=== PATIENT | male | born 1970 | race Caucasian/White ===

== ENCOUNTER 2016-03-15 16:45 | Inpatient (IN) | payer OTHER, MEDICARE ==
[~2016-03-15] VITALS: Ht 152.4 cm; Wt 103.4 kg
[~2016-03-15 16:45] MED LIST: ACEPHEN650 M1 PR; ACETAMINOPHEN325 M2 PO; BENADRYL25 MG PO; BISACODYL10 M1 RC; CALAN80 MG PO; CRANBERRY450 M1 PO; DEPAKOTE250 M1 PO; DEPAKOTE500 M1 PO; FLEET ENEMA133 ML RC; FUROSEMIDE20 M1 PO; MILK OF MA400 MG/52 PO; MULTI-DAY VITA1 EACH PO; XARELTO20 M2 PO
--- NOTE | 2016-03-15 16:57 | ED GENERAL ADULT ---
History of Present Illness General Chief Complaint: Chest Pain Stated Complaint: BIBA FOR CP, VOMITING Source: patient Exam Limitations: poor historian Vital Signs & Intake/Output Vital Signs & Intake/Output Vital Signs Date Time Temp Pulse Resp B/P Pulse O2 O2 Flow FiO2 Ox Delivery Rate 03/15 2302 100.3 137 21 146/88 94 Nasal 2.0L Cannula 03/15 2024 99.8 140 28 158/84 98 Nasal 2.0L Cannula 03/15 1702 98 Room Air 03/15 1700 97.6 148 20 148/92 98 Room Air Allergies Coded Allergies: No Known Allergies (01/31/16) Triage Nurses Notes Reviewed? yes Onset: Abrupt Duration: hour(s): Timing: recent history HPI: 03/15/16 5:20 PM SOB pmhx: SPINA BIFIDA This is a 45-year-old man who presents to the emergency department complaining of chest pain and difficulty breathing. The patient states he was in his usual state of health until earlier today when he developed difficulty breathing and chest pressure. The onset of the symptoms were abrupt, the duration was just today, the severity is significant as his symptoms required her to come to the emergency department for care. He has a past medical history is spina bifida. He is a poor historian. (SHAGUFTA SANDOVAL DO) Reconcile Medications Acetaminophen 325 MG TABLET 2 TAB PO Q4H PRN PAIN/TEMP>/100 (Reported) Cranberry Fruit Concentrate (Cranberry) 450 MG TABLET 1 TAB PO DAILY SUPPLEMENT (Reported) Diphenhydramine HCl (Benadryl) (Unknown Strength) CAPSULE (Unknown Dose) PO BID PRN ITCHING (Reported) Divalproex Sodium (Depakote) 250 MG TABLET.DR 250 MG PO DAILY UNKNOWN ( Reported) Furosemide 20 MG TABLET 1 TAB PO DAILY DIURETIC (Reported) Magnesium Hydroxide (Milk Of Magnesia) 400 MG/5 ML ORAL.SUSP 30 ML PO DAILY PRN CONSTIPATION (Reported) Multivitamin (Multi-Day Vitamins) 1 EACH TABLET 1 TAB PO DAILY SUPPLEMENT ( Reported) Verapamil (Calan) 80 MG TABLET 1 TAB PO DAILY UNKNOWN (Reported) (AARON CACERES,MOO) Past History Travel History Traveled to [place] past 21 day No Medical History Any Pertinent Medical History? see below for history Neurological: vertigo, weakness spina bifida ydrocephalus neuro genic bladder intellectual disability Cardiovascular: hypertension, DVT Gastrointestinal: ileus rectal bleeding Renal: UTI Endocrine: diabetes History of CDIFF: Yes Surgical History Surgical History: non-contributory Psychosocial History What is your primary language Pashto Family History Hx Contributory? No (SHAGUFTA SANDOVAL DO) Review of Systems Review of Systems Constitutional: Denies: fever. EENTM: Denies: visual changes. Respiratory: Reports: short of breath. Cardiovascular: Reports: chest pain. GI: Denies: abdominal pain. Genitourinary: Reports: no symptoms. Musculoskeletal: Reports: back pain. Skin: Denies: rash. Neurological/Psychological: Reports: weakness. Hematologic/Endocrine: Reports: no symptoms. (SHAGUFTA SANDOVAL DO) Physical Exam Physical Exam General Appearance: alert, awake, anxious, mild distress Head: normal appearance Eyes: Bilateral: normal appearance, PERRL, EOMI. Ears, Nose, Throat: normal pharynx Neck: normal inspection, supple, limited range of motion Respiratory: chest non-tender, no respiratory distress, decreased breath sounds Cardiovascular: regular rate/rhythm Peripheral Pulses: 4+ radial (R), 4+ radial (L) Gastrointestinal: soft, non-tender Back: decreased range of motion Extremities: pedal edema Neurologic/Psych: awake, alert, oriented x 3 Skin: intact, normal color, warm/dry Comments: He has a chronic indwelling Foster. Core Measures ACS in differential dx? Yes CVA/TIA Diagnosis: No Severe Sepsis Present: No Septic Shock Present: No (SHAGUFTA SANDOVAL DO) Progress Differential Diagnoses I considered the following diagnoses in my evaluation of the patient: [Acute coronary syndrome, pneumonia, pulmonary embolism, urosepsis] Plan of Care: Orders Procedure Date/time Status Heart Healthy Diet 03/16 B Active Patient Data 03/15 2253 Active Admit to inpatient 03/15 2206 Active Vital Signs 03/15 2206 Active Code Status 03/15 2206 Active Add-on Test (ER Only) 03/15 1948 Active CULTURE,URINE 03/15 1948 Active BLOOD CULTURE 03/15 194 Active Intake & Output 03/15 1909 Active URINALYSIS 03/15 1836 Complete TROPONIN LEVEL 03/15 171 Complete D-DIMER 03/15 171 Complete COMPREHENSIVE METABOLIC PANEL 03/15 171 Complete CBC WITHOUT DIFFERENTIAL 03/15 1718 Complete B-TYPE NATRIURETIC PEP (BNP) 03/15 171 Complete LACTIC ACID 03/15 1714 Complete EKG 03/15 1646 Active Laboratory Tests 03/15/16 1905: Urinalysis PACKD H, Urine Color PINK H, Urine Clarity TURBD H, Urine pH 8.0, Ur Specific [place] 1.020, Urine Protein 100 H, Urine Ketones NEG, Urine Nitrite POS H, Urine Bilirubin NEG, Urine Urobilinogen 0.2, Ur Leukocyte Esterase LARGE H, Ur Microscopic SEDIMENT EXAMINED, Urine Crystals 4+ TRIP PHOS H, Urine Hemoglobin LARGE H, Urine Glucose NEG 03/15/16 171: Anion Gap 16, Estimated GFR > 60, BUN/Creatinine Ratio 27.5 H, Glucose 127 H, Lactic Acid 2.9 H, Calcium 10.3 H, Total Bilirubin 0.8, AST 23, ALT 26, Alkaline Phosphatase 66, Troponin I < 0.01, Nsm-F-Bwvplsizjdl Pept 82.5, Total Protein 7.9, Albumin 4.2, Globulin 3.7, Albumin/Globulin Ratio 1.1, D-Dimer 262 H, CBC w Diff MAN DIFF ORDERED, RBC 6.42 H, MCV 82.6, MCH 27.3, RDW 15.5 H, MPV 8.9, Gran % 93.0 H, Lymphocytes % 2.5 L, Monocytes % 4.5, Eosinophils % 0, Basophils % 0 L, Absolute Granulocytes 20.1 H, Segmented Neutrophils 77 H, Band Neutrophils 18 H, Absolute Lymphocytes 0.5 L, Lymphocytes 2 L, Monocytes 3, Absolute Monocytes 1.0 H, Absolute Eosinophils 0, Absolute Basophils 0, Platelet Estimate ADEQUATE, Normochromic RBCs VERIFIED, Poikilocytosis 1+, Stomatocytes 1+, PUBS MCHC 33.0 Microbiology 03/15 2104 BLOOD: Blood Culture - RECD 03/15 2049 BLOOD: Blood Culture - RECD 03/15 1948 URINE ROUT: Urine Culture - ORD 10:[address] angiogram negative for PE. Patient admitted for sepsis likely urologic in origin. Heart rate improved after 2 L of normal saline. Discussed with Dr. Kelley. Patient admitted to Dr. Cesar rg. (AARON CACERES,MOO) Initial ED EKG: nonspecific ST T wave chg, sinus tachycardia Prior EKG: unchanged (JAIME DO,SHAGUFTA L.) Diagnostic Imaging: Viewed by Me: CT Scan. Discussed w/RAD: CT Scan. Radiology Impression: PATIENT: DAVE PRO PRESENT AGE: 45 PATIENT ACCOUNT NO: [id number] : 68 LOCATION: [facility] ORDERING PHYSICIAN: MOO HOPE MD SERVICE DATE: 03/15/16 EXAM TYPE: CAT - CTA CHEST-PULMONARY EMBOLISM EXAMINATION: CT ANGIOGRAM OF THE CHEST WITH AND WITHOUT CONTRAST (CT PULMONARY ANGIOGRAM FOR PE) CLINICAL INFORMATION: Dyspnea and tachycardia in a 45-year-old male. COMPARISON: Chest x-ray done earlier this evening. TECHNIQUE: Prior to contrast administration, noncontrast localization images were obtained. Subsequently, multidetector volumetric imaging was performed from the thoracic inlet to below the diaphragms following the administration of 95 mL Optiray 350 intravenous contrast. No contrast reaction reported Sagittal, coronal, and MIP oblique sagittal reformatted images were obtained on the CT workstation, uploaded to PACS, and reviewed. Total exam dose- length product 526 mGy-cm FINDINGS: QUALITY OF STUDY/CONTRAST BOLUS: Satisfactory. Beam hardening artifacts caused by the fact the patient could not elevate his arms for the study. PULMONARY ARTERIES: No central or segmental pulmonary emboli. THORACIC AORTA: No aneurysm or dissection. LUNG: Subsegmental compression atelectasis is seen in the right lung due to the relatively higher position of the right hemidiaphragm. PLEURA: No pleural effusion or pneumothorax. The right hemidiaphragm is elevated. MEDIASTINUM: Normal heart size. No pericardial effusion. No hilar or mediastinal lymphadenopathy. No evidence of septal bowing or right heart strain. CHEST WALL/AXILLA: No axillary or internal mammary lymphadenopathy. OSSEOUS STRUCTURES: No acute or suspicious osseous abnormality. UPPER ABDOMEN: A small amount of ascites is seen beneath the right hemidiaphragm and perihepatic space. No reflux of contrast into the hepatic veins to suggest elevated right heart pressures. IMPRESSION: 1. No evidence of pulmonary embolism. 2. Compression subsegmental atelectasis of the right lower lobe. 3. Small volume ascites in the right upper quadrant. VTE: negative DICTATED BY: MARIA ELENA VELASQUEZ MD DATE/TIME DICTATED:03/15/162124 CHIEF COOK:DIONICIO DATE/TIME TRANSCRIBED:03/15/162124 CONFIDENTIAL, DO NOT COPY WITHOUT APPROPRIATE AUTHORIZATION. <Electronically signed in Other Vendor System> SIGNED BY: MARIA ELENA VELASQUEZ MD 03/15/162140 CXR Impression: PATIENT: DAVE PRO PRESENT AGE: 45 PATIENT ACCOUNT NO: [id number] : 68 LOCATION: [facility] ORDERING PHYSICIAN: SHAGUFTA SANDOVAL DO SERVICE DATE: 03/15/16 EXAM TYPE: RAD - XRY- PORTABLE CHEST XRAY EXAMINATION: XR PORTABLE CHEST CLINICAL INFORMATION: 45-year -old male with shortness of breath. COMPARISON: None TECHNIQUE: Portable AP semierect view of the chest was obtained. FINDINGS: This is an expiratory film. In fact, the level of the right hemidiaphragm nearly approaches the level of the josep. The visualized lungs are clear showing no sign of edema or consolidation. There is no definite pleural effusion. IMPRESSION: Significantly low lung volumes. DICTATED BY: MARIA ELENA VELASQUEZ MD DATE/TIME DICTATED:03/15/161751 CHIEF COOK:DIONICIO DATE/TIME TRANSCRIBED:03/15/161751 CONFIDENTIAL, DO NOT COPY WITHOUT APPROPRIATE AUTHORIZATION. <Electronically signed in Other Vendor System> SIGNED BY: MARIA ELENA VELASQUEZ MD 03/15/161756 (MOO HOPE MD) Departure Departure Disposition: STILL A PATIENT Condition: Stable Clinical Impression Primary Impression: UTI (urinary tract infection) Secondary Impressions: Chest pain, Leukocytosis, Sinus tachycardia Referrals: DAVE SAUNDERS MD (PCP/Family) Departure Forms: Customer Survey General Discharge Information Comments 03/15/16 7 PM- the patient was signed out to Dr. Hope. Admission Note Documentation of Exam: Documentation of any treatments & extenuating circumstances including Concerns Regarding Discharge (functional status, medication knowledge or non-compliance, living conditions, etc.) that warrant an admission rather than observation: (SHAGUFTA SANDOVAL DO) Departure Time of Disposition: 2206 Admission Note Spoke With: DAVE SAUNDERS MD Documentation of Exam: Documentation of any treatments & extenuating circumstances including Concerns Regarding Discharge (functional status, medication knowledge or non-compliance, living conditions, etc.) that warrant an admission rather than observation: [ Patient to be admitted on the general medical floor under Dr. Guerrero service. He will require IV hydration, monitor intake and output, IV antibiotics, follow- up blood and urine cultures] (AARON CACERES,MOO) Critical Care Note Critical Care Note Critical Care Time: 30-74 min (SHAGUFTA SANDOVAL DO)
--- NOTE | 2016-03-15 16:58 | NUR ---
PT BIBA FROM [facility] FOR EVAL OF DECREASED URINARY OUTPUT TODAY. PT HAS A APODACA IN PLACE UPON ARRIVAL AND NOTED TO HAVE 200CC OF DARK YELLOW URINE. PT ALSO C/O 9/10 SUBSTERNAL C/P, SOB, AMAYA, AND VOMITING. STATES SYPMTOMS BEGAN APPROX. 2 HOURS AGO. VSS. NO ACUTE DISTRESS NOTED. EKG PERFORMED AND SHOWN TO DR. SANDOVAL.
--- NOTE | 2016-03-15 17:21 | NUR ---
DR. SANDOVAL AT BEDSIDE TO EXAMINE. EJ PLACED IN RIGHT JUGULAR BY DR. SANDOVAL DUE TO POOR VENOUS ACCESS.
--- NOTE | 2016-03-15 17:42 | NUR ---
PT O2 DROPPED TO 90% WITH A GOOD WAVEFORM. PLACED BACK ON 2L OF O2. O2 SAT AT 98%. NS BOLUS INFUSING AT THIS TIME PER EMAR. PT REPORTS SYMPTOMS ARE SUBSIDING. WILL CONTINUE TO MONITOR.
[2016-03-15 17:50] LABS: ABSOLUTE BASOPHIL COUNT 0 /CUMM (0.0-0.2); ABSOLUTE EOSINOPHIL COUNT 0 /CUMM (0.0-0.7); ABSOLUTE GRANULOCYTE CT 20.1 /CUMM (1.4-6.5); ABSOLUTE LYMPH COUNT 0.5 /CUMM (1.2-3.4); BASOPHIL % 0 % (0.0-2.0); EOSINOPHIL % 0 % (0-5); HEMATOCRIT 53.1 % (42-52); MEAN CORPUSCULAR HGB 27.3 PG (27.0-31.0); MEAN CORPUSCULAR VOLUME 82.6 FL (80.0-94.0); MEAN PLATELET VOLUME 8.9 FL (7.4-10.4); PLATELET COUNT 316 /CUMM (130-400); RBC DISTRIBUTION WIDTH 15.5 % (11.5-14.5); RED BLOOD CELL CT 6.42 /CUMM (4.70-6.10); WHITE BLOOD CELL COUNT 21.6 /CUMM (4.8-10.8)
--- NOTE | 2016-03-15 17:57 | RADIOLOGY REPORT ---
EXAMINATION: XR PORTABLE CHEST CLINICAL INFORMATION: 45-year-old male with shortness of breath. COMPARISON: None TECHNIQUE: Portable AP semierect view of the chest was obtained. FINDINGS: This is an expiratory film. In fact, the level of the right hemidiaphragm nearly approaches the level of the josep. The visualized lungs are clear showing no sign of edema or consolidation. There is no definite pleural effusion. IMPRESSION: Significantly low lung volumes.
--- NOTE | 2016-03-15 19:09 | NUR ---
URINE COLLECTED OFF OF APODACA. TRIO SENT TO LAB.
--- NOTE | 2016-03-15 20:48 | NUR ---
CRITICAL TEST RESULTS [id number] DAVE PRO 45 [place] TESTS AND RESULTS: LACTIC 2.9 Results received and read back by: ZULEIKA WILHELM Results received date and time: 03/15/162047 The following provider was notified of the results, and read the results back: Notified date and time: 03/15/16 at 2056
--- NOTE | 2016-03-15 21:13 | NUR ---
PTS SISTER CALLED AND UPDATED AT REQUEST OF PT (GIVEN APPROVAL TO DISCUSS MEDICAL INFORMATION). SISTER (ASHLEE) ASKED TO BE CALLED WITH ANY UPDATES, SHE IS AWARE THAT PT WILL BE ADMITTED. C: [phone] W:[phone]
--- NOTE | 2016-03-15 21:41 | CT SCAN REPORT ---
EXAMINATION: CT ANGIOGRAM OF THE CHEST WITH AND WITHOUT CONTRAST (CT PULMONARY ANGIOGRAM FOR PE) CLINICAL INFORMATION: Dyspnea and tachycardia in a 45-year-old male. COMPARISON: Chest x-ray done earlier this evening. TECHNIQUE: Prior to contrast administration, noncontrast localization images were obtained. Subsequently, multidetector volumetric imaging was performed from the thoracic inlet to below the diaphragms following the administration of 95 mL Optiray 350 intravenous contrast. No contrast reaction reported Sagittal, coronal, and MIP oblique sagittal reformatted images were obtained on the CT workstation, uploaded to PACS, and reviewed. Total exam dose-length product 526 mGy-cm FINDINGS: QUALITY OF STUDY/CONTRAST BOLUS: Satisfactory. Beam hardening artifacts caused by the fact the patient could not elevate his arms for the study. PULMONARY ARTERIES: No central or segmental pulmonary emboli. THORACIC AORTA: No aneurysm or dissection. LUNG: Subsegmental compression atelectasis is seen in the right lung due to the relatively higher position of the right hemidiaphragm. PLEURA: No pleural effusion or pneumothorax. The right hemidiaphragm is elevated. MEDIASTINUM: Normal heart size. No pericardial effusion. No hilar or mediastinal lymphadenopathy. No evidence of septal bowing or right heart strain. CHEST WALL/AXILLA: No axillary or internal mammary lymphadenopathy. OSSEOUS STRUCTURES: No acute or suspicious osseous abnormality. UPPER ABDOMEN: A small amount of ascites is seen beneath the right hemidiaphragm and perihepatic space. No reflux of contrast into the hepatic veins to suggest elevated right heart pressures. IMPRESSION: 1. No evidence of pulmonary embolism. 2. Compression subsegmental atelectasis of the right lower lobe. 3. Small volume ascites in the right upper quadrant. VTE: negative
--- NOTE | 2016-03-15 21:42 | NUR ---
PT TRANSPORTED TO AND FROM CT-SCAN. ROCEPHIN ADMINISTERED AND NS BOLUS INFUSING AT THIS TIME PER EMAR. PT TOLERATED PROCEDURES WELL.
--- NOTE | 2016-03-15 22:51 | NUR ---
[facility] CALLED ON BEHALF OF PT REQUEST, SPOKE WITH RN, MADE AWARE THAT PT WILL BE ADMITTED.
--- NOTE | 2016-03-16 00:06 | NUR ---
Emergency Dept [facility] Admit Note: To be admitted to [facility] by DR. FRANK with UROSEPSIS as the diagnosis, to 2NB #[id number] location. Nursing Die Turner and admitting notified 03/16/16 at 0856
--- NOTE | 2016-03-16 00:23 | NUR ---
REPORT GIVEN TO TATUM REESE
--- NOTE | 2016-03-16 01:07 | History & Physical ---
VEENA CACERES,[facility] [place] 03/16/16 0106: General Information and HPI MD Statement: I have seen and personally examined DAVE PRO and documented this H&P. The patient is a 45 year old M who presented with a patient stated chief complaint of chest and abdominal pain and shortness of breath. Source of Information: patient, W10 Exam Limitations: poor historian History of Present Illness: Patient is a 45 y/o M with PMHx of spina bifida, urinary incontinence with chronic indwelling Torrez, HTN, DVT, prediabetes and intellectual disability who is BIBA from rehab facility for chest and abdominal pain and shortness of breath. Patient reports that the night prior to current presentation he was nauseous and had an episode of nonbloody nonbilious emesis. The next day he had sudden onset of chest pain, starting from his left chest and radiating to the right. Pain is 9 out of 10 in intensity, sharp and exacerbated by deep breathing and associated with shortness of breath. He also endorses diffuse abdominal pain most pronounced in the epigastric region as well as dysuria. He reports history of recurrent UTIs. Patient is non-ambulatory at baseline, uses a wheelchair and spends most of his time in bed. His Torrez was last changed two days prior to current presentation. Allergies/Medications Allergies: Coded Allergies: No Known Allergies (01/31/16) Home Med list Acetaminophen 325 MG TABLET 2 TAB PO Q4H PRN PAIN/TEMP>/100 (Reported) Cranberry Fruit Concentrate (Cranberry) 450 MG TABLET 1 TAB PO DAILY SUPPLEMENT (Reported) Diphenhydramine HCl (Benadryl) (Unknown Strength) CAPSULE (Unknown Dose) PO BID PRN ITCHING (Reported) Divalproex Sodium (Depakote) 250 MG TABLET.DR 250 MG PO AT BEDTIME DISRUPTIVE BEHAVIORS (Reported) Furosemide 20 MG TABLET 1 TAB PO DAILY DIURETIC (Reported) Magnesium Hydroxide (Milk Of Magnesia) 400 MG/5 ML ORAL.SUSP 30 ML PO DAILY PRN CONSTIPATION (Reported) Multivitamin (Multi-Day Vitamins) 1 EACH TABLET 1 TAB PO DAILY SUPPLEMENT ( Reported) Rivaroxaban (Xarelto) 20 MG TABLET 1 TAB PO QPM DVT (Reported) with food Verapamil (Calan) 80 MG TABLET 1 TAB PO DAILY UNKNOWN (Reported) Past History Travel History Traveled to [place] past 21 day No Medical History Neurological: vertigo, weakness spina bifida ydrocephalus neuro genic bladder intellectual disability, intellectual disability Cardiovascular: hypertension, DVT Gastrointestinal: ileus rectal bleeding Renal: urinary incontinence, recurrent UTI, chronic indwelling Torrez Endocrine: diabetes History of CDIFF: Yes Surgical History Surgical History: non-contributory Past Family/Social History Psychosocial History Where do you [facility]? [facility] ETOH Use: denies use Illicit Drug Use: denies illicit drug use Functional Ability ADLs Needs Assist: dressing, eating, toileting, bathing. Ambulation: non-ambulatory IADLs Needs Assist: shopping, housework, finances, food prep, telephone, transportation, medication admin. Review of Systems Review of Systems Constitutional: Denies: chills, fever. EENTM: Reports: no symptoms. Cardiovascular: Reports: chest pain, peripheral edema (chronic). Respiratory: Reports: short of breath. GI: Reports: abdominal pain, nausea, vomiting. Denies: constipation, diarrhea. Genitourinary: Reports: dysuria. Musculoskeletal: Reports: no symptoms. Skin: Reports: no symptoms. Neurological/Psychological: Reports: no symptoms. Hematologic/Endocrine: Reports: no symptoms. Immunologic/Allergic: Reports: no symptoms. Exam & Diagnostic Data Last 24 Hrs of Vital Signs/I&O Vital Signs Date Time Temp Pulse Resp B/P Pulse O2 O2 Flow FiO2 Ox Delivery Rate 03/16 033 95 Nasal 2.0L Cannula 03/16 033 98.7 123 20 112/82 95 Nasal 2.0L Cannula 03/16 0156 100.3 03/15 2302 100.3 137 21 146/88 94 Nasal 2.0L Cannula 03/15 2024 99.8 140 28 158/84 98 Nasal 2.0L Cannula 03/15 1702 98 Room Air 03/15 1701 97.6 148 20 148/92 98 Room Air Intake & Output 03/16 0800 03/16 0000 03/15 1600 Intake Total 270 2100 Output Total 300 400 - 1700 Intake, IV 150 2100 Intake, Oral 120 Output, Urine 300 400 Patient 103.419 kg Weight Physical Exam General Appearance Alert, Oriented X3, No Acute Distress Skin No Rashes HEENT PERRLA, Dry Mucous Membranes Cardiovascular Regular Rate, Normal S1, Normal S2, No Murmurs, Gallops, Rubs, No Anterior Chest Wall Tenderness Lungs Clear to Auscultation Abdomen Firm and Distended, Diffuse Abdominal Tenderness and Suprapubic Tenderness to Palpation, No Costovertebral Angle Tenderness Noted Extremities No Clubbing, No Cyanosis, No Edema Last 24 Hrs of Labs/Rex: Laboratory Tests 03/15/16 1905: Urinalysis PACKD H, Urine Color PINK H, Urine Clarity TURBD H, Urine pH 8.0, Ur Specific [place] 1.020, Urine Protein 100 H, Urine Ketones NEG, Urine Nitrite POS H, Urine Bilirubin NEG, Urine Urobilinogen 0.2, Ur Leukocyte Esterase LARGE H, Ur Microscopic SEDIMENT EXAMINED, Urine Crystals 4+ TRIP PHOS H, Urine Hemoglobin LARGE H, Urine Glucose NEG 03/15/16 1715: Anion Gap 16, Estimated GFR > 60, BUN/Creatinine Ratio 27.5 H, Glucose 127 H, Lactic Acid 2.9 H, Calcium 10.3 H, Total Bilirubin 0.8, AST 23, ALT 26, Alkaline Phosphatase 66, Troponin I < 0.01, Gct-O-Ivcwsxggddh Pept 82.5, Total Protein 7.9, Albumin 4.2, Globulin 3.7, Albumin/Globulin Ratio 1.1, D-Dimer 262 H, CBC w Diff MAN DIFF ORDERED, RBC 6.42 H, MCV 82.6, MCH 27.3, RDW 15.5 H, MPV 8.9, Gran % 93.0 H, Lymphocytes % 2.5 L, Monocytes % 4.5, Eosinophils % 0, Basophils % 0 L, Absolute Granulocytes 20.1 H, Segmented Neutrophils 77 H, Band Neutrophils 18 H, Absolute Lymphocytes 0.5 L, Lymphocytes 2 L, Monocytes 3, Absolute Monocytes 1.0 H, Absolute Eosinophils 0, Absolute Basophils 0, Platelet Estimate ADEQUATE, Normochromic RBCs VERIFIED, Poikilocytosis 1+, Stomatocytes 1+, PUBS MCHC 33.0 Microbiology 03/16 211 STOOL: Clostridium difficile Toxin A & B - COLB 03/15 2104 BLOOD: Blood Culture - RECD 03/15 2049 BLOOD: Blood Culture - RECD 03/15 1948 URINE ROUT: Urine Culture - COLB Diagnostic Data EKG Results Sinus tachycardia HR 147 Multiple atrial premature complexes QTc 420 CXR Results Significantly low lung volumes. Other Results CTA CHEST PE: 1. No evidence of pulmonary embolism. 2. Compression subsegmental atelectasis of the right lower lobe. 3. Small volume ascites in the right upper quadrant. VTE: negative Assessment/Plan Assessment: 45 y/o M with PMHx of spina bifida, urinary incontinence with chronic indwelling Torrez and HTN who presents with chest and abdominal pain and shortness of breath. #Urosepsis: Met SIRS criteria for sepsis on admission with WBC count of 21.6 and heart rate of 148. Source is urinary tract given UA with packed WBCs and positive leukocyte esterase. Patient has a chronic indwelling Torrez which is a nidus for infection. Lactate 2.9 on admission. * UCx ordered. * Ceftriaxone 1 g IV QD started. * Trend lactate. * Consider replacing Torrez catheter. #Tachycardia: Sinus tachycardia on initial presentation with HR up to 140s. Most likely multifactorial, secondary to dehydration and sepsis. Slight improvement after IVF boluses. * Admit to telemetry for continuous cardiac monitoring. * Aggressive IVF hydration with NS @ 100 cc/hr. #Chest pain: Sharp pain in left chest with radiation to the right associated with shortness of breath. Potential etiologies include ACS, musculoskeletal and GI. CTA Chest PE negative for PE. First set of troponins negative. EKG with no changes. * Serial EKGs and troponin to rule out ACS. #Abdominal pain: Diffuse abdominal pain most pronounced around suprapubic region. * Check CT Abdomen/Pelvis W/O IV Contrast to rule out acute process. #DVT: Questionable prior history of DVT. Patient is on Xarelto. Details unclear. * Contact penitentiary to get more information on prior history of DVT and why patient has been started on Xarelto. #Diet: Heart Healthy #DVT PPx: ALPs #CODE: FULL As Ranked By This Provider Problem List: 1. Chest pain 2. Sinus tachycardia 3. UTI (urinary tract infection) 4. Abdominal pain 5. Sepsis 6. Chronic indwelling Torrez catheter Core Measures/Miscellaneous Acute Coronary Syndrome ACS Diagnosis: No Cerebrovascular Accident CVA/TIA Diagnosis: No Congestive Heart Failure CHF Diagnosis: No Venous Thromboembolism VTE Risk Factors: Acute medical illness, Age > 40, Immobility, paresis, Obesity, Previous VTE VTE Prophylaxis Ordered Inpt: Mechanical (ALPS/TEDS) No Mech VTE prophylaxis d/t: No contraindications No VTE Pharm Prophylaxis d/t: Refused treatment VTE Diagnosis: No VTE Type: NONE VTE Confirmed by (Test): NONE Severe Sepsis Severe Sepsis Present: No Septic Shock Septic Shock Present: No Miscellaneous Documentation Attending Case Discussed With: DALILA FRANK MD Primary Care Physician: DAVE SAUNDERS MD Patient sees these Specialists N/A Level of Patient Care: Telemetry STEVE DE JESUS MD 03/16/16 0727: Resident Review Statement Resident Statement: examined this patient, discussed with mechanical engineering intern, agreed with mechanical engineering intern Other Findings: 45 YO M with pmh spina bifida, htn, dvt, dm presents from [facility] c/o chest discomfort, difficulty breathing and abdominal pain that started earlier today. He reports that his onset of symptoms were abrupt which prompted his transfer to the ER. He denies palpitations, lightheadness, change in appetite or stools. Denies fevers, chills, urinary symptoms. Reports that he has a chronic indwelling torrez, that was changed 2 days ago. His problems include chest pain, we need to rule him out for acs with serial troponins and ekgs. His wbc is elevated with left shift and he is febrile with an inital elevated lactate. we will treat him for urosepsis with ceftriaxone that has been started in the er. We need to confirm his home medications, he recieved a dose of xarelto at the facility. this will need to be confirmed and restarted along with his depakote. He was intially a general medicine admission however when he remained tachycardic he was placed on telemetry. The cause of his tachycardia is likely multifocal with fevers, infection, dehydration as the cause. we will hydrate, place him on antibiotics and provide antipyretics and watch him. DALILA FRANK MD 03/16/16 0924: Attending MD Review Statement Attending Statement Attending MD Statement: examined this patient, discuss w/resident/PA/[employer] GROUNDSKEEPER, agreed w/resident/PA/[employer]USTRIAL COMMERCIAL GROUNDSKEEPER, reviewed EMR data (avail)
--- NOTE | 2016-03-16 01:29 | NUR ---
REPORT GIVEN TO TATUM ORLANDO
--- NOTE | 2016-03-16 01:39 | NUR ---
REPEAT LACTIC DRAWN AND SENT TO LAB BY THIS RN
--- NOTE | 2016-03-16 01:56 | NUR ---
PT MEDICATED WITH NS INFUSING @500MLS/HR AND OFFIRMEV PER EMAR
--- NOTE | 2016-03-16 02:08 | NUR ---
HOUSE STAFF AT BEDSIDE FOR PT EVAL.
--- NOTE | 2016-03-16 02:32 | NUR ---
PT ATTEMPTED TO BE DRAWN FOR REPEAT LACTIC AND TROPONIN. PT WAS STUCK MULTIPLE TIMES WITHOUT SUCCESS, HOUSE STAFF MADE AWARE. PT TO CAT SCAN VIA STRETCHER
--- NOTE | 2016-03-16 03:07 | CT SCAN REPORT ---
EXAMINATION: CT ABDOMEN AND PELVIS WITHOUT CONTRAST CLINICAL INFORMATION: Urinary tract infection. Abdominal pain. COMPARISON: 03/15/2016. TECHNIQUE: Contiguous axial thin section helical images of the abdomen and pelvis were performed without oral or IV contrast. The data set was reformatted in the coronal and sagittal planes and reviewed on an independent workstation. DLP: 1184 mGy-cm. FINDINGS: In the setting of low lung volumes, there is streaky bibasilar atelectasis. The visualized portions of the heart are unremarkable. The liver is of normal size and attenuation without focal lesions nor intrahepatic biliary ductal dilation. A normal gallbladder is identified. There is no wall thickening or discernible pericholecystic fluid. There is a small amount of free fluid overlying the right lobe of the liver. The spleen, pancreas, adrenal glands are unremarkable. Both kidneys are of normal size and attenuation without hydronephrosis or nephrolithiasis. Contrast material is present within the collecting system of each kidney and proximal ureters. 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 There is an extrarenal pelvis present on the left. There is mild ureteral wall thickening within the proximal right ureter. Within the distal left ureter on image 594/824, there is a 2 mm punctate density within the distal left ureter. There is neither mesenteric nor retroperitoneal lymphadenopathy. Normal unopacified loops of small and large bowel are identified. There is fat stranding present within the pelvis with a moderate amount of free fluid within the right lower quadrant and right hemipelvis. There is a small amount of free fluid within the left lower quadrant. A Foster catheter is in place within the urinary bladder which is decompressed. There is neither pelvic nor inguinal lymphadenopathy. Bone windows: The patient is status post L4-S1 laminectomy. IMPRESSION: Right greater than left lower quadrant free fluid. There is also a small amount of free fluid overlying the right lobe of the liver. Contrast material is identified within the collecting system of each kidney and the proximal ureters. Correlate with patient history. This could be residual from the prior CT. Right typically collecting system. Left extra renal pelvis. Mild nonspecific proximal right ureteral wall thickening. Either 2 mm nonobstructive distal left ureteral calculus or small focus of residual contrast.
[2016-03-16 03:36] VITALS: BP 112/82
--- NOTE | 2016-03-16 05:20 | NUR ---
PT ADMITTED FROM ER VIA STETCHER. OREINTED TO ROOM, CALL ALBERTO, STAFF ETC. A/O X3. 2 L O2. SKIN CDI, RASH TO GROIN AREA. C/O CHEST PAIN. EKG AND TROPONIN ORDERED. HR-123. PRE-HOSP [place] IN PLACED. FLUIDS RUNNING AT 100 ML/H. WILL CONTINUED TO MONITOR.
[2016-03-16] MEDS ORDERED: XARELTO20 M2 PO (07:59)
[2016-03-16 08:28] VITALS: BP 118/78
--- NOTE | 2016-03-16 09:20 | Admission Certification ---
Admission Certification Certification Statement - As attending physician, I certify that at the time of - admission, based on clinical presentation, severity of - symptoms, need for further diagnostic testing and - therapeutic interventions, and risk of adverse outcomes - without in-hospital treatment, in my clinical assessment, - this patient requires an acute hospital stay for a minimum - of two nights or longer. I have also considered psychsocial - factors such as support system, advanced age, financial - issues, cognitive issues, and failed out-patient treatments, - past re-admission history, safety of patient, and lack of - compliance as applicable. Specific rationale supporting this admission is: UTITI
--- NOTE | 2016-03-16 09:24 | PN- Att Addend ---
Attending Addendum Attending Brief Note Patient complains of generalized weakness General Appearance: Alert, No Acute Distress Skin: Grossly normal HEENT: PEERLA Neck: Supple, No JVD Cardiovascular: Regular Rate, Normal S1, Normal S2, No Murmurs Lungs: Clear to Auscultation, Normal Air Movement Abdomen: Normal Bowel Sounds, Soft, No Tenderness Neurological: Normal Speech, Strength at 5/5 X4 Ext, Cranial Nerves 3-12 NL, Reflexes 2+ Extremities: No Clubbing, No Cyanosis, No Edema Vascular: Normal Pulses Assessment 45-year-old history of spina bifida with urinary incontinence and chronic indwelling Foster, BPH, history of DVT who is currently a long term resident presenting with complains of fever and lethargy. He has a dirty urine with fever spikes suggesting UTI likely secondary to chronic indwelling Foster that was apparently changed 2 days back. Patient has never seen a urology and I offered him a suprapubic catheter however he refused to have an placed. Patient however is still willing to discuss this with the urologist. Plan Continue current IV antibiotics Follow all cultures Urology evaluation Continue other home meds DVT prophylaxis Current Medications Sig/Елена Start time Last Medication Dose Route Stop Time Status Admin Acetaminophen 1,000 MG ONCE ONE 03/16 0045 DC 03/16 N/A 1 UNIT IV 03/16 0059 0156 Ceftriaxone Sodium 1,000 MG Q24H 03/16 2129 AC IV Ceftriaxone Sodium 0 .STK-MED ONE 03/15 2133 DC .ROUTE Ceftriaxone Sodium 1,000 MG ONCE ONE 03/15 2030 DC 03/15 IV 03/15 203 2141 Divalproex Sodium 250 MG AT BEDTIME 03/16 2200 AC PO Heparin Sodium 5,000 UNIT Q8 03/16 0600 DC 03/16 (Porcine) [place] 0623 Influenza Virus 0.5 ML 1000 03/16 1000 AC Vaccine IM 03/16 1001 Rivaroxaban 20 MG 1700 03/16 1700 AC PO Sodium Chloride 1,000 ML Q10H 03/16 0530 AC 03/16 IV 0532 Sodium Chloride 1,000 ML BOLUS ONE 03/16 0245 DC IV 03/16 0344 Sodium Chloride 1,000 ML BOLUS ONE 03/16 0130 DC 03/16 IV 03/16 0329 0153 Sodium Chloride 1,000 ML BOLUS ONE 03/15 2100 DC 03/15 IV 01/30 2159 2141 Sodium Chloride 1,000 ML BOLUS ONE 03/15 1730 DC 03/15 IV 03/15 1929 1742 Laboratory Tests 03/16 03/16 03/15 0400 0150 1905 Chemistry Lactic Acid (0.7 - 2.1 mmol/L) 1.2 Troponin I (<0.11 ng/ml) < 0.01 Urines Urinalysis PACKD H Urine Color (YEL,AMB,STR) PINK H Urine Clarity (CLEAR) TURBD H Urine pH (5.0 - 8.0) 8.0 Ur Specific [place] (1.001 - 1.035) 1.020 Urine Protein (NEG,<30 MG/DL) 100 H Urine Ketones (NEG) NEG Urine Nitrite (NEG) POS H Urine Bilirubin (NEG) NEG Urine Urobilinogen (0.1 - 1.0 EU/dl) 0.2 Ur Leukocyte Esterase (NEG) LARGE H Ur Microscopic SEDIMENT EXAMINED Urine Crystals 4+ TRIP PHOS H Urine Hemoglobin (NEG) LARGE H Urine Glucose (N MG/DL) NEG 03/15 1715 Chemistry Sodium (137 - 145 mmol/L) 143 Potassium (3.5 - 5.1 mmol/L) 4.6 Chloride (98 - 107 mmol/L) 101 Carbon Dioxide (22 - 30 mmol/L) 26 Anion Gap (5 - 16) 16 BUN (9 - 20 mg/dL) 33 H Creatinine (0.7 - 1.2 mg/dL) 1.2 Estimated GFR (>60 ml/min) > 60 BUN/Creatinine Ratio (7 - 25 %) 27.5 H Glucose (65 - 99 mg/dL) 127 H Lactic Acid (0.7 - 2.1 mmol/L) 2.9 H Calcium (8.4 - 10.2 mg/dL) 10.3 H Total Bilirubin (0.2 - 1.3 mg/dL) 0.8 AST (17 - 59 U/L) 23 ALT (21 - 72 U/L) 26 Alkaline Phosphatase (< 127 U/L) 66 Troponin I (<0.11 ng/ml) < 0.01 Ywm-A-Riukcrwvsmm Pept (<125 pg/mL) 82.5 Total Protein (6.3 - 8.2 g/dL) 7.9 Albumin (3.5 - 5.0 g/dL) 4.2 Globulin (1.9 - 4.2 gm/dL) 3.7 Albumin/Globulin Ratio (1.1 - 2.2 %) 1.1 Coagulation D-Dimer (70 - 232 ng/ml) 262 H Hematology CBC w Diff MAN DIFF ORDERED WBC (4.8 - 10.8 /CUMM) 21.6 H RBC (4.70 - 6.10 /CUMM) 6.42 H Hgb (14.0 - 18.0 G/DL) 17.5 Hct (42 - 52 %) 53.1 H MCV (80.0 - 94.0 FL) 82.6 MCH (27.0 - 31.0 PG) 27.3 RDW (11.5 - 14.5 %) 15.5 H Plt Count (130 - 400 /CUMM) 316 MPV (7.4 - 10.4 FL) 8.9 Gran % (42.2 - 75.2 %) 93.0 H Lymphocytes % (20.5 - 51.1 %) 2.5 L Monocytes % (1.7 - 9.3 %) 4.5 Eosinophils % (0 - 5 %) 0 Basophils % (0.0 - 2.0 %) 0 L Absolute Granulocytes (1.4 - 6.5 /CUMM) 20.1 H Segmented Neutrophils (42.2 - 75.2 %) 77 H Band Neutrophils (0.0 - 5.0 %) 18 H Absolute Lymphocytes (1.2 - 3.4 /CUMM) 0.5 L Lymphocytes (20.5 - 51.1 %) 2 L Monocytes (1.7 - 9.3 %) 3 Absolute Monocytes (0.10 - 0.60 /CUMM) 1.0 H Absolute Eosinophils (0.0 - 0.7 /CUMM) 0 Absolute Basophils (0.0 - 0.2 /CUMM) 0 Platelet Estimate (ADEQUATE) ADEQUATE Normochromic RBCs VERIFIED Poikilocytosis 1+ Stomatocytes 1+ PUBS MCHC (33.0 - 37.0 G/DL) 33.0 Vital Signs Date Time Temp Pulse Resp B/P Pulse O2 O2 Flow FiO2 Ox Delivery Rate 03/16 827 98.9 120 20 118/78 95 Nasal 2.0L Cannula 03/16 08 Nasal 2.0L Cannula 03/16 335 95 Nasal 2.0L Cannula 03/16 335 98.7 123 20 112/82 95 Nasal 2.0L Cannula 03/16 0156 100.3 03/15 2302 100.3 137 21 146/88 94 Nasal 2.0L Cannula 03/15 2024 99.8 140 28 158/84 98 Nasal 2.0L Cannula 03/15 1702 98 Room Air 03/15 170 97.6 148 20 148/92 98 Room Air
[2016-03-16 11:56] VITALS: BP 132/82
[2016-03-16 11:59] LABS: ABSOLUTE BASOPHIL COUNT 0 /CUMM (0.0-0.2); ABSOLUTE EOSINOPHIL COUNT 0 /CUMM (0.0-0.7); ABSOLUTE GRANULOCYTE CT 16.4 /CUMM (1.4-6.5); ABSOLUTE LYMPH COUNT 0.8 /CUMM (1.2-3.4); ABSOLUTE MONOCYTE COUNT 1.1 /CUMM (0.10-0.60); BASOPHIL % 0.2 % (0.0-2.0); EOSINOPHIL % 0.1 % (0-5); GRANULOCYTE % 89.2 % (42.2-75.2); MEAN CORPUSCULAR HGB 27.6 PG (27.0-31.0); MEAN CORPUSCULAR HGB CONC 33.4 G/DL (33.0-37.0); MEAN CORPUSCULAR VOLUME 82.7 FL (80.0-94.0); MEAN PLATELET VOLUME 9.3 FL (7.4-10.4); PLATELET COUNT 246 /CUMM (130-400); RBC DISTRIBUTION WIDTH 16.4 % (11.5-14.5); RED BLOOD CELL CT 5.39 /CUMM (4.70-6.10); WHITE BLOOD CELL COUNT 18.4 /CUMM (4.8-10.8)
[2016-03-16 12:07] LABS: HEMATOCRIT 44.6 % (42-52)
--- NOTE | 2016-03-16 12:34 | NUR ---
11:55 PT REPORTING 8/10 CP/ABD PAIN AND STATES HE'S HAVING TROUBLE BREATHING DESPITE 2L NC. VSS. BP 132/82, HR 125, T 98.8 (ORAL), RR 22, O2 94% 2L NC. PT STATES HE IS COLD AND CAN'T GET WARM. 1156 BE CHANDLER PAGED. 1200 DR BAH AWARE AND EKG ORDERED AND DONE BY THIS RN. 1205 BE AT BEDSIDE. 1215 1 PERCOCET PO ORDERED AND GIVEN. 1230 RECTAL TEMP 100.4 1233 MALINI PAGED AND AWARE OF RECTAL TEMP. WILL CONTINUE TO MONITOR PT.
[2016-03-16 16:03] VITALS: BP 140/92
[2016-03-16 17:50] VITALS: BP 138/92
--- NOTE | 2016-03-16 18:10 | NUR ---
1750 CALLED INTO PT ROOM STAT. FOUND PT TACHYPNIC STATING HE IS HAVING REALLY BAD CP AND CAN'T CATCH A BREATH. VITALS- BP 138/92, HR 156, T 98.4 (ORAL), RR 24, O2 94% 2L WHEEZING. 175 RESPIRATORY CALLED 1757 SHAWN JAMES AWARE AND AT BEDSIDE TO ASSESS PT. 1800 STAT EKG/TROPONIN ORDERED AND DONE AND IMMEDIATELY BROUGHT TO LAB. 1805 STAT SUBLINGUAL NITRO ADMINISTERED. 1807 WOODY FROM RESPIRATORY IN TO ASSESS PT AND BUMPED HIS O2 UP TO 3L NC. 1815 DR ROSALES IN TO ASSESS PT AND 0.5MG LORAZAPAM PO ORDERED. WILL CONTINUE TO MONITOR PT.
--- NOTE | 2016-03-16 18:18 | Event Note ---
Event Note Event Note: At 6 PM, the nurse called me because the patient had intractable central chest pain that doesn't radiate to anywhere, shortness of breath, diaphoresis, patient denied nausea, lightheadedness. Physical examination Patient in moderate distress, anxious, 2 L nasal cannula Vital signs temperature 98.4, pulse rate 156, respiratory rate 24 on 2 L nasal cannula saturation 94%, blood pressure 158/94 Cardiovascular examination, no tenderness on palpation, S1-S2 no added sounds Lung equal air entry, some transmitted upper airway sounds Abdominal examination soft abdomen, nontender, positive bowel sounds Neurological examination patient alert responded appropriately to commands, motor 5/5, PERRLA Plan -EKG and troponin was ordered negative -Chest x-ray didn't show any acute changes -Patient was given sublingual nitroglycerin Once -Pantoprazole IV of 40 mg once -Lorazepam tab 0.5 mg once -Patient continue to have tachycardia for more than one hour, metoprolol titrate 12.5 mg by mouth once -I paged Dr. Pelaez to place consultation -We'll continue to follow
--- NOTE | 2016-03-16 19:15 | RADIOLOGY REPORT ---
EXAMINATION: XR PORTABLE CHEST CLINICAL INFORMATION: Chest pain. Shortness of breath. COMPARISON: Chest x-ray 03/15/2016 TECHNIQUE: Portable AP view of the chest was obtained. 6:49 PM FINDINGS: Lung volume is low with elevated diaphragms right greater than left. No acute infiltrate. No pulmonary vascular congestion. No pleural effusion. Compared to prior exam no change. IMPRESSION: No acute abnormality of the chest.
[2016-03-16 22:00] VITALS: BP 128/90
--- NOTE | 2016-03-17 01:45 | NUR ---
PT REFUSED 0000 BW, IMGE HULUR AWARE.
--- NOTE | 2016-03-17 07:08 | Cons- Urology ---
General Information and HPI Consulting Request Date of Consult: 03/17/16 [facility]ed By: [facility] Reason for Consult: neurogenic bladder and recurrent UTI Source of Information: patient, old records History of Present Illness: This patient has a neurogenic bladder due to spina bifida. Urologically he is followed by Dr Diaz of [facility]. He had been on self intermittent cath for years. However more recently he has been managed with an indwelling torrez. He states that his hand function has deteriorated and he is no longer able to perform self catheterization. [facility] and he states that there is no one there who is able to catheterize him. He was admitted with chest and abdominal pain and SOB. Blood cultures are positive for gram pos cocci. Urine culture is pending. He states that the torrez was changed 4 days ago. Allergies/Medications Allergies: Coded Allergies: No Known Allergies (01/31/16) Home Med List: Acetaminophen 325 MG TABLET 2 TAB PO Q4H PRN PAIN/TEMP>/100 (Reported) Cranberry Fruit Concentrate (Cranberry) 450 MG TABLET 1 TAB PO DAILY SUPPLEMENT (Reported) Diphenhydramine HCl (Benadryl) (Unknown Strength) CAPSULE (Unknown Dose) PO BID PRN ITCHING (Reported) Divalproex Sodium (Depakote) 250 MG TABLET.DR 250 MG PO AT BEDTIME DISRUPTIVE BEHAVIORS (Reported) Furosemide 20 MG TABLET 1 TAB PO DAILY DIURETIC (Reported) Magnesium Hydroxide (Milk Of Magnesia) 400 MG/5 ML ORAL.SUSP 30 ML PO DAILY PRN CONSTIPATION (Reported) Multivitamin (Multi-Day Vitamins) 1 EACH TABLET 1 TAB PO DAILY SUPPLEMENT ( Reported) Rivaroxaban (Xarelto) 20 MG TABLET 1 TAB PO QPM DVT (Reported) with food Verapamil (Calan) 80 MG TABLET 1 TAB PO DAILY UNKNOWN (Reported) Current Medications: Current Medications Sig/Елена Start time Last Medication Dose Route Stop Time Status Admin Acetaminophen 650 MG Q6P PRN 03/16 2215 AC 03/17 PO 0510 Bisacodyl 10 MG DAILY NEEDED PRN 03/16 223 AC FL Ceftriaxone Sodium 1,000 MG Q24H 03/16 2130 AC 03/16 IV 2115 Divalproex Sodium 250 MG AT BEDTIME 03/16 2199 AC 03/16 PO 211 Docusate Sodium 100 MG BID 03/16 2200 AC 03/16 PO 2224 Influenza Virus 0.5 ML 1000 03/16 1000 DC Vaccine IM 03/16 1001 Lorazepam 0.5 MG ONE ONE 03/16 1830 DC 03/16 PO 03/16 1831 1825 Metoprolol Tartrate 12.5 MG ONCE ONE 03/16 1900 DC 03/16 PO 03/16 1901 1856 Metoprolol Tartrate 25 MG .STK-MED ONE 03/16 1853 DC PO 03/16 1854 Nitroglycerin 0.4 MG ONCE ONE 03/16 1815 DC 03/16 SL 03/16 1816 1805 Oxycodone/ 1 TAB ONCE ONE 03/16 1230 DC 03/16 Acetaminophen PO 03/16 1231 1227 Pantoprazole Sodium 40 MG ONCE ONE 03/16 1815 DC 03/16 IV 03/16 181 1824 Patient Medication 1 ED .STK-MED ONE 03/16 1358 DC Teaching ED 03/16 1359 Polyethylene Glycol 17 GM DAILY 03/16 2129 AC 03/16 PO 2224 Rivaroxaban 20 MG 1700 03/16 1700 AC 03/16 PO 1808 Senna/Docusate Sodium 1 TAB BID 03/16 2200 AC 03/16 PO 2224 Simethicone 80 MG Q6P PRN 03/16 2115 AC 03/16 PO 2225 Sodium Chloride 1,000 ML Q10H 03/16 0530 DC 03/16 IV 1504 Past History Medical History Neurological: TIA, vertigo, weakness spina bifida ydrocephalus neuro genic bladder intellectual disability intellectual disability Cardiovascular: hypertension, DVT Respiratory: NONE Gastrointestinal: ileus rectal bleeding Hepatic: NONE Renal: urinary incontinence, recurrent UTI chronic indwelling Torrez Musculoskeletal: NONE Psychiatric: NONE Endocrine: diabetes Blood Disorders: NONE Surgical History Pertinent Surgical History: non-contributory Psychosocial History Where Do You Live? Extended Care Facility Smoking Status: Never Smoked ETOH Use: denies use Illicit Drug Use: denies illicit drug use Functional Ability ADLs Needs Assist: dressing, eating, toileting, bathing. Ambulation: non-ambulatory IADLs Needs Assist: shopping, housework, finances, food prep, telephone, transportation, medication admin. Exam & Diagnostic Data Vital Signs and I&O Vital Signs Date Time Temp Pulse Resp B/P Pulse O2 O2 Flow FiO2 Ox Delivery Rate 03/17 0000 Nasal 3.0L Cannula 03/16 2200 100.6 127 24 128/90 95 Nasal 3.0L Cannula 03/16 1856 156 138/92 03/16 1750 98.4 156 24 138/92 94 Nasal 2.0L Cannula 03/16 1603 97.6 135 26 140/92 90 Room Air 03/16 1234 100.4 03/16 1156 98.8 125 22 132/82 94 Nasal 2.0L Cannula 03/16 0828 98.9 120 20 118/78 95 Nasal 2.0L Cannula 03/16 0800 Nasal 2.0L Cannula Intake & Output 03/17 0800 03/17 0000 03/16 1600 03/16 0800 03/16 0000 03/15 1600 Intake Total 333 324 8917 270 2100 Output Total 300 500 500 300 400 Balance -60 -200 660 -30 1700 Intake, IV 307 911 7264 Intake, Oral 240 300 360 120 Output, Urine 300 500 500 300 400 Patient 228 lb Weight Pt sleeping comfortably. Easily awakened Back: No CVA tenderness Abd: ? Mild distention. Firm. Some tenderness, mostly upper abdominal Genitalia: Torrez in place draining clear urine Laboratory Tests 03/16 03/16 1804 1055 Chemistry Troponin I (<0.11 ng/ml) < 0.01 < 0.01 Hematology CBC w Diff MAN DIFF ORDERED WBC (4.8 - 10.8 /CUMM) 18.4 H RBC (4.70 - 6.10 /CUMM) 5.39 Hgb (14.0 - 18.0 G/DL) 14.9 Hct (42 - 52 %) 44.6 MCV (80.0 - 94.0 FL) 82.7 MCH (27.0 - 31.0 PG) 27.6 RDW (11.5 - 14.5 %) 16.4 H Plt Count (130 - 400 /CUMM) 246 MPV (7.4 - 10.4 FL) 9.3 Gran % (42.2 - 75.2 %) 89.2 H Lymphocytes % (20.5 - 51.1 %) 4.3 L Monocytes % (1.7 - 9.3 %) 6.2 Eosinophils % (0 - 5 %) 0.1 Basophils % (0.0 - 2.0 %) 0.2 Absolute Granulocytes (1.4 - 6.5 /CUMM) 16.4 H Segmented Neutrophils (42.2 - 75.2 %) 77 H Band Neutrophils (0.0 - 5.0 %) 10 H Absolute Lymphocytes (1.2 - 3.4 /CUMM) 0.8 L Lymphocytes (20.5 - 51.1 %) 6 L Monocytes (1.7 - 9.3 %) 7 Absolute Monocytes (0.10 - 0.60 /CUMM) 1.1 H Absolute Eosinophils (0.0 - 0.7 /CUMM) 0 Absolute Basophils (0.0 - 0.2 /CUMM) 0 Platelet Estimate (ADEQUATE) VERIFIED BY SMEAR Anisocytosis 1+ PUBS MCHC (33.0 - 37.0 G/DL) 33.4 CT scan reviewed: Bifid R collecting system. Extra renal pelvis on L. ? mild thickening of R proximal ureteral wall Assessment/Plan Assessment/Plan Imp: UTI Neurogenic bladder due to spina bifida. (Upper urinary tract essentially normal on CT scan) Plan: 1. Agree with ceftriaxone for now 2, Unclear if all sx's could be explained by UTI 3. f/u urine culture 4. Intermittent cath would clearly be best way to manage his neurogenic bladder but it does not appear the he is able to do it himself any more and his living situation does not appear to have staff that can do it 5. Would continue torrez for now 6. Patient should f/u with Dr Sherwin Diaz of [facility] after discharge Consult Acknowledgment - Thank you for your consult request.
[2016-03-17 08:16] VITALS: BP 126/80
--- NOTE | 2016-03-17 09:15 | PN- Att Addend ---
Attending Addendum Attending Brief Note Patient complains of pain in the epigastrium General Appearance: Alert, No Acute Distress Skin: Grossly normal HEENT: PEERLA Neck: Supple, No JVD Cardiovascular: Regular Rate, Normal S1, Normal S2, No Murmurs Lungs: Clear to Auscultation, Normal Air Movement Abdomen: Epigastric/left upper quadrant tenderness Neurological: Normal Speech, Strength at 5/5 X4 Ext, Cranial Nerves 3-12 NL, Reflexes 2+ Extremities: No Clubbing, No Cyanosis, No Edema Vascular: Normal Pulses Assessment Patient is currently growing gram-positive cocci in both bottles and gram positive óscar in one bottle. He does have significant epigastric/left upper quadrant tenderness of unclear significance given negative CAT scan. He also continues to see spike fever likely secondary to an appropriate coverage for sepsis. We will start patient on vancomycin and also get ID involved. Patient was evaluated by urology who prefers no intervention and would like to keep the patient on the indwelling Foster. Plan Start vancomycin Discontinue ceftriaxone ID consult Follow all cultures Continue other home meds DVT prophylaxis Current Medications Sig/Елена Start time Last Medication Dose Route Stop Time Status Admin Acetaminophen 650 MG Q6P PRN 03/16 2215 AC 03/17 PO 0510 Bisacodyl 10 MG DAILY NEEDED PRN 03/16 2230 AC MS Ceftriaxone Sodium 1,000 MG Q24H 03/16 2130 AC 03/16 IV 2115 Divalproex Sodium 250 MG AT BEDTIME 03/16 2200 AC 03/16 PO 2111 Docusate Sodium 100 MG BID 03/16 2200 AC 03/16 PO 2224 Influenza Virus 0.5 ML 1000 03/16 1000 DC Vaccine IM 03/16 1001 Lorazepam 0.5 MG ONE ONE 03/16 1830 DC 03/16 PO 03/16 1831 1825 Metoprolol Tartrate 12.5 MG ONCE ONE 03/16 1900 DC 03/16 PO 03/16 1901 1856 Metoprolol Tartrate 25 MG .STK-MED ONE 03/16 1853 DC PO 03/16 1854 Nitroglycerin 0.4 MG ONCE ONE 03/16 1815 DC 03/16 SL 03/16 1816 1805 Omeprazole 20 MG DAILY AC 03/17 0751 AC PO Oxycodone/ 1 TAB ONCE ONE 03/16 1230 DC 03/16 Acetaminophen PO 03/16 1231 1227 Pantoprazole Sodium 40 MG ONCE ONE 03/16 1814 DC 03/16 IV 03/16 181 1824 Patient Medication 1 ED .STK-MED ONE 03/16 1358 NC Teaching ED 03/16 1359 Polyethylene Glycol 17 GM DAILY 03/16 2128 AC 03/16 PO 2224 Rivaroxaban 20 MG 1700 03/16 1700 AC 03/16 PO 1808 Senna/Docusate Sodium 1 TAB BID 03/16 2199 AC 03/16 PO 2224 Simethicone 80 MG Q6P PRN 03/16 2114 AC 03/16 PO 2225 Sodium Chloride 1,000 ML Q10H 03/16 0530 DC 03/16 IV 1504 Laboratory Tests 03/16 03/16 180 1055 Chemistry Troponin I (<0.11 ng/ml) < 0.01 < 0.01 Hematology CBC w Diff MAN DIFF ORDERED WBC (4.8 - 10.8 /CUMM) 18.4 H RBC (4.70 - 6.10 /CUMM) 5.39 Hgb (14.0 - 18.0 G/DL) 14.9 Hct (42 - 52 %) 44.6 MCV (80.0 - 94.0 FL) 82.7 MCH (27.0 - 31.0 PG) 27.6 RDW (11.5 - 14.5 %) 16.4 H Plt Count (130 - 400 /CUMM) 246 MPV (7.4 - 10.4 FL) 9.3 Gran % (42.2 - 75.2 %) 89.2 H Lymphocytes % (20.5 - 51.1 %) 4.3 L Monocytes % (1.7 - 9.3 %) 6.2 Eosinophils % (0 - 5 %) 0.1 Basophils % (0.0 - 2.0 %) 0.2 Absolute Granulocytes (1.4 - 6.5 /CUMM) 16.4 H Segmented Neutrophils (42.2 - 75.2 %) 77 H Band Neutrophils (0.0 - 5.0 %) 10 H Absolute Lymphocytes (1.2 - 3.4 /CUMM) 0.8 L Lymphocytes (20.5 - 51.1 %) 6 L Monocytes (1.7 - 9.3 %) 7 Absolute Monocytes (0.10 - 0.60 /CUMM) 1.1 H Absolute Eosinophils (0.0 - 0.7 /CUMM) 0 Absolute Basophils (0.0 - 0.2 /CUMM) 0 Platelet Estimate (ADEQUATE) VERIFIED BY SMEAR Anisocytosis 1+ PUBS MCHC (33.0 - 37.0 G/DL) 33.4 Vital Signs Date Time Temp Pulse Resp B/P Pulse O2 O2 Flow FiO2 Ox Delivery Rate 03/17 0816 101.6 134 20 126/80 89 Room Air 03/17 0000 Nasal 3.0L Cannula 03/16 2200 100.6 127 24 128/90 95 Nasal 3.0L Cannula 03/16 1856 156 138/92 03/16 1750 98.4 156 24 138/92 94 Nasal 2.0L Cannula 03/16 1603 97.6 135 26 140/92 90 Room Air 03/16 1234 100.4 03/16 1156 98.8 125 22 132/82 94 Nasal 2.0L Cannula
--- NOTE | 2016-03-17 12:51 | Cons- Infect Disease ---
General Information and HPI Consulting Request Date of Consult: 03/17/16 Requested By: DALILA FRANK MD Reason for Consult: Positive blood cultures for gram-positive cocci and gram-positive rods Source of Information: patient Exam Limitations: physical impairment History of Present Illness: This is a 45-year-old man with an intellectual disability, spina bifida, neurogenic bladder, with self-catheterization until 2 months prior to admission, at which point he was [facility] in a prison and an indwelling Foster catheter was inserted, treated one month prior to admission for a Proteus UTI, with details of his treatment not available, admitted on March 15 after he was sent to the emergency room with the acute onset of epigastric pain, vomiting, shortness of breath and decreased urine output. On admission he was febrile to 100.3. Laboratory data revealed a white blood cell count of 22,000, with 77 segs and 18 bands, H&H 17 and 53, BUN/creatinine 33 and 1.2, lactic acid 2.9, with normal liver enzymes. Urinalysis revealed packed amorphous material, 4+ triple phosphate crystals, with a pH of 8.0, large esterase and positive nitrites. Chest x-ray was negative. CTA of the chest was negative for pulmonary emboli but revealed compression subsegmental atelectasis at the right lower lobe. CT of the abdomen and pelvis without contrast revealed free fluid within the right lower quadrant and left lower quadrant and a small amount of free fluid overlying the right lobe of the liver. He was begun on Ceftriaxone. On March 16 blood cultures 2 were reported positive for gram-positive cocci in one bottle and gram-positive rods in another. This morning a second bottle was reported positive for gram-positive cocci. He was febrile this morning to 101.6. Presently he continues to complain of epigastric pain and shortness of breath. He has had no further vomiting. Allergies/Medications Allergies: Coded Allergies: No Known Allergies (01/31/16) Home Med List: Acetaminophen 325 MG TABLET 2 TAB PO Q4H PRN PAIN/TEMP>/100 (Reported) Cranberry Fruit Concentrate (Cranberry) 450 MG TABLET 1 TAB PO DAILY SUPPLEMENT (Reported) Diphenhydramine HCl (Benadryl) (Unknown Strength) CAPSULE (Unknown Dose) PO BID PRN ITCHING (Reported) Divalproex Sodium (Depakote) 250 MG TABLET.DR 250 MG PO AT BEDTIME DISRUPTIVE BEHAVIORS (Reported) Furosemide 20 MG TABLET 1 TAB PO DAILY DIURETIC (Reported) Magnesium Hydroxide (Milk Of Magnesia) 400 MG/5 ML ORAL.SUSP 30 ML PO DAILY PRN CONSTIPATION (Reported) Multivitamin (Multi-Day Vitamins) 1 EACH TABLET 1 TAB PO DAILY SUPPLEMENT ( Reported) Rivaroxaban (Xarelto) 20 MG TABLET 1 TAB PO QPM DVT (Reported) with food Verapamil (Calan) 80 MG TABLET 1 TAB PO DAILY UNKNOWN (Reported) Past History Travel History Traveled to [place] past 21 day No Medical History Neurological: TIA, vertigo, spina bifida, intellectual disability Cardiovascular: hypertension, DVT Respiratory: NONE Gastrointestinal: ileus, rectal bleeding Hepatic: NONE Renal: neurogenic bladder, urinary incontinence, recurrent UTI chronic indwelling Foster Musculoskeletal: NONE Psychiatric: NONE Endocrine: diabetes Blood Disorders: NONE History of MRSA: No History of VRE: No History of CDIFF: No Isolation History: Standard Influenza Vaccine: 11/05/15 Surgical History Surgical History: non-contributory Psychosocial History Where Do You Live? Extended Care Facility Smoking Status: Never Smoked ETOH Use: denies use Illicit Drug Use: denies illicit drug use Functional Ability ADLs Needs Assist: dressing, eating, toileting, bathing. Ambulation: non-ambulatory IADLs Needs Assist: shopping, housework, finances, food prep, telephone, transportation, medication admin. Review of Systems Review of Systems Constitutional: Reports: fever, weakness. Musculoskeletal: Denies: back pain. All Other Systems: Reviewed and Negative Exam & Diagnostic Data Last 24 Hrs of Vital Signs/I&O Vital Signs Date Time Temp Pulse Resp B/P Pulse O2 O2 Flow FiO2 Ox Delivery Rate 03/17 0816 101.6 134 20 126/80 89 Room Air 03/17 08 92 Nasal 3.0L Cannula 03/17 0000 Nasal 3.0L Cannula 03/16 2200 100.6 127 24 128/90 95 Nasal 3.0L Cannula 03/16 1856 156 138/92 03/16 1750 98.4 156 24 138/92 94 Nasal 2.0L Cannula 03/16 1603 97.6 135 26 140/92 90 Room Air 03/16 1234 100.4 Intake & Output 03/17 1600 03/17 0800 03/17 0000 Intake Total 240 300 Output Total 300 500 Balance -60 -200 Intake, Oral 240 300 Output, Urine 300 500 Physical Exam Other Physical Findings: He is awake and alert in no acute distress. MAXIMUM TEMPERATURE 101.6. Skin reveals no rash. HEENT exam poor dentition. Neck is supple with no adenopathy. Lungs are clear anteriorly with audible wheezing. Heart regular rhythm with no murmur. Abdomen is obese, distended, tender over the epigastrium and more diffusely, with no guarding or rebound, positive bowel sounds. Back no CVA tenderness. Extremities trace edema both lower extremities. Neuro paraplegia of both lower extremities. Foster catheter is in place. Last 24 Hours of Lab Results: Laboratory Tests 03/16 03/16 03/16 1804 1055 0400 Chemistry Troponin I (<0.11 ng/ml) < 0.01 < 0.01 < 0.01 Hematology CBC w Diff MAN DIFF ORDERED WBC (4.8 - 10.8 /CUMM) 18.4 H RBC (4.70 - 6.10 /CUMM) 5.39 Hgb (14.0 - 18.0 G/DL) 14.9 Hct (42 - 52 %) 44.6 MCV (80.0 - 94.0 FL) 82.7 MCH (27.0 - 31.0 PG) 27.6 RDW (11.5 - 14.5 %) 16.4 H Plt Count (130 - 400 /CUMM) 246 MPV (7.4 - 10.4 FL) 9.3 Gran % (42.2 - 75.2 %) 89.2 H Lymphocytes % (20.5 - 51.1 %) 4.3 L Monocytes % (1.7 - 9.3 %) 6.2 Eosinophils % (0 - 5 %) 0.1 Basophils % (0.0 - 2.0 %) 0.2 Absolute Granulocytes (1.4 - 6.5 /CUMM) 16.4 H Segmented Neutrophils (42.2 - 75.2 %) 77 H Band Neutrophils (0.0 - 5.0 %) 10 H Absolute Lymphocytes (1.2 - 3.4 /CUMM) 0.8 L Lymphocytes (20.5 - 51.1 %) 6 L Monocytes (1.7 - 9.3 %) 7 Absolute Monocytes (0.10 - 0.60 /CUMM) 1.1 H Absolute Eosinophils (0.0 - 0.7 /CUMM) 0 Absolute Basophils (0.0 - 0.2 /CUMM) 0 Platelet Estimate (ADEQUATE) VERIFIED BY SMEAR Anisocytosis 1+ PUBS MCHC (33.0 - 37.0 G/DL) 33.4 03/16 03/15 0150 1905 Chemistry Lactic Acid (0.7 - 2.1 mmol/L) 1.2 Urines Urinalysis PACKD H Urine Color (YEL,AMB,STR) PINK H Urine Clarity (CLEAR) TURBD H Urine pH (5.0 - 8.0) 8.0 Ur Specific Reyno (1.001 - 1.035) 1.020 Urine Protein (NEG,<30 MG/DL) 100 H Urine Ketones (NEG) NEG Urine Nitrite (NEG) POS H Urine Bilirubin (NEG) NEG Urine Urobilinogen (0.1 - 1.0 EU/dl) 0.2 Ur Leukocyte Esterase (NEG) LARGE H Ur Microscopic SEDIMENT EXAMINED Urine Crystals 4+ TRIP PHOS H Urine Hemoglobin (NEG) LARGE H Urine Glucose (N MG/DL) NEG 03/15 1715 Chemistry Sodium (137 - 145 mmol/L) 143 Potassium (3.5 - 5.1 mmol/L) 4.6 Chloride (98 - 107 mmol/L) 101 Carbon Dioxide (22 - 30 mmol/L) 26 Anion Gap (5 - 16) 16 BUN (9 - 20 mg/dL) 33 H Creatinine (0.7 - 1.2 mg/dL) 1.2 Estimated GFR (>60 ml/min) > 60 BUN/Creatinine Ratio (7 - 25 %) 27.5 H Glucose (65 - 99 mg/dL) 127 H Lactic Acid (0.7 - 2.1 mmol/L) 2.9 H Calcium (8.4 - 10.2 mg/dL) 10.3 H Total Bilirubin (0.2 - 1.3 mg/dL) 0.8 AST (17 - 59 U/L) 23 ALT (21 - 72 U/L) 26 Alkaline Phosphatase (< 127 U/L) 66 Troponin I (<0.11 ng/ml) < 0.01 Vib-T-Qojuylglutl Pept (<125 pg/mL) 82.5 Total Protein (6.3 - 8.2 g/dL) 7.9 Albumin (3.5 - 5.0 g/dL) 4.2 Globulin (1.9 - 4.2 gm/dL) 3.7 Albumin/Globulin Ratio (1.1 - 2.2 %) 1.1 Coagulation D-Dimer (70 - 232 ng/ml) 262 H Hematology CBC w Diff MAN DIFF ORDERED WBC (4.8 - 10.8 /CUMM) 21.6 H RBC (4.70 - 6.10 /CUMM) 6.42 H Hgb (14.0 - 18.0 G/DL) 17.5 Hct (42 - 52 %) 53.1 H MCV (80.0 - 94.0 FL) 82.6 MCH (27.0 - 31.0 PG) 27.3 RDW (11.5 - 14.5 %) 15.5 H Plt Count (130 - 400 /CUMM) 316 MPV (7.4 - 10.4 FL) 8.9 Gran % (42.2 - 75.2 %) 93.0 H Lymphocytes % (20.5 - 51.1 %) 2.5 L Monocytes % (1.7 - 9.3 %) 4.5 Eosinophils % (0 - 5 %) 0 Basophils % (0.0 - 2.0 %) 0 L Absolute Granulocytes (1.4 - 6.5 /CUMM) 20.1 H Segmented Neutrophils (42.2 - 75.2 %) 77 H Band Neutrophils (0.0 - 5.0 %) 18 H Absolute Lymphocytes (1.2 - 3.4 /CUMM) 0.5 L Lymphocytes (20.5 - 51.1 %) 2 L Monocytes (1.7 - 9.3 %) 3 Absolute Monocytes (0.10 - 0.60 /CUMM) 1.0 H Absolute Eosinophils (0.0 - 0.7 /CUMM) 0 Absolute Basophils (0.0 - 0.2 /CUMM) 0 Platelet Estimate (ADEQUATE) ADEQUATE Normochromic RBCs VERIFIED Poikilocytosis 1+ Stomatocytes 1+ PUBS MCHC (33.0 - 37.0 G/DL) 33.0 Last 24 Hours of Rex Results: Blood cultures March 15 positive for several types of coag-negative Staph and an anaerobic gram-positive óscar Blood cultures March 16 negative so far Urine culture March 15 greater than 100,000 colonies of Proteus Diagnostic Data Recent Imaging Findings: Chest x-ray Sveta 31, personally reviewed, negative. CTA of the chest negative for pulmonary emboli, with compression subsegmental atelectasis at the right lower lobe. CT of the abdomen and pelvis without contrast revealed free fluid within the right lower quadrant and left lower quadrant and a small amount of free fluid overlying the right lobe of the liver. Assessment/Plan Assessment/Plan Impression: This is a 45-year-old man with a history of intellectual disability, spina bifida, urinary retention, with an indwelling Foster catheter for the past 2 months, apparently treated for a Proteus UTI 1 month prior to admission, admitted on March 15 with the acute onset of epigastric pain and vomiting, found to have a low-grade fever with a leukocytosis, which may in part be secondary to hemoconcentration, and found to have positive blood and urine cultures. The positive blood cultures likely represent contamination, with several different organisms isolated in this patient who is known to have poor venous access. The positive urine culture may represent colonization but, in the presence of a fever and leukocytosis without any other obvious source, it may be necessary to treat. The Proteus may be resistant to Ceftriaxone, given his fever this morning, and will await the final culture. An intra-abdominal process is possible, with his abdominal tenderness, though the CT of the abdomen and pelvis is essentially negative. The biliary tree is better visualized on ultrasound, and this may be reasonable to pursue to rule out a biliary process. He has no evidence for pneumonia on chest x-ray or CT, though he does report shortness of breath and has audible wheezing, possibly related to fluid overload. With a Foster catheter he will be prone to recurrent urinary tract infections; therefore alternatives should be considered, including resuming his self-catheterization or, if this is not feasible, a suprapubic cystostomy. Suggestion: 1. Obtain history from the prison regarding antibiotic treatment for his recent urinary tract infection 2. Repeat CBC and CMP today 3. Consider right upper quadrant ultrasound 4. Consider echocardiogram and reevaluate fluid status 5. Follow-up final urine culture 6. Would advocate for resuming self catheterization or, if not feasible, suprapubic cystostomy 7. Continue Ceftriaxone pending above Consult Acknowledgment - Thank you for your consult request.
[2016-03-17 15:00] LABS: ABSOLUTE BASOPHIL COUNT 0 /CUMM (0.0-0.2); ABSOLUTE EOSINOPHIL COUNT 0 /CUMM (0.0-0.7); ABSOLUTE GRANULOCYTE CT 20.2 /CUMM (1.4-6.5); ABSOLUTE LYMPH COUNT 0.7 /CUMM (1.2-3.4); EOSINOPHIL % 0 % (0-5)
[2016-03-17 15:04] LABS: ABSOLUTE MONOCYTE COUNT 1.3 /CUMM (0.10-0.60); BASOPHIL % 0 % (0.0-2.0); HEMATOCRIT 41.5 % (42-52); MEAN CORPUSCULAR HGB 27.6 PG (27.0-31.0); MEAN CORPUSCULAR VOLUME 83.7 FL (80.0-94.0); MEAN PLATELET VOLUME 8.6 FL (7.4-10.4); PLATELET COUNT 267 /CUMM (130-400); RBC DISTRIBUTION WIDTH 16.3 % (11.5-14.5); RED BLOOD CELL CT 4.96 /CUMM (4.70-6.10); WHITE BLOOD CELL COUNT 22.3 /CUMM (4.8-10.8)
[2016-03-17 15:33] LABS: GRANULOCYTE % 90.7 % (42.2-75.2)
--- NOTE | 2016-03-17 15:52 | PN- Housestaff ---
Subjective Follow-up For: UTI septesemia ABD pain under evaluation Complaints: pain abd, fever Tele-Events Since Last Visit: Sinus tachycardia, heart rate - 159. Subjective: Patient is seen and examined at the bedside. He was complaining of pain in the chest and upper abdomen. According to him, it is 10 out of 10. According to the night team, patient has 2 or 3 episodes Of similar chest pain. Serial troponins are negative. EKG shows no any new changes other than tachycardia. Patient started having fever. Denies nausea, vomiting, diarrhea, constipation, back pain. Review of Systems Constitutional: Reports: fever, malaise, weakness. EENTM: Denies: no symptoms. Cardiovascular: Reports: chest pain, palpitations. Respiratory: Denies: no symptoms. Gastrointestinal: Reports: abdominal pain. Denies: bloating, constipation, diarrhea, distention, bowel incontinence, melena. Genitourinary: Denies: no symptoms. Musculoskeletal: Denies: no symptoms. Skin: Denies: no symptoms. Neurological/Psychological: Denies: no symptoms. Objective Last 24 Hrs of Vital Signs/I&O Vital Signs Date Time Temp Pulse Resp B/P Pulse O2 O2 Flow FiO2 Ox Delivery Rate 03/17 0816 101.6 134 20 126/80 89 Room Air 03/17 08 92 Nasal 3.0L Cannula 03/17 0000 Nasal 3.0L Cannula 03/16 2200 100.6 127 24 128/90 95 Nasal 3.0L Cannula 03/16 1856 156 138/92 03/16 1750 98.4 156 24 138/92 94 Nasal 2.0L Cannula 03/16 1603 97.6 135 26 140/92 90 Room Air Intake & Output 03/17 1600 03/17 0800 03/17 0000 Intake Total 600 240 300 Output Total 250 300 500 Balance 350 -60 -200 Intake, Oral 600 240 300 Number 0 Bowel Movements Output, Urine 250 300 500 Patient 103.419 kg Weight Physical Exam General Appearance: Alert, Oriented X3, Cooperative, No Acute Distress Skin: No Rashes, No Breakdown Neck: Supple, No JVD Cardiovascular: Normal S1, Normal S2, tachycardia Lungs: Clear to Auscultation, Normal Air Movement Abdomen: Soft, tenderness on palpation Neurological: Normal Speech Extremities: No Clubbing, No Cyanosis, No Edema, Normal Pulses Vascular: Normal Pulses, Pulses Symmetrical Assessment/Plan Assessment: Patient is a 45 y/o M with PMHx of spina bifida, urinary incontinence with chronic indwelling Foster, HTN, DVT, prediabetes and intellectual disability who is BIBA from rehab facility for chest and abdominal pain and shortness of breath. Vital signs-temperature 101.6, pulse 134, respiration 20, blood pressure 126/80, SPO2 89% Problem list Septicemia secondary to UTI/indwelling catheter Neurogenic bladder Spina bifida DVT/PE on Xarelto Prediabetes Intellectual disability Plan- We will place a cardiology consultation and follow their recommendation We'll place infectious disease consultation and follow the recommendation According to , as the patient is having abdominal tenderness along with mild ascites and right lower lower lobe atelectasis, we should rule out biliary infection, by doing right upper quadrant ultrasound abdomen. We will also do echocardiogram to rule out wall motion abnormality and valvular heart disease We will follow blood cultures and sensitivity and change the antibiotic accordingly Today WBC count -22.3 Diet-regular diet DVT prophylaxis-ALP S/Xarelto CODE STATUS-full code Problem List: 1. Chronic indwelling Foster catheter 2. Sepsis 3. Abdominal pain 4. UTI (urinary tract infection) 5. Sinus tachycardia Pain Ratin Pain Location: Upper abdomen Pain Goal: Remain pain free Pain Plan: Mild to moderate Tomorrow's Labs & Rationales: cbc,bep DVT/Prophylaxis: mechanical, pharmacological
[2016-03-17 16:00] VITALS: BP 132/78
--- NOTE | 2016-03-17 18:29 | RADIOLOGY REPORT ---
EXAMINATION: XR PORTABLE ABDOMEN CLINICAL INFORMATION: Abdominal pain. Vomiting. Abdominal distention. COMPARISON: CT scan abdomen pelvis 03/16/2016 TECHNIQUE: Supine abdomen. FINDINGS: There is significant gaseous dilatation of small bowel loops in the upper abdomen with less distended small bowel loops in the right lower quadrant. There is gas throughout colon which is prominent but not abnormally dilated. The stomach is distended with gas. Bowel pattern suggests a partial or early small bowel obstruction. Moderate amount of stool in the colon. No free air evident. IMPRESSION: Abnormal bowel pattern consistent with small bowel obstruction.
--- NOTE | 2016-03-17 19:14 | Event Note ---
Event Note Event Note: I was told by the patient is having an episode of nausea followed by vomiting which was coffee-ground in color and his abdomen is seems to be distended. According to the nurse she did guaiac test for vomitus which come back strongly positive. I saw the patient on the bedside, he was comfortable, anxious because of vomitus, complaining of severe abdominal pain as before in the morning. On further asking, he was saying that it is 8/10, and his abdomen feels distended. Vitals were stable, bowel sounds were positive, although abdomen is distended and tender. As patient is having pain, vomiting, distention, and he has not had bowel movements since 03/14/2016. So we ordered abdominal x-ray to rule out intestinal obstruction or perforation. As the patient was having guaiac positive vomitus/coffee-colored we discussed with Dr. Guerrero, and he advised to talk to on-call GI specialist. We also ordered injection. Protonix 40 milligrams IV twice a day , stopped Xarelto , kept the patient nothing by mouth and started him on normal saline 50 cc per hour. Discussed about the patient with Dr. Dowd, according to him, as the patient's vitals are stable and he is not actively bleeding, no active interventions required. And we cannot do upper GI endoscopy for next 48 hours as the patient was on Xarelto. If the patient become unstable or started actively bleeding, please call GI immediately. Abdominal x-ray come back and showed partial or early small bowel obstruction with moderate amount of stool in the colon. We called on-call surgeon and he told us to call surgical PA. We call Dominik, and discussed about the patient in detail. We will follow his recommendation.
--- NOTE | 2016-03-17 20:52 | Event Note ---
Event Note Event Note: Notified by the nurse that the patient was resistant to having the NG tube placed due to severe discomfort. Came to the patient's bedside and attempted to convince and plead with the patient to have the tube inserted. Patient was non agreeeable. Subsequently called the patient's sister Kate who agreed to speak to the patient on the phone. It was further decided that if the patient was to be administered a local anesthetic he would be agreeable to trying to get the NG tube placed. Local anesthetic was ordered after speaking with pharmacy. Patient tolerated procedure well and NG tube was currently draining. 9.40 pm, Called sister Kate back to confirm that NG tube was in place and patient was now comfortable. Resident made aware. We will continue to monitor.
--- NOTE | 2016-03-17 20:55 | Cons- General Surgery ---
COLLIN PEÑA 03/17/162037: General Information and HPI Consulting Request Date of Consult: 03/17/16 Requested By: DALILA FRANK MD Reason for Consult: Abdominal pain, abdominal x-rays consistent with bowel obstruction Source of Information: patient, old records Exam Limitations: clinical condition History of Present Illness: Mr. Lopez is a 45-year-old male who is wheelchair bound and [facility] with a past medical history of spina bifida hypertension chronic indwelling Foster catheter with history of recurrent UTIs presents with chest pain shortness of breath and abdominal pain 2 days ago. He states that prior to admission he was experiencing abdominal pain for about 2 days with black vomiting. He states that he has had a history of small bowel obstruction but has never had surgery for this. X-rays taken now are consistent with small bowel obstruction. There is also an element of urosepsis with his current admission with a leukocytosis of 22,000. Allergies/Medications Allergies: Coded Allergies: No Known Allergies (01/31/16) Home Med List: Acetaminophen 325 MG TABLET 2 TAB PO Q4H PRN PAIN/TEMP>/100 (Reported) Cranberry Fruit Concentrate (Cranberry) 450 MG TABLET 1 TAB PO DAILY SUPPLEMENT (Reported) Diphenhydramine HCl (Benadryl) (Unknown Strength) CAPSULE (Unknown Dose) PO BID PRN ITCHING (Reported) Divalproex Sodium (Depakote) 250 MG TABLET.DR 250 MG PO AT BEDTIME DISRUPTIVE BEHAVIORS (Reported) Furosemide 20 MG TABLET 1 TAB PO DAILY DIURETIC (Reported) Magnesium Hydroxide (Milk Of Magnesia) 400 MG/5 ML ORAL.SUSP 30 ML PO DAILY PRN CONSTIPATION (Reported) Multivitamin (Multi-Day Vitamins) 1 EACH TABLET 1 TAB PO DAILY SUPPLEMENT ( Reported) Rivaroxaban (Xarelto) 20 MG TABLET 1 TAB PO QPM DVT (Reported) with food Verapamil (Calan) 80 MG TABLET 1 TAB PO DAILY UNKNOWN (Reported) Current Medications: Current Medications Sig/Елена Start time Last Medication Dose Route Stop Time Status Admin Acetaminophen 650 MG Q6P PRN 03/16 2215 AC 03/17 PO 0510 Bisacodyl 10 MG DAILY NEEDED PRN 03/16 2230 AC CA Ceftriaxone Sodium 1,000 MG Q24H 03/16 2130 AC 03/16 IV 2115 Divalproex Sodium 250 MG AT BEDTIME 03/16 2199 AC 03/16 PO 2111 Docusate Sodium 100 MG BID 03/16 220 AC 03/17 PO 1040 Omeprazole 20 MG DAILY AC 03/17 0751 DC 03/17 PO 1040 Ondansetron HCl 4 MG ONCE ONE 03/17 170 DC 03/17 IV 03/17 1701 1716 Pantoprazole Sodium 40 MG BID 03/17 2199 AC IV Polyethylene Glycol 17 GM DAILY 03/16 2128 AC 03/17 PO 1040 Rivaroxaban 20 MG 1700 03/16 1700 DC 03/16 PO 1808 Senna/Docusate Sodium 1 TAB BID 03/16 2199 AC 03/17 PO 1040 Simethicone 80 MG Q6P PRN 03/16 2114 AC 03/16 PO 2225 Sodium Chloride 1,000 ML Q20H 03/17 174 AC IV Sodium Chloride 1,000 ML Q10H 03/16 0530 DC 03/16 IV 1504 Past History Medical History Neurological: TIA, vertigo, spina bifida intellectual disability Cardiovascular: hypertension, DVT Respiratory: NONE Gastrointestinal: ileus rectal bleeding Hepatic: NONE Renal: neurogenic bladder, urinary incontinence, recurrent UTI chronic indwelling Foster Musculoskeletal: NONE Psychiatric: NONE Endocrine: diabetes Blood Disorders: NONE Surgical History Pertinent Surgical History: non-contributory Psychosocial History Where Do You Live? [facility] Smoking Status: Never Smoked ETOH Use: denies use Illicit Drug Use: denies illicit drug use Functional Ability ADLs Needs Assist: dressing, eating, toileting, bathing. Ambulation: non-ambulatory IADLs Needs Assist: shopping, housework, finances, food prep, telephone, transportation, medication admin. Exam & Diagnostic Data Vital Signs and I&O Vital Signs Date Time Temp Pulse Resp B/P Pulse O2 O2 Flow FiO2 Ox Delivery Rate 03/17 1600 98.6 127 20 132/78 94 Nasal Cannula 03/17 08 101.6 134 20 126/80 89 Room Air 03/17 08 92 Nasal 3.0L Cannula 03/17 0000 Nasal 3.0L Cannula 03/16 2199 100.6 127 24 128/90 95 Nasal 3.0L Cannula Intake & Output 03/17 1600 03/17 0800 03/17 0000 03/16 1600 03/16 0800 03/16 0000 Intake Total 600 328 821 1065 270 2100 Output Total 250 300 500 500 300 400 Balance 350 -60 -200 660 -30 1700 Intake, IV 025 975 8891 Intake, Oral 600 240 300 360 120 Number 0 Bowel Movements Output, Urine 250 300 500 500 300 400 Patient 228 lb 228 lb Weight Physical Exam Gastrointestinal: markedly distended abdomen that is diffusely tender to palpation with hypoactive bowel sounds no evidence of peritonitis. Last 24 Hours of Labs: Laboratory Tests 03/17 03/17 1439 1439 Chemistry Sodium (137 - 145 mmol/L) 141 Cancelled Potassium (3.5 - 5.1 mmol/L) 4.0 Cancelled Chloride (98 - 107 mmol/L) 106 Cancelled Carbon Dioxide (22 - 30 mmol/L) 25 Cancelled Anion Gap (5 - 16) 11 Cancelled BUN (9 - 20 mg/dL) 20 Cancelled Creatinine (0.7 - 1.2 mg/dL) 0.9 Cancelled Estimated GFR (>60 ml/min) > 60 BUN/Creatinine Ratio (7 - 25 %) 22.2 Cancelled Troponin I (<0.11 ng/ml) < 0.01 Hematology CBC w Diff NO MAN DIFF REQ WBC (4.8 - 10.8 /CUMM) 22.3 H RBC (4.70 - 6.10 /CUMM) 4.96 Hgb (14.0 - 18.0 G/DL) 13.7 L Hct (42 - 52 %) 41.5 L MCV (80.0 - 94.0 FL) 83.7 MCH (27.0 - 31.0 PG) 27.6 RDW (11.5 - 14.5 %) 16.3 H Plt Count (130 - 400 /CUMM) 267 MPV (7.4 - 10.4 FL) 8.6 Gran % (42.2 - 75.2 %) 90.7 H Lymphocytes % (20.5 - 51.1 %) 3.3 L Monocytes % (1.7 - 9.3 %) 6.0 Eosinophils % (0 - 5 %) 0 Basophils % (0.0 - 2.0 %) 0 L Absolute Granulocytes (1.4 - 6.5 /CUMM) 20.2 H Absolute Lymphocytes (1.2 - 3.4 /CUMM) 0.7 L Absolute Monocytes (0.10 - 0.60 /CUMM) 1.3 H Absolute Eosinophils (0.0 - 0.7 /CUMM) 0 Absolute Basophils (0.0 - 0.2 /CUMM) 0 PUBS MCHC (33.0 - 37.0 G/DL) 33.0 Imaging Results: SERVICE DATE: 03/17/16-1727 EXAM TYPE: RAD - XRY-PORTABLE ABDOMEN EXAMINATION: XR PORTABLE ABDOMEN CLINICAL INFORMATION: Abdominal pain. Vomiting. Abdominal distention. COMPARISON: CT scan abdomen pelvis 03/16/2016 TECHNIQUE: Supine abdomen. FINDINGS: There is significant gaseous dilatation of small bowel loops in the upper abdomen with less distended small bowel loops in the right lower quadrant. There is gas throughout colon which is prominent but not abnormally dilated. The stomach is distended with gas. Bowel pattern suggests a partial or early small bowel obstruction. Moderate amount of stool in the colon. No free air evident. IMPRESSION: Abnormal bowel pattern consistent with small bowel obstruction. DICTATED BY: YUDELKA DIALLO MD DATE/TIME DICTATED:03/17/161820 [employer]PERIMENT[employer] MECHANIC:DIONICIO DATE/TIME TRANSCRIBED:03/17/161820 Assessment/Plan Assessment/Plan Mr. Lopez is a 45-year-old male with a past medical history of hypertension, DVT, chronic indwelling Foster catheter with recurrent urinary tract infection, and current diagnosis of urosepsis, presents with increased abdominal pain vomiting and x-rays consistent with small bowel obstruction. After discussing this case with Dr. Teixeira he recommends placing an NG tube since the patient is vomiting with nothing by mouth at this time. He also feels that this could possibly be more likely be an ileus secondary to urosepsis. Plan Place NG tube now Nothing by mouth Serial abdominal exams Radiopaque by mouth dye study in a.m. to assess bowel function Consult Acknowledgment - Thank you for your consult request. CRISELDA DOBEV 03/18/16 1651: Assessment/Plan Consult Acknowledgment - Thank you for your consult request. Attending MD Review Statement Attending Statement Attending MD Statement: examined this patient, discuss w/resident/PA/CARGO SERVICES COORDINATOR, agreed w/resident/PA/CARGO SERVICES COORDINATOR, reviewed EMR data (avail), reviewed images Attending Assessment/Plan: Patient seen and examined, agree with above. N/V last night, abdomen distended. AXR possible partial/early SBO, dilated stomach. NGT ~[address] scan prior to that no obstruction. Overnight minimal NGT output and no further N/V. ROS is all negative aside for the above mentioned peritnent positives in HPI. PE-Gen NAD, HEENT-supple, MMM, Lung clear, Cardiac-S1S2, Extremity-+edema, Neuro unchanged from baseline. Gastrograffin via NGT and F/U AXR for contrast transit to r/o SBO.
--- NOTE | 2016-03-17 23:23 | ULTRASOUND REPORT ---
EXAMINATION: ABDOMINAL ULTRASOUND LIMITED CLINICAL INFORMATION: Acute onset epigastric pain. Fever. COMPARISON: Abdominal and pelvic CT from 03/16/2016. TECHNIQUE: Real-time imaging of the right upper quadrant abdominal viscera. FINDINGS: PANCREAS: The visualized pancreatic head and body are normal in appearance. The remainder of the pancreas is obscured from visualization by the overlying bowel gas. LIVER: The liver is of normal size and echogenicity without focal lesions nor intrahepatic biliary ductal dilation. GALLBLADDER: Normal. The gallbladder is physiologically distended without evidence of stones, sludge, polyps, wall thickening or pericholecystic fluid. COMMON BILE DUCT: Normal in caliber measuring 0.5 cm in diameter. RIGHT KIDNEY: Normal. No hydronephrosis. No renal calculi or focal parenchymal lesions. The kidney measures 8.4 cm in maximum dimension. FREE FLUID: There is a small amount of free fluid inferior to the right lobe of the liver. IMPRESSION: Small amount free fluid within the right hemiabdomen.
[2016-03-17 23:37] LABS: ABSOLUTE BASOPHIL COUNT 0 /CUMM (0.0-0.2); ABSOLUTE EOSINOPHIL COUNT 0 /CUMM (0.0-0.7); ABSOLUTE GRANULOCYTE CT 18.6 /CUMM (1.4-6.5); ABSOLUTE LYMPH COUNT 0.7 /CUMM (1.2-3.4); ABSOLUTE MONOCYTE COUNT 1.1 /CUMM (0.10-0.60); BASOPHIL % 0.2 % (0.0-2.0); EOSINOPHIL % 0 % (0-5); GRANULOCYTE % 90.7 % (42.2-75.2); HEMATOCRIT 39.8 % (42-52); MEAN CORPUSCULAR HGB 27.9 PG (27.0-31.0); MEAN CORPUSCULAR HGB CONC 33.6 G/DL (33.0-37.0); MEAN PLATELET VOLUME 8.7 FL (7.4-10.4); PLATELET COUNT 279 /CUMM (130-400); RBC DISTRIBUTION WIDTH 15.9 % (11.5-14.5); WHITE BLOOD CELL COUNT 20.5 /CUMM (4.8-10.8)
--- NOTE | 2016-03-18 00:02 | RADIOLOGY REPORT ---
EXAMINATION: CHEST 1 VIEW CLINICAL INFORMATION: Enteric tube placement. COMPARISON: 03/16/2016. TECHNIQUE: An AP view of the chest is provided. FINDINGS: The cardiac silhouette is not enlarged. An enteric tube is in place. The tip overlies left upper quadrant, likely within the stomach. The mediastinal and hilar contours are unremarkable. There are neither pleural effusions nor pneumothoraces. Lung volumes are decreased. There is streaky opacification at the right lung base. The osseous structures are unremarkable. IMPRESSION: Enteric tube in place. In the setting of low lung volumes, there is streaky opacification at the right lung base which likely corresponds to atelectasis. Recommendation is for a followup chest series to be obtained following treatment and/or resolution of symptoms to assure resolution of this appearance.
--- NOTE | 2016-03-18 07:17 | NUR ---
late entry note 03/17/16 3-7p Pt noted to be vomited brown liquid with strong fecal odor. Pt abdomen very distended and hard. Tender to palpate. Bowel sounds very hypoactive. No BM since 03/14. Mannequin Wig Maker Flaca notified and in to see pt. This RN suggested abdominal xray for ? SBO. Pt NPO at this time awaiting Abd US. US/Xray coordinated and pt downstairs for both. Pt returned from xray. No more vomiting noted. Xray results show SBO. Reported to oncoming RN.
[2016-03-18 08:09] LABS: ABSOLUTE BASOPHIL COUNT 0 /CUMM (0.0-0.2); ABSOLUTE EOSINOPHIL COUNT 0.1 /CUMM (0.0-0.7); ABSOLUTE GRANULOCYTE CT 12.5 /CUMM (1.4-6.5); ABSOLUTE LYMPH COUNT 1.1 /CUMM (1.2-3.4); BASOPHIL % 0.2 % (0.0-2.0); EOSINOPHIL % 0.6 % (0-5); MEAN CORPUSCULAR HGB 27.8 PG (27.0-31.0); MEAN CORPUSCULAR HGB CONC 33.4 G/DL (33.0-37.0); MEAN CORPUSCULAR VOLUME 83.2 FL (80.0-94.0); MEAN PLATELET VOLUME 8.9 FL (7.4-10.4); PLATELET COUNT 218 /CUMM (130-400); RBC DISTRIBUTION WIDTH 16.1 % (11.5-14.5); RED BLOOD CELL CT 4.19 /CUMM (4.70-6.10)
[2016-03-18 08:22] VITALS: BP 102/68
[2016-03-18 08:54] LABS: HEMATOCRIT 34.8 % (42-52)
--- NOTE | 2016-03-18 09:20 | PN- Att Addend ---
Attending Addendum Attending Brief Note Patient had black color vomitus overnight, currently has an NG tube draining guaiac positive gastric contents General Appearance: Alert, No Acute Distress Skin: Grossly normal HEENT: PEERLA Neck: Supple, No JVD Cardiovascular: Regular Rate, Normal S1, Normal S2, No Murmurs Lungs: Clear to Auscultation, Normal Air Movement Abdomen: Epigastric/left upper quadrant tenderness Neurological: Normal Speech, Strength at 5/5 X4 Ext, Cranial Nerves 3-12 NL, Reflexes 2+ Extremities: No Clubbing, No Cyanosis, No Edema Vascular: Normal Pulses Assessment Coagulase-negative staph both bottles likely contamination. Repeat blood cultures negative so far. And he has remained afebrile for 24 hours. Now he has gram-negative rods in the urine and sensitivity is pending. He now has coffee-ground emesis with possible upper GI bleed. X-ray abdomen also suggested intestinal obstruction for which NG tube was placed overnight as per surgical recommendation. Patient was evaluated by GI who does not want to scope the patient given he was on xarelto. We will get repeat abdominal x-ray to evaluate small bowel obstruction. Plan Repeat abdominal x-ray Monitor CBC every 12 hours Inform GI of any active bleeding Continue ceftriaxone Follow all cultures Continue other home meds DVT prophylaxis Current Medications Sig/Елена Start time Last Medication Dose Route Stop Time Status Admin Acetaminophen 1,000 MG ONCE ONE 03/18 0545 DC 03/18 N/A 1 UNIT IV 03/18 0559 0600 Acetaminophen 1,000 MG ONCE ONE 03/17 2230 PR 03/17 N/A 1 UNIT IV 03/17 2244 2229 Acetaminophen 650 MG Q6P PRN 03/16 2215 AC 03/17 PO 0510 Benzocaine 1 LANEY ONCE ONE 03/17 2100 DC 03/17 TOP 03/17 2101 2234 Bisacodyl 10 MG DAILY NEEDED PRN 03/16 223 AC MN Ceftriaxone Sodium 1,000 MG Q24H 03/16 2129 AC 03/17 IV 2051 Dextrose/Sodium 1,000 ML Q20H 03/17 2214 03/17 Chloride IV 2228 Divalproex Sodium 250 MG AT BEDTIME 03/160 DC 03/16 PO 2111 Docusate Sodium 100 MG BID 03/16 2199 AC 03/17 PO 1040 Lidocaine 1 LANEY ONCE ONE 03/17 2214 PR 03/17 TOP 03/17 221 222 Lidocaine 0 .STK-MED ONE 03/17 2057 DC TOP Omeprazole 20 MG DAILY AC 03/17 0751 DC 03/17 PO 1040 Ondansetron HCl 4 MG ONCE ONE 03/17 170 DC 03/17 IV 03/17 1701 1716 Pantoprazole Sodium 40 MG BID 03/17 2199 AC 03/18 IV 0749 Phenol 2 SPRAY Q2P PRN 03/17 2330 AC EXT Polyethylene Glycol 17 GM DAILY 03/16 2128 AC 03/17 PO 1040 Rivaroxaban 20 MG 1700 03/16 170 DC 03/16 PO 1808 Senna/Docusate Sodium 1 TAB BID 03/16 2199 AC 03/17 PO 1040 Simethicone 80 MG Q6P PRN 03/16 2114 AC 03/16 PO 2225 Sodium Chloride 1,000 ML Q20H 03/17 1745 DC 03/17 IV 2044 Laboratory Tests 03/18 03/17 03/17 0735 2315 1439 Chemistry Sodium (137 - 145 mmol/L) 141 141 Potassium (3.5 - 5.1 mmol/L) 3.8 4.0 Chloride (98 - 107 mmol/L) 106 106 Carbon Dioxide (22 - 30 mmol/L) 30 25 Anion Gap (5 - 16) 6 11 BUN (9 - 20 mg/dL) 21 H 20 Creatinine (0.7 - 1.2 mg/dL) 0.9 0.9 Estimated GFR (>60 ml/min) > 60 > 60 BUN/Creatinine Ratio (7 - 25 %) 23.3 22.2 Troponin I (<0.11 ng/ml) < 0.01 Hematology CBC w Diff Pending MAN DIFF ORDERED WBC (4.8 - 10.8 /CUMM) Pending 20.5 H RBC (4.70 - 6.10 /CUMM) Pending 4.80 Hgb (14.0 - 18.0 G/DL) Pending 13.4 L Hct (42 - 52 %) Pending 39.8 L MCV (80.0 - 94.0 FL) Pending 83.0 MCH (27.0 - 31.0 PG) Pending 27.9 RDW (11.5 - 14.5 %) Pending 15.9 H Plt Count (130 - 400 /CUMM) Pending 279 MPV (7.4 - 10.4 FL) Pending 8.7 Gran % (42.2 - 75.2 %) Pending 90.7 H Lymphocytes % (20.5 - 51.1 %) Pending 3.5 L Monocytes % (1.7 - 9.3 %) Pending 5.6 Eosinophils % (0 - 5 %) Pending 0 Basophils % (0.0 - 2.0 %) Pending 0.2 Absolute Granulocytes (1.4 - 6.5 /CUMM) Pending 18.6 H Segmented Neutrophils (42.2 - 75.2 %) 91 H Band Neutrophils (0.0 - 5.0 %) 1 Absolute Lymphocytes (1.2 - 3.4 /CUMM) Pending 0.7 L Lymphocytes (20.5 - 51.1 %) 3 L Monocytes (1.7 - 9.3 %) 5 Absolute Monocytes (0.10 - 0.60 /CUMM) Pending 1.1 H Absolute Eosinophils (0.0 - 0.7 /CUMM) Pending 0 Absolute Basophils (0.0 - 0.2 /CUMM) Pending 0 Platelet Estimate (ADEQUATE) ADEQUATE Normocytic RBCs VERIFIED Normochromic RBCs VERIFIED PUBS MCHC (33.0 - 37.0 G/DL) Pending 33.6 Other Body Source Fld Total RBCs Counted (%) 100 02/ 1439 Chemistry Sodium Cancelled Potassium Cancelled Chloride Cancelled Carbon Dioxide Cancelled Anion Gap Cancelled BUN Cancelled Creatinine Cancelled BUN/Creatinine Ratio Cancelled Hematology CBC w Diff NO MAN DIFF REQ WBC (4.8 - 10.8 /CUMM) 22.3 H RBC (4.70 - 6.10 /CUMM) 4.96 Hgb (14.0 - 18.0 G/DL) 13.7 L Hct (42 - 52 %) 41.5 L MCV (80.0 - 94.0 FL) 83.7 MCH (27.0 - 31.0 PG) 27.6 RDW (11.5 - 14.5 %) 16.3 H Plt Count (130 - 400 /CUMM) 267 MPV (7.4 - 10.4 FL) 8.6 Gran % (42.2 - 75.2 %) 90.7 H Lymphocytes % (20.5 - 51.1 %) 3.3 L Monocytes % (1.7 - 9.3 %) 6.0 Eosinophils % (0 - 5 %) 0 Basophils % (0.0 - 2.0 %) 0 L Absolute Granulocytes (1.4 - 6.5 /CUMM) 20.2 H Absolute Lymphocytes (1.2 - 3.4 /CUMM) 0.7 L Absolute Monocytes (0.10 - 0.60 /CUMM) 1.3 H Absolute Eosinophils (0.0 - 0.7 /CUMM) 0 Absolute Basophils (0.0 - 0.2 /CUMM) 0 PUBS MCHC (33.0 - 37.0 G/DL) 33.0 Vital Signs Date Time Temp Pulse Resp B/P Pulse O2 O2 Flow FiO2 Ox Delivery Rate 03/18 0822 98.4 96 20 102/68 95 Nasal 2.0L Cannula 03/18 0800 94 Nasal 2.0L Cannula 03/18 0000 94 Nasal 2.0L Cannula 03/17 1600 98.6 127 20 132/78 94 Nasal Cannula
[2016-03-18 09:45] LABS: WHITE BLOOD CELL COUNT 14.7 /CUMM (4.8-10.8)
--- NOTE | 2016-03-18 11:06 | Cons- Gastroenterology ---
General Information and HPI Consulting Request Date of Consult: 03/18/16 Requested By: DALILA FRANK MD Reason for Consult: Hematemesis, nasuea and vomiting, abdominal pain. Source of Information: patient Exam Limitations: no limitations History of Present Illness: Mr. Lopez is a 45-year-old male with a history of spina bifida who was admitted to [facility] several days ago with urosepsis who developed some coffee-ground emesis yesterday. He was started on antibiotics for his urinary tract infection and has been afebrile hemodynamic the stable since admission. Yesterday he developed some epigastric discomfort followed by some coffee-ground emesis, but he did not vomit up any gross blood. He was noted to have a fall from his admission hgb level on his first hospital day, but his hemoglobin has remained stable since the vomiting. He has been without any melena or bright blood per rectum. After the vomiting started he had an NGT placed which he notes was helpful in alleviating his nausea. His xarelto was also held and he was changed from po omeprazole to IV protonix. He is currently hungry and is requesting to eat and is also aksing if the NGT can be removed. Allergies/Medications Allergies: Coded Allergies: No Known Allergies (01/31/16) Home Med List: Acetaminophen 325 MG TABLET 2 TAB PO Q4H PRN PAIN/TEMP>/100 (Reported) Cranberry Fruit Concentrate (Cranberry) 450 MG TABLET 1 TAB PO DAILY SUPPLEMENT (Reported) Diphenhydramine HCl (Benadryl) (Unknown Strength) CAPSULE (Unknown Dose) PO BID PRN ITCHING (Reported) Divalproex Sodium (Depakote) 250 MG TABLET.DR 250 MG PO AT BEDTIME DISRUPTIVE BEHAVIORS (Reported) Furosemide 20 MG TABLET 1 TAB PO DAILY DIURETIC (Reported) Magnesium Hydroxide (Milk Of Magnesia) 400 MG/5 ML ORAL.SUSP 30 ML PO DAILY PRN CONSTIPATION (Reported) Multivitamin (Multi-Day Vitamins) 1 EACH TABLET 1 TAB PO DAILY SUPPLEMENT ( Reported) Rivaroxaban (Xarelto) 20 MG TABLET 1 TAB PO QPM DVT (Reported) with food Verapamil (Calan) 80 MG TABLET 1 TAB PO DAILY UNKNOWN (Reported) Current Medications: Current Medications Sig/Елена Start time Last Medication Dose Route Stop Time Status Admin Acetaminophen 1,000 MG ONCE ONE 03/18 0545 DC 03/18 N/A 1 UNIT IV 03/18 0559 0600 Acetaminophen 1,000 MG ONCE ONE 03/17 2230 DC 03/17 N/A 1 UNIT IV 03/17 2244 2229 Acetaminophen 650 MG Q6P PRN 03/16 2215 AC 03/17 PO 0510 Benzocaine 1 LANEY ONCE ONE 03/17 2100 DC 03/17 TOP 03/17 210 223 Bisacodyl 10 MG DAILY NEEDED PRN 03/16 223 AC NV Ceftriaxone Sodium 1,000 MG Q24H 03/16 213 AC 03/17 IV 2051 Dextrose/Sodium 1,000 ML Q20H 03/17 2214 AC 03/17 Chloride IV 2228 Divalproex Sodium 250 MG AT BEDTIME 03/16 2199 LA 03/16 PO 211 Docusate Sodium 100 MG BID 03/16 220 AC 03/17 PO 1040 Lidocaine 1 LANEY ONCE ONE 03/17 221 DC 03/17 TOP 03/17 221 222 Lidocaine 0 .STK-MED ONE 03/17 2057 LA TOP Omeprazole 20 MG DAILY AC 03/17 0751 DC 03/17 PO 1040 Ondansetron HCl 4 MG ONCE ONE 03/17 1700 DC 03/17 IV 03/17 1701 1716 Pantoprazole Sodium 40 MG BID 03/17 2199 03/18 IV 0749 Phenol 2 SPRAY Q2P PRN 03/17 2330 AC EXT Polyethylene Glycol 17 GM DAILY 03/16 2128 AC 03/17 PO 1040 Rivaroxaban 20 MG 1700 03/16 1700 LA 03/16 PO 1808 Senna/Docusate Sodium 1 TAB BID 03/16 2199 03/17 PO 1040 Simethicone 80 MG Q6P PRN 03/16 211 AC 03/16 PO 2225 Sodium Chloride 1,000 ML Q20H 03/17 1745 DC 03/17 IV 2044 Past History Travel History Traveled to [place] past 21 day No Medical History Neurological: TIA, vertigo, spina bifida intellectual disability Cardiovascular: hypertension, DVT Respiratory: NONE Gastrointestinal: ileus rectal bleeding Hepatic: NONE Renal: neurogenic bladder, urinary incontinence, recurrent UTI chronic indwelling Foster Musculoskeletal: NONE Psychiatric: NONE Endocrine: diabetes Blood Disorders: NONE Surgical History Surgical History: non-contributory Psychosocial History Where Do You Live? Extended [facility] Smoking Status: Never Smoked ETOH Use: denies use Illicit Drug Use: denies illicit drug use Functional Ability ADLs Needs Assist: dressing, eating, toileting, bathing. Ambulation: non-ambulatory IADLs Needs Assist: shopping, housework, finances, food prep, telephone, transportation, medication admin. Review of Systems Review of Systems Constitutional: Reports: fever, malaise, weakness. EENTM: Denies: no symptoms. Cardiovascular: Reports: chest pain. Respiratory: Reports: short of breath. Denies: cough, hemoptysis. GI: Reports: see HPI. Genitourinary: Reports: see HPI. Musculoskeletal: Denies: no symptoms. Skin: Denies: no symptoms. Neurological/Psychological: Denies: no symptoms. Hematologic/Endocrine: Denies: no symptoms. Immunologic/Allergic: Denies: no symptoms. All Other Systems: Reviewed and Negative Exam & Diagnostic Data Vital Signs and I&O Vital Signs Date Time Temp Pulse Resp B/P Pulse O2 O2 Flow FiO2 Ox Delivery Rate 03/18 0822 98.4 96 20 102/68 95 Nasal 2.0L Cannula 03/18 0800 94 Nasal 2.0L Cannula 03/18 0000 94 Nasal 2.0L Cannula 03/17 1600 98.6 127 20 132/78 94 Nasal Cannula Intake & Output 03/18 1600 03/18 0400 03/17 1600 03/17 0400 03/16 1600 03/16 0400 Intake Total 0 400 238 664 6913 2100 Output Total 450 900 550 500 800 400 Balance -450 -500 290 -602 697 1265 Intake, IV 887 816 1940 Intake, Oral 0 300 840 300 480 Number 0 Bowel Movements Output, 600 Gastric Drainage Output, Urine 450 300 550 500 800 400 Patient 228 lb 228 lb Weight Physical Exam General Appearance: well developed/nourished, no apparent distress, alert, awake Head: atraumatic, normal appearance, NGT with clear fluid Eyes: Bilateral: normal appearance. Ears, Nose, Throat: normal pharynx, normal ENT inspection Neck: normal inspection, supple, full range of motion Respiratory: normal breath sounds, chest non-tender, no respiratory distress Cardiovascular: regular rate/rhythm Gastrointestinal: normal bowel sounds, soft, non-tender, distention Rectal: deferred Back: normal inspection Extremities: no edema Skin: intact, normal color Results Pertinent Lab Results: Laboratory Tests 03/18 03/17 0735 2315 Chemistry Sodium (137 - 145 mmol/L) 141 Potassium (3.5 - 5.1 mmol/L) 3.8 Chloride (98 - 107 mmol/L) 106 Carbon Dioxide (22 - 30 mmol/L) 30 Anion Gap (5 - 16) 6 BUN (9 - 20 mg/dL) 21 H Creatinine (0.7 - 1.2 mg/dL) 0.9 Estimated GFR (>60 ml/min) > 60 BUN/Creatinine Ratio (7 - 25 %) 23.3 Hematology CBC w Diff NO MAN DIFF REQ MAN DIFF ORDERED WBC (4.8 - 10.8 /CUMM) 14.7 H 20.5 H RBC (4.70 - 6.10 /CUMM) 4.19 L 4.80 Hgb (14.0 - 18.0 G/DL) 11.6 L 13.4 L Hct (42 - 52 %) 34.8 L 39.8 L MCV (80.0 - 94.0 FL) 83.2 83.0 MCH (27.0 - 31.0 PG) 27.8 27.9 RDW (11.5 - 14.5 %) 16.1 H 15.9 H Plt Count (130 - 400 /CUMM) 218 279 MPV (7.4 - 10.4 FL) 8.9 8.7 Gran % (42.2 - 75.2 %) 85.0 H 90.7 H Lymphocytes % (20.5 - 51.1 %) 7.6 L 3.5 L Monocytes % (1.7 - 9.3 %) 6.6 5.6 Eosinophils % (0 - 5 %) 0.6 0 Basophils % (0.0 - 2.0 %) 0.2 0.2 Absolute Granulocytes (1.4 - 6.5 /CUMM) 12.5 H 18.6 H Segmented Neutrophils (42.2 - 75.2 %) 91 H Band Neutrophils (0.0 - 5.0 %) 1 Absolute Lymphocytes (1.2 - 3.4 /CUMM) 1.1 L 0.7 L Lymphocytes (20.5 - 51.1 %) 3 L Monocytes (1.7 - 9.3 %) 5 Absolute Monocytes (0.10 - 0.60 /CUMM) 1.0 H 1.1 H Absolute Eosinophils (0.0 - 0.7 /CUMM) 0.1 0 Absolute Basophils (0.0 - 0.2 /CUMM) 0 0 Platelet Estimate (ADEQUATE) ADEQUATE Normocytic RBCs VERIFIED Normochromic RBCs VERIFIED PUBS MCHC (33.0 - 37.0 G/DL) 33.4 33.6 Other Body Source Fld Total RBCs Counted (%) 100 03/17 03/17 03/16 1439 1439 1804 Chemistry Sodium (137 - 145 mmol/L) 141 Cancelled Potassium (3.5 - 5.1 mmol/L) 4.0 Cancelled Chloride (98 - 107 mmol/L) 106 Cancelled Carbon Dioxide (22 - 30 mmol/L) 25 Cancelled Anion Gap (5 - 16) 11 Cancelled BUN (9 - 20 mg/dL) 20 Cancelled Creatinine (0.7 - 1.2 mg/dL) 0.9 Cancelled Estimated GFR (>60 ml/min) > 60 BUN/Creatinine Ratio (7 - 25 %) 22.2 Cancelled Troponin I (<0.11 ng/ml) < 0.01 < 0.01 Hematology CBC w Diff NO MAN DIFF REQ WBC (4.8 - 10.8 /CUMM) 22.3 H RBC (4.70 - 6.10 /CUMM) 4.96 Hgb (14.0 - 18.0 G/DL) 13.7 L Hct (42 - 52 %) 41.5 L MCV (80.0 - 94.0 FL) 83.7 MCH (27.0 - 31.0 PG) 27.6 RDW (11.5 - 14.5 %) 16.3 H Plt Count (130 - 400 /CUMM) 267 MPV (7.4 - 10.4 FL) 8.6 Gran % (42.2 - 75.2 %) 90.7 H Lymphocytes % (20.5 - 51.1 %) 3.3 L Monocytes % (1.7 - 9.3 %) 6.0 Eosinophils % (0 - 5 %) 0 Basophils % (0.0 - 2.0 %) 0 L Absolute Granulocytes (1.4 - 6.5 /CUMM) 20.2 H Absolute Lymphocytes (1.2 - 3.4 /CUMM) 0.7 L Absolute Monocytes (0.10 - 0.60 /CUMM) 1.3 H Absolute Eosinophils (0.0 - 0.7 /CUMM) 0 Absolute Basophils (0.0 - 0.2 /CUMM) 0 PUBS MCHC (33.0 - 37.0 G/DL) 33.0 03/16 03/16 03/16 1055 0400 0150 Chemistry Lactic Acid (0.7 - 2.1 mmol/L) 1.2 Troponin I (<0.11 ng/ml) < 0.01 < 0.01 Hematology CBC w Diff MAN DIFF ORDERED WBC (4.8 - 10.8 /CUMM) 18.4 H RBC (4.70 - 6.10 /CUMM) 5.39 Hgb (14.0 - 18.0 G/DL) 14.9 Hct (42 - 52 %) 44.6 MCV (80.0 - 94.0 FL) 82.7 MCH (27.0 - 31.0 PG) 27.6 RDW (11.5 - 14.5 %) 16.4 H Plt Count (130 - 400 /CUMM) 246 MPV (7.4 - 10.4 FL) 9.3 Gran % (42.2 - 75.2 %) 89.2 H Lymphocytes % (20.5 - 51.1 %) 4.3 L Monocytes % (1.7 - 9.3 %) 6.2 Eosinophils % (0 - 5 %) 0.1 Basophils % (0.0 - 2.0 %) 0.2 Absolute Granulocytes (1.4 - 6.5 /CUMM) 16.4 H Segmented Neutrophils (42.2 - 75.2 %) 77 H Band Neutrophils (0.0 - 5.0 %) 10 H Absolute Lymphocytes (1.2 - 3.4 /CUMM) 0.8 L Lymphocytes (20.5 - 51.1 %) 6 L Monocytes (1.7 - 9.3 %) 7 Absolute Monocytes (0.10 - 0.60 /CUMM) 1.1 H Absolute Eosinophils (0.0 - 0.7 /CUMM) 0 Absolute Basophils (0.0 - 0.2 /CUMM) 0 Platelet Estimate (ADEQUATE) VERIFIED BY SMEAR Anisocytosis 1+ PUBS MCHC (33.0 - 37.0 G/DL) 33.4 03/15 03/15 1905 1715 Chemistry Sodium (137 - 145 mmol/L) 143 Potassium (3.5 - 5.1 mmol/L) 4.6 Chloride (98 - 107 mmol/L) 101 Carbon Dioxide (22 - 30 mmol/L) 26 Anion Gap (5 - 16) 16 BUN (9 - 20 mg/dL) 33 H Creatinine (0.7 - 1.2 mg/dL) 1.2 Estimated GFR (>60 ml/min) > 60 BUN/Creatinine Ratio (7 - 25 %) 27.5 H Glucose (65 - 99 mg/dL) 127 H Lactic Acid (0.7 - 2.1 mmol/L) 2.9 H Calcium (8.4 - 10.2 mg/dL) 10.3 H Total Bilirubin (0.2 - 1.3 mg/dL) 0.8 AST (17 - 59 U/L) 23 ALT (21 - 72 U/L) 26 Alkaline Phosphatase (< 127 U/L) 66 Troponin I (<0.11 ng/ml) < 0.01 [id number] Pept (<125 pg/mL) 82.5 Total Protein (6.3 - 8.2 g/dL) 7.9 Albumin (3.5 - 5.0 g/dL) 4.2 Globulin (1.9 - 4.2 gm/dL) 3.7 Albumin/Globulin Ratio (1.1 - 2.2 %) 1.1 Coagulation D-Dimer (70 - 232 ng/ml) 262 H Hematology CBC w Diff MAN DIFF ORDERED WBC (4.8 - 10.8 /CUMM) 21.6 H RBC (4.70 - 6.10 /CUMM) 6.42 H Hgb (14.0 - 18.0 G/DL) 17.5 Hct (42 - 52 %) 53.1 H MCV (80.0 - 94.0 FL) 82.6 MCH (27.0 - 31.0 PG) 27.3 RDW (11.5 - 14.5 %) 15.5 H Plt Count (130 - 400 /CUMM) 316 MPV (7.4 - 10.4 FL) 8.9 Gran % (42.2 - 75.2 %) 93.0 H Lymphocytes % (20.5 - 51.1 %) 2.5 L Monocytes % (1.7 - 9.3 %) 4.5 Eosinophils % (0 - 5 %) 0 Basophils % (0.0 - 2.0 %) 0 L Absolute Granulocytes (1.4 - 6.5 /CUMM) 20.1 H Segmented Neutrophils (42.2 - 75.2 %) 77 H Band Neutrophils (0.0 - 5.0 %) 18 H Absolute Lymphocytes (1.2 - 3.4 /CUMM) 0.5 L Lymphocytes (20.5 - 51.1 %) 2 L Monocytes (1.7 - 9.3 %) 3 Absolute Monocytes (0.10 - 0.60 /CUMM) 1.0 H Absolute Eosinophils (0.0 - 0.7 /CUMM) 0 Absolute Basophils (0.0 - 0.2 /CUMM) 0 Platelet Estimate (ADEQUATE) ADEQUATE Normochromic RBCs VERIFIED Poikilocytosis 1+ Stomatocytes 1+ PUBS MCHC (33.0 - 37.0 G/DL) 33.0 Urines Urinalysis PACKD H Urine Color (YEL,AMB,STR) PINK H Urine Clarity (CLEAR) TURBD H Urine pH (5.0 - 8.0) 8.0 Ur Specific [place] (1.001 - 1.035) 1.020 Urine Protein (NEG,<30 MG/DL) 100 H Urine Ketones (NEG) NEG Urine Nitrite (NEG) POS H Urine Bilirubin (NEG) NEG Urine Urobilinogen (0.1 - 1.0 EU/dl) 0.2 Ur Leukocyte Esterase (NEG) LARGE H Ur Microscopic SEDIMENT EXAMINED Urine Crystals 4+ TRIP PHOS H Urine Hemoglobin (NEG) LARGE H Urine Glucose (N MG/DL) NEG Assessment/Plan Assessment/Recommendations: Assessment: Mr. Lopez is a 45-year-old male with spina bifida admitted for urosepsis with positive blood and urine cultures with gram-negative rods who developed hematemesis yesterday that has since resolved. While he did have a fall in his hemoglobin from admission lab values this clearly seems to be from him being hemoconcentrated on admission as his current hgb is closer to his baseline lab values. Furthermore, he has not had any significant fall in his hemoglobin since the vomiting started and he has remained hemodynamically stable so as he is without any melena or any gross blood in his vomitus it is highly unlikely that he is having a hemodynamically significant GI bleed and urgent endoscopic intervention is not necessary. His normal BUN/Cr ratio also argues against a significant GI bleed. It would be helpful to pursue an elective EGD to assess for the etiology of the hematemesis especially as he is maintained on anticoagulation, but as he is without evidence of ongoing GI blood loss this can safely be pursued as an outpatient. Recommendations: 1. D/c NGT and advance diet as tolerated 2. IV protoinx 40mg daily for now 3. Avoid nsaids 4. Treatment of UTI as per primary care team 5. Anti-emetics as needed 6. Follow CBC q12 hours and if it stays stable would then go back to checking daily 7. Notify GI for signs of overt GI bleeding such as gross hematemesis or melena 8. If medically indicated there are no absolute GI contraindications to continuing the xarelto 8. Will tentatively plan to pursue an outpatient EGD, but will do as an inpatient if hemodynamcially significant GI bleeding occurs or if his spina bifida makes travel difficult for him and therefore difficult to pursue outpatient testing I will continue to follow this patient and make further recommendations based on his clinical course and results of repeat blood work. Problem List: 1. Upper GI bleed 2. Abdominal pain Copies To: DALILA FRANK MD Consult Acknowledgment - Thank you for your consult request.
--- NOTE | 2016-03-18 11:06 | PN- General Surgery ---
Subjective Subjective: Pt feels much better since ngt placed last night Immediate return of 600cc coffee ground emesis, since then only about 20cc No abdominal pain currently Pt has paraplegia and cannot tell if/when he passes gas/has a bm - no stool noted since admission. He also claims to require enemas routinely for bm Objective Vital Signs and I&Os Vital Signs Date Time Temp Pulse Resp B/P Pulse O2 O2 Flow FiO2 Ox Delivery Rate 03/18 821 98.4 96 20 102/68 95 Nasal 2.0L Cannula 03/18 799 94 Nasal 2.0L Cannula 03/18 94 Nasal 2.0L Cannula 03/17 1599 98.6 127 20 132/78 94 Nasal Cannula Intake & Output 03/18 1600 03/18 0000 03/17 1600 03/17 0000 Intake Total 0 400 600 240 300 Output Total 450 900 250 300 500 Balance -450 -500 350 -60 -200 Intake, IV 100 Intake, Oral 0 300 600 240 300 Number 0 Bowel Movements Output, 600 Gastric Drainage Output, Urine 450 300 250 300 500 Patient 228 lb Weight Physical Exam: afebrile, vss Abdomen: soft, nontender even to deep palpation throughout, good bs, nondistended Assessment/Plan Assessment/Plan 45 yo with multiple medical issues including spina bifida, paraplegia, admitted with high wbc, UTI, abdominal pain, coffee ground emesis - on xarelto Discussed with Dr Bocanegra SBO seems to be resoling based on symptoms plan is to have gastrograffin placed via ngt, then clamp ngt for 5 hours, then get a multiview of the abdomen to more fully evaluate sbo Discussed with Radiology - ordered
--- NOTE | 2016-03-18 11:29 | PN- Housestaff ---
Subjective Follow-up For: Upper Abdominal Pain Subacute small intestinal obstruction Upper GI bleed UTI with septicemia Complaints: upper abd pain Tele-Events Since Last Visit: no any overnight events Subjective: patient is seen and examined at the bed side. He was c/o pain in upper abdoman, along with nausea and vomiting. Denies fever, chills, dysuria. He is able to pass flatus, but have not had bowel movements. Review of Systems Constitutional: Reports: malaise, weakness. Denies: chills, diaphoresis, fever. EENTM: Denies: no symptoms. Cardiovascular: Reports: chest pain. Denies: edema, orthopena, palpitations. Respiratory: Denies: cough, hemoptysis, orthopnea. Gastrointestinal: Reports: abdominal pain, bloating, constipation, distention, nausea. Denies: bowel incontinence, melena. Genitourinary: Denies: no symptoms. Objective Last 24 Hrs of Vital Signs/I&O Vital Signs Date Time Temp Pulse Resp B/P Pulse O2 O2 Flow FiO2 Ox Delivery Rate 03/18 1600 Nasal 2.0L Cannula 03/18 1530 97.7 93 20 114/72 95 Nasal 2.0L Cannula 03/18 0822 98.4 96 20 102/68 95 Nasal 2.0L Cannula 03/18 0800 94 Nasal 2.0L Cannula 03/18 0000 94 Nasal 2.0L Cannula Intake & Output 03/18 1600 03/18 0800 03/18 0000 Intake Total 0 400 Output Total 450 900 Balance -450 -500 Intake, IV 100 Intake, Oral 0 300 Output, 600 Gastric Drainage Output, Urine 450 300 Physical Exam General Appearance: Alert, Oriented X3, Cooperative, No Acute Distress Skin: No Rashes, No Breakdown HEENT: Atraumatic, PERRLA, EOMI Neck: Supple, No JVD Cardiovascular: Regular Rate, Normal S1, Normal S2 Lungs: Clear to Auscultation, Normal Air Movement Abdomen: Soft, No Tenderness Neurological: Normal Speech Extremities: No Clubbing, No Cyanosis, No Edema Vascular: Normal Pulses Assessment/Plan Assessment: Patient is a 45 y/o M with PMHx of spina bifida, urinary incontinence with chronic indwelling Foster, HTN, DVT, prediabetes and intellectual disability who is BIBA from rehab facility for chest and abdominal pain and shortness of breath. Vital signs-temperature 98.6, pulse 94, respiration 20, blood pressure 114/72, SPO2 93% Problem list - Upper Gi bleed Subacute intestinal obstruction under evaluation Septicemia secondary to UTI/indwelling catheter Neurogenic bladder Spina bifida DVT/PE on Xarelto Prediabetes Intellectual disability Plan- There was 600cc out put from NG tube, coffy ground in color. Urine c/s showed proteus and sensitive to ampicillin, blood c/s showed Cog Neg Staph- possible contamination. According to Dr Jacobs,we will change the antibiotics from ceftriaxone to Ampicillin 2gm IV 8Hrly RUQ USG - NL We will follow Echo result We will continue to hold Xeralto, watch for bleeding He cannt have Upper GI endoscopy as he was on xeralto, we will wait for next 24 hrs to get it, to know exact cause of bleeding. We will follow H/H, twice daily Diet-NPO DVT prophylaxis-ALPS CODE STATUS-full code Problem List: 1. Intestinal obstruction 2. Upper GI bleed 3. Sepsis 4. UTI (urinary tract infection) 5. Chronic indwelling Foster catheter Pain Ratin Pain Location: upper abd and chest Pain Goal: Remain pain free Pain Plan: mild with tylenol Tomorrow's Labs & Rationales: cbc, bep DVT/Prophylaxis: mechanical, pharmacological
--- NOTE | 2016-03-18 11:40 | PN- Infect Dx ---
Subjective Subjective: Afebrile for the past 24 hours. He apparently developed vomiting with coffee ground emesis last evening, for which an NG tube was placed with resolution of his abdominal pain. Presently he feels well with no complaints. Objective Last 24 Hrs of Vital Signs/I&O Vital Signs Date Time Temp Pulse Resp B/P Pulse O2 O2 Flow FiO2 Ox Delivery Rate 03/18 821 98.4 96 20 102/68 95 Nasal 2.0L Cannula 03/18 08 94 Nasal 2.0L Cannula 03/18 0000 94 Nasal 2.0L Cannula 03/17 1600 98.6 127 20 132/78 94 Nasal Cannula Intake & Output 03/18 1600 03/18 0800 03/18 0000 Intake Total 0 400 Output Total 450 900 Balance -450 -500 Intake, IV 100 Intake, Oral 0 300 Output, 600 Gastric Drainage Output, Urine 450 300 Physical Exam Other Physical Findings: He appears comfortable in no acute distress HEENT NG tube in place Lungs are clear Abdomen is distended, nontender, with positive bowel sounds Extremities trace edema both lower extremities Foster catheter remains in place Results Last 24 Hours of Lab Results: Laboratory Tests 03/18 03/17 0735 2315 Chemistry Sodium (137 - 145 mmol/L) 141 Potassium (3.5 - 5.1 mmol/L) 3.8 Chloride (98 - 107 mmol/L) 106 Carbon Dioxide (22 - 30 mmol/L) 30 Anion Gap (5 - 16) 6 BUN (9 - 20 mg/dL) 21 H Creatinine (0.7 - 1.2 mg/dL) 0.9 Estimated GFR (>60 ml/min) > 60 BUN/Creatinine Ratio (7 - 25 %) 23.3 Hematology CBC w Diff NO MAN DIFF REQ MAN DIFF ORDERED WBC (4.8 - 10.8 /CUMM) 14.7 H 20.5 H RBC (4.70 - 6.10 /CUMM) 4.19 L 4.80 Hgb (14.0 - 18.0 G/DL) 11.6 L 13.4 L Hct (42 - 52 %) 34.8 L 39.8 L MCV (80.0 - 94.0 FL) 83.2 83.0 MCH (27.0 - 31.0 PG) 27.8 27.9 RDW (11.5 - 14.5 %) 16.1 H 15.9 H Plt Count (130 - 400 /CUMM) 218 279 MPV (7.4 - 10.4 FL) 8.9 8.7 Gran % (42.2 - 75.2 %) 85.0 H 90.7 H Lymphocytes % (20.5 - 51.1 %) 7.6 L 3.5 L Monocytes % (1.7 - 9.3 %) 6.6 5.6 Eosinophils % (0 - 5 %) 0.6 0 Basophils % (0.0 - 2.0 %) 0.2 0.2 Absolute Granulocytes (1.4 - 6.5 /CUMM) 12.5 H 18.6 H Segmented Neutrophils (42.2 - 75.2 %) 91 H Band Neutrophils (0.0 - 5.0 %) 1 Absolute Lymphocytes (1.2 - 3.4 /CUMM) 1.1 L 0.7 L Lymphocytes (20.5 - 51.1 %) 3 L Monocytes (1.7 - 9.3 %) 5 Absolute Monocytes (0.10 - 0.60 /CUMM) 1.0 H 1.1 H Absolute Eosinophils (0.0 - 0.7 /CUMM) 0.1 0 Absolute Basophils (0.0 - 0.2 /CUMM) 0 0 Platelet Estimate (ADEQUATE) ADEQUATE Normocytic RBCs VERIFIED Normochromic RBCs VERIFIED PUBS MCHC (33.0 - 37.0 G/DL) 33.4 33.6 Other Body Source Fld Total RBCs Counted (%) 100 02/ 02/ 1439 1439 Chemistry Sodium (137 - 145 mmol/L) 141 Cancelled Potassium (3.5 - 5.1 mmol/L) 4.0 Cancelled Chloride (98 - 107 mmol/L) 106 Cancelled Carbon Dioxide (22 - 30 mmol/L) 25 Cancelled Anion Gap (5 - 16) 11 Cancelled BUN (9 - 20 mg/dL) 20 Cancelled Creatinine (0.7 - 1.2 mg/dL) 0.9 Cancelled Estimated GFR (>60 ml/min) > 60 BUN/Creatinine Ratio (7 - 25 %) 22.2 Cancelled Troponin I (<0.11 ng/ml) < 0.01 Hematology CBC w Diff NO MAN DIFF REQ WBC (4.8 - 10.8 /CUMM) 22.3 H RBC (4.70 - 6.10 /CUMM) 4.96 Hgb (14.0 - 18.0 G/DL) 13.7 L Hct (42 - 52 %) 41.5 L MCV (80.0 - 94.0 FL) 83.7 MCH (27.0 - 31.0 PG) 27.6 RDW (11.5 - 14.5 %) 16.3 H Plt Count (130 - 400 /CUMM) 267 MPV (7.4 - 10.4 FL) 8.6 Gran % (42.2 - 75.2 %) 90.7 H Lymphocytes % (20.5 - 51.1 %) 3.3 L Monocytes % (1.7 - 9.3 %) 6.0 Eosinophils % (0 - 5 %) 0 Basophils % (0.0 - 2.0 %) 0 L Absolute Granulocytes (1.4 - 6.5 /CUMM) 20.2 H Absolute Lymphocytes (1.2 - 3.4 /CUMM) 0.7 L Absolute Monocytes (0.10 - 0.60 /CUMM) 1.3 H Absolute Eosinophils (0.0 - 0.7 /CUMM) 0 Absolute Basophils (0.0 - 0.2 /CUMM) 0 PUBS MCHC (33.0 - 37.0 G/DL) 33.0 Last 24 Hours of Rex Results: Urine culture March 15 greater than 100,000 colonies of Proteus resistant to Ciprofloxacin, Bactrim and Nitrofurantoin Blood cultures 2 March 16 negative Recent Imaging Studies: Right upper quadrant ultrasound March 17 no biliary abnormalities Abdominal x-ray March 17 reveals an abnormal bowel pattern consistent with small bowel obstruction Assessment/Plan Impression: Improved status post placement of an NG tube for what appears to be a small bowel obstruction, with abdominal pain relieved with placement of the tube. He remains afebrile with white blood cell count decreasing on Ceftriaxone now Day 3 of treatment for presumed sepsis of urologic origin. Of note he was catheterizing himself until 2 months prior to admission, when he was placed in a senior living, at which time a Foster catheter was inserted, and alternatives to the Foster catheter should be considered. He has been evaluated by Urology who has discussed these options. Suggestion: 1. Would advocate for resuming self catheterization or, if not feasible, suprapubic cystostomy in place of the indwelling Foster catheter 2. Discontinue Ceftriaxone 3. Begin Ampicillin 2 g IV every 8 hours
[2016-03-18 15:30] VITALS: BP 114/72
[2016-03-18 19:42] LABS: ABSOLUTE BASOPHIL COUNT 0.1 /CUMM (0.0-0.2); ABSOLUTE EOSINOPHIL COUNT 0.1 /CUMM (0.0-0.7); ABSOLUTE GRANULOCYTE CT 9.6 /CUMM (1.4-6.5); ABSOLUTE LYMPH COUNT 0.9 /CUMM (1.2-3.4); ABSOLUTE MONOCYTE COUNT 0.8 /CUMM (0.10-0.60); BASOPHIL % 0.8 % (0.0-2.0); EOSINOPHIL % 1.2 % (0-5); GRANULOCYTE % 83.4 % (42.2-75.2); HEMATOCRIT 37.3 % (42-52); MEAN CORPUSCULAR HGB 27.8 PG (27.0-31.0); MEAN CORPUSCULAR HGB CONC 33.2 G/DL (33.0-37.0); MEAN CORPUSCULAR VOLUME 83.5 FL (80.0-94.0); MEAN PLATELET VOLUME 8.9 FL (7.4-10.4); PLATELET COUNT 216 /CUMM (130-400); RBC DISTRIBUTION WIDTH 16.3 % (11.5-14.5); RED BLOOD CELL CT 4.46 /CUMM (4.70-6.10); WHITE BLOOD CELL COUNT 11.6 /CUMM (4.8-10.8)
--- NOTE | 2016-03-18 23:04 | RADIOLOGY REPORT ---
EXAMINATION: ABDOMEN 2 VIEWS CLINICAL INFORMATION: Small bowel obstruction. Abdominal pain. Follow-up. COMPARISON: 03/17/2016. TECHNIQUE: Supine and upright views of the abdomen are provided following contrast infusion through the NG tube. FINDINGS: And enteric tube is in place. The tip terminates within the stomach. Contrast material is present within the stomach. Dilute contrast material is identified within loops of dilated small bowel. Contrast material is also identified within the colon. There is persistent airspace disease identified at the right lung base. IMPRESSION: Multiple dilated loops of small bowel with dilute contrast suggestive of a partial small bowel obstruction.
[2016-03-18 23:36] VITALS: BP 112/70
--- NOTE | 2016-03-19 02:36 | NUR ---
LATE ENTRY NOTE IV IN LW INFILTRATED AROUND 1899. 4 RN'S ATTEMPTED TO ESTABLISH IV ACCESS WITH NO SUCCESS. AND DR. TILLMAN NOTIFIED. PT REFUSING ANY MORE ATTEMPTS AT THIS TIME.
--- NOTE | 2016-03-19 07:11 | PN- Housestaff ---
Subjective Follow-up For: Upper Abdominal Pain Subacute small intestinal obstruction Upper GI bleed UTI with septicemia Complaints: pain in upper abd Tele-Events Since Last Visit: No any overnight event, NSR. Subjective: Patient is seen examined at the bed side. He was complaining of pain in the upper abdomen. But it is much better than before. Discussed about the abdominal problem in detail and told that we will told him after talking to surgeons. He denies nausea, distention in abdomen, chest pain. Review of Systems Constitutional: Reports: fever, weakness. EENTM: Denies: no symptoms. Cardiovascular: Denies: chest pain, edema, orthopena, palpitations. Respiratory: Denies: cough, hemoptysis, orthopnea, short of breath. Gastrointestinal: Reports: abdominal pain. Denies: bloating, constipation, diarrhea, distention, bowel incontinence, melena, nausea, bloody stool. Genitourinary: Denies: no symptoms. Musculoskeletal: Denies: no symptoms. Skin: Denies: no symptoms. Neurological/Psychological: Denies: unable to move lower ext. Objective Last 24 Hrs of Vital Signs/I&O Vital Signs Date Time Temp Pulse Resp B/P Pulse O2 O2 Flow FiO2 Ox Delivery Rate 03/19 0813 98.6 111 20 120/82 95 Nasal 3.0L Cannula 03/19 0000 Nasal 2.0L Cannula 03/18 2336 100.7 108 18 112/70 96 Nasal Cannula 03/18 1600 Nasal 2.0L Cannula 03/18 1530 97.7 93 20 114/72 95 Nasal 2.0L Cannula Intake & Output 03/19 1600 03/19 0800 03/19 0000 Intake Total 0 150 Output Total 325 400 Balance -325 -250 Intake, IV 150 Intake, Oral 0 0 Number 1 1 Bowel Movements Output, 25 50 Gastric Drainage Output, Urine 300 350 Physical Exam General Appearance: Alert, Oriented X3, Cooperative, No Acute Distress Skin: No Rashes, No Breakdown HEENT: Atraumatic, PERRLA, EOMI Neck: Supple, No JVD Cardiovascular: Normal S1, Normal S2 Lungs: Clear to Auscultation, Normal Air Movement Abdomen: Soft, No Tenderness, bowel sounds positive Neurological: Normal Speech Extremities: No Clubbing, No Cyanosis, No Edema Vascular: Normal Pulses Assessment/Plan Assessment: Patient is a 45 y/o M with PMHx of spina bifida, urinary incontinence with chronic indwelling Foster, HTN, DVT, prediabetes and intellectual disability who is BIBA from rehab facility for chest and abdominal pain and shortness of breath. Vital signs-temperature 98.6, pulse 111, respiration 20, blood pressure 120/82, SPO2 95% Problem list - Upper Gi bleed -no evidence on upper GI endoscopy Subacute intestinal obstruction -resolving Septicemia secondary to UTI/indwelling catheter -improving Neurogenic bladder Spina bifida DVT/PE on Xarelto Prediabetes Intellectual disability Plan- * Urine c/s showed proteus and sensitive to ampicillin, blood c/s showed Cog Neg Staph- possible contamination. * We will continue injection Ampicillin 2gm IV 8Hrly * Discussed with . We'll continue IV antibiotics for next 2 or 3 days , then we will plan for by mouth antibiotic. * We will continue to hold Xeralto, watch for bleeding * Eco-showed LVEF more than 65%, thickening of mitral and aortic bowel * Upper GI endoscopy showed no evidence of bleeding, GI advised to advance her diet and according to them, no any contraindication to anticoagulation * We will follow H/H, twice daily * According to surgeons. Patient is improving as he had bowel movement and abdomen is soft. According to the nurse, patient had multiple watery bowel movement. I'm still concerned that this is a opening of obstruction in the small intestine or the effect of the ampicillin. We will watch for it and if needed, then we will send a sample for C. difficile. * Diet-clear liquid diet and we will advance it to normal tomorrow * DVT prophylaxis-ALPS * CODE STATUS-full code Problem List: 1. Upper GI bleed 2. Intestinal obstruction 3. Chronic indwelling Foster catheter 4. Sepsis 5. Abdominal pain 6. UTI (urinary tract infection) Pain Ratin Pain Location: Upper abdomen Pain Goal: Remain pain free Pain Plan: mild Tomorrow's Labs & Rationales: cbc DVT/Prophylaxis: mechanical
[2016-03-19 08:13] VITALS: BP 120/82
--- NOTE | 2016-03-19 09:14 | PN- Att Addend ---
Attending Addendum Attending Brief Note Patient reports improved pain and no drainage via NG tube. Last antibiotics yesterday afternoon and patient currently has no access. General Appearance: Alert, No Acute Distress Skin: Grossly normal HEENT: PEERLA Neck: Supple, No JVD Cardiovascular: Regular Rate, Normal S1, Normal S2, No Murmurs Lungs: Clear to Auscultation, Normal Air Movement Abdomen: Epigastric/left upper quadrant tenderness Neurological: Normal Speech, Strength at 5/5 X4 Ext, Cranial Nerves 3-12 NL, Reflexes 2+ Extremities: No Clubbing, No Cyanosis, No Edema Vascular: Normal Pulses Assessment Coagulase-negative staph both bottles likely contamination. Repeat blood cultures negative so far. Currently on ampicillin growing Proteus in urine. coffee-ground emesis with possible upper GI bleed, that seemed to have now resolved. Patient will likely need upper endoscopy at some point. We'll discuss with GI and likely plan for inpatient endoscopic on Tuesday. Partial small bowel obstruction. Patient had a bowel movement yesterday. We will repeat abdominal x-ray today. Plan Place PICC line Repeat abdominal x-ray today Monitor CBC every 12 hours Inform GI of any active bleeding, discuss with GI regarding in patient endoscopy Continue ampicillin Continue other home meds DVT prophylaxis Current Medications Sig/Елена Start time Last Medication Dose Route Stop Time Status Admin Acetaminophen 650 MG Q6P PRN 03/16 2215 AC 03/17 PO 0510 Ampicillin 2,000 MG Q8 03/18 1400 AC 03/18 Sodium Chloride 100 ML IV 1539 Bisacodyl 10 MG DAILY NEEDED PRN 03/16 2230 AC NV Ceftriaxone Sodium 1,000 MG Q24H 03/16 2130 DC 03/17 IV 2051 Dextrose/Sodium 1,000 ML Q20H 03/17 2215 AC 03/18 Chloride IV 1541 Docusate Sodium 100 MG BID 03/16 2200 AC 03/17 PO 1040 Pantoprazole Sodium 40 MG BID 03/17 2200 AC 03/18 IV 0749 Patient Medication 1 ED ONE ONE 03/18 1330 DC Teaching ED 03/18 1331 Phenol 2 SPRAY Q2P PRN 03/17 2330 AC EXT Polyethylene Glycol 17 GM DAILY 03/16 2129 AC 03/17 PO 1040 Senna/Docusate Sodium 1 TAB BID 03/16 2200 AC 03/17 PO 1040 Simethicone 80 MG Q6P PRN 03/16 2114 AC 03/16 PO 2225 Laboratory Tests 03/18 1900 Chemistry Troponin I (<0.11 ng/ml) < 0.01 Hematology CBC w Diff NO MAN DIFF REQ WBC (4.8 - 10.8 /CUMM) 11.6 H RBC (4.70 - 6.10 /CUMM) 4.46 L Hgb (14.0 - 18.0 G/DL) 12.4 L Hct (42 - 52 %) 37.3 L MCV (80.0 - 94.0 FL) 83.5 MCH (27.0 - 31.0 PG) 27.8 RDW (11.5 - 14.5 %) 16.3 H Plt Count (130 - 400 /CUMM) 216 MPV (7.4 - 10.4 FL) 8.9 Gran % (42.2 - 75.2 %) 83.4 H Lymphocytes % (20.5 - 51.1 %) 7.8 L Monocytes % (1.7 - 9.3 %) 6.8 Eosinophils % (0 - 5 %) 1.2 Basophils % (0.0 - 2.0 %) 0.8 Absolute Granulocytes (1.4 - 6.5 /CUMM) 9.6 H Absolute Lymphocytes (1.2 - 3.4 /CUMM) 0.9 L Absolute Monocytes (0.10 - 0.60 /CUMM) 0.8 H Absolute Eosinophils (0.0 - 0.7 /CUMM) 0.1 Absolute Basophils (0.0 - 0.2 /CUMM) 0.1 PUBS MCHC (33.0 - 37.0 G/DL) 33.2 Vital Signs Date Time Temp Pulse Resp B/P Pulse O2 O2 Flow FiO2 Ox Delivery Rate 03/19 0813 98.6 111 20 120/82 95 Nasal 3.0L Cannula 03/19 0000 Nasal 2.0L Cannula 03/18 2336 100.7 108 18 112/70 96 Nasal Cannula 03/18 1600 Nasal 2.0L Cannula 03/18 1530 97.7 93 20 114/72 95 Nasal 2.0L Cannula
--- NOTE | 2016-03-19 10:42 | ECHOCARDIOGRAM REPORT ---
DAVE PRO Age: 45 : 1970 Gender: M Exam Date: 03/18/2016 17:51 Exam Location: 1 [address] Ht (in): 60 Wt (lb): 228 BSA: 2.16 BP: 132 / 78 Ordering Physician: BE CHANDLER M Referring Physician: Mariano Pelaez MD Chief, SoC Technologist: Rosa Soto [facility] Room Number: 180-02 Indications: CHEST PAIN Rhythm: Sinus Technical Quality: Fair FINDINGS Left Ventricle Normal size left ventricle. Left ventricular wall thickness at upper limits of normal. Normal left ventricular ejection fraction visually estimated at >65 %. No obvious regional wall motion abnormalities. Normal left ventricular diastolic filling pattern for age. Right Ventricle The right ventricle is normal in size and function. Right Atrium The right atrium is normal in size. Left Atrium The left atrium is normal in size. The interatrial septum is intact. Mitral Valve Mild thickening/calcification of the mitral valve leaflets. No mitral regurgitation. Aortic Valve Focal thickening of the aortic valve cusps. No aortic stenosis. No aortic regurgitation. Tricuspid Valve The tricuspid valve is normal in structure and function. There is trace to mild tricuspid regurgitation. Right ventricular systolic pressure estimated to be mildly elevated at 35-40 mmHg. Pulmonic Valve Structurally normal pulmonic valve. There is pulmonic regurgitation. Pericardium Normal pericardium without effusion. No pleural effusion. Great Vessels Normal aortic root dimension. The aortic arch and great vessels are well seen and are normal. CONCLUSIONS Left ventricular wall thickness at upper limits of normal. Normal left ventricular ejection fraction visually estimated at >65 Mild thickening/calcification of the mitral valve leaflets. No mitral regurgitation. Focal thickening of the aortic valve cusps. No aortic stenosis. Right ventricular systolic pressure estimated to be mildly elevated at 35-40 mmHg. Mariano Pelaez M.D. (Electronically Signed) Final Date: 19 March 2016 10:41 MEASUREMENTS (Male / Female) Normal Values 2D ECHO LV Diastolic Diameter PLAX 4.4 cm 4.2 - 5.9 / 3.9 - 5.3 cm LV Systolic Diameter PLAX 2.6 cm 2.1 - 4.0 cm LV Fractional Shortening PLAX 40.9 % 25 - 46 % LV Ejection Fraction 2D Teich 71.9 % IVS Diastolic Thickness 1.1 cm LVPW Diastolic Thickness 1.1 cm LV Relative Wall Thickness 0.5 RV Internal Dim ED PLAX 3.4 cm 1.9 - 3.8 cm LVOT Diameter 2.1 cm Aortic Root Diameter 3.1 cm LA Systolic Diameter LX 3.2 cm 3.0 - 4.0 / 2.7 - 3.8 cm LA Volume 21.0 cm 18 - 58 / 22 - 52 cm Ascending Aorta Diameter 2.8 cm DOPPLER AV Peak Velocity 126.0 cm/s AV Peak Gradient 6.4 mmHg AV Mean Velocity 90.2 cm/s AV Mean Gradient 4.0 mmHg AV Velocity Time Integral 21.6 cm LVOT Peak Velocity 108.0 cm/s LVOT Peak Gradient 4.7 mmHg LVOT Mean Velocity 66.8 cm/s LVOT Mean Gradient 2.0 mmHg LVOT Velocity Time Integral 17.9 cm LVOT Stroke Volume 62.0 cm AV Area Cont Eq vti 2.9 cm AV Area Cont Eq pk 3.0 cm MV Peak Velocity 112.0 cm/s MV Peak Gradient 5.0 mmHg MV Mean Velocity 62.4 cm/s MV Mean Gradient 2.0 mmHg Mitral E Point Velocity 78.5 cm/s Mitral A Point Velocity 69.1 cm/s Mitral E to A Ratio 1.1 MV PHT Velocity 116.0 cm/s MV Deceleration Lamar 864.0 cm/s MV Pressure Half Time 40.3 ms MV Area PHT 5.5 cm MV Deceleration Time 158.0 ms TR Peak Velocity 294.0 cm/s TR Peak Gradient 34.6 mmHg Right Atrial Pressure 5.0 mmHg Pulmonary Artery Systolic Pressu 39.6 mmHg Right Ventricular Systolic Press 39.6 mmHg PV Peak Velocity 102.0 cm/s PV Peak Gradient 4.2 mmHg PV Mean Velocity 73.8 cm/s PV Mean Gradient 3.0 mmHg PV Velocity Time Integral 16.6 cm LV E' Lateral Velocity 8.8 cm/s Mitral E to LV E' Lateral Ratio 8.9 LV E' Septal Velocity 7.2 cm/s Mitral E to LV E' Septal Ratio 10.9
--- NOTE | 2016-03-19 10:56 | PN- General Surgery ---
Subjective Subjective: examined patient today feeling much better less abd pain Objective Vital Signs and I&Os Vital Signs Date Time Temp Pulse Resp B/P Pulse O2 O2 Flow FiO2 Ox Delivery Rate 03/19 812 98.6 111 20 120/82 95 Nasal 3.0L Cannula 03/19 0000 Nasal 2.0L Cannula 03/18 2336 100.7 108 18 112/70 96 Nasal Cannula 03/18 1600 Nasal 2.0L Cannula 03/18 1530 97.7 93 20 114/72 95 Nasal 2.0L Cannula Intake & Output 03/19 0803/19 0000 03/18 1600 03/18 0000 Intake Total 0 150 400 0 400 Output Total 325 400 250 450 900 Balance -325 -250 150 -450 -500 Intake, IV 150 400 100 Intake, Oral 0 0 0 300 Number 1 1 Bowel Movements Output, 25 50 600 Gastric Drainage Output, Urine 300 350 250 450 300 Physical Exam: abd: soft less tender to palp ngt output 25(50,600) +bm x2 2/3 mv abd xray with gastrograffin in colon Assessment/Plan Assessment/Plan surgical improved plan per Dr Bocanegra: ok to start clears, advance diet as tolerated pull ngt stool softener will sign off but remain available for reconsult
--- NOTE | 2016-03-19 11:34 | PN- Infect Dx ---
Subjective Subjective: MAXIMUM TEMPERATURE 100.7. He reports increased abdominal pain this morning. Objective Last 24 Hrs of Vital Signs/I&O Vital Signs Date Time Temp Pulse Resp B/P Pulse O2 O2 Flow FiO2 Ox Delivery Rate 03/19 0813 98.6 111 20 120/82 95 Nasal 3.0L Cannula 03/19 0000 Nasal 2.0L Cannula 03/18 2336 100.7 108 18 112/70 96 Nasal Cannula 03/18 1600 Nasal 2.0L Cannula 03/18 1530 97.7 93 20 114/72 95 Nasal 2.0L Cannula Intake & Output 03/19 1600 03/19 0800 03/19 0000 Intake Total 0 150 Output Total 325 400 Balance -325 -250 Intake, IV 150 Intake, Oral 0 0 Number 1 1 Bowel Movements Output, 25 50 Gastric Drainage Output, Urine 300 350 Physical Exam Other Physical Findings: He is awake and alert in no acute distress HEENT NG tube remains in place Lungs decreased breath sounds at both bases Heart regular rhythm with no murmur Abdomen mildly distended, minimally tender to palpation, with positive bowel sounds Extremities trace edema both lower extremities Foster catheter remains in place Results Last 24 Hours of Lab Results: Laboratory Tests 03/18 1900 Chemistry Troponin I (<0.11 ng/ml) < 0.01 Hematology CBC w Diff NO MAN DIFF REQ WBC (4.8 - 10.8 /CUMM) 11.6 H RBC (4.70 - 6.10 /CUMM) 4.46 L Hgb (14.0 - 18.0 G/DL) 12.4 L Hct (42 - 52 %) 37.3 L MCV (80.0 - 94.0 FL) 83.5 MCH (27.0 - 31.0 PG) 27.8 RDW (11.5 - 14.5 %) 16.3 H Plt Count (130 - 400 /CUMM) 216 MPV (7.4 - 10.4 FL) 8.9 Gran % (42.2 - 75.2 %) 83.4 H Lymphocytes % (20.5 - 51.1 %) 7.8 L Monocytes % (1.7 - 9.3 %) 6.8 Eosinophils % (0 - 5 %) 1.2 Basophils % (0.0 - 2.0 %) 0.8 Absolute Granulocytes (1.4 - 6.5 /CUMM) 9.6 H Absolute Lymphocytes (1.2 - 3.4 /CUMM) 0.9 L Absolute Monocytes (0.10 - 0.60 /CUMM) 0.8 H Absolute Eosinophils (0.0 - 0.7 /CUMM) 0.1 Absolute Basophils (0.0 - 0.2 /CUMM) 0.1 PUBS MCHC (33.0 - 37.0 G/DL) 33.2 Last 24 Hours of Rex Results: Blood cultures March 15 positive for coag-negative Staph and Clostridium Blood cultures 2 March 16 negative Recent Imaging Studies: Abdominal x-ray March 18 reveals multiple dilated loops of small bowel with dilute contrast suggestive of a partial small bowel obstruction Assessment/Plan Impression: Overall improved status post placement of an NG tube for what appears to be a small bowel obstruction, with a recent abdominal film still suggesting a partial small bowel obstruction. He continues to have low-grade fevers though white blood cell count is decreasing now on Ampicillin Day 4 of treatment for presumed sepsis of urologic origin, with urine culture positive for Proteus. The positive blood cultures likely represent contaminants given the isolation of multiple organisms. Of note he was catheterizing himself until 2 months prior to admission, at which time he was placed in a prison and a Foster catheter was inserted. Alternatives to the Foster catheter, therefore, should be considered and he has been evaluated by Urology for this. Suggestion: 1. Would pursue suprapubic cystostomy in place of the indwelling Foster catheter 2. Further management of his partial small bowel obstruction per Surgery and GI 3. Continue Ampicillin
--- NOTE | 2016-03-19 13:14 | Proc Note Endoscopy ---
Endoscopy Procedure Medical History: unchanged (see [facility] consult) Mental Status: alert/oriented Heart/Lung Eval Prior to Sedation: within normal limits Candidate for Sedation? Yes Procedure Date: 03/19/16 Procedure Type: EGD w/biopsy Head Of Science: Lm Dozier MD ASA Classification: IV Indications: Hematemesis, abdominal pain. Instrument: diagnostic gastroscope Meds Received: MAC Patient's Tolerance: good Complications: none Extent Reached: second part of duodenum Procedure: After getting written informed consent the patient was placed in the left lateral decubitus position with pulse oximetry, cardiac monitoring, and supplemental oxygen given. A bite block was inserted and IV sedation was given until the desired effect was achieved. A high definition upper Olympus endoscope was then inserted into the mouth and advanced to the second portion of the duodenum with little difficulty. Retroflexed views and photodocumentation was obtained. Findings: Esophagus: The esophageal mucosa was grossly normal in appearance and there was a normal appearing Z line at 35 cm from the incisors. Stomach: The antral mucosa was mild to moderately erythematous, but there were no ulcers, erosions, or masses appreciated. Distention and peristalsis of the stomach appeared normal. Retroflexed views were normal and did not reveal a significant hiatal hernia. Random biopsies were obtained from the antrum with cold biopsy forceps and were sent to pathology for further evaluation. Duodenum: The duodenal bulb was minimally erythematous, but there were no ulcers or erosions appreciated. The duodenal sweep and folds were grossly normal in appearance. There was bile appreciated throughout to the second portion of the duodenum. Impression: 1. Nonerosive gastritis status post biopsies. 2. No active bleeding or stigmata of recent hemorrhage appreciated. Recommendations: 1. Advance diet as tolerated. 2. There are no GI contraindications to restarting his anticoagulation. 3. Change to an oral PPI. 4. Administer antiemetics as needed. 5. He should follow up the pathology results with me as an outpatient. 6. Follow daily CBC and transfuse as needed. 6. Please recontact GI for any signs of hemodynamically significant overt GI bleeding. CC: [facility] BETH [facility]
[2016-03-19 16:29] VITALS: BP 136/87
--- NOTE | 2016-03-19 21:06 | RADIOLOGY REPORT ---
EXAMINATION: XR ABDOMEN CLINICAL INDICATION: Intestinal obstruction. Abdominal distention. Watery diarrhea. COMPARISON: Abdomen 03/18/2016. TECHNIQUE: Supine upright abdomen FINDINGS: Persistent dilatation of proximal small bowel loops with decompressed distal small bowel loops and pattern of a small bowel obstruction. No change since prior exam 03/18/2016. No free air. IMPRESSION: Persistent dilatation of proximal small bowel loops, small bowel obstruction. No change since prior study.
[2016-03-19 23:00] VITALS: BP 100/62
--- NOTE | 2016-03-19 23:28 | Event Note ---
Event Note Event Note: 2320: Notified that the patient was expressing chest pain. Came to patient's bedside. Patient stated he was experiencing chest pain. Rated at an 8 out of 10 in severity. Located at the anterior chest. Described as a sharp pain. Pain was worse with pressure and on palpation. Patient states that chest pain also worsened with inspiration. EKG ordered. Troponins ordered. Lactic acid ordered. Abdominal exam showed hyperactive bowel sounds. Portable chest x-ray ordered. 12:40 AM. Patient is currently stable and is currently asleep. EKG shows no acute ST elevations or depressions. Resident made aware. Will continue to monitor.
[2016-03-20 00:34] LABS: ABSOLUTE BASOPHIL COUNT 0.1 /CUMM (0.0-0.2); ABSOLUTE EOSINOPHIL COUNT 0.2 /CUMM (0.0-0.7); ABSOLUTE GRANULOCYTE CT 11.2 /CUMM (1.4-6.5); ABSOLUTE LYMPH COUNT 1.5 /CUMM (1.2-3.4); ABSOLUTE MONOCYTE COUNT 1.1 /CUMM (0.10-0.60); BASOPHIL % 0.6 % (0.0-2.0); EOSINOPHIL % 1.6 % (0-5); GRANULOCYTE % 79.5 % (42.2-75.2); MEAN CORPUSCULAR HGB 27.9 PG (27.0-31.0); MEAN CORPUSCULAR HGB CONC 33.6 G/DL (33.0-37.0); MEAN PLATELET VOLUME 8.1 FL (7.4-10.4); PLATELET COUNT 293 /CUMM (130-400); RBC DISTRIBUTION WIDTH 15.7 % (11.5-14.5); RED BLOOD CELL CT 4.33 /CUMM (4.70-6.10)
--- NOTE | 2016-03-20 00:38 | RADIOLOGY REPORT ---
EXAMINATION: CHEST 1 VIEW CLINICAL INFORMATION: Chest pain. COMPARISON: 03/17/2016. TECHNIQUE: An AP view of the chest is provided. FINDINGS: The cardiac silhouette is not enlarged. The mediastinal and hilar contours are unremarkable. There are neither pleural effusions nor pneumothoraces. Lung volumes are decreased. There is hazy opacification at the lateral right lung base. The osseous structures are unremarkable. IMPRESSION: Limited evaluation of the lungs secondary to markedly low lung volumes. Likely atelectasis at the right lung base.
--- NOTE | 2016-03-20 07:18 | PN- Housestaff ---
GERALDINE CACERES,[facility] 03/20/16 0718: Subjective Follow-up For: Upper Gi bleed -no evidence on upper GI endoscopy Subacute intestinal obstruction -resolving Septicemia secondary to UTI/indwelling catheter -improving Complaints: complaining of pain in upper abdoman Tele-Events Since Last Visit: NSR, 88-99, no evets Subjective: Patient is seen and examined at the bedside. He was also complaining of pain in the upper abdominal. Denies of any nausea and vomiting. He had around 3-4 bowel movements overnight with a total of 6 bowel movements in 24 hours. Review of Systems Constitutional: Reports: weakness. Denies: chills, diaphoresis, fever. EENTM: Denies: no symptoms. Cardiovascular: Reports: chest pain. Denies: edema, orthopena, palpitations, peripheral edema. Respiratory: Denies: cough, hemoptysis, orthopnea, short of breath, sputum production. Gastrointestinal: Reports: abdominal pain, diarrhea, distention, changes in stool. Denies: bloating, constipation, bowel incontinence, melena, nausea, bloody stool, vomiting. Genitourinary: Denies: no symptoms. Musculoskeletal: Denies: no symptoms. Skin: Denies: no symptoms. Objective Last 24 Hrs of Vital Signs/I&O Vital Signs Date Time Temp Pulse Resp B/P Pulse O2 O2 Flow FiO2 Ox Delivery Rate 03/20 0751 98.6 90 20 110/64 97 Nasal 2.5L Cannula 03/20 0000 98 Nasal 2.0L Cannula 03/19 2300 98.4 102 22 100/62 98 Nasal 2.0L Cannula 03/19 1629 97.5 108 18 136/87 93 Room Air 03/19 1600 Nasal 2.0L Cannula 03/19 0813 98.6 111 20 120/82 95 Nasal 3.0L Cannula Intake & Output 03/20 1600 03/20 0800 03/20 0000 Intake Total 690 870 Output Total 200 300 Balance 490 570 Intake, IV 570 520 Intake, Oral 120 350 Number 2 Bowel Movements Output, Urine 200 300 Physical Exam General Appearance: Alert, Oriented X3, Cooperative, No Acute Distress Skin: No Rashes, No Breakdown HEENT: Atraumatic, PERRLA, EOMI Neck: Supple, No JVD, No thryomegaly Cardiovascular: Regular Rate, Normal S1, Normal S2 Lungs: Clear to Auscultation, Normal Air Movement Abdomen: Soft, No Tenderness Neurological: Normal Speech, according to him he cannot move all his lower limb because of the spina bifida. Extremities: No Clubbing, No Cyanosis, No Edema, Normal Pulses Vascular: Normal Pulses, Pulses Symmetrical Assessment/Plan Assessment: Patient is a 45 y/o M with PMHx of spina bifida, urinary incontinence with chronic indwelling Foster, HTN, DVT, prediabetes and intellectual disability who is BIBA from rehab facility for chest and abdominal pain and shortness of breath. Vital signs-temperature 98.0, pulse 92, respiration 20, blood pressure 112/66, SPO2 96% Problem list - Upper Gi bleed -no evidence on upper GI endoscopy Subacute intestinal obstruction -resolving Septicemia secondary to UTI/indwelling catheter -improving Neurogenic bladder Spina bifida DVT/PE on Xarelto Prediabetes Intellectual disability Plan- * Discussed with Dr Moody, as there is no evidence of bleeding in the upper GI endoscopy we will restart patient on Xarelto,20 mgs PO QPM. * the patient's C. difficile come back positive, then we started him on by mouth vancomycin 125 milligrams every 6 hourly. We will still continue injection ampicillin as discussed with Dr. Castaneda. * Urine c/s showed proteus and sensitive to ampicillin, blood c/s showed Cog Neg Staph- possible contamination. * We will continue injection Ampicillin 2gm IV 8Hrly * Discussed with . We'll continue IV antibiotics for next 2 or 3 days , then we will plan for by mouth antibiotic. * Eco-showed LVEF more than 65%, thickening of mitral and aortic valve * Upper GI endoscopy showed no evidence of bleeding, GI advised to advance her diet and according to them, no any contraindication to anticoagulation. * Diet-Full liquid diet and we will advance it to normal tomorrow * DVT prophylaxis-ALPS * CODE STATUS-full code Problem List: 1. Intestinal obstruction 2. Chronic indwelling Foster catheter 3. Sepsis 4. Abdominal pain Pain Ratin Pain Location: Upper abdomen Pain Goal: Remain pain free Pain Plan: mild Tomorrow's Labs & Rationales: cbc DVT/Prophylaxis: SAWYER Box MD 03/20/16 1110: Attending MD Review Statement Attending Statement Attending MD Statement: examined this patient, discuss w/resident/PA/STAGE SET DESIGNER, reviewed EMR data (avail), discussed with nursing, amended to note Attending Assessment/Plan: Mr. Lopez was interviewed and examined. His EMR was reviewed. He is complaining of upper abdominal/epigastric discomfort today. He denies fever, chills, nausea, and vomiting He is afebrile with stable vital signs. Cardiac and pulmonary exams are benign. His abdomen is softly distended. There are a few tinkling bowel sounds heard in all 4 quadrants. His abdomen is mildly to moderately tender with palpation. He has had a total of 6 watery bowel movements in the last 24 hours. His WBC is now 14,000 which has increased from the previous day. We should continue his intravenous ampicillin for his urosepsis. Of concern is his abdominal pain and distention with diffuse tenderness. I have asked surgery to revisit to determine a further course of therapy. Endoscopy report shows erosive gastritis and states there is no contraindication to restarting his anticoagulation. Echocardiogram revealed a normal LVEF and valves without vegetations. vegetations.
[2016-03-20 07:51] VITALS: BP 110/64
--- NOTE | 2016-03-20 10:30 | NUR ---
PATIENT REFUSED AM LABS; DR. BE CHANDLER AWARE
[2016-03-20 16:28] VITALS: BP 112/66
[2016-03-21 08:17] VITALS: BP 102/76
--- NOTE | 2016-03-21 11:55 | PN- Infect Dx ---
Subjective Subjective: Afebrile. He continues to complain of abdominal discomfort. He had 6 stools reported on the night before last but only one stool overnight. Objective Last 24 Hrs of Vital Signs/I&O Vital Signs Date Time Temp Pulse Resp B/P Pulse O2 O2 Flow FiO2 Ox Delivery Rate 03/21 816 98.1 86 18 102/76 95 Nasal 2.0L Cannula 03/21 0000 94 Nasal 2.0L Cannula 03/20 1628 98.0 92 20 112/66 96 03/20 1600 Nasal 2.0L Cannula Intake & Output 03/21 1600 03/21 0800 03/21 0000 Intake Total 450 800 Output Total 300 500 Balance 150 300 Intake, IV 400 400 Intake, Oral 50 400 Number 1 Bowel Movements Output, Urine 300 500 Physical Exam Other Physical Findings: He is awake and alert in no acute distress Lungs are clear Heart regular rhythm with no murmur Abdomen is mildly distended, tender on palpation of the epigastrium and right upper quadrant, with no guarding or rebound, positive bowel sounds Foster catheter remains in place Results Last 24 Hours of Lab Results: Laboratory Tests 03/20 03/20 03/20 0610 0600 0000 Chemistry Sodium Cancelled Potassium Cancelled Chloride Cancelled Carbon Dioxide Cancelled Anion Gap Cancelled BUN Cancelled Creatinine Cancelled BUN/Creatinine Ratio Cancelled Lactic Acid (0.7 - 2.1 mmol/L) 1.0 Hematology CBC w Diff Cancelled WBC Cancelled RBC Cancelled Hgb Cancelled Hct Cancelled MCV Cancelled MCH Cancelled RDW Cancelled Plt Count Cancelled MPV Cancelled PUBS MCHC Cancelled 03/20 0000 Chemistry Sodium (137 - 145 mmol/L) 141 Potassium (3.5 - 5.1 mmol/L) 3.0 L Chloride (98 - 107 mmol/L) 103 Carbon Dioxide (22 - 30 mmol/L) 28 Anion Gap (5 - 16) 9 BUN (9 - 20 mg/dL) 14 Creatinine (0.7 - 1.2 mg/dL) 0.8 Estimated GFR (>60 ml/min) > 60 BUN/Creatinine Ratio (7 - 25 %) 17.5 Magnesium (1.6 - 2.3 mg/dL) 1.8 Troponin I (<0.11 ng/ml) < 0.01 Hematology CBC w Diff NO MAN DIFF REQ WBC (4.8 - 10.8 /CUMM) 14.0 H RBC (4.70 - 6.10 /CUMM) 4.33 L Hgb (14.0 - 18.0 G/DL) 12.1 L Hct (42 - 52 %) 36.0 L MCV (80.0 - 94.0 FL) 83.0 MCH (27.0 - 31.0 PG) 27.9 RDW (11.5 - 14.5 %) 15.7 H Plt Count (130 - 400 /CUMM) 293 MPV (7.4 - 10.4 FL) 8.1 Gran % (42.2 - 75.2 %) 79.5 H Lymphocytes % (20.5 - 51.1 %) 10.6 L Monocytes % (1.7 - 9.3 %) 7.7 Eosinophils % (0 - 5 %) 1.6 Basophils % (0.0 - 2.0 %) 0.6 Absolute Granulocytes (1.4 - 6.5 /CUMM) 11.2 H Absolute Lymphocytes (1.2 - 3.4 /CUMM) 1.5 Absolute Monocytes (0.10 - 0.60 /CUMM) 1.1 H Absolute Eosinophils (0.0 - 0.7 /CUMM) 0.2 Absolute Basophils (0.0 - 0.2 /CUMM) 0.1 PUBS MCHC (33.0 - 37.0 G/DL) 33.6 Last 24 Hours of Rex Results: Stool C. difficile March 19 positive Recent Imaging Studies: Chest x-ray March 19 atelectasis at the right lung base Abdominal x-ray March 19 reveals persistent dilatation of proximal small bowel loops suggestive of a small bowel obstruction Assessment/Plan Impression: Recent diagnosis of C. difficile, which presumably explains his diarrhea and possibly his abdominal discomfort, though it is not clear if this is the cause of his small bowel obstruction or his fever and leukocytosis which he presented with on admission. He remains on Ampicillin now Day 6 of treatment for presumed sepsis of urologic origin, with urine culture positive for Proteus, but with the recently diagnosed C. difficile, for which he was placed on po Vancomycin yesterday, this should be discontinued. His positive blood cultures presumably represent contaminants given the isolation of multiple organisms and do not require treatment. As discussed previously alternatives to the Foster catheter should be considered and he has been evaluated by Urology for this. Suggestion: 1. Would pursue suprapubic cystostomy in place of the indwelling Foster catheter 2. Further management of his partial small bowel obstruction per Surgery and GI 3. Discontinue Ampicillin 4. Continue po Vancomycin
--- NOTE | 2016-03-21 12:11 | PN- Att Addend ---
Attending Addendum Attending Brief Note Mr. Lopez was interviewed and examined. His EMR was reviewed. He states he is feeling better today. He is afebrile. His physical exam now shows no significant abdominal tenderness and bowel sounds have normalized. C. difficile toxin was isolated on a stool specimen patient was started on oral vancomycin. Frequency of stooling has decreased to one episode overnight. Should continue the vancomycin and I agree to discontinuance of his ampicillin. Other maintenance medications should be continued. I agree with Seun Jacobs MD at the suprapubic cystostomy should be pursued.
[2016-03-21 15:59] VITALS: BP 130/70
[2016-03-21 17:29] LABS: ABSOLUTE BASOPHIL COUNT 0.1 /CUMM (0.0-0.2); ABSOLUTE EOSINOPHIL COUNT 0.3 /CUMM (0.0-0.7); ABSOLUTE GRANULOCYTE CT 6.8 /CUMM (1.4-6.5); ABSOLUTE LYMPH COUNT 1.4 /CUMM (1.2-3.4); ABSOLUTE MONOCYTE COUNT 0.9 /CUMM (0.10-0.60); BASOPHIL % 1.2 % (0.0-2.0); EOSINOPHIL % 3.3 % (0-5); GRANULOCYTE % 71.2 % (42.2-75.2); HEMATOCRIT 33.1 % (42-52); MEAN CORPUSCULAR HGB 27.8 PG (27.0-31.0); MEAN CORPUSCULAR HGB CONC 33.7 G/DL (33.0-37.0); MEAN CORPUSCULAR VOLUME 82.5 FL (80.0-94.0); MEAN PLATELET VOLUME 7.2 FL (7.4-10.4); PLATELET COUNT 332 /CUMM (130-400); RBC DISTRIBUTION WIDTH 15.4 % (11.5-14.5); RED BLOOD CELL CT 4.01 /CUMM (4.70-6.10); WHITE BLOOD CELL COUNT 9.5 /CUMM (4.8-10.8)
--- NOTE | 2016-03-21 18:19 | CT SCAN REPORT ---
EXAMINATION: CT HEAD WITHOUT CONTRAST CLINICAL INFORMATION: Loss of consciousness. Unarousable COMPARISON: 01/31/2016 TECHNIQUE: Contiguous axial imaging was performed from the skull base to vertex without intravenous administration of contrast. DLP: 672 mGy-cm FINDINGS: Patient is status post posterior craniotomy for Chiari II decompression. There is fullness at the foramen magnum similar in appearance to the prior study. 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 Posterior left ventriculostomy tube is seen terminating in the left parasagittal frontal lobe adjacent to the left frontal horn. The ventricles remain decompressed appearing grossly similar to the prior study. Calcifications bilaterally in the subdural spaces are again noted and not significantly changed the prior study. No acute superimposed hemorrhage, intracranial mass lesion, or shift of midline structures. I do not appreciate any acute bony abnormality. Incidental oval-shaped subcutaneous 2.0 x 1.1 cm soft tissue density along the posterior left occipital region could represent a sebaceous cyst or pilomatricoma. 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 Postoperative changes are seen. Left-sided ventriculostomy tube is noted. Overall I do not appreciate any significant interval change from the prior study.
--- NOTE | 2016-03-21 19:08 | Event Note ---
Event Note Event Note: Rapid response was called at 5 PM, when the patient was found to be unresponsive , not arousable. According to the nurse he was talking to the patient, and he was at his baseline when all of a sudden during conversation he became unarousable. Upon arrival the patient was not responsive to verbal command and neither was the responsive to sternal rub at that time. Vitals showed a temperature of 100.3, blood pressure of 112/80, oxygen saturation of 93% increase oxygen. Stat EKG showed normal sinus rhythm with no changes Random blood sugar was 128 No arrhythmias on traffic monitor specialist On physical exam: When I tried to move his arm above his head he was resisting as if to avoid falling it on his face. He was also resisting movement of his neck from left to right side. Cardiac, abdominal, pulmonary exams were within normal limits According to the nurse states he has had these episodes before where he all of a sudden versus consciousness while talking and then wakes up on pricking in a few minutes. This event was however longer but less than 5 minutes. Most likely malingering. However, inorder to rule out any organic cause, stat CT scan and labs were done. 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 Postoperative changes are seen. Left-sided ventriculostomy tube is noted. Overall I do not appreciate any significant interval change from the prior study. BEP and CBC are within normal limits except for potassium of 3 which has been repeated Dr. Je montague
--- NOTE | 2016-03-21 19:42 | NUR ---
AT APPROX 1700 PT FOUND BY MST UNRESPONSIVE. THIS RN ENTERED ROOM, ATTEMPTED STERNAL RUB WITH NO RESPONSE AND INITIATED RAPID RESPONSE. DR. JONATHAN GARNER ASSESSED PATIENT. EKG PERFORMED, VITALS AND ACCUCHECK COMPLETED, STAT LABS AND STAT CT SCAN ORDERED. APPROX 6-8 MINUTES LATER PT OPENED EYES AND REQUESTED CT SCAN. VITALS AT TIME OF RAPID RESPONSE WERE 112/60, HR= 103 IN SINUS RHYTHM, 92% ON 2L NC, TEMP 100.3 RESP RATE OF 20. BLOOD SUGAR [address] SCAN, PT HAS NO COMPLAINTS OR CONCERNS
[2016-03-21 22:00] VITALS: BP 120/80
--- NOTE | 2016-03-22 07:36 | PN- Housestaff ---
Subjective Follow-up For: Upper GI bleed - no evidence on upper GI endoscopy Subacute intestinal obstruction -resolved Small bowel paralytic ileus Septicemia secondary to UTI/indwelling catheter -improving Complaints: upper abdominal pain after eating Tele-Events Since Last Visit: Normal sinus rhythm, heart rate between 87-97, one episode of rapid response in the night , but no any cause was found. Subjective: Patient is seen and examined at the bedside. He was complaining of pain in upper abdomen 5/10, especially after eating. He is also complaining of small amount of nausea but denies of any episodes of vomiting. He had one episode of diarrhea. Review of Systems Constitutional: Reports: weakness. Denies: chills, diaphoresis, fever. EENTM: Denies: no symptoms, eye pain. Cardiovascular: Denies: chest pain, edema, orthopena, palpitations, peripheral edema. Respiratory: Denies: cough, hemoptysis, orthopnea, short of breath, sputum production. Gastrointestinal: Reports: abdominal pain, bloating, distention, nausea. Denies: constipation, diarrhea. Genitourinary: Denies: no symptoms. Musculoskeletal: Denies: no symptoms. Skin: Denies: no symptoms. Neurological/Psychological: Reports: anxiety, dementia. Objective Last 24 Hrs of Vital Signs/I&O Vital Signs Date Time Temp Pulse Resp B/P Pulse O2 O2 Flow FiO2 Ox Delivery Rate 03/22 1147 94 Nasal 2.0L Cannula 03/22 0834 98.0 88 20 116/78 96 Nasal Cannula 03/22 0000 Nasal 2.0L Cannula 03/21 2200 99.3 104 20 120/80 94 Nasal 2.0L Cannula 03/21 1559 99.1 103 16 130/70 93 Nasal 2.0L Cannula Intake & Output 03/22 1600 03/22 0800 03/22 0000 Intake Total 100 Output Total 250 600 Balance -150 -600 Intake, Oral 100 Output, Urine 250 600 Physical Exam General Appearance: Alert, Oriented X3, Cooperative, No Acute Distress Skin: No Rashes, No Breakdown Neck: Supple, No JVD Cardiovascular: Normal S1, Normal S2 Lungs: Clear to Auscultation, Normal Air Movement Abdomen: Soft, No Tenderness, distended Neurological: Normal Speech, bilateral lower leg weakness Extremities: No Clubbing, No Cyanosis, No Edema Vascular: Normal Pulses, Pulses Symmetrical Assessment/Plan Assessment: Patient is a 45 y/o M with PMHx of spina bifida, urinary incontinence with chronic indwelling Torrez, HTN, DVT, prediabetes and intellectual disability who is BIBA from rehab facility for chest and abdominal pain and shortness of breath. Vital signs-temperature 98.0, pulse 92, respiration 20, blood pressure 116/78, SPO2 96% Problem list - Small bowel ileus Upper Gi bleed -no evidence on upper GI endoscopy Subacute intestinal obstruction -resolved Septicemia secondary to UTI/indwelling catheter -improving, d/c torrez on 2016, on straight cath QID Neurogenic bladder Spina bifida DVT/PE on Xarelto Prediabetes Intellectual disability Plan- * Discussed with Dr. Guerrero and according to him, if there is no any signs of bowel obstruction on abdominal x-ray, then advance his diet. * We did the abdominal x-ray which showed no evidence of a small bowel obstruction, there are areas of small bowel ileus. * We discussed the surgical PA,they advised if patient is able to tolerate by mouth liquid diet without any signs of distention, nausea and vomiting than we can advance his diet * We advance his diet to full liquid diet and if tolerated, then please advance to full diet * We will continue patient on tablet Xarelto,20 mgs PO QPM. * We will continue patient on PO vancomycin 125 milligrams every 6 hourly x 14 days * We stopped injection ampicillin as advised by . * Discussed with Dr. Segura and Seun Jacobs MD, we will stop the Torrez's catheter and try straight cath 4 times a day * Diet-Full liquid diet and we will advance it to normal tomorrow * DVT prophylaxis-ALPS * CODE STATUS-full code Problem List: 1. Ileus 2. C. difficile colitis Pain Ratin Pain Location: Upper abdomen Pain Goal: Remain pain free Pain Plan: mild Tomorrow's Labs & Rationales: cbc,bep DVT/Prophylaxis: mechanical, pharmacological
[2016-03-22 08:34] VITALS: BP 116/78
--- NOTE | 2016-03-22 09:26 | PN- Att Addend ---
Attending Addendum Attending Brief Note Patient reports right lower quadrant abdominal pain. General Appearance: Alert, No Acute Distress Skin: Grossly normal HEENT: PEERLA Neck: Supple, No JVD Cardiovascular: Regular Rate, Normal S1, Normal S2, No Murmurs Lungs: Clear to Auscultation, Normal Air Movement Abdomen: Right lower quadrant tenderness Neurological: Normal Speech, Strength at 5/5 X4 Ext, Cranial Nerves 3-12 NL, Reflexes 2+ Extremities: No Clubbing, No Cyanosis, No Edema Vascular: Normal Pulses Assessment Right lower quadrant abdominal pain likely secondary to C. difficile colitis. Currently her antibiotic discontinued and on vancomycin. We'll repeat abdominal x-ray to demonstrate resolution of small bowel obstruction. If so we'll advance diet. Plan Repeat abdominal x-ray today May advance diet to regular if small bowel obstruction has resolved Continue vancomycin Monitor for fever Continue other home meds DVT prophylaxis Current Medications Sig/Елена Start time Last Medication Dose Route Stop Time Status Admin Acetaminophen 650 MG .STK-MED ONE 03/21 2303 DC PO 03/21 2304 Acetaminophen 650 MG Q6P PRN 03/16 2215 AC 03/21 PO 0109 Ampicillin 2,000 MG Q8H 03/20 0200 DC 03/21 Sodium Chloride 100 ML IV 1158 Bisacodyl 10 MG DAILY NEEDED PRN 03/16 2230 AC IA Dextrose/Sodium 1,000 ML Q20H 03/17 2215 DC 03/21 Chloride IV 1200 Docusate Sodium 100 MG BID 03/16 2200 AC 03/17 PO 1040 Glycerin 2 SPRAY Q2P PRN 03/19 1115 AC PO Pantoprazole Sodium 40 MG BID 03/17 220 AC 03/21 IV 2141 Phenol 2 SPRAY Q2P PRN 03/17 2330 AC EXT Polyethylene Glycol 17 GM DAILY 03/16 2129 AC 03/17 PO 1040 Potassium Chloride 40 MEQ ONCE ONE 03/21 1815 DC 03/21 PO 03/21 1816 2100 Rivaroxaban 20 MG 1700 03/20 1700 AC 03/20 PO 1723 Senna/Docusate Sodium 1 TAB BID 03/16 2200 AC 03/17 PO 1040 Simethicone 80 MG Q6P PRN 03/16 2115 AC 03/19 PO 2307 Vancomycin HCl 125 MG Q6 03/20 1357 AC 03/22 PO 0600 Laboratory Tests 03/21 1723 Chemistry Sodium (137 - 145 mmol/L) 145 Potassium (3.5 - 5.1 mmol/L) 3.3 L Chloride (98 - 107 mmol/L) 105 Carbon Dioxide (22 - 30 mmol/L) 31 H Anion Gap (5 - 16) 8 BUN (9 - 20 mg/dL) 7 L Creatinine (0.7 - 1.2 mg/dL) 0.7 Estimated GFR (>60 ml/min) > 60 BUN/Creatinine Ratio (7 - 25 %) 10.0 Hematology CBC w Diff NO MAN DIFF REQ WBC (4.8 - 10.8 /CUMM) 9.5 RBC (4.70 - 6.10 /CUMM) 4.01 L Hgb (14.0 - 18.0 G/DL) 11.2 L Hct (42 - 52 %) 33.1 L MCV (80.0 - 94.0 FL) 82.5 MCH (27.0 - 31.0 PG) 27.8 RDW (11.5 - 14.5 %) 15.4 H Plt Count (130 - 400 /CUMM) 332 MPV (7.4 - 10.4 FL) 7.2 L Gran % (42.2 - 75.2 %) 71.2 Lymphocytes % (20.5 - 51.1 %) 14.9 L Monocytes % (1.7 - 9.3 %) 9.4 H Eosinophils % (0 - 5 %) 3.3 Basophils % (0.0 - 2.0 %) 1.2 Absolute Granulocytes (1.4 - 6.5 /CUMM) 6.8 H Absolute Lymphocytes (1.2 - 3.4 /CUMM) 1.4 Absolute Monocytes (0.10 - 0.60 /CUMM) 0.9 H Absolute Eosinophils (0.0 - 0.7 /CUMM) 0.3 Absolute Basophils (0.0 - 0.2 /CUMM) 0.1 PUBS MCHC (33.0 - 37.0 G/DL) 33.7 Vital Signs Date Time Temp Pulse Resp B/P Pulse O2 O2 Flow FiO2 Ox Delivery Rate 03/22 0834 98.0 88 20 116/78 96 Nasal Cannula 03/22 0000 Nasal 2.0L Cannula 03/21 2200 99.3 104 20 120/80 94 Nasal 2.0L Cannula 03/21 1559 99.1 103 16 130/70 93 Nasal 2.0L Cannula
--- NOTE | 2016-03-22 13:06 | PN- Urology ---
Subjective Subjective: Above events noted. Patient feels better Objective Vital Signs and I&Os Vital Signs Date Time Temp Pulse Resp B/P Pulse O2 O2 Flow FiO2 Ox Delivery Rate 03/22 1147 94 Nasal 2.0L Cannula 03/22 0834 98.0 88 20 116/78 96 Nasal Cannula 03/22 0000 Nasal 2.0L Cannula 03/21 2200 99.3 104 20 120/80 94 Nasal 2.0L Cannula 03/21 1559 99.1 103 16 130/70 93 Nasal 2.0L Cannula Intake & Output 03/22 1600 03/22 0803/22 0000 03/21 1600 03/21 0803/21 0000 Intake Total 100 775 450 800 Output Total 250 600 450 300 500 Balance -150 -600 325 150 300 Intake, IV 600 400 400 Intake, Oral 100 175 50 400 Number 1 Bowel Movements Output, Urine 250 600 [address] Draining clear urine Laboratory Tests 03/21 1723 Chemistry Sodium (137 - 145 mmol/L) 145 Potassium (3.5 - 5.1 mmol/L) 3.3 L Chloride (98 - 107 mmol/L) 105 Carbon Dioxide (22 - 30 mmol/L) 31 H Anion Gap (5 - 16) 8 BUN (9 - 20 mg/dL) 7 L Creatinine (0.7 - 1.2 mg/dL) 0.7 Estimated GFR (>60 ml/min) > 60 BUN/Creatinine Ratio (7 - 25 %) 10.0 Hematology CBC w Diff NO MAN DIFF REQ WBC (4.8 - 10.8 /CUMM) 9.5 RBC (4.70 - 6.10 /CUMM) 4.01 L Hgb (14.0 - 18.0 G/DL) 11.2 L Hct (42 - 52 %) 33.1 L MCV (80.0 - 94.0 FL) 82.5 MCH (27.0 - 31.0 PG) 27.8 RDW (11.5 - 14.5 %) 15.4 H Plt Count (130 - 400 /CUMM) 332 MPV (7.4 - 10.4 FL) 7.2 L Gran % (42.2 - 75.2 %) 71.2 Lymphocytes % (20.5 - 51.1 %) 14.9 L Monocytes % (1.7 - 9.3 %) 9.4 H Eosinophils % (0 - 5 %) 3.3 Basophils % (0.0 - 2.0 %) 1.2 Absolute Granulocytes (1.4 - 6.5 /CUMM) 6.8 H Absolute Lymphocytes (1.2 - 3.4 /CUMM) 1.4 Absolute Monocytes (0.10 - 0.60 /CUMM) 0.9 H Absolute Eosinophils (0.0 - 0.7 /CUMM) 0.3 Absolute Basophils (0.0 - 0.2 /CUMM) 0.1 PUBS MCHC (33.0 - 37.0 G/DL) 33.7 Assessment/Plan Assessment/Plan Imp: Neurogenic bladder due to spina bifida Plan: Evidently patient is not going back to [facility] on discharge. If the facility he is going to can str cath patient qid, that would be preferred management of his neurogenic bladder. If they are unable to do that then may leave torrez for now and patient should f/u with his usual urologist, Dr Sherwin Diaz
--- NOTE | 2016-03-22 15:08 | RADIOLOGY REPORT ---
EXAMINATION: XR ABDOMEN CLINICAL INDICATION: Pain in abdomen. Presumptive diagnosis of subacute intestinal obstruction. COMPARISON: Abdomen films dated 03/19/2016 and 03/18/2016. TECHNIQUE: Frontal views of the abdomen performed in 2 parts. FINDINGS: There is persistent gaseous distention of the stomach and small and large bowel loops. Compared to the prior exam, however, the degree of distention of the small bowel loop in the mid abdomen has diminished and the bowel gas pattern is no longer suspicious for bowel obstruction. However, the talus is seen dilated small bowel loop in the mid abdomen still demonstrates abnormal appearance with persistent though decreased bowel distention and suspicion of bowel wall edema/thickening and thumbprinting appearance on radiograph. There is evidence of prior lower lumbar/upper sacral laminectomy with dharmesh seen in place. Osteopenia is suggested. Mild vertebral spondylosis is seen in the lower thoracic and upper lumbar spine. IMPRESSION: Resolution of previously seen small bowel obstruction. There remains a focal localized ileus in the mid abdomen/left upper quadrant with a persistent mildly dilated and edematous loop of small bowel seen.
--- NOTE | 2016-03-22 15:20 | PN- Infect Dx ---
Subjective Subjective: MAXIMUM TEMPERATURE 100.3. He feels well with minimal abdominal discomfort. He has had no further diarrhea. He apparently had an episode yesterday late afternoon of unresponsiveness lasting 6-8 minutes with vital signs stable during the episode. Objective Last 24 Hrs of Vital Signs/I&O Vital Signs Date Time Temp Pulse Resp B/P Pulse O2 O2 Flow FiO2 Ox Delivery Rate 03/22 1147 94 Nasal 2.0L Cannula 03/22 0834 98.0 88 20 116/78 96 Nasal Cannula 03/22 0000 Nasal 2.0L Cannula 03/21 2200 99.3 104 20 120/80 94 Nasal 2.0L Cannula 03/21 1559 99.1 103 16 130/70 93 Nasal 2.0L Cannula Intake & Output 03/22 1600 03/22 0800 03/22 0000 Intake Total 100 Output Total 250 600 Balance -150 -600 Intake, Oral 100 Output, Urine 250 600 Physical Exam Other Physical Findings: He is awake and alert in no acute distress Lungs are clear Heart regular rhythm with no murmur Abdomen is soft, minimally tender on palpation, with no guarding or rebound, positive bowel sounds Foster catheter remains in place Results Last 24 Hours of Lab Results: Laboratory Tests 03/21 1723 Chemistry Sodium (137 - 145 mmol/L) 145 Potassium (3.5 - 5.1 mmol/L) 3.3 L Chloride (98 - 107 mmol/L) 105 Carbon Dioxide (22 - 30 mmol/L) 31 H Anion Gap (5 - 16) 8 BUN (9 - 20 mg/dL) 7 L Creatinine (0.7 - 1.2 mg/dL) 0.7 Estimated GFR (>60 ml/min) > 60 BUN/Creatinine Ratio (7 - 25 %) 10.0 Hematology CBC w Diff NO MAN DIFF REQ WBC (4.8 - 10.8 /CUMM) 9.5 RBC (4.70 - 6.10 /CUMM) 4.01 L Hgb (14.0 - 18.0 G/DL) 11.2 L Hct (42 - 52 %) 33.1 L MCV (80.0 - 94.0 FL) 82.5 MCH (27.0 - 31.0 PG) 27.8 RDW (11.5 - 14.5 %) 15.4 H Plt Count (130 - 400 /CUMM) 332 MPV (7.4 - 10.4 FL) 7.2 L Gran % (42.2 - 75.2 %) 71.2 Lymphocytes % (20.5 - 51.1 %) 14.9 L Monocytes % (1.7 - 9.3 %) 9.4 H Eosinophils % (0 - 5 %) 3.3 Basophils % (0.0 - 2.0 %) 1.2 Absolute Granulocytes (1.4 - 6.5 /CUMM) 6.8 H Absolute Lymphocytes (1.2 - 3.4 /CUMM) 1.4 Absolute Monocytes (0.10 - 0.60 /CUMM) 0.9 H Absolute Eosinophils (0.0 - 0.7 /CUMM) 0.3 Absolute Basophils (0.0 - 0.2 /CUMM) 0.1 PUBS MCHC (33.0 - 37.0 G/DL) 33.7 Last 24 Hours of Rex Results: No recent cultures Recent Imaging Studies: CT of the head March 21 no acute process Assessment/Plan Impression: Overall improved now on po Vancomycin alone Day 2 of treatment for C. difficile, with diarrhea resolved and with temperatures remaining normal. He did have a low-grade fever yesterday during the episode of unresponsiveness, which has apparently occurred in the past but remains of unclear etiology, but he has been afebrile since. His small bowel obstruction also seems to be improved, with decreased abdominal discomfort and he is tolerating a full liquid diet. He is now willing to again try self-catheterization so that the Foster catheter can be removed. As noted by Urology, if he is unable to do it, it may be able to be done at the facility where he is going. Suggestion: 1. Remove Foster catheter and initiate self straight catheterization 2. Further management of his partial small bowel obstruction per Surgery 3. Continue po Vancomycin to plan on a 10-14 day course
[2016-03-22 16:13] VITALS: BP 112/68
--- NOTE | 2016-03-22 19:35 | Event Note ---
Event Note Event Note: Patient refused removing Foster catheter, he didn't allow the nurse to touch the Foster catheter. Resident made aware
[2016-03-23 00:34] VITALS: BP 110/70
[2016-03-23 07:45] VITALS: BP 114/80
--- NOTE | 2016-03-23 08:14 | PN- Housestaff ---
Subjective Follow-up For: UTI with septicemia C. difficile colitis Subacute intestinal obstruction Complaints: no complaints Tele-Events Since Last Visit: Any overnight events, normal sinus rhythm, heart rate between 75-87, Subjective: Patient is seen and examined at the bedside. He was not having any active complaints. He was feeling much comfortable and denies of any abdominal pain and nausea and vomiting. According to the nurse he had one bowel movements overnight.. Review of Systems Constitutional: Denies: no symptoms. Cardiovascular: Denies: chest pain, edema, orthopena, palpitations. Respiratory: Denies: cough, hemoptysis, orthopnea, short of breath, sputum production. Gastrointestinal: Reports: distention. Denies: abdominal pain, bloating, constipation, diarrhea, nausea, bloody stool. Genitourinary: Denies: discharge, dysuria, frequency, hematuria, hesitation. Musculoskeletal: Denies: back pain, gout, joint pain. Skin: Denies: no symptoms. Neurological/Psychological: Reports: anxiety. Objective Last 24 Hrs of Vital Signs/I&O Vital Signs Date Time Temp Pulse Resp B/P Pulse O2 O2 Flow FiO2 Ox Delivery Rate 03/23 0745 98.6 80 20 114/80 95 Nasal 2.0L Cannula 03/23 0034 98.7 90 20 110/70 95 Nasal 4.0L Cannula 03/22 1613 98.7 88 19 112/68 94 03/22 1147 94 Nasal 2.0L Cannula Intake & Output 03/23 1600 03/23 0800 03/23 0000 Intake Total 240 180 Output Total 1400 Balance -1160 180 Intake, Oral 240 180 Output, Urine 1400 Physical Exam General Appearance: Alert, Oriented X3, Cooperative, No Acute Distress Skin: No Rashes, No Breakdown, No Significant Lesion HEENT: Atraumatic, PERRLA, EOMI Neck: Supple, No JVD Cardiovascular: Normal S1, Normal S2, murmur present Lungs: Clear to Auscultation Abdomen: Soft, No Tenderness, distended, bowel sounds are positive Neurological: Normal Speech, bilateral lower limb weakness Extremities: mild edema with chronic changes of both lower extremity, disuse atrophy Vascular: Normal Pulses, Pulses Symmetrical Assessment/Plan Assessment: Patient is a 45 y/o M with PMHx of spina bifida, urinary incontinence with chronic indwelling Torrez, HTN, DVT, prediabetes and intellectual disability who is BIBA from rehab facility for chest and abdominal pain and shortness of breath. Vital - stable Pertinent labs -WBC 7.2, hemoglobin 10.8 Problem list - Small bowel ileus Upper Gi bleed -no evidence on upper GI endoscopy Subacute intestinal obstruction -resolved Septicemia secondary to UTI/indwelling catheter -improving, d/c torrez on 2016, on straight cath QID Neurogenic bladder Spina bifida DVT/PE on Xarelto Prediabetes Intellectual disability Plan- * I went to see the patient in the morning,As we decided before, I updated the patient that the Torrez catheter should have to be removed, as he have a lot of risk with torrez of having recurrent UTI, kidney infection, septicemia, and it is a possibility in future that he may end up in ICU. Despite of all risk. He was continuously crying and saying that he has weakness in both upper limbs and he cannot self catheterize and according to him, nobody is there in the rehabilitation center who can help him with his self-catheterization. Despite all risk, patient refused. * Then we discussed it with Dr. Guerrero, and he convinced the patient for removal of Torrez and self-catheterization. We discharge the patient on self- catheterization with straight catheter 4 times a day. * We did the abdominal x-ray which showed no evidence of a small bowel obstruction, there are areas of small bowel ileus. Today the patient is tolerating a full liquid diet without any sign and symptoms of abdominal pain. So we advance her diet to full diet/heart healthy diet. * We will discharge patient on tablet Xarelto,20 mgs PO QPM. * We stopped verapamil as it doesn't seems that patient needed Dr. Guerrero is already updated. * We will continue patient on PO vancomycin 125 milligrams every 6 hourly x 14 days * We stopped injection ampicillin as advised by . * Regular diet * DVT prophylaxis-ALPS * CODE STATUS-full code Problem List: 1. Ileus 2. C. difficile colitis 3. Upper GI bleed Pain Ratin Pain Location: Upper abdomen Pain Goal: Remain pain free Pain Plan: Mild Tomorrow's Labs & Rationales: Nothing DVT/Prophylaxis: mechanical, pharmacological
[2016-03-23] MEDS ORDERED: VANCOMYCIN HCL5 G1 PO (08:42)
--- NOTE | 2016-03-23 08:46 | Patient Discharge Instructions ---
Discharge Instructions General Discharge Information You were seen/treated for: Urinary infection leading to blood infection/septicemia Small bowel obstruction-recovered C. difficile infection of the bowel Upper GI bleed-recovered Special Instructions: Please follow-up with your PCP within a week of discharge Please continue antibiotic as advised Please do straight catheter, four times a day Diet Continue normal diet: No (heart healthy diet) Activity Full Activity/No Limits: No (as tolerated) Acute Coronary Syndrome Inclusion Criteria At DC or during hospital stay patient has or had the following: ACS DIAGNOSIS No Discharge Core Measures Meds if any: Prescribed or Continued at Discharge Meds if any: NOT Prescribed or Continued at Discharge Congestive Heart Failure Inclusion Criteria At DC or during hospital stay patient has or had the following: CHF DIAGNOSIS No Discharge Core Measures Meds if any: Prescribed or Continued at Discharge Meds if any: NOT Prescribed or Continued at Discharge Cerebrovascular accident Inclusion Criteria At DC or during hospital stay patient has or had the following: CVA/TIA Diagnosis No Discharge Core Measures Meds if any: Prescribed or Continued at Discharge Meds if any: NOT Prescribed or Continued at Discharge Venous thromboembolism Inclusion Criteria VTE Diagnosis No VTE Type NONE VTE Confirmed by (Test) NONE Discharge Core Measures - Per Current guidelines, there needs to be overlap - treatment for the first 5 days of Warfarin therapy. - If discharged on Warfarin prior to 5 days of - overlap therapy, the patient will need to be - assessed for post discharge needs including - *Post discharge parental anticoagulation - *Warfarin and/or parental anticoagulation education - *Follow up date to check INR post discharge At least 5 days overlap therapy as Inpatient No Meds if any: Prescribed or Continued at Discharge Warfarin No Note: Overlap Therapy is Warfarin and Anticoagulant Meds if any: NOT Prescribed or Continued at Discharge No Warfarin d/t Medical Contraindication
[2016-03-23 08:59] LABS: ABSOLUTE BASOPHIL COUNT 0.1 /CUMM (0.0-0.2); ABSOLUTE EOSINOPHIL COUNT 0.4 /CUMM (0.0-0.7); ABSOLUTE GRANULOCYTE CT 4.5 /CUMM (1.4-6.5); ABSOLUTE LYMPH COUNT 1.6 /CUMM (1.2-3.4); ABSOLUTE MONOCYTE COUNT 0.7 /CUMM (0.10-0.60); BASOPHIL % 0.8 % (0.0-2.0); EOSINOPHIL % 5.5 % (0-5); GRANULOCYTE % 61.8 % (42.2-75.2); HEMATOCRIT 31.6 % (42-52); MEAN CORPUSCULAR HGB 27.8 PG (27.0-31.0); MEAN CORPUSCULAR VOLUME 81.8 FL (80.0-94.0); MEAN PLATELET VOLUME 7.4 FL (7.4-10.4); PLATELET COUNT 364 /CUMM (130-400); RBC DISTRIBUTION WIDTH 14.9 % (11.5-14.5); RED BLOOD CELL CT 3.87 /CUMM (4.70-6.10); WHITE BLOOD CELL COUNT 7.2 /CUMM (4.8-10.8)
--- NOTE | 2016-03-23 09:24 | PN- Att Addend ---
Attending Addendum Attending Brief Note Patient has no complaints General Appearance: Alert, No Acute Distress Skin: Grossly normal HEENT: PEERLA Neck: Supple, No JVD Cardiovascular: Regular Rate, Normal S1, Normal S2, No Murmurs Lungs: Clear to Auscultation, Normal Air Movement Abdomen: Soft and nontender Neurological: Normal Speech, Strength at 5/5 X4 Ext, Cranial Nerves 3-12 NL, Reflexes 2+ Extremities: No Clubbing, No Cyanosis, No Edema Vascular: Normal Pulses Assessment C. difficile colitis improved and will continue vancomycin for total 14 days. X -ray demonstrates resolution of small bowel obstruction however he does have a colonic ileus. Patient has agreed to discontinue Foster and be managed on straight cath Protocol. Plan Discontinue Foster Initiate straight cath 4 times a day Continue vancomycin for total 14 days Continue other home meds Stable for discharge to rehabilitation\ Current Medications Sig/Елена Start time Last Medication Dose Route Stop Time Status Admin Acetaminophen 650 MG Q6P PRN 03/16 2215 AC 03/23 PO 0310 Bisacodyl 10 MG DAILY NEEDED PRN 03/16 2230 AC NJ Docusate Sodium 100 MG BID 03/16 2200 AC 03/17 PO 1040 Glycerin 2 SPRAY Q2P PRN 03/19 1115 AC PO Pantoprazole Sodium 40 MG BID 03/17 220 AC 03/23 IV 0850 Phenol 2 SPRAY Q2P PRN 03/17 2330 AC EXT Polyethylene Glycol 17 GM DAILY 03/16 2129 AC 03/17 PO 1040 Rivaroxaban 20 MG 1700 03/20 1700 AC 03/22 PO 1833 Senna/Docusate Sodium 1 TAB BID 03/16 220 AC 03/17 PO 1040 Simethicone 80 MG Q6P PRN 03/16 2115 AC 03/19 PO 2307 Vancomycin HCl 125 MG Q6 03/20 1357 AC 03/23 PO 0553 Laboratory Tests 03/23 0820 Chemistry Sodium Pending Potassium Pending Chloride Pending Carbon Dioxide Pending Anion Gap Pending BUN Pending Creatinine Pending BUN/Creatinine Ratio Pending Hematology CBC w Diff NO MAN DIFF REQ WBC (4.8 - 10.8 /CUMM) 7.2 RBC (4.70 - 6.10 /CUMM) 3.87 L Hgb (14.0 - 18.0 G/DL) 10.8 L Hct (42 - 52 %) 31.6 L MCV (80.0 - 94.0 FL) 81.8 MCH (27.0 - 31.0 PG) 27.8 RDW (11.5 - 14.5 %) 14.9 H Plt Count (130 - 400 /CUMM) 364 MPV (7.4 - 10.4 FL) 7.4 Gran % (42.2 - 75.2 %) 61.8 Lymphocytes % (20.5 - 51.1 %) 22.8 Monocytes % (1.7 - 9.3 %) 9.1 Eosinophils % (0 - 5 %) 5.5 H Basophils % (0.0 - 2.0 %) 0.8 Absolute Granulocytes (1.4 - 6.5 /CUMM) 4.5 Absolute Lymphocytes (1.2 - 3.4 /CUMM) 1.6 Absolute Monocytes (0.10 - 0.60 /CUMM) 0.7 H Absolute Eosinophils (0.0 - 0.7 /CUMM) 0.4 Absolute Basophils (0.0 - 0.2 /CUMM) 0.1 PUBS MCHC (33.0 - 37.0 G/DL) 34.0 Vital Signs Date Time Temp Pulse Resp B/P Pulse O2 O2 Flow FiO2 Ox Delivery Rate 03/23 0745 98.6 80 20 114/80 95 Nasal 2.0L Cannula 03/23 0034 98.7 90 20 110/70 95 Nasal 4.0L Cannula 03/22 1613 98.7 88 19 112/68 94 03/22 1147 94 Nasal 2.0L Cannula
--- NOTE | 2016-03-23 09:35 | Event Note ---
Event Note Event Note: I went to see the patient in the morning,As we decided before, I updated the patient that the Torrez catheter should have to be removed, as he have a lot of risk with torrez of having recurrent UTI, kidney infection, septicemia, and it is a possibility in future that he may end up in ICU. Despite of all risk. He was continuously crying and saying that he has weakness in both upper limbs and he cannot self catheterize and according to him, nobody is there in the rehabilitation center who can help him with his self-catheterization. Despite all risk, patient refused. Then we discussed it with Dr. Guerrero, and he convinced the patient for removal of Torrez and self-catheterization. We discharged the patient on self- catheterization with straight catheter 4 times a day.
[2016-03-23 11:02] VITALS: BP 114/80
--- NOTE | 2016-03-23 12:46 | Discharge Summary ---
Visit Information Visit Dates Admission Date: 03/15/16 Discharge Date: 03/23/2016 Hospital Course Course Attending Physician: DALILA FRANK MD Primary Care Physician: DAVE SAUNDERS MD Hospital Course: MR. Hanna is a 45-year-old male with past medical history of spina bifida, urinary incontinence with chronic indwelling Foster, which was discontinued at this admission, hypertension, DVT, prediabetes and intellectual disability who was brought in by ambulance on 03/16/2016 from rehabilitation facility for chest pain and abdominal pain associated with shortness of breath. Vitals on Presentation : he had a MAXIMUM TEMPERATURE of 100.3, pulse of 140, respiration of 28, blood pressure 158/84, he was 98% saturating on 2 L of nasal cannula. He was alert oriented 3 not in any acute distress.He had dry mucous membranes, regular rate, normal S1-S2 no murmur, no anterior wall chest tenderness. Lungs were bilaterally clear to auscultation.Abdomen was firm and distended, diffuse abdominal tenderness and suprapubic tenderness on palpation, no costovertebral angle tenderness was noted.Extremities did not show any clubbing cyanosis or edema on presentation. Relevant labs on presentation was white count of 21.6, 18 bands, H/H of 17.5/ 53.1, platelets 316.Electrolytes sodium of 143, potassium of 4.6, BUN and creatinine of 33/1.2, glucose of 127, lactic acid was elevated to 2.9, calcium of 10.3 with albumin of 4.2. UA showed turbid appearing UA with positive protein of 500, nitrite positive, large leukocyte esterase and positive triple phosphate crystals, large packed white blood cells. EKg : showed sinus tachycardia, with a heart rate of 147, multiple atrial premature complexes, QTC of 420. Chest x-ray showed significantly low lung volumes, no evidence of pnuemonia CTA did not show any evidence of pulmonary embolism, compression subsegmental atelectasis of the right lower lobe, small volume ascites was seen in the right upper quadrant. He was admitted to the telemetry floor for treatment of following problems. #1 Sepsis secondary to urinary tract infection. * Patient met criteria for sepsis with a white count of 21.6, positive bands, heart rate of 148. * He did have chronic indwelling Foster, which could have been the nidus of infection however with present of fever, tachycardia and a white count he was started with ceftriaxone 1 g IV daily, and and blood cultures were sent prior to antibioctic. * Blood cultures were positive for gram-positive cocci and gram-positive rods. The positive blood cultures were thought to be most likely a contaminant. * Urine culture March 15 greater than 100,000 colonies of Proteus resistant to Ciprofloxacin, Bactrim and Nitrofurantoin. Ceftrixone was discontinued and IV Ampicillin was started 2 gm Iv every 8 hourly. * An ultrasound of the abdomen was ruled out any intra-abdominal source of infection.It showed small amount of free fluid within the right hemiabdomen. * There was no evidence of pneumonia on the chest x-ray. * Patient was positive was c difficile and therefore iv ampicllin for sepsis of urologicla origin was dc on day 6 and he was put on PO vancomycin for C difficile. #2 Chest pain. * On admission, Patient presented with sharp pain in the left chest with radiation to the right associated with shortness of breath. * CTA was negative for PE. * Troponins were trended and were found to be negative. * EKG along with troponin did not show any acute ST-T wave changes. * Acute coronary syndrome was ruled out. #3 Abdominal pain 2/2 to partial small bowel obstruction * Mr hanna presented with diffuse abdominal pain, this was most pronounced in the suprapubic area. * CT of the abdomen and pelvis on admission without contrast revealed free fluid within the right lower quadrant and the left lower quadrant and a small amount of free fluid overlying the right lobe of the liver. * He had an episode of coffee-ground emesis which was strongly guaiac positive, after which an abdominal x-ray showed partial or early small bowel obstruction with moderate amount of stool in the colon. * Surgery was consulted and an NG tube was inserted for decompression and the patient was kept nothing by mouth. Xarelto was held. * Serial abdominal exams along with repeated x-rays were done at regular intervals. * The partial obstruction gradually resolved with bowel rest, he was gradually started on clear liquids and advanced as tolerated. #4 C difficile positive Diarrhea. * Mr hanna Had several episodes of diarrhea along with abdominal pain and partial bowel wall obstruction, a C. difficile came positive, he was started on by mouth vancomycin, which was continued for a total of 14 days #5 Coffee ground emeisis with guaic positive 2/2 ot nonerosive gastritis * Mr hanna was also found to have an episode of nausea along with coffee ground color emesis which was found to be guaiac positive. * GI was consult that and endoscopy was done during this admission Dr. Dozier. * Xorelto was held after the above. * He didnot have a significant drop in his H and H. * Endoscopy showed evidence of nonerosive gastritis status post biopsies, no active bleeding or stigmata of recent hemorrhage was appreciated. * IV protoniv was started which was later switched to by mouth PPIs. #6 Neurogenic bladder and recurrent UTI * He has a baseline of neurogenic bladder secondary to spina bifida. * Neurologically he is followed by Dr. Diaz [facility]. * He had been on self-catheterization for years, however more recently he had a chronic indwelling Foleys placed. * Urology was consulted who agreed with treating the patient for urinary tract infection with ceftriaxone. * He did however insisted that intermittent catheterization was clearly the best way to manage his neurogenic bladder and would reduce the chance of infections. * Initially the patient was reluctant to do so however agreed on further communication and explaining that intermittent Would reduce his chance of infection, he agreed * On discharge the Foleys was discontinued and patient was placed on an intermittent catheterization protocol every 6 hourly. * Patient has been Trained previously and used to self catheterize himself. * He will be following up with Dr. Sherwin Diaz of urology after discharge. #7 H/o DVT on xorelto. * This was held after he had episode of cofee ground emesis. * Resumed on discharge. Rest of home medications were continued as before without any changes. Heart healthy diet. DVT prophylaxis with Alps. Patient was full code Allergies: Coded Allergies: No Known Allergies (01/31/16) Significant Procedures: SERVICE DATE: 03/15/16 EXAM TYPE: RAD - XRY-PORTABLE CHEST XRAY IMPRESSION: Significantly low lung volumes. SERVICE DATE: 03/15/16 EXAM TYPE: CAT - CTA CHEST-PULMONARY EMBOLISM FINDINGS: QUALITY OF STUDY/CONTRAST BOLUS: Satisfactory. Beam hardening artifacts caused by the fact the patient could not elevate his arms for the study. PULMONARY ARTERIES: No central or segmental pulmonary emboli. THORACIC AORTA: No aneurysm or dissection. LUNG: Subsegmental compression atelectasis is seen in the right lung due to the relatively higher position of the right hemidiaphragm. PLEURA: No pleural effusion or pneumothorax. The right hemidiaphragm is elevated. MEDIASTINUM: Normal heart size. No pericardial effusion. No hilar or mediastinal lymphadenopathy. No evidence of septal bowing or right heart strain. CHEST WALL/AXILLA: No axillary or internal mammary lymphadenopathy. OSSEOUS STRUCTURES: No acute or suspicious osseous abnormality. UPPER ABDOMEN: A small amount of ascites is seen beneath the right hemidiaphragm and perihepatic space. No reflux of contrast into the hepatic veins to suggest elevated right heart pressures. IMPRESSION: 1. No evidence of pulmonary embolism. 2. Compression subsegmental atelectasis of the right lower lobe. 3. Small volume ascites in the right upper quadrant. VTE: negative SERVICE DATE: 03/16/16 EXAM TYPE: CAT - CT ABD & PELVIS W/O IV CONTRAS FINDINGS: In the setting of low lung volumes, there is streaky bibasilar atelectasis. The visualized portions of the heart are unremarkable. The liver is of normal size and attenuation without focal lesions nor intrahepatic biliary ductal dilation. A normal gallbladder is identified. There is no wall thickening or discernible pericholecystic fluid. There is a small amount of free fluid overlying the right lobe of the liver. The spleen, pancreas, adrenal glands are unremarkable. Both kidneys are of normal size and attenuation without hydronephrosis or nephrolithiasis. Contrast material is present within the collecting system of each kidney and proximal ureters. 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 There is an extrarenal pelvis present on the left. There is mild ureteral wall thickening within the proximal right ureter. Within the distal left ureter on image [id number], there is a 2 mm punctate density within the distal left ureter. There is neither mesenteric nor retroperitoneal lymphadenopathy. Normal unopacified loops of small and large bowel are identified. There is fat stranding present within the pelvis with a moderate amount of free fluid within the right lower quadrant and right hemipelvis. There is a small amount of free fluid within the left lower quadrant. A Foster catheter is in place within the urinary bladder which is decompressed. There is neither pelvic nor inguinal lymphadenopathy. Bone windows: The patient is status post L4-S1 laminectomy. IMPRESSION: Right greater than left lower quadrant free fluid. There is also a small amount of free fluid overlying the right lobe of the liver. Contrast material is identified within the collecting system of each kidney and the proximal ureters. Correlate with patient history. This could be residual from the prior CT. Right typically collecting system. Left extra renal pelvis. Mild nonspecific proximal right ureteral wall thickening. Either 2 mm nonobstructive distal left ureteral calculus or small focus of residual contrast. SERVICE DATE: 03/16/16-1813 EXAM TYPE: RAD - XRY-PORTABLE CHEST XRAY FINDINGS: Lung volume is low with elevated diaphragms right greater than left. No acute infiltrate. No pulmonary vascular congestion. No pleural effusion. Compared to prior exam no change. IMPRESSION: No acute abnormality of the chest. SERVICE DATE: 03/17/16- EXAM TYPE: US - US-LIMITED ABDOMEN IMPRESSION: Small amount free fluid within the right hemiabdomen. SERVICE DATE: 03/17/16-1727 EXAM TYPE: RAD - XRY-PORTABLE ABDOMEN FINDINGS: There is significant gaseous dilatation of small bowel loops in the upper abdomen with less distended small bowel loops in the right lower quadrant. There is gas throughout colon which is prominent but not abnormally dilated. The stomach is distended with gas. Bowel pattern suggests a partial or early small bowel obstruction. Moderate amount of stool in the colon. No free air evident. IMPRESSION: Abnormal bowel pattern consistent with small bowel obstruction. SERVICE DATE: 03/18/16- EXAM TYPE: CARD - ECHOCARDIOGRAM DAVE PRO Age: 45 : 1970 Gender: M Exam Date: 03/18/2016 17:51 Exam Location: [address] [place] [address] Ht (in): 60 Wt (lb): 228 BSA: 2.16 BP: 132 / 78 Ordering Physician: BE CHANDLER M Referring Physician: Mariano Pelaez MD Chief, SoC Technologist: Rosa Soto [facility] Room Number: [id number] Indications: CHEST PAIN Rhythm: Sinus Technical Quality: Fair FINDINGS Left Ventricle Normal size left ventricle. Left ventricular wall thickness at upper limits of normal. Normal left ventricular ejection fraction visually estimated at >65 %. No obvious regional wall motion abnormalities. Normal left ventricular diastolic filling pattern for age. Right Ventricle The right ventricle is normal in size and function. Right Atrium The right atrium is normal in size. Left Atrium The left atrium is normal in size. The interatrial septum is intact. Mitral Valve Mild thickening/calcification of the mitral valve leaflets. No mitral regurgitation. Aortic Valve Focal thickening of the aortic valve cusps. No aortic stenosis. No aortic regurgitation. Tricuspid Valve The tricuspid valve is normal in structure and function. There is trace to mild tricuspid regurgitation. Right ventricular systolic pressure estimated to be mildly elevated at 35-40 mmHg. Pulmonic Valve Structurally normal pulmonic valve. There is pulmonic regurgitation. Pericardium Normal pericardium without effusion. No pleural effusion. Great Vessels Normal aortic root dimension. The aortic arch and great vessels are well seen and are normal. CONCLUSIONS Left ventricular wall thickness at upper limits of normal. Normal left ventricular ejection fraction visually estimated at >65 Mild thickening/calcification of the mitral valve leaflets. No mitral regurgitation. Focal thickening of the aortic valve cusps. No aortic stenosis. Right ventricular systolic pressure estimated to be mildly elevated at 35-40 mmHg. Mariano Pelaez M.D. (Electronically Signed) Final Date: 19 March 2016 10:41 MEASUREMENTS (Male / Female) Normal Values 2D ECHO LV Diastolic Diameter PLAX 4.4 cm 4.2 - 5.9 / 3.9 - 5.3 cm LV Systolic Diameter PLAX 2.6 cm 2.1 - 4.0 cm LV Fractional Shortening PLAX 40.9 % 25 - 46 % LV Ejection Fraction 2D Teich 71.9 % IVS Diastolic Thickness 1.1 cm LVPW Diastolic Thickness 1.1 cm LV Relative Wall Thickness 0.5 RV Internal Dim ED PLAX 3.4 cm 1.9 - 3.8 cm LVOT Diameter 2.1 cm Aortic Root Diameter 3.1 cm LA Systolic Diameter LX 3.2 cm 3.0 - 4.0 / 2.7 - 3.8 cm LA Volume 21.0 cm 18 - 58 / 22 - 52 cm Ascending Aorta Diameter 2.8 cm DOPPLER AV Peak Velocity 126.0 cm/s AV Peak Gradient 6.4 mmHg AV Mean Velocity 90.2 cm/s AV Mean Gradient 4.0 mmHg AV Velocity Time Integral 21.6 cm LVOT Peak Velocity 108.0 cm/s LVOT Peak Gradient 4.7 mmHg LVOT Mean Velocity 66.8 cm/s LVOT Mean Gradient 2.0 mmHg LVOT Velocity Time Integral 17.9 cm LVOT Stroke Volume 62.0 cm AV Area Cont Eq vti 2.9 cm AV Area Cont Eq pk 3.0 cm MV Peak Velocity 112.0 cm/s MV Peak Gradient 5.0 mmHg MV Mean Velocity 62.4 cm/s MV Mean Gradient 2.0 mmHg Mitral E Point Velocity 78.5 cm/s Mitral A Point Velocity 69.1 cm/s Mitral E to A Ratio 1.1 MV PHT Velocity 116.0 cm/s MV Deceleration Yancey 864.0 cm/s MV Pressure Half Time 40.3 ms MV Area PHT 5.5 cm MV Deceleration Time 158.0 ms TR Peak Velocity 294.0 cm/s TR Peak Gradient 34.6 mmHg Right Atrial Pressure 5.0 mmHg Pulmonary Artery Systolic Pressu 39.6 mmHg Right Ventricular Systolic Press 39.6 mmHg PV Peak Velocity 102.0 cm/s PV Peak Gradient 4.2 mmHg PV Mean Velocity 73.8 cm/s PV Mean Gradient 3.0 mmHg PV Velocity Time Integral 16.6 cm LV E' Lateral Velocity 8.8 cm/s Mitral E to LV E' Lateral Ratio 8.9 LV E' Septal Velocity 7.2 cm/s Mitral E to LV E' Septal Ratio 10.9 SERVICE DATE: 03/21/16 EXAM TYPE: CAT - CT HEAD WO IV CONTRAST FINDINGS: Patient is status post posterior craniotomy for Chiari II decompression. There is fullness at the foramen magnum similar in appearance to the prior study. 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 Posterior left ventriculostomy tube is seen terminating in the left parasagittal frontal lobe adjacent to the left frontal horn. The ventricles remain decompressed appearing grossly similar to the prior study. Calcifications bilaterally in the subdural spaces are again noted and not significantly changed the prior study. No acute superimposed hemorrhage, intracranial mass lesion, or shift of midline structures. I do not appreciate any acute bony abnormality. Incidental oval-shaped subcutaneous 2.0 x 1.1 cm soft tissue density along the posterior left occipital region could represent a sebaceous cyst or pilomatricoma. 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 Postoperative changes are seen. Left-sided ventriculostomy tube is noted. Overall I do not appreciate any significant interval change from the prior study. SERVICE DATE: 03/22/16- EXAM TYPE: RAD - CNG-CXXKAUV-DUVALN VIEW FINDINGS: There is persistent gaseous distention of the stomach and small and large bowel loops. Compared to the prior exam, however, the degree of distention of the small bowel loop in the mid abdomen has diminished and the bowel gas pattern is no longer suspicious for bowel obstruction. However, the talus is seen dilated small bowel loop in the mid abdomen still demonstrates abnormal appearance with persistent though decreased bowel distention and suspicion of bowel wall edema/thickening and thumbprinting appearance on radiograph. There is evidence of prior lower lumbar/upper sacral laminectomy with dharmesh seen in place. Osteopenia is suggested. Mild vertebral spondylosis is seen in the lower thoracic and upper lumbar spine. IMPRESSION: Resolution of previously seen small bowel obstruction. There remains a focal localized ileus in the mid abdomen/left upper quadrant with a persistent mildly dilated and edematous loop of small bowel seen. Pertinent Lab Results: Vital Signs Date Time Temp Pulse Resp B/P Pulse O2 O2 Flow FiO2 Ox Delivery Rate 02/ 1102 98.6 80 20 114/80 02/ 0745 98.6 80 20 114/80 95 Nasal 2.0L Cannula 02/07 0034 98.7 90 20 110/70 95 Nasal 4.0L Cannula 02/06 1613 98.7 88 19 112/68 94 02/06 1147 94 Nasal 2.0L Cannula 02/06 0834 98.0 88 20 116/78 96 Nasal Cannula 02/06 0000 Nasal 2.0L Cannula 02/05 2200 99.3 104 20 120/80 94 Nasal 2.0L Cannula 02/05 1559 99.1 103 16 130/70 93 Nasal 2.0L Cannula 02/05 0817 98.1 86 18 102/76 95 Nasal 2.0L Cannula 02/05 0800 Nasal 2.0L Cannula 02/05 0000 94 Nasal 2.0L Cannula 02/04 1628 98.0 92 20 112/66 96 02/04 1600 Nasal 2.0L Cannula 02/04 0800 Nasal 2.0L Cannula 02/04 0751 98.6 90 20 110/64 97 Nasal 2.5L Cannula 02/04 0000 98 Nasal 2.0L Cannula 02/03 2300 98.4 102 22 100/62 98 Nasal 2.0L Cannula 02/03 1629 97.5 108 18 136/87 93 Room Air 02/03 1600 Nasal 2.0L Cannula 02/03 0813 98.6 111 20 120/82 95 Nasal 3.0L Cannula 02/03 0800 Nasal 2.0L Cannula 03/19 0000 Nasal 2.0L Cannula 03/18 2336 100.7 108 18 112/70 96 Nasal Cannula 03/18 1600 Nasal 2.0L Cannula 03/18 1530 97.7 93 20 114/72 95 Nasal 2.0L Cannula 03/18 0822 98.4 96 20 102/68 95 Nasal 2.0L Cannula 03/18 0800 94 Nasal 2.0L Cannula 03/18 0000 94 Nasal 2.0L Cannula 03/17 1600 98.6 127 20 132/78 94 Nasal Cannula 03/17 0816 101.6 134 20 126/80 89 Room Air 03/17 0800 92 Nasal 3.0L Cannula 03/17 0000 Nasal 3.0L Cannula 03/16 2200 100.6 127 24 128/90 95 Nasal 3.0L Cannula 03/16 1856 156 138/92 03/16 1750 98.4 156 24 138/92 94 Nasal 2.0L Cannula 03/16 1603 97.6 135 26 140/92 90 Room Air 03/16 1234 100.4 03/16 1156 98.8 125 22 132/82 94 Nasal 2.0L Cannula 03/16 0828 98.9 120 20 118/78 95 Nasal 2.0L Cannula 03/16 0800 Nasal 2.0L Cannula 03/16 0336 95 Nasal 2.0L Cannula 03/16 0336 98.7 123 20 112/82 95 Nasal 2.0L Cannula 03/16 0156 100.3 03/15 2302 100.3 137 21 146/88 94 Nasal 2.0L Cannula 03/15 2025 99.8 140 28 158/84 98 Nasal 2.0L Cannula 03/15 1702 98 Room Air 03/15 1701 97.6 148 20 148/92 98 Room Air Last 24 Hours I&Os 03/23 1600 03/23 0800 03/23 0000 Intake Total 240 180 Output Total 1400 Balance -1160 180 Intake, Oral 240 180 Output, Urine 1400 Laboratory Tests 03/23/16 0820: Anion Gap 8, Estimated GFR > 60, BUN/Creatinine Ratio 7.5, CBC w Diff NO MAN DIFF REQ, RBC 3.87 L, MCV 81.8, MCH 27.8, RDW 14.9 H, MPV 7.4, Gran % 61.8, Lymphocytes % 22.8, Monocytes % 9.1, Eosinophils % 5.5 H, Basophils % 0.8, Absolute Granulocytes 4.5, Absolute Lymphocytes 1.6, Absolute Monocytes 0.7 H, Absolute Eosinophils 0.4, Absolute Basophils 0.1, PUBS MCHC 34.0 Microbiology Date/Time Procedure - Status Source Growth 03/19 1914 Clostridium difficile Toxin A & B - COMP STOOL CLOSTRIDIUM DIFFICILE 03/17 1305 Urine Culture - CAN URINE ROUT Cancelled: Cancelled via OE: Error 03/16 1440 Blood Culture - COMP BLOOD Orders Procedure Date/time Status Regular Diet 03/23 B Active CBC WITHOUT DIFFERENTIAL 03/23 0802 Complete BASIC ELECTROLYTES PLUS BUN&CR 03/23 0802 Complete Discharge Patient 03/23 UNK Active Full Liquid Diet 03/22 L Complete Foster, Insertion/Removal/Asses 03/22 2307 Complete Foster, Insertion/Removal/Asses 03/22 1935 Complete Foster, Insertion/Removal/Asses 03/22 0929 Complete OXYGEN 03/22 UNK Complete OXYGEN DAILY CHARGE 03/22 UNK Complete Straight Cath 03/22 UNK Active Full Liquid Diet 03/21 B Complete Foster, Insertion/Removal/Asses 03/21 1729 Complete CBC WITHOUT DIFFERENTIAL 03/21 1719 Complete BASIC ELECTROLYTES PLUS BUN&CR 03/21 1719 Complete OXYGEN 03/21 UNK Complete OXYGEN DAILY CHARGE 03/21 UNK Complete OXYGEN 03/20 UNK Complete OXYGEN DAILY CHARGE 03/20 UNK Complete OXYGEN 03/19 UNK Complete OXYGEN DAILY CHARGE 03/19 UNK Complete Disposition Summary Disposition Principal Diagnosis: #1 Sepsis secondary to urinary tract infection. #2 Chest pain, ACS rule out. #3 Parital small bowel obtruction #4 C difficile positive Diarrhea. #5 Coffee ground emeisis with guaic positive 2/2 ot nonerosive gastritis #6 Neurogenic bladder and recurrent UTI Additional Diagnosis: #7 hypertension #8 H/o DVT on xorelto #9 intellectual disability with spina bifida Discharge Disposition: SNF Discharge Instructions General Discharge Information Code Status: Full Code Patient's Diet: Regular Patient's Activity: As tolerated. Follow-Up Instructions/Appts: Please follow-up with your PCP within a week of discharge Please continue antibiotic as advised Please do straight catheter, four times a day. Please follow up with [facility]. Medications at Discharge Discharge Medications: Stop taking the following medications: Magnesium Hydroxide (Milk Of Magnesia) 400 MG/5 ML ORAL.SUSP ORAL DAILY as needed for CONSTIPATION Diphenhydramine HCl (Benadryl) (Unknown Strength) CAPSULE ORAL TWICE DAILY as needed for ITCHING Continue taking these medications: Cranberry Fruit Concentrate (Cranberry) 450 MG TABLET 1 Tablet ORAL DAILY Comments: NOT GIVEN IN HOSPITAL Furosemide (Furosemide) 20 MG TABLET 1 Tablet ORAL DAILY Comments: NOT GIVEN IN HOSPITAL Multivitamin (Multi-Day Vitamins) 1 EACH TABLET 1 Tablet ORAL DAILY Comments: NOT GIVEN IN HOSPITAL Divalproex Sodium (Depakote) 250 MG TABLET.DR 250 Milligram ORAL AT BEDTIME Comments: NOT GIVEN IN HOSPITAL Acetaminophen (Acetaminophen) 325 MG TABLET 2 Tablet ORAL Q4H as needed for PAIN/TEMP>/100 Comments: Last Taken: 03/23/16 Time: 3 AM Rivaroxaban (Xarelto) 20 MG TABLET 1 Tablet ORAL Every night Instructions: with food Comments: Last Taken: 03/22/16 Time: 6:30 PM Start taking the following new medications: Vancomycin HCl (Vancomycin HCl) 900 MCG/MG (NOT LESS THAN, MCFP) POWDER 125 Milligram ORAL EVERY SIX HOURS Days = 10 No Refills Comments: Last Taken: 03/23/16 Time: 12 NOON Copies To: MORAIMA CACERES,SALEEM Mackey; MANNY CACERES,NERISSA LONG MD MD Review Statement Documenting Attending: DALILA FRANK MD
== END 2016-03-23 16:00 | DRG 698 ==
LOC: ENRESERVDT → ENRESERVTM → CANRESERV → ERH 16:45 → 1NO 22:07 → ERHI 22:07 → ENPENDDIS 22:07 → EDBEDREQ 03-16 01:09 → 1NO 03-16 03:08
PROVIDERS: Emergency Medicine; Internal Medicine; Student in an Organized Health Care Education/Training Program; ADMIT Internal Medicine
PROC: 0D9670Z Drainage of Stomach with Drainage Device, Via Natural or Artificial Opening (ICD-10-PCS; 2016-03-17)
PROC: 0DB68ZX Excision of Stomach, Via Natural or Artificial Opening Endoscopic, Diagnostic (ICD-10-PCS; principal; 2016-03-19)
DX: T83.511A Infection and inflammatory reaction due to indwelling urethral catheter, initial encounter (principal); A41.9 Sepsis, unspecified organism; K56.60 Unspecified intestinal obstruction; K92.0 Hematemesis; K29.51 Unspecified chronic gastritis with bleeding; A04.7 Enterocolitis due to Clostridium difficile; K56.0 Paralytic ileus; N31.9 Neuromuscular dysfunction of bladder, unspecified; Q05.9 Spina bifida, unspecified; F79 Unspecified intellectual disabilities; I10 Essential (primary) hypertension; E11.9 Type 2 diabetes mellitus without complications
CPT/HCPCS: 1NP; 1NSP; ERO; 36415; 74000; 74020; 74176; 81001; 82436; 87040; 87071; 87086; 88305; 88312; 93005; 93010; 93306; 96361; 96374; 96375; J0131; J0290; J0696; J1644; J2405; J3490; J7042; Q2036

== ENCOUNTER 2016-07-28 20:54 | Emergency (ER) | payer OTHER, MEDICARE ==
[~2016-07-28] VITALS: Ht 152.4 cm; Wt 90.7 kg
[~2016-07-28 20:54] MED LIST changes: +VANCOMYCIN HCL5 G1 PO
[2016-07-28 20:59] VITALS: BP 118/73
--- NOTE | 2016-07-28 21:22 | ED CARDIAC/CP/PALPITATIONS ---
History of Present Illness General Chief Complaint: Chest Pain Stated Complaint: CP AND LOWER ABD PAIN Source: patient Exam Limitations: no limitations Vital Signs & Intake/Output Vital Signs & Intake/Output Vital Signs Date Time Temp Pulse Resp B/P B/P Pulse O2 O2 Flow FiO2 Mean Ox Delivery Rate 07/28 2058 97.3 109 20 118/73 97 Nasal 2.0L Cannula Allergies Coded Allergies: No Known Allergies (01/31/16) Reconcile Medications Acetaminophen 325 MG TABLET 2 TAB PO Q4H PRN PAIN/TEMP>/100 (Reported) Acetaminophen (Acephen) 650 MG SUPP.RECT 1 SUPP PA Q4H PRN PAIN/TEMP>100 ( Reported) Bisacodyl 10 MG SUPP.RECT 1 SUP RC PRN CONSTIPATION (Reported) Cranberry Fruit Concentrate (Cranberry) 450 MG TABLET 1 TAB PO DAILY SUPPLEMENT (Reported) Divalproex Sodium (Depakote) 250 MG TABLET.DR 250 MG PO AT BEDTIME DISRUPTIVE BEHAVIORS (Reported) Furosemide 20 MG TABLET 1 TAB PO DAILY DIURETIC (Reported) Lorazepam (Ativan) 0.5 MG TABLET 1 TAB PO Q6H PRN ANXIETY (Reported) Mag Hydrox/Al Hydrox/Simeth (Alum-Mag Hydroxide-Simeth Liq) 200 MG-200 MG-20 MG/ 5 ML ORAL.SUSP 30 ML PO TID PRN SOUR STOMACH/GAS/HEARTBURN (Reported) Magnesium Hydroxide (Milk Of Magnesia) 400 MG/5 ML ORAL.SUSP 30 ML PO DAILY PRN CONSTIPATION (Reported) Multivitamin (Multi-Day Vitamins) 1 EACH TABLET 1 TAB PO DAILY SUPPLEMENT ( Reported) Na Phos,M-B/Na Phos,Di-Ba (Fleet Enema) 19 GRAM-7 GRAM/118 ML ENEMA 1 E RC DAILY PRN CONSTIPATION (Reported) Potassium Chloride (K-Tab ER) 20 MEQ TABLET.ER 1 TAB PO DAILY SUPPLEMENT ( Reported) Rivaroxaban (Xarelto) 20 MG TABLET 1 TAB PO QPM DVT (Reported) with food Saccharomyces Boulardii (Florastor) 250 MG CAPSULE 1 CAP PO BID PROBIOTIC ( Reported) Vancomycin HCl 125 MG/2.5 ML SYRINGE 125 MG PO TID ANTIBIOTIC (Reported) Triage Note: [facility] BIBA FROM [facility] WITH COMPLAINTS OF LOW ABD PAIN THAT STARTED A FEW DAYS AGO. PT WAS RECENTLY DIAGNOSED WITH A UTI PER [facility] AND IS TAKING ANTIBIOTICS FOR IT. PT ALSO COMPLAINS OF ANTERIOR CHEST WALL TIGHTNESS AND DIZZINESS. PT WAS GIVEN 324MG OF ASPIRIN IN ROUTE WELL 0.4 OF SL NITRO WITH NO CHANGES TO CHEST TIGHTNESS. PT ARRIVES TO ED ALERT AND ORIENTED. SINUS TACH ON THE MONITOR AT 110. ABD PAIN 8/10. Triage Nurses Notes Reviewed? yes Onset: Abrupt Duration: hour(s): (FEW) Timing: recent history Location: central, abdomen Radiation: no radiation Activities at Onset: rest HPI: 46 year old male with history of HTN, DVT, neurogenic bladder from [facility] presents to the ER via EMS for chief complaint of chest pain,abdominal pain and history of UTI's. Reports he is currently on abx for the UTI. No fever or chills. Patientgiven aspirin andnitroglycerin prior to arrival. He straight catheterizes himself. Past History Travel History Traveled to [place] past 21 day No Medical History Any Pertinent Medical History? see below for history Neurological: TIA, vertigo, spina bifida intellectual disability Cardiovascular: hypertension, DVT Respiratory: NONE Gastrointestinal: ileus rectal bleeding Hepatic: NONE Renal: neurogenic bladder, urinary incontinence, recurrent UTI chronic indwelling Foster Musculoskeletal: NONE Psychiatric: NONE Endocrine: diabetes Blood Disorders: NONE History of MRSA: No History of VRE: No History of CDIFF: Yes Influenza Vaccine: 11/05/15 Surgical History Surgical History: non-contributory Psychosocial History What is your primary language Turkmen Tobacco Use: Never used ETOH Use: denies use Illicit Drug Use: denies illicit drug use Family History Hx Contributory? No Review of Systems Review of Systems Constitutional: Denies: chills, fever. EENTM: Reports: no symptoms. Respiratory: Reports: cough, short of breath. Cardiovascular: Reports: chest pain. GI: Reports: abdominal pain. Genitourinary: Reports: dysuria. Musculoskeletal: Reports: no symptoms. Skin: Reports: no symptoms. Neurological/Psychological: Reports: no symptoms. Hematologic/Endocrine: Denies: bruising, bleeding, polyuria, polydipsia. Immunologic/Allergic: Denies: splenectomy. All Other Systems: Reviewed and Negative Physical Exam Physical Exam General Appearance: well developed/nourished, alert, awake, mild distress, obese Head: atraumatic, normal appearance Eyes: Bilateral: PERRL. Ears, Nose, Throat: normal pharynx, hearing grossly normal Neck: normal inspection, supple, full range of motion Respiratory: decreased breath sounds, respiratory distress Cardiovascular: regular rate/rhythm Peripheral Pulses: 2+ radial (R), 2+ radial (L) Gastrointestinal: soft, non-tender, obese Extremities: normal inspection Neurologic/Psych: awake, alert, oriented x 3 Skin: intact, normal color, warm/dry Core Measures ACS in differential dx? No Severe Sepsis Present: No Septic Shock Present: No Progress Differential Diagnosis: AMI, costochondritis, myocarditis, pancreatitis, pericarditis, pneumonia, pneumothorax, pulmonary embolism, PUD/GERD, PVCs/PACs, uti, pyelonephritis Plan of Care: Orders Procedure Date/time Status RT ED ORDERS 07/28 2120 Active XRY-PORTABLE CHEST XRAY 07/28 2120 Active URINALYSIS 07/28 2120 Active TROPONIN LEVEL 07/28 2120 Active PARTIAL THROMBOPLASTIN TIME 07/28 2120 Active PROTHROMBIN TIME 07/28 2120 Active COMPREHENSIVE METABOLIC PANEL 07/28 2120 Active CBC WITHOUT DIFFERENTIAL 07/28 2120 Active EKG 07/28 2056 Active Current Medications Sig/Елена Start time Last Medication Dose Stop Time Status Admin Albuterol Sulfate 3 ML ONCE ONE 07/28 2129 UNVr (Proventil) 07/28 2130 Ipratropium Nixa 2.5 ML ONCE ONE 07/28 2129 UNVr (Atrovent) 07/28 2130 LABS, EKG, CXR, URINALYSIS. DUONEB, IBUPROFEN ORDERED. (AARON CACERES,MOO) Diagnostic Imaging: Viewed by Me: Radiology Read. Discussed w/RAD: Radiology Read. CXR Impression: no acute abnormality Initial ED EKG: SINUS TACHYCARDIA @ 103 BPM Departure Departure Disposition: ACUTE REHAB FACILITY Condition: Stable Clinical Impression Primary Impression: Chest pain at rest Secondary Impressions: Abdominal pain, UTI (urinary tract infection) Referrals: DALILA FRANK MD (PCP/Family) Departure Forms: Customer Survey General Discharge Information Critical Care Note Critical Care Note Critical Care Time: non-applicable
[2016-07-28] MEDS ORDERED: VANCOMYCIN125 MG/2.5 PO (21:41)
[2016-07-28] MEDS ORDERED: FLORASTOR250 M1 PO (21:45)
[2016-07-28] MEDS ORDERED: K-TAB ER20 MEQ PO (21:47)
[2016-07-28] MEDS ORDERED: BISACODYL10 M1 RC (21:51)
[2016-07-28] MEDS ORDERED: ACEPHEN650 M1 PR (21:51)
[2016-07-28] MEDS ORDERED: FLEET ENEMA133 ML RC (21:52)
[2016-07-28] MEDS ORDERED: MILK OF MA400 MG/52 PO (21:52)
[2016-07-28] MEDS ORDERED: ATIVAN0.5 M1 PO (21:53)
[2016-07-28] MEDS ORDERED: ALUM-MAG HYDRO360 ML PO (21:56)
[2016-07-28 22:25] LABS: ABSOLUTE BASOPHIL COUNT 0.1 /CUMM (0.0-0.2); ABSOLUTE EOSINOPHIL COUNT 0.1 /CUMM (0.0-0.7); ABSOLUTE GRANULOCYTE CT 5.4 /CUMM (1.4-6.5); ABSOLUTE LYMPH COUNT 1.9 /CUMM (1.2-3.4); ABSOLUTE MONOCYTE COUNT 0.7 /CUMM (0.10-0.60); BASOPHIL % 0.8 % (0.0-2.0); EOSINOPHIL % 1.7 % (0-5); GRANULOCYTE % 65.7 % (42.2-75.2); HEMATOCRIT 44.3 % (42-52); MEAN CORPUSCULAR HGB 27.7 PG (27.0-31.0); MEAN CORPUSCULAR HGB CONC 33.4 G/DL (33.0-37.0); MEAN CORPUSCULAR VOLUME 82.9 FL (80.0-94.0); MEAN PLATELET VOLUME 8.5 FL (7.4-10.4); PLATELET COUNT 270 /CUMM (130-400); RBC DISTRIBUTION WIDTH 14.6 % (11.5-14.5); RED BLOOD CELL CT 5.35 /CUMM (4.70-6.10); WHITE BLOOD CELL COUNT 8.1 /CUMM (4.8-10.8)
[2016-07-28 22:33] LABS: PT 16.9 SEC (9.4-12.5); PTT 49 SEC (25-37)
--- NOTE | 2016-07-28 22:45 | RADIOLOGY REPORT ---
EXAMINATION: XR PORTABLE CHEST CLINICAL INFORMATION: Chest pain. Shortness of breath COMPARISON: Chest x-ray 03/20/2016, 03/16/2016 TECHNIQUE: Portable frontal view of the chest was obtained. 10:24 PM FINDINGS: No significant abnormality is noted involving the heart, lungs, mediastinum, bony thorax or soft tissues. IMPRESSION: Unremarkable examination.
== END 2016-07-28 22:26 ==
LOC: ERH 20:54
PROVIDERS: Emergency Medicine
DX: R07.9 Chest pain, unspecified (principal); N39.0 Urinary tract infection, site not specified
CPT/HCPCS: 1263; 81001; 87086; 93005; 93010

== ENCOUNTER 2017-02-03 21:12 | Inpatient (IN) | payer OTHER, MEDICARE ==
[~2017-02-03] VITALS: Ht 152.4 cm; Wt 82.6 kg
[~2017-02-03 21:12] MED LIST changes: +ALUM-MAG HYDRO360 ML PO; +ATIVAN0.5 M1 PO; +FLORASTOR250 M1 PO; +K-TAB ER20 MEQ PO; +VANCOMYCIN125 MG/2.5 PO
[2017-02-03 22:01] LABS: ABSOLUTE BASOPHIL COUNT 0 /CUMM (0.0-0.2); ABSOLUTE EOSINOPHIL COUNT 0 /CUMM (0.0-0.7); ABSOLUTE GRANULOCYTE CT 16.5 /CUMM (1.4-6.5); ABSOLUTE LYMPH COUNT 0.3 /CUMM (1.2-3.4); ABSOLUTE MONOCYTE COUNT 0.7 /CUMM (0.10-0.60); BASOPHIL % 0 % (0.0-2.0); EOSINOPHIL % 0.1 % (0-5); HEMATOCRIT 52.8 % (42-52); MEAN CORPUSCULAR HGB 27.7 PG (27.0-31.0); MEAN CORPUSCULAR HGB CONC 33.2 G/DL (33.0-37.0); MEAN CORPUSCULAR VOLUME 83.3 FL (80.0-94.0); MEAN PLATELET VOLUME 8.9 FL (7.4-10.4); PLATELET COUNT 268 /CUMM (130-400); RBC DISTRIBUTION WIDTH 15.5 % (11.5-14.5); RED BLOOD CELL CT 6.34 /CUMM (4.70-6.10); WHITE BLOOD CELL COUNT 17.5 /CUMM (4.8-10.8)
[2017-02-03 22:03] LABS: GRANULOCYTE % 94.1 % (42.2-75.2)
[2017-02-03] MEDS ORDERED: TRAZODONE HCL50 M1 PO (22:06)
[2017-02-03] MEDS ORDERED: MELATONIN3 M4 PO (22:11)
[2017-02-03] MEDS ORDERED: TEMAZEPAM7.5 M1 PO (22:12)
[2017-02-03] MEDS ORDERED: MULTIVITAMINS1 EAC9 PO (22:12)
--- NOTE | 2017-02-03 22:13 | ED CARDIAC/CP/PALPITATIONS ---
History of Present Illness General Chief Complaint: Chest Pain Stated Complaint: BIBA FOR CP, SOB Source: patient, old records, EMS, [facility] Exam Limitations: no limitations Vital Signs & Intake/Output Vital Signs & Intake/Output Vital Signs Date Time Temp Pulse Resp B/P B/P Pulse O2 O2 Flow FiO2 Mean Ox Delivery Rate 02/04 0114 99.6 130 18 124/82 95 Nasal 2.0L Cannula 02/03 2346 99.7 02/03 2346 99.7 02/03 2241 99.2 141 18 146/88 95 Room Air 2.0L 02/03 2116 154 18 146/87 92 Room Air ED Intake and Output 02/04 0000 02/03 1200 Intake Total Output Total Balance Patient 200 lb Weight Weight Estimated Measurement Method Allergies Coded Allergies: latex (UNKNOWN 02/03/17) Reconcile Medications Acetaminophen 325 MG TABLET 2 TAB PO Q6H PRN PAIN/TEMP>/100 (Reported) Acetaminophen (Acephen) 650 MG SUPP.RECT 1 SUPP TX Q6H PRN PAIN/TEMP>100 ( Reported) Bisacodyl 10 MG SUPP.RECT 1 SUP RC PRN CONSTIPATION (Reported) Divalproex Sodium (Depakote) 250 MG TABLET.DR 250 MG PO QPM DISRUPTIVE BEHAVIORS (Reported) Furosemide 20 MG TABLET 1 TAB PO DAILY DIURETIC (Reported) Lorazepam (Ativan) 0.5 MG TABLET 1 TAB PO BID ANXIETY (Reported) Magnesium Hydroxide (Milk Of Magnesia) 400 MG/5 ML ORAL.SUSP 30 ML PO DAILY PRN CONSTIPATION (Reported) Melatonin 3 MG TABLET 6 MG PO QHS PRN INSOMNIA (Reported) Multiple Vitamin (Multivitamins) 1 EACH TABLET 1 TAB PO DAILY SUPPLEMENT ( Reported) Na Phos,M-B/Na Phos,Di-Ba (Fleet Enema) 19 GRAM-7 GRAM/118 ML ENEMA 1 E RC DAILY PRN CONSTIPATION (Reported) Potassium Chloride (K-Tab ER) 20 MEQ TABLET.ER 1 TAB PO DAILY SUPPLEMENT ( Reported) Rivaroxaban (Xarelto) 20 MG TABLET 1 TAB PO QPM DVT (Reported) with food Temazepam 7.5 MG CAPSULE 1 CAP PO QHS PRN SLEEP (Reported) Trazodone HCl 50 MG TABLET 1 TAB PO QHS MENTAL HEALTH/SLEEP (Reported) Vancomycin HCl 125 MG/2.5 ML SYRINGE 125 MG PO 4XDAILY ANTIBIOTIC (Reported) Core Measure Meds Pre-Hospital xarelto Triage Note: CP, SOB, UTI SX. HR 130-140 PER EMS SINUS. RECEIVED 324 ASA, 2 SL NITRO W/O RELIEF Triage Nurses Notes Reviewed? yes Onset: Last week Duration: day(s):, constant, continues in ED, getting worse Timing: recent history Quality/Severity: moderate, tightness Location: central Radiation: no radiation Activities at Onset: rest Prior Chest Pain/Card Workup: non-cardiac Modifying Factors: Worsens With: breathing, coughing. Nitro Today/Relief: no nitro taken today Aspirin Today: no aspirin today Associated Symptoms: abdominal pain, dizziness, fever/chills, weakness HPI: 3 weeks prior to admission patient has been treated with Cipro and Vancomycin for Foster UTI and history of C. difficile colitis. Prior to admission he complained of having moderate severe chest pain constant nonradiating worse with respiration palpitations nausea headache and chills. He denies fever shortness of breath rash bleeding. Past History Travel History Traveled to [place] past 21 day No Medical History Any Pertinent Medical History? see below for history Neurological: TIA, vertigo, spina bifida intellectual disability Cardiovascular: hypertension, DVT Respiratory: NONE Gastrointestinal: ileus rectal bleeding Hepatic: NONE Renal: neurogenic bladder, urinary incontinence, recurrent UTI chronic indwelling Foster Musculoskeletal: NONE Psychiatric: NONE Endocrine: diabetes Blood Disorders: NONE History of MRSA: No History of VRE: No History of CDIFF: Yes Influenza Vaccine: 11/05/15 Surgical History Surgical History: non-contributory Psychosocial History What is your primary language Northern Irish Tobacco Use: Never used ETOH Use: denies use Illicit Drug Use: denies illicit drug use Family History Hx Contributory? No Review of Systems Review of Systems Constitutional: Reports: see HPI, chills, weakness. EENTM: Reports: no symptoms. Respiratory: Reports: see HPI, cough. Cardiovascular: Reports: see HPI, chest pain, palpitations. GI: Reports: see HPI, abdominal pain, nausea. Genitourinary: Reports: no symptoms. Musculoskeletal: Reports: no symptoms. Skin: Reports: no symptoms. Neurological/Psychological: Reports: see HPI, numbness, unable to move lower ext, weakness. Hematologic/Endocrine: Reports: no symptoms. Immunologic/Allergic: Reports: no symptoms. All Other Systems: Reviewed and Negative Physical Exam Physical Exam General Appearance: well developed/nourished, alert, awake, anxious, moderate distress, obese Head: atraumatic Eyes: Bilateral: normal appearance, PERRL, EOMI. 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 Skin: intact, normal color Lymphatic: no anterior cervical magaly Core Measures ACS in differential dx? Yes No ASA d/t Medical Contraindication (ruled out) CVA/TIA Diagnosis No Sepsis Present: Yes Sepsis Focused Exam Completed? Yes Progress Differential Diagnosis: atrial fibrillation, CHF/pulm edema, costochondritis, hyperkalemia, hypovolemia, musculoskeletal pain, pneumonia Plan of Care: Orders Procedure Date/time Status Regular Diet 02/04 B Active LIPID PANEL 02/04 06 Active CBC WITHOUT DIFFERENTIAL 02/04 06 Active BASIC ELECTROLYTES PLUS BUN&CR 02/04 0600 Active Vital Signs 02/04 149 Active Teach/Educate 02/04 149 Active Pain Treatment and Response 02/04 149 Active Nutritional Intake, Monitor 02/04 149 Active Isolation 02/04 149 Active Intake & Output 02/04 149 Active Patient Care Conference 02/04 149 Active Activity/Ambulation 02/04 149 Active LACTIC ACID 02/04 0045 Active Pathway - chart 02/04 0027 Active Patient Data 02/04 0027 Active Code Status 02/04 0027 Active Pathway - chart 02/04 UNK Active House Staff 02/04 UNK Active VTE Mechanical Prophylaxis 02/04 UNK Active Telemetry/Siene Maker 02/04 UNK Active Intake & Output 02/04 UNK Active Activity/Ambulation 02/04 UNK Active CASE MANAGEMENT CONSULT 02/[address] ABD & PELVIS W IV CONTRAST 02/04 UNK Active Patient Data 02/03 2346 Active OXYGEN SETUP (GEN) 02/03 2225 Active Saline Lock 02/03 2225 Active Admit to inpatient 02/03 2225 Active Vital Signs 02/03 2225 Active Activity/Ambulation 02/03 2225 Active Code Status 02/03 2225 Complete CULTURE,URINE 02/03 2145 Active BLOOD CULTURE 02/03 2145 Active URINALYSIS 02/03 2145 Complete TROPONIN LEVEL 02/03 2145 Complete MAGNESIUM 02/03 2145 Complete LIPASE 02/03 2145 Complete LACTIC ACID 02/03 2145 Complete COMPREHENSIVE METABOLIC PANEL 02/03 2145 Complete CBC WITHOUT DIFFERENTIAL 02/03 2145 Complete Intake & Output 02/03 2119 Active EKG 02/03 2113 Active Current Medications Sig/Елена Start time Last Medication Dose Stop Time Status Admin Vancomycin HCl 125 MG DAILY 02/12 1000 UNVr 02/18 1001 Vancomycin HCl 125 MG BID 02/05 1000 UNVr 02/11 1100 Divalproex Sodium 250 MG QPM 02/04 2200 UNVr (Depakote) Furosemide 20 MG DAILY 02/04 1000 UNVr (Lasix) Lorazepam 0.5 MG BID 02/04 1000 UNVr (Ativan) 02/11 0959 Multivitamins 1 TAB DAILY 02/04 1000 AC (Theragran Vitamins) Multivitamins 1 TAB DAILY 02/04 1000 UNVr Therapeutic (Theragran-M Vitamins Tabs) Rivaroxaban 20 MG DAILY 02/04 1000 UNVr (Xarelto) Melatonin 6 MG .[QHS] PRN 02/04 0200 UNVr (Melatonin) Temazepam 7.5 MG AT BEDTIME PRN 02/04 020 UNVr (Restoril) Trazodone HCl 50 MG .[QHS] 02/04 020 UNVr (Desyrel) Vancomycin HCl 125 MG Q6 02/04 0136 UNVr 02/05 0601 Sodium Chloride 1,000 ML BOLUS ONE 02/04 130 AC (Normal Saline 0.9%) 02/04 229 Laboratory Tests 02/03/172230: Urine Color YEL, Urine Clarity CLDY H, Urine pH 6.0, Ur Specific [place] 1.025, Urine Protein 30 H, Urine Ketones NEG, Urine Nitrite NEG, Urine Bilirubin NEG, Urine Urobilinogen 0.2, Ur Leukocyte Esterase MOD H, Ur Microscopic SEDIMENT EXAMINED, Urine RBC 15-25 H, Urine WBC > 75 H, Ur Epithelial Cells FEW, Urine Crystals 1+ CA OX H, Urine Bacteria MOD H, Urine Mucus RARE, Urine Hemoglobin MOD H, Urine Glucose NEG 02/03/172149: Anion Gap 19 H, Estimated GFR > 60, BUN/Creatinine Ratio 21.7, Glucose 141 H, Lactic Acid 4.4 H, Calcium 10.3 H, Magnesium 1.8, Total Bilirubin 0.8, AST 37, ALT 54, Alkaline Phosphatase 82, Troponin I < 0.01, Total Protein 7.8, Albumin 4.4, Globulin 3.4, Albumin/Globulin Ratio 1.3, Lipase 76, CBC w Diff MAN DIFF ORDERED, RBC 6.34 H, MCV 83.3, MCH 27.7, RDW 15.5 H, MPV 8.9, Gran % 94.1 H, Lymphocytes % 1.6 L, Monocytes % 4.2, Eosinophils % 0.1, Basophils % 0, Absolute Granulocytes 16.5 H, Segmented Neutrophils 74, Band Neutrophils 20 H, Absolute Lymphocytes 0.3 L, Lymphocytes 1 L, Monocytes 5, Absolute Monocytes 0.7 H, Absolute Eosinophils 0, Absolute Basophils 0, Platelet Estimate ADEQUATE , Normochromic RBCs VERIFIED, Anisocytosis 1+, PUBS MCHC 33.2 Microbiology 02/03 2231 URINE ROUT: Urine Culture - RECD 02/03 2225 BLOOD: Blood Culture - CAN Cancelled: Quantity not sufficient for both blood culture bottles. 02/03 2145 BLOOD: Blood Culture - ORD Diagnostic Imaging: Viewed by Me: Radiology Read. Discussed w/RAD: Radiology Read. CXR Impression: no acute abnormality, no infiltrates Initial ED EKG: normal axis, normal intervals, normal p-waves, normal QRS complex, rate (sinus tachycardia) Prior EKG: unchanged Rhythm Strip: sinus tachycardia Departure Departure Disposition: STILL A PATIENT Condition: Stable Clinical Impression Primary Impression: UTI (urinary tract infection) due to urinary indwelling catheter Secondary Impressions: Chest pain syndrome, Lactic acidosis, Leukocytosis Referrals: Darrell Whitmore MD (PCP/Family) Departure Forms: Customer Survey General Discharge Information Admission Note Spoke With: Bhargavi Graham MD Documentation of Exam: Documentation of any treatments & extenuating circumstances including Concerns Regarding Discharge (functional status, medication knowledge or non-compliance, living conditions, etc.) that warrant an admission rather than observation: Failed outpatient antibiotic treatment requiring IV antibiotics for UTI IV hydration serial lab exam medication adjustment physical therapy and continuing care discharge planning ED Sepsis Exam Date of Focused Sepsis Exam: 02/04/17 Time of Focused Sepsis Exam: 0130 Sepsis Cardiac Exam: Tachycardia Sepsis Resp Exam: CTA Sepsis Cap Refill Exam: <2 Sec Sepsis Peripheral Pulse Exam: Normal Sepsis Peripheral Pulse Location: Radial Sepsis Skin Color Exam: Normal for Ethnicity Skin Temp/Moisture Exam: Warm/Dry Critical Care Note Critical Care Note Critical Care Time: 30-74 min (35)
--- NOTE | 2017-02-03 22:22 | RADIOLOGY REPORT ---
EXAMINATION: XR PORTABLE CHEST CLINICAL INFORMATION: Chest pain. Fever. COMPARISON: Chest x-ray 07/28/2016 TECHNIQUE: Portable frontal view of the chest was obtained. 9:58 PM FINDINGS: Exam is apical lordotic in projection. Lung volume is low. No acute abnormality. No infiltrate or pulmonary vascular congestion. No pleural effusion. Cardiac and mediastinal contours are unchanged. IMPRESSION: No acute abnormality of the chest.
--- NOTE | 2017-02-03 23:36 | History & Physical ---
Ra CACERESNaseem 02/03/17 2605: General Information and HPI History of Present Illness: Mr. Lopez is a 46-year-old male with past medical history of TIA, vertigo, spina bifida, MR, GI bleed, neurogenic bladder, and diabetes mellitus who presents with chest pain. Patient has a intellectual disability and is a poor historian. He says that at 2 PM this afternoon, he started getting dizziness, lightheadedness, abdominal cramps, and testicular pain. He says he was not doing anything just laying in bed when this started. He describes the dizziness as room spinning and the lightheadedness as presyncope. His abdominal pain is throughout his belly and he did have one episode of nonbloody emesis. His testicular pain is described as sharp and second her to the Torrez. He also has pleuritic chest pain he describes as tight in the middle and feels like heartburn his head and the past. He is also complaining of shortness of breath at rest as well as fever, productive cough. There is no diarrhea, chills, dysuria. He is wheelchair-bound and aware left. No smoking, drugs, or alcohol use. Of note, patient recently admitted to [facility]. Discharged on vancomycin PO 125mg taper: 4x/day for 6 doses, then 2x/day for 7 days, then daily for 7 days. Allergies/Medications Allergies: Coded Allergies: latex (UNKNOWN 02/03/17) Home Med list Acetaminophen 325 MG TABLET 2 TAB PO Q6H PRN PAIN/TEMP>/100 (Reported) Acetaminophen (Acephen) 650 MG SUPP.RECT 1 SUPP [place] Q6H PRN PAIN/TEMP>100 ( Reported) Bisacodyl 10 MG SUPP.RECT 1 SUP RC PRN CONSTIPATION (Reported) Divalproex Sodium (Depakote) 250 MG TABLET.DR 250 MG PO QPM DISRUPTIVE BEHAVIORS (Reported) Furosemide 20 MG TABLET 1 TAB PO DAILY DIURETIC (Reported) Lorazepam (Ativan) 0.5 MG TABLET 1 TAB PO BID ANXIETY (Reported) Magnesium Hydroxide (Milk Of Magnesia) 400 MG/5 ML ORAL.SUSP 30 ML PO DAILY PRN CONSTIPATION (Reported) Melatonin 3 MG TABLET 6 MG PO QHS PRN INSOMNIA (Reported) Multiple Vitamin (Multivitamins) 1 EACH TABLET 1 TAB PO DAILY SUPPLEMENT ( Reported) Na Phos,M-B/Na Phos,Di-Ba (Fleet Enema) 19 GRAM-7 GRAM/118 ML ENEMA 1 E RC DAILY PRN CONSTIPATION (Reported) Potassium Chloride (K-Tab ER) 20 MEQ TABLET.ER 1 TAB PO DAILY SUPPLEMENT ( Reported) Rivaroxaban (Xarelto) 20 MG TABLET 1 TAB PO QPM DVT (Reported) with food Temazepam 7.5 MG CAPSULE 1 CAP PO QHS PRN SLEEP (Reported) Trazodone HCl 50 MG TABLET 1 TAB PO QHS MENTAL HEALTH/SLEEP (Reported) Vancomycin HCl 125 MG/2.5 ML SYRINGE 125 MG PO 4XDAILY ANTIBIOTIC (Reported) Past History Travel History Traveled to [place] past 21 day No Medical History Neurological: TIA, vertigo, spina bifida intellectual disability Cardiovascular: hypertension, DVT Respiratory: NONE Gastrointestinal: ileus rectal bleeding Hepatic: NONE Renal: neurogenic bladder, urinary incontinence, recurrent UTI chronic indwelling Torrez Musculoskeletal: NONE Psychiatric: NONE Endocrine: diabetes Blood Disorders: NONE History of MRSA: No History of VRE: No History of CDIFF: Yes Surgical History Surgical History: non-contributory Past Family/Social History Psychosocial History ETOH Use: denies use Illicit Drug Use: denies illicit drug use Functional Ability ADLs Needs Assist: dressing, eating, toileting, bathing. Ambulation: non-ambulatory IADLs Needs Assist: shopping, housework, finances, food prep, telephone, transportation, medication admin. Review of Systems Review of Systems Constitutional: Reports: see HPI. EENTM: Reports: no symptoms. Cardiovascular: Reports: see HPI. Respiratory: Reports: see HPI. GI: Reports: see HPI. Genitourinary: Reports: see HPI. Musculoskeletal: Reports: no symptoms. Skin: Reports: no symptoms. Neurological/Psychological: Reports: no symptoms. Hematologic/Endocrine: Reports: no symptoms. Immunologic/Allergic: Reports: no symptoms. All Other Systems: Reviewed and Negative Exam & Diagnostic Data Last 24 Hrs of Vital Signs/I&O Vital Signs Date Time Temp Pulse Resp B/P B/P Pulse O2 O2 Flow FiO2 Mean Ox Delivery Rate 02/03 2346 99.7 02/03 2346 99.7 02/03 2241 99.2 141 18 146/88 95 Room Air 2.0L 02/036 154 18 146/87 92 Room Air Intake & Output 02/04 0800 12/22 0000 02/03 1600 Intake Total Output Total Balance Patient 200 lb Weight Weight Estimated Measurement Method Physical Exam General Appearance Alert, Oriented X3, Cooperative, No Acute Distress Skin No Rashes, No Significant Lesion Sepsis Skin Exam (color): Normal for Ethnicity HEENT PERRLA, EOMI Cardiovascular Regular Rate, Normal S1, Normal S2 Lungs Clear to Auscultation, Normal Air Movement Abdomen Normal Bowel Sounds, guarding, tenderness to light touch all over, no rebound Neurological Normal Speech Extremities Normal Pulses, 2+ pitting edema Sepsis Peripheral Pulse Location: Dorsalis Pedis Sepsis Peripheral Pulse Exam: Normal Sepsis Cap Refill Exam: >2 sec Last 24 Hrs of Labs/Rex: Laboratory Tests 02/03/172230: Urine Color YEL, Urine Clarity CLDY H, Urine pH 6.0, Ur Specific [place] 1.025, Urine Protein 30 H, Urine Ketones NEG, Urine Nitrite NEG, Urine Bilirubin NEG, Urine Urobilinogen 0.2, Ur Leukocyte Esterase MOD H, Ur Microscopic SEDIMENT EXAMINED, Urine RBC 15-25 H, Urine WBC > 75 H, Ur Epithelial Cells FEW, Urine Crystals 1+ CA OX H, Urine Bacteria MOD H, Urine Mucus RARE, Urine Hemoglobin MOD H, Urine Glucose NEG 02/03/172149: Anion Gap 19 H, Estimated GFR > 60, BUN/Creatinine Ratio 21.7, Glucose 141 H, Lactic Acid 4.4 H, Calcium 10.3 H, Magnesium 1.8, Total Bilirubin 0.8, AST 37, ALT 54, Alkaline Phosphatase 82, Troponin I < 0.01, Total Protein 7.8, Albumin 4.4, Globulin 3.4, Albumin/Globulin Ratio 1.3, Lipase 76, CBC w Diff MAN DIFF ORDERED, RBC 6.34 H, MCV 83.3, MCH 27.7, RDW 15.5 H, MPV 8.9, Gran % 94.1 H, Lymphocytes % 1.6 L, Monocytes % 4.2, Eosinophils % 0.1, Basophils % 0, Absolute Granulocytes 16.5 H, Segmented Neutrophils 74, Band Neutrophils 20 H, Absolute Lymphocytes 0.3 L, Lymphocytes 1 L, Monocytes 5, Absolute Monocytes 0.7 H, Absolute Eosinophils 0, Absolute Basophils 0, Platelet Estimate ADEQUATE , Normochromic RBCs VERIFIED, Anisocytosis 1+, PUBS MCHC 33.2 Microbiology 02/03 2231 URINE ROUT: Urine Culture - RECD 02/03 2225 BLOOD: Blood Culture - CAN Cancelled: Quantity not sufficient for both blood culture bottles. 02/03 2145 BLOOD: Blood Culture - ORD Assessment/Plan Assessment: Mr. Lopez is a 46-year-old male with past medical history of TIA, vertigo, spina bifida, MR, GI bleed, neurogenic bladder, and DVT on rivaroxaban who presents with chest pain. On presentation, vital signs were T 99.2, HR 154, RR 18, BP 146/87, saturating 92% on room air. Temperature significant for blood cell count 17.5, 16.5 cranial sites, 20 bands, [place] 19, BUN 26, creatinine 1.2, lactic acid 4.4, calcium 10.3, albumin 4.4, magnesium 1.8, negative ability, troponin less than 0.01, lipase 76, urinalysis showing moderate leukocyte esterase, greater than 75 WBCs, 1525 RBCs, 30 protein. Chest x-ray were negative for any acute abnormality. History with acetaminophen, ceftriaxone, 2 L normal saline in the emergency room. He'll be admitted to telemetry and treated for the following problem: 1. Tachycardia 2. Leukocytosis with lactic acidosis 3. Hypercalcemia 4. Chest pain syndrome 5. C Diff colitis 6. Testicular pain #Tachycardia: Patient in sinus rhythm. Likely anxiety vs infection vs volume loss. -IVF hydration -Telemetry -Workup as below for infection #Leukocytosis with lactic acidosis: Patient has an indwelling catheter secondary to neurogenic bladder. While UA is grossly positive, may be contaminated. Last time torrez was changed was yesterday. He completed [facility] of [facility] for UTI recently. He does meet 2/4 SIRS criteria as well as lactic acidosis. Of note, patient recently admitted to [facility], diagnosed with C. Diff colitis. Discharged on vancomycin PO 125mg taper: 4x/day for 6 doses, then 2x/ day for 7 days, then daily for 7 days. -Blood/urine cultures -Trend lactic acid -IV fluid hydration -CT abd/pelvis IV contrast -Please obtain records from [place] and confirm taper of vancomycin. #Chest pain syndrome: Patient is complaining of chest pain. EKG shows no changes , sinus tachycardia. First troponin was negative. -EKG and trops 3 -Telemetry monitoring #Testicular pain: Patient complaining of pain in testicles, though he may mean the torrez is causing him pain. -US to r/o torsion #Hypercalcemia: Likely hemoconcentrated. -IVF as above -Trend Ca #Chronic medical problems: -Continue home trazodone, divalproex, rivaroxaban, multivitamins, lorazepam, temazepam, percocet, melatonin DVT prophylaxis with rivaroxaban Regular Diet Full code As Ranked By This Provider Problem List: 1. Chest pain syndrome Core Measures/Misc (10/31) Acute Coronary Syndrome ACS Diagnosis: No Congestive Heart Failure Congestive Heart Failure Diagnosis No Cerebrovascular Accident CVA/TIA Diagnosis: No VTE (View Protocol) VTE Risk Factors Age>40 No Mechanical VTE Prophylaxis d/t N/A MechProphylax Ordered No VTE Pharm Prophylaxis d/t NA PharmProphylax ordered Sepsis (View protocol) Sepsis Present: No Shae Sam MD 02/04/17 0142: Resident Review Statement Resident Statement: examined this patient, discussed with statistics intern, agreed with statistics intern, discussed with family, reviewed EMR data (avail) Other Findings: Patient is a 46 YO M with PMH significant for spina bifida, recurrent UTI with chronic indwelling Torrez catheter, TIA, MR, vertigo, Hypertension, DVT on Xarelto, hydrocephalus with [employer] shunt presented to [place] after not being feeling like himself since noon today. Patient started feeling sick in the known with lightheadedness, crampiness in the stomach along with spinning sensation. He also describes having chest pain which he describes a tightness in the middle of the chest and similar to heartburn associated with shortness of breath at rest. He also describes sharp pain in his testicular region. We made a call to the facility ([facility]) and apparently patient was recently discharged on January 20 from [facility] after being treated for C. difficile and UTI. He is currently on vancomycin taper for C. difficile diarrhea and ciprofloxacin for presumed UTI. His last bowel movement was today. His last catheter change was yesterday. Vital signs at admission Tmax 99.7, heart rate 150's, blood pressure 146/87 mmHg, on 2 L nasal cannula Physical examination Alert oriented 3, in mild distress, HEENT: PERRLA, neck [employer] shunt palpable at the left temporomandibular joint region. Heart S1-S2 normal, lungs clear with mildly decreased air entry at bases. Abdomen diffuse cardiac present without any rebound tenderness. Scrotal erythema present in the left side with indwelling catheter in place. Lower extremities Labs White count of 17, H&H 17/52, platelet 268, lactic acid 4.4, sodium 142, potassium 4.3, BUN/creatinine 26/1.2, anion gap 19, calcium 10.3, magnesium 1.8, positive urine analysis. Chest x-ray is normal EKG shows normal sinus rhythm with heart rate 150, regular narrow QRS, axis normal axis, QTc 433 Assessment Patient is a 46-year-old male with history of spina bifida, recurrent UTIs with indwelling Torrez catheter, C.diff diarrhea (currently on vancomycin pulse taper) presented to ER after not being himself since late afternoon. Patient does report exertional shortness of breath with chest pain (describes as heartburn). He did have pain in his scrotal region. Vital signs at admission temperature 99.7, tachycardic to 150s, blood 140/80 mmHg, saturating on 2 L oxygen. Apparently patient had a temperature of 100.8 facility. Physical examination is significant for diffuse guarding WITH abdomen, scrotal edema, normal heart sounds, clear lungs. Labs are significant for white count of 17, H&H 17/52, anion gap metabolic acidosis with anion gap of 19, lactic acid 4.4, calcium 10.3 , mag of 1.8. His chest x-ray looks normal EKG did show sinus tachycardia with heart rate 150, narrow regular QRS complexes. Differentials Resolving colitis - C. difficile Dehydration Scrotal infection Panic attack Problem list 1. SIRS criteria with leukocytosis and tachycardia 2. AG metabolic acidosis 3. C.diff colitis on pulse taper of vancomycin 4. Scrotal erythema - rule out torsion 5. Asymptomatic pyuria in a patient with indwelling torrez catheter 6. Chest pain Plan Admit to telemetry floor for continous rhythm monitor SIRS criteria positive with Leukocytosis & Tachycardia 150 He remains anxious in the ER during the interview, reportedly dizzy. He did have abdominal/scrotal pain. Also recently discharged from [facility] after being treated for C.diff. * Pancultures * Hydration - 3L given in ER, 1L bolus and maintainence with NS @100ml/hr * Ultrasound of testicular region * CT abdomen/pelvis to rule out acute pathology --? worsening/resolving colitis AG metabolic acidosis Lactic acidosis in the setting of tachycardia, mild low grade fever and dehydration * Hydration * Trend lactic acid * Repeat labs in AM * Look for other causes if not resolving with hydration C.diff colitis - currently on vanco pulse dose The taper from the facility and the documentation received is different. we need to confirm the dose * Obtain records from [facility] about recent admission and discharge medications * Continue vanco * Monitor for diarrhea chest pain Appears noncardiac as describing like heart burn. He did have shortness of breath. Similar presentation in previous admission. * serial EKG and trop to rule out ACS/demand secondary to tachycardia * Pain medications and PPI Indwelling torrez catheter Patient apparently had a change in torrez yesterday. He did have positive UA and received a single dose of ceftriaxone in ED. * await culture * scrotal ultrasound to see if urological ascending infection DVT on xarelto we will continue Continue other home medications including depakote, lasix, lorazepam, multivitamin. DVT prophylaxis On xarelto Code status Full code Bhargavi Graham 02/04/17 0606: Attending MD Review Statement Attending Statement Attending MD Statement: examined this patient, discuss w/resident/PA/SHIP CAPTAIN, agreed w/resident/PA/SHIP CAPTAIN, reviewed EMR data (avail), reviewed images, amended to note Attending Assessment/Plan: CC: Fever and multiple complaints PMH: Spina bifida, cognitive disability, chronic Torrez for neurogenic bladder, HTN, DVT on anticoagulation, history of TIA, vertigo Patient was sent from long-term for multiple complaints including chest pain, abdominal pain, testicular pain, lightheadedness, fever spike of 100.2. Patient is a poor historian given his clinical condition but he mentions that he was recently treated for C. difficile, currently on vancomycin but today patient felt crampy abdominal pain mostly on the right side and testicular pain again on the right side associated with 1 nonbloody vomiting and lightheadedness. Patient also noticed chest pain. According to the note from long-term he received 2 sublingual nitroglycerin with relief. Patient describes chest pain as almost epigastric gripping sensation. His Torrez catheter was changed yesterday. He was recently admitted in [facility] for UTI and C. difficile, completed Cipro for UTI and currently on tapering dose for by mouth vancomycin. Last bowel movement today unclear if it's watery. Vitals: T max 99.7, pulse 154, RR 18, blood pressure 146/87, saturating 92% on 2 L nasal cannula On exam: A O 3, cooperative, cognitive deficit, no acute distress, neck supple, JVD normal, no lymphadenopathy, mucosa dry, no focal neurological deficit, no dependent edema, no obvious skin rashes or inflammation CVS: S1-S2, RRR. RS: Clear to auscultate bilaterally. Abdomen: Distended, obese, tenderness right middle and lower quadrant, right epigastric tenderness, questionable according, bowel sounds decreased. Mild scrotal redness on right side with minimum tenderness on palpation, Labs: WBC 17.5, hemoglobin 17.5, hematocrit 52.8, platelet 268, neutrophils 94%, bands 20, sodium 142, potassium 4.2, chloride 105, bicarbonate 19, BUN 26, creatinine 1.2, glucose 141, calcium 10.3, lactate 4.4, LFT unremarkable, troponin less than 0.01, UA positive for protein and leukocyte esterase CXR: No acute abnormality of the chest. CT abdomen pelvis with IV contrast: #1 Small amount of nonspecific free fluid within the right hemiabdomen extending into the right lower quadrant. The appendix is not identified. There is a [id number] amount of free fluid within the right lower quadrant interspersed between nondilated loops of small bowel. There is trace peritoneal enhancement. The appearance is nonspecific, but could be indicative of inflammatory or infectious process. #2 Nonobstructive left renal calculi and moderate left pelviectasis within extrarenal pelvis. Assessment and plan 46-year-old male with extensive past medical history and recently under treatment for C. difficile with the tapering vancomycin dose and recently treated UTI presented in ER from long-term for several complaints: Abdominal pain, chest pain, testicular pain, lightheadedness, 1 nonbloody vomiting. History is limited secondary to his cognitive disability but patient complains of epigastric pain when he mentions chest pain but his pain relieved with nitro. Also on abdominal palpation there is tenderness on right middle and lower quadrant, decreased bowel sounds. patient has significant tachycardia, ligament leukocytosis with bandemia. With the recent C. difficile infection was a concern of persistent colitis of megacolon or any other intra-abdominal pathology so CT scan was obtained This CT scan was obtained which shows small amount of free fluid which could be nonspecific or inflammatory. Again the bandemia, tachycardia, lactic acidosis can be secondary to C. difficile for which we will continue the tapering doses of vancomycin but patient does not have any worsening diarrhea, at the same time any intra-abdominal other infection should be ruled out. Low probability of pulmonary embolism as patient is already on Xeralto. We will rule out ACS. Even though UA positive for leukocyte esterase , could be pyuria secondary to indwelling Torrez catheter and recently treated so will not continue any antibiotic for UTI. + SIRS positive with unclear source of infection, ?C. difficile + History of recently treated UTI with indwelling Torrez catheter + History of Spina bifida, cognitive disability, chronic Torrez for neurogenic bladder, HTN, DVT on anticoagulation, history of TIA, vertigo - Admit to telemetry - Continuous telemetry monitoring - Blood culture, urine culture - Serial troponin and EKGs - Ultrasound scrotum in the morning - Continue aggressive hydration - Continue tapering dose of vancomycin by mouth - Nothing by mouth for now - Continue rest of his home medications except Lasix - Surgical consult in a.m. for abdominal tenderness and questionable guarding on examination, significant tachycardia with leukocytosis, questionable free fluid in abdomen: ?Unclear etiology - Adequate pain control - Patient takes his own decisions but just in case an emergency he has his sisters named as POA who share the custody.
[2017-02-04 02:24] VITALS: BP 100/68
--- NOTE | 2017-02-04 03:51 | ULTRASOUND REPORT ---
EXAMINATION: US SCROTUM CLINICAL INFORMATION: Left-sided erythema. Pain. COMPARISON: None TECHNIQUE: A sonogram of the scrotum was performed assessing price-scale appearance and color Doppler flow. Spectral analysis and Doppler interrogation was performed. FINDINGS: RIGHT: Right testicle measures 3.7 x 2.5 x 2.8 cm, volume 18.3 mL. Parenchymal echotexture is normal. No focal testicular parenchymal lesions are visualized. Normal symmetric intratesticular flow is visualized. Right epididymal head is normal in size. There is a moderate complex hydrocele. No varicocele is seen. LEFT: Left testicle measures 4.1 x 2.1 x 2.9 cm, volume 17.2 mL. Parenchymal echotexture is normal. No concerning focal testicular parenchymal lesions are visualized. There is an approximately 8 mm superior tunical cyst. Normal symmetric intratesticular flow is visualized. Left epididymal head is normal in size. There is a moderate complex hydrocele. No varicocele is seen. IMPRESSION: Normal testes. Moderate bilateral complicated hydroceles. 8mm upper left scrotal cyst, likely computer help desk representative of a tunical cyst.
--- NOTE | 2017-02-04 04:09 | CT SCAN REPORT ---
EXAMINATION: CT ABDOMEN AND PELVIS WITH CONTRAST CLINICAL INFORMATION: Abdominal pain. COMPARISON: March 16, 2016. TECHNIQUE: Contiguous axial thin section helical images of the abdomen and pelvis were performed following the administration of 100 mL of intravenous Omnipaque 300. The data set was reformatted in the coronal and sagittal planes and reviewed on an independent workstation. DLP: 1060 mGy-cm. FINDINGS: There is mild dependent bibasilar atelectasis. The visualized lung bases are otherwise clear. The visualized portions of the heart are unremarkable. The liver is of normal size and attenuation without focal lesions nor intrahepatic biliary ductal dilation. A normal gallbladder is identified. There is no wall thickening or discernible pericholecystic fluid. The spleen, pancreas, adrenal glands are unremarkable. Both kidneys are of normal size and attenuation. Following the administration of IV contrast, prompt symmetric nephrograms are displayed. There is right pelviectasis and extrarenal pelvis. There is a left extrarenal pelvis with moderate pelviectasis, trace caliectasis and 2 nonobstructive proximal ureteral calculi. The largest measures 7 mm. There is mild proximal hydroureter. There is neither mesenteric nor retroperitoneal lymphadenopathy. Normal unopacified loops of small and large bowel are identified. There is a small amount of fluid extending from the inferior aspect of the right lobe of the spleen into the right paracolic gutter and right lower quadrant.. About several nondilated loops of distal small bowel, there is a uncyb-cr-qwwdowyt amount of free fluid with trace peritoneal enhancement. A Foster catheter is in place within the urinary bladder. The urinary bladder is near completely emptied. There is bladder wall thickening in the setting of a low bladder volume. There is neither pelvic nor inguinal lymphadenopathy. Bone windows: Neither sclerotic nor lytic bone lesions are identified. There is a unilateral right L5 pars defect. There is no spondylolisthesis. IMPRESSION: Small amount of nonspecific free fluid within the right hemiabdomen extending into the right lower quadrant. The appendix is not identified. There is a pybtk-qo-vgpkusyf amount of free fluid within the right lower quadrant interspersed between nondilated loops of small bowel. There is trace peritoneal enhancement. The appearance is nonspecific, but could be indicative of inflammatory or infectious process. Nonobstructive left renal calculi and moderate left pelviectasis within extrarenal pelvis.
--- NOTE | 2017-02-04 06:08 | Admission Certification ---
Admission Certification Certification Statement - As attending physician, I certify that at the time of - admission, based on clinical presentation, severity of - symptoms, need for further diagnostic testing and - therapeutic interventions, and risk of adverse outcomes - without in-hospital treatment, in my clinical assessment, - this patient requires an acute hospital stay for a minimum - of two nights or longer. I have also considered psychsocial - factors such as support system, advanced age, financial - issues, cognitive issues, and failed out-patient treatments, - past re-admission history, safety of patient, and lack of - compliance as applicable. Specific rationale supporting this admission is: chest pain, SIRS, ? C diff, ?unclear source of infection
[2017-02-04 07:06] VITALS: BP 128/76
--- NOTE | 2017-02-04 07:18 | PN- Housestaff ---
Kelly CACERES,[facility] 02/04/17 0718: Subjective Follow-up For: Elevated lactic acid/leukocytosis ?C.diff colitis Tele-Events Since Last Visit: Patient was and continues to be in sinus tachycardia with heart rate in 120s. Subjective: Patient was seen and examined at bedside. He reports feeling dizzy with the sensation of room spinning around him, along with lightheadedness since last night. He complains of a localized chest pain in the substernal region without any radiation. He also has some diffuse abdominal pain. All of his symptoms have been going on since yesterday afternoon. Review of Systems Constitutional: Reports: see HPI. Objective Last 24 Hrs of Vital Signs/I&O Vital Signs Date Time Temp Pulse Resp B/P B/P Pulse O2 O2 Flow FiO2 Mean Ox Delivery Rate 02/04 0706 98.2 127 18 128/76 95 Nasal Cannula 02/04 0224 99.0 124 22 100/68 94 Nasal 2.0L Cannula 02/04 0150 Nasal 2.0L Cannula 02/04 0114 99.6 130 18 124/82 95 Nasal 2.0L Cannula 02/03 2346 99.7 02/03 2346 99.7 02/03 2241 99.2 141 18 146/88 95 Room Air 2.0L 02/03 2116 154 18 146/87 92 Room Air Intake & Output 02/04 1600 02/04 0800 02/04 0000 Intake Total 1000 Output Total 1000 Balance 0 Intake, IV 1000 Number 2 Bowel Movements Output, Urine 1000 Patient 200 lb 200 lb Weight Weight Estimated Measurement Method Physical Exam General Appearance: Alert, Oriented X3, Cooperative, Mild Distress Skin: No Rashes, No Breakdown Skin Temp/Moisture Exam: Warm/Dry Sepsis Skin Exam (color): Normal for Ethnicity HEENT: Atraumatic Cardiovascular: Normal S1, Normal S2, No Murmurs, tachycardia Lungs: Clear to Auscultation, Normal Air Movement Abdomen: diffuse tenderness, well healed midline surgical incision Neurological: Normal Speech, paraplegia Extremities: 1+ pitting edema Assessment/Plan Assessment: Mr. Lopez is a 46-year-old male with past medical history of TIA, vertigo, spina bifida, MR, GI bleed, neurogenic bladder, and diabetes mellitus who presented to the ED with complains of localized chest pain, diffuse abdominal pain, lightheadedness and vertigo. Assessment and Plan: Urinary Tract Infection: Patient complains of non specific diffuse abdominal pain. He has paraplegia with neurogenic bladder so unable to sense any urinary symptoms if present. His lactic acid was elevated on admission which has trended down with IVF. * His urine culture is growing gram negative rods. * He does have a white count with bandemia. * He has had several episodes of UTI this year including urosepsis. * His past species have been sensitive to cefazolin. * Will start him on IV Cefazolin 1g q12. * Blood cultures unable to be obtained as the patient has extremely poor IV access. * ID consult tomorrow for further recommendations. History of C.diff Colitis: He had a recent admission to [facility] for C.diff infection and he was started on oral vancomycin taper. * Will continue his oral vancomycin for now * A request for record has been sent to [facility]. Will follow. * Will continue him on IVF for now. Chest Pain Syndrome: Patient has been complaining of localized substernal chest pain since admission. He has been in sinus tachycardia since admission. * ACS was r/o with 3 sets of negative troponins. * His sinus tachycardia is likely due to infection. * Will continue to monitor for now. Testicular pain: On admission patient complained of testicular pain which he currently does not acknowledge. * An U/S was done which showed normal testes with moderate bilateral complicated hydroceles. Chronic medical problems: Continue home trazodone, divalproex, rivaroxaban, multivitamins, lorazepam, temazepam, percocet, melatonin DVT prophylaxis: On Rivaroxaban Diet: Regular Diet Full code Problem List: 1. Lactic acidosis Pain Ratin Pain Location: none Pain Goal: Remain pain free Pain Plan: none Tomorrow's Labs & Rationales: CBC, BEP Sourav Pérez 02/04/17 1111: Attending MD Review Statement Attending Statement Attending MD Statement: examined this patient, discuss w/resident/PA/BILLBOARD ERECTOR HELPER, agreed w/resident/PA/BILLBOARD ERECTOR HELPER, discussed with family, reviewed EMR data (avail), discussed with nursing, discussed with case mgmt, reviewed images, amended to note Attending Assessment/Plan: Mr. Lopez is a 46-year-old male with past medical history of TIA, vertigo, spina bifida, MR, GI bleed, neurogenic bladder, and diabetes mellitus who presents with chest pain. Patient has a intellectual disability and is a poor historian admitted to [facility] for abdominal pain and diarrhea with leukocytosis and lactic acidosis after being treated for c diff colitis with oral vancomycin in outpatient setting. Patient seen/examined bedside. Patient had laparatomy scar. Patient poor historian, diffuse abdominal pain but no rigidity no rebound tenderness. Labs and vitals reviewed. CT abd/pelvis wit free fluid in right lower quadrant. Plan is to keep him NPO, IVF, PO vancomycin. LA improved 1.4. Monitor bowel moevements, serial abdominal exams. Consult ID and surgery. Obtain previous records. gi/dvt prophylaixs full code.
[2017-02-04 08:27] LABS: ABSOLUTE BASOPHIL COUNT 0 /CUMM (0.0-0.2); ABSOLUTE EOSINOPHIL COUNT 0 /CUMM (0.0-0.7); ABSOLUTE GRANULOCYTE CT 16.8 /CUMM (1.4-6.5); ABSOLUTE LYMPH COUNT 0.8 /CUMM (1.2-3.4); ABSOLUTE MONOCYTE COUNT 1.2 /CUMM (0.10-0.60); BASOPHIL % 0.1 % (0.0-2.0); EOSINOPHIL % 0 % (0-5); GRANULOCYTE % 89.1 % (42.2-75.2); MEAN CORPUSCULAR HGB 28.1 PG (27.0-31.0); MEAN CORPUSCULAR HGB CONC 33.6 G/DL (33.0-37.0); MEAN CORPUSCULAR VOLUME 83.7 FL (80.0-94.0); PLATELET COUNT 225 /CUMM (130-400); RBC DISTRIBUTION WIDTH 15.8 % (11.5-14.5); RED BLOOD CELL CT 5.11 /CUMM (4.70-6.10); WHITE BLOOD CELL COUNT 18.9 /CUMM (4.8-10.8)
[2017-02-04 09:32] LABS: HEMATOCRIT 42.8 % (42-52)
[2017-02-04 15:01] VITALS: BP 110/68
--- NOTE | 2017-02-04 16:15 | Discharge Summary ---
Visit Information Visit Dates Admission Date: 02/03/17 Discharge Date: 02/11/2017 Hospital Course Course Attending Physician: Sourav Pérez MD Primary Care Physician: Myranda CACERES,Darrell Mackey Hospital Course: Patient is a 46 YO M with PMH significant for spina bifida, recurrent UTI with chronic indwelling Torrez catheter, TIA, MR, vertigo, Hypertension, DVT on Xarelto, hydrocephalus with GATE MORTISER OPERATOR shunt presented to [place] after not being feeling like himself. Patient started feeling sick with lightheadedness, crampiness in the stomach along with spinning sensation. He also describes having chest pain which he describes a tightness in the middle of the chest and similar to heartburn associated with shortness of breath at rest. He also describes sharp pain in his testicular region. patient was recently discharged on January 20 from [facility] after being treated for C. difficile and UTI. He is currently on vancomycin taper for C. difficile diarrhea and ciprofloxacin for presumed UTI. Vitals: T max 99.7, pulse 154, RR 18, blood pressure 146/87, saturating 92% on 2 L nasal cannula. Labs: WBC 17.5, hemoglobin 17.5, hematocrit 52.8, platelet 268, neutrophils 94%, bands 20, sodium 142, potassium 4.2, chloride 105, bicarbonate 19, BUN 26, creatinine 1.2, glucose 141, calcium 10.3, lactate 4.4, LFT unremarkable, troponin less than 0.01, UA positive for protein and leukocyte esterase CXR: No acute abnormality of the chest. CT abdomen pelvis with IV contrast: #1 Small amount of nonspecific free fluid within the right hemiabdomen extending into the right lower quadrant. The appendix is not identified. There is a virmf-vc-aarwrdks amount of free fluid within the right lower quadrant interspersed between nondilated loops of small bowel. There is trace peritoneal enhancement. The appearance is nonspecific, but could be indicative of inflammatory or infectious process. #2 Nonobstructive left renal calculi and moderate left pelviectasis within extrarenal pelvis. -- Reccurent c diff colitis on vanco pulse dose 46-year-old male with extensive past medical history and recently under treatment for C. difficile with the tapering vancomycin dose and recently treated UTI presented in ER from [facility] for several complaints: Abdominal pain, chest pain, testicular pain, lightheadedness, 1 nonbloody vomiting. patient has significant tachycardia, leukocytosis with bandemia. With the recent C. difficile infection was a concern of persistent colitis of megacolon or any other intra-abdominal pathology so CT scan was obtained This CT scan was obtained which shows small amount of free fluid which could be nonspecific or inflammatory. Stool cultures and C. difficile were negative. Patient was continued on vancomycin pulse doses( held when he was NPO). He was monitored for diarrhea. Gen. surgeon consultation and ID consultation was obtained. He was discharged on vancomycin 125 mg by mouth daily for 1 week. Vanco 125 by mouth every 48hrs for 1 week and Vanco 125 by mouth every 72hrs for 2 weeks. Sepsis secondary to UTI and recurrent C. difficile colitis Patient fulfilled SIRS criteria with leukocytosis, bandemia, tachycardia. Pancultures were sent. He received aggressive IV fluid resuscitation. Lactic acid elevated at the time of admission. Trended down after IV hydration. Source of infection from urine and recurrent C. difficile. AG metabolic acidosis Lactic acidosis in the setting of tachycardia, mild low grade fever and dehydration. Received IV fluid resuscitation and lactic acid was trended down. chest pain syndrome/sinus tachycardia Appears noncardiac as describing like heart burn. He did have shortness of breath. Similar presentation in previous admission. Serial troponins and EKGs were done which ruled out ACS/supply demand mismatch secondary to tachycardia. He was continued on pain medication and omeprazole. Scrotal pain Patient came in with nonspecific complaints chest pain, abdominal pain, testicular pain. Ultrasound scrotum was done which showed normal testis and moderate bilateral complicated hydroceles. He was also found to have 8mm upper left scrotal cyst likely member service representative of tunical cyst. Gen. surgeon consultation was obtained. No surgical intervention recommended. Recurrent UTI on chronic Indwelling torrez catheter Patient apparently had a change in torrez 02/02/2017. He did have positive UA and received a single dose of ceftriaxone in ED. His urine cultures were positive for gram-negative rods-proteus. His prior cultures were grown Klebsiella and Proteus sensitive to cefazolin. He received cefazolin for 5 days for lower UTI. A plan for SP catheter was discussed with the patient who is agreeable to the procedure. He has been seen in the past by Dr Eugene. He can follow him up as an outpatient for placement of S/P tube. Hemetemesis/Upper GI bleed Acute hematemesis with known ongoing c.diff colitis and recent CT findings suggestive of fluid levels in the abdomen (s/p recent surgery). Possible differentials were bleed from a ulcer in the stomach/esophagitis vs stress induced ulcers vs dima dominguez tear vs C.diff megacolon. He was given IV PPI and monitored CBC daily. Xarelto was discontinued. Gastro was consulted. Stat CT abdomen and chest pelvis was done which showed asymmetrically elevated right diaphragm with dilated bowel loops with gas and mesentery twisting. Surgical consult was placed, bedside NG tube was inserted, drained a copious amount of dark fluid. No indication for endoscopy at this time. proximal small bowel obstruction Patient had an emesis of dark brown fluid (?maroon?). Stat CT abdomen and chest pelvis was done which showed asymmetrically elevated right diaphragm with dilated bowel loops with gas and mesentery twisting. Surgical consult was placed, bedside NG tube was inserted, drained a copious amount of dark fluid. Serial abdominal x-rays were done which showed improvement. Gastrografin study was done which showed contrast material throughout colon and rectum. A few distended loops of small bowel were noted which were unchanged. He tolerated his diet. Bowel obstruction improved. Continued other home medications including trazadone, temezepam, depakote, lasix , lorazepam, multivitamin. DVT prophylaxis On xarelto Code status Full code Allergies: Coded Allergies: latex (UNKNOWN 02/03/17) Pertinent Lab Results: EXAM TYPE: US - US-TESTICULAR EXAMINATION: US SCROTUM CLINICAL INFORMATION: Left-sided erythema. Pain. COMPARISON: None TECHNIQUE: A sonogram of the scrotum was performed assessing price-scale appearance and color Doppler flow. Spectral analysis and Doppler interrogation was performed. FINDINGS: RIGHT: Right testicle measures 3.7 x 2.5 x 2.8 cm, volume 18.3 mL. Parenchymal echotexture is normal. No focal testicular parenchymal lesions are visualized. Normal symmetric intratesticular flow is visualized. Right epididymal head is normal in size. There is a moderate complex hydrocele. No varicocele is seen. LEFT: Left testicle measures 4.1 x 2.1 x 2.9 cm, volume 17.2 mL. Parenchymal echotexture is normal. No concerning focal testicular parenchymal lesions are visualized. There is an approximately 8 mm superior tunical cyst. Normal symmetric intratesticular flow is visualized. Left epididymal head is normal in size. There is a moderate complex hydrocele. No varicocele is seen. IMPRESSION: Normal testes. Moderate bilateral complicated hydroceles. 8mm upper left scrotal cyst, likely member service representative of a tunical cyst. EXAM TYPE: CAT - CT ABD & PELVIS W IV CONTRAST EXAMINATION: CT ABDOMEN AND PELVIS WITH CONTRAST CLINICAL INFORMATION: Abdominal pain. COMPARISON: March 16, 2016. TECHNIQUE: Contiguous axial thin section helical images of the abdomen and pelvis were performed following the administration of 100 mL of intravenous Omnipaque 300. The data set was reformatted in the coronal and sagittal planes and reviewed on an independent workstation. DLP: 1060 mGy-cm. FINDINGS: There is mild dependent bibasilar atelectasis. The visualized lung bases are otherwise clear. The visualized portions of the heart are unremarkable. The liver is of normal size and attenuation without focal lesions nor intrahepatic biliary ductal dilation. A normal gallbladder is identified. There is no wall thickening or discernible pericholecystic fluid. The spleen, pancreas, adrenal glands are unremarkable. Both kidneys are of normal size and attenuation. Following the administration of IV contrast, prompt symmetric nephrograms are displayed. There is right pelviectasis and extrarenal pelvis. There is a left extrarenal pelvis with moderate pelviectasis, trace caliectasis and 2 nonobstructive proximal ureteral calculi. The largest measures 7 mm. There is mild proximal hydroureter. There is neither mesenteric nor retroperitoneal lymphadenopathy. Normal unopacified loops of small and large bowel are identified. There is a small amount of fluid extending from the inferior aspect of the right lobe of the spleen into the right paracolic gutter and right lower quadrant.. About several nondilated loops of distal small bowel, there is a whqte-lu-ppvdwtut amount of free fluid with trace peritoneal enhancement. A Torrez catheter is in place within the urinary bladder. The urinary bladder is near completely emptied. There is bladder wall thickening in the setting of a low bladder volume. There is neither pelvic nor inguinal lymphadenopathy. Bone windows: Neither sclerotic nor lytic bone lesions are identified. There is a unilateral right L5 pars defect. There is no spondylolisthesis. IMPRESSION: Small amount of nonspecific free fluid within the right hemiabdomen extending into the right lower quadrant. The appendix is not identified. There is a eqxgz-mn-aflomsnr amount of free fluid within the right lower quadrant interspersed between nondilated loops of small bowel. There is trace peritoneal enhancement. The appearance is nonspecific, but could be indicative of inflammatory or infectious process. Nonobstructive left renal calculi and moderate left pelviectasis within extrarenal pelvis. - EXAM TYPE: RAD - XRY-PORTABLE CHEST XRAY EXAMINATION: XR PORTABLE CHEST CLINICAL INFORMATION: Chest pain. Fever. COMPARISON: Chest x-ray 07/28/2016 TECHNIQUE: Portable frontal view of the chest was obtained. 9:58 PM FINDINGS: Exam is apical lordotic in projection. Lung volume is low. No acute abnormality. No infiltrate or pulmonary vascular congestion. No pleural effusion. Cardiac and mediastinal contours are unchanged. IMPRESSION: No acute abnormality of the chest. -- chest cta IMPRESSION: 1. No acute abnormality. No evidence for pulmonary embolism. 2. Atelectasis at the right lung base with asymmetric elevation right diaphragm. 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 The cerebellar tonsils chronically extend below the postoperative foramen magnum. The left parietal approach ventriculostomy catheter remains in stable position and there is no hydrocephalus. No acute intracranial hemorrhage or other acute finding compared to the prior exams. abdomen ct 1. Focal twisted mesentery in the left upper quadrant, possibly due to to an internal hernia. Dilated small bowel loop of the proximal jejunum in this area in the left upper quadrant. 2. Large collection of stool in the rectum sigmoid. 3. Nonobstructive 8 mm stone in left renal pelvis. 4. Small to moderate amount of free fluid in the abdomen. 5. Asymmetrically elevated right diaphragm compared to left with linear atelectasis at right lung base. abd xry The nasogastric tube is noted with tip projecting in the region of the gastric fundus, just distal to the GE junction. Nonspecific bowel gas pattern. A few distended loops of small bowel again noted within the left mid abdomen, unchanged. Oral contrast material seen throughout the colon and rectum. No gross free intraperitoneal air. Patchy airspace disease noted at the right lung base. No acute osseous abnormality. Postsurgical changes are seen within the lower lumbar spine. IMPRESSION: Contrast material seen throughout the colon and rectum. A few distended loops of small bowel are noted within the left mid abdomen, unchanged. --- Disposition Summary Disposition Principal Diagnosis: Chest pain syndrome Recurrent C. difficile diarhea Recurrent UTI Partial bowel obstruction Hemetemesis Scrotal pain Leukocytosis Tachycardia Additional Diagnosis: Anion gap metabolic acidosis Discharge Disposition: SNF Discharge Instructions General Discharge Information Code Status: Full Code Patient's Diet: As tolerated Patient's Activity: As tolerated Follow-Up Instructions/Appts: Please follow-up with PCP in 1-2 weeks after discharge Please follow up with general surgeon in 1-2 weeks after discharge Please follow-up with gang plank workman in 1-2 weeks after discharge Follow-up with urologist in 1 week after discharge about getting suprapubic cystostomy. Medications at Discharge Discharge Medications: Continue taking these medications: Furosemide (Furosemide) 20 MG TABLET 1 Tablet ORAL DAILY Comments: NOT GIVEN IN HOSPITAL Divalproex Sodium (Depakote) 250 MG TABLET.DR 250 Milligram ORAL Every night Acetaminophen (Acetaminophen) 325 MG TABLET 2 Tablet ORAL Q6H as needed for PAIN/TEMP>/100 Comments: Last Taken: 03/23/16 Time: 3 AM Rivaroxaban (Xarelto) 20 MG TABLET 1 Tablet ORAL Every night Instructions: with food Comments: Last Taken: 03/22/16 Time: 6:30 PM Potassium Chloride (K-Tab ER) 20 MEQ TABLET.ER 1 Tablet ORAL DAILY Acetaminophen (Acephen) 650 MG SUPP.RECT 1 SUPPOSITORY RECTALLY Q6H as needed for PAIN/TEMP>100 Bisacodyl (Bisacodyl) 10 MG SUPP.RECT 1 Suppository RECTAL as needed for CONSTIPATION Na Phos,M-B/Na Phos,Di-Ba (Fleet Enema) 19 GRAM-7 GRAM/118 ML ENEMA 1 Enema RECTAL DAILY as needed for CONSTIPATION Magnesium Hydroxide (Milk Of Magnesia) 400 MG/5 ML ORAL.SUSP 30 Milliliters ORAL DAILY as needed for CONSTIPATION Lorazepam (Ativan) 0.5 MG TABLET 1 Tablet ORAL TWICE DAILY Trazodone HCl (Trazodone HCl) 50 MG TABLET 1 Tablet ORAL TAKE AT BEDTIME Melatonin (Melatonin) 3 MG TABLET 6 Milligram ORAL TAKE AT BEDTIME as needed for INSOMNIA Temazepam (Temazepam) 7.5 MG CAPSULE 1 Capsule ORAL TAKE AT BEDTIME as needed for SLEEP Multiple Vitamin (Multivitamins) 1 EACH TABLET 1 Tablet ORAL DAILY Start taking the following new medications: Escitalopram Oxalate (Lexapro) 10 MG TABLET 10 Milligram ORAL DAILY Qty = 30 No Refills The following medications have been changed: Old: Vancomycin HCl (Vancomycin HCl) 125 MG/2.5 ML SYRINGE 125 Milligram ORAL 4XDAILY New: Vancomycin HCl (Vancomycin HCl) 125 MG/2.5 ML SYRINGE 125 Milligram ORAL EVERY 24 HOURS Qty = 30 Copies To: Myranda CACERES,Darrell Mackey
--- NOTE | 2017-02-04 16:26 | Patient Discharge Instructions ---
Discharge Instructions General Discharge Information You were seen/treated for: Urinary Tract Infection Special Instructions: Please follow up with your primary care physician and urologist within one week of discharge. Vancomycin dosing as follows. Please take daily dosing from 02/12/17 to 02/16/17. Then take one dose on 02/17/17, 02/19/17, 02/21/17, 02/23/17, 02/26/17, 03/01/17, 03/04/17, 03/07/17, Diet Continue normal diet: Yes Activity Full Activity/No Limits: No Acute Coronary Syndrome Inclusion Criteria At DC or during hospital stay patient has or had the following: ACS DIAGNOSIS No Discharge Core Measures Meds if any: Prescribed or Continued at Discharge Meds if any: NOT Prescribed or Continued at Discharge Congestive Heart Failure Inclusion Criteria At DC or during hospital stay patient has or had the following: CHF DIAGNOSIS No Discharge Core Measures Meds if any: Prescribed or Continued at Discharge Meds if any: NOT Prescribed or Continued at Discharge Cerebrovascular accident Inclusion Criteria At DC or during hospital stay patient has or had the following: CVA/TIA Diagnosis No Discharge Core Measures Meds if any: Prescribed or Continued at Discharge Meds if any: NOT Prescribed or Continued at Discharge Venous thromboembolism Inclusion Criteria VTE Diagnosis No VTE Type NONE VTE Confirmed by (Test) NONE Discharge Core Measures - Per Current guidelines, there needs to be overlap - treatment for the first 5 days of Warfarin therapy. - If discharged on Warfarin prior to 5 days of - overlap therapy, the patient will need to be - assessed for post discharge needs including - *Post discharge parental anticoagulation - *Warfarin and/or parental anticoagulation education - *Follow up date to check INR post discharge At least 5 days overlap therapy as Inpatient No Meds if any: Prescribed or Continued at Discharge Note: Overlap Therapy is Warfarin and Anticoagulant Meds if any: NOT Prescribed or Continued at Discharge
--- NOTE | 2017-02-04 17:58 | Cons- General Surgery ---
General Information and HPI Consulting Request Date of Consult: 02/04/17 Requested By: Elisa CCAERES,Sourav History of Present Illness: Chief complaint evaluate for bowel obstruction, or intra-abdominal infection HPI: 46-year-old ?diabetic nonsmoker wheelchair bound with a history of MR, C. difficile colitis, TIA GI bleed neurogenic bladder spinal bifida urinary incontinence with chronic indwelling Foster catheter hypertension DVT on Xarelto, recently admitted at another institution he says his also had recent surgery for a small bowel obstruction but he doesn't know his other surgical history doesn't remember. It is noted he presented to the ER with moderate to severe chest pain also does describe some complaints of abdominal cramping and testicular pain he vomited once before he came to the hospital not since, he is receiving her antibiotics, for urinary tract infection, he states he has been moving his bowels. Rest of history is limited because of patient's limited recollection, the PFSH were reviewed, note that in March of this year he had a very similar presentation. Allergies/Medications Allergies: Coded Allergies: latex (UNKNOWN 02/03/17) Home Med List: Acetaminophen 325 MG TABLET 2 TAB PO Q6H PRN PAIN/TEMP>/100 (Reported) Acetaminophen (Acephen) 650 MG SUPP.RECT 1 SUPP NM Q6H PRN PAIN/TEMP>100 ( Reported) Bisacodyl 10 MG SUPP.RECT 1 SUP RC PRN CONSTIPATION (Reported) Divalproex Sodium (Depakote) 250 MG TABLET.DR 250 MG PO QPM DISRUPTIVE BEHAVIORS (Reported) Furosemide 20 MG TABLET 1 TAB PO DAILY DIURETIC (Reported) Lorazepam (Ativan) 0.5 MG TABLET 1 TAB PO BID ANXIETY (Reported) Magnesium Hydroxide (Milk Of Magnesia) 400 MG/5 ML ORAL.SUSP 30 ML PO DAILY PRN CONSTIPATION (Reported) Melatonin 3 MG TABLET 6 MG PO QHS PRN INSOMNIA (Reported) Multiple Vitamin (Multivitamins) 1 EACH TABLET 1 TAB PO DAILY SUPPLEMENT ( Reported) Na Phos,M-B/Na Phos,Di-Ba (Fleet Enema) 19 GRAM-7 GRAM/118 ML ENEMA 1 E RC DAILY PRN CONSTIPATION (Reported) Potassium Chloride (K-Tab ER) 20 MEQ TABLET.ER 1 TAB PO DAILY SUPPLEMENT ( Reported) Rivaroxaban (Xarelto) 20 MG TABLET 1 TAB PO QPM DVT (Reported) with food Temazepam 7.5 MG CAPSULE 1 CAP PO QHS PRN SLEEP (Reported) Trazodone HCl 50 MG TABLET 1 TAB PO QHS MENTAL HEALTH/SLEEP (Reported) Vancomycin HCl 125 MG/2.5 ML SYRINGE 125 MG PO 4XDAILY ANTIBIOTIC (Reported) Current Medications: I reviewed Current Medications Sig/Елена Start time Last Medication Dose Route Stop Time Status Admin Acetaminophen 650 MG Q6P PRN 02/04 020 AC PO Acetaminophen 0 .STK-MED ONE 02/03 2317 DC IV Acetaminophen 1,000 MG ONCE ONE 02/03 2315 DC 02/03 IV 02/04 2316 2321 Ampicillin Sodium/ 3,000 MG Q6H 02/04 1500 CAN Sulbactam Sodium IV Sodium Chloride 100 ML Cefazolin Sodium 1,000 MG Q12 02/04 1421 AC 02/04 IV 1705 Ceftriaxone Sodium 0 .STK-MED ONE 02/03 2317 DC .ROUTE Ceftriaxone Sodium 1,000 MG ONCE ONE 02/03 2230 DC 02/03 IV 02/03 2231 2320 Cyclobenzaprine HCl 5 MG ONCE ONE 02/04 1530 CAN PO 02/04 1531 Diphenhydramine HCl 12.5 MG ONCE ONE 02/04 0930 DC 02/04 PO 02/04 0931 1100 Divalproex Sodium 250 MG QPM 02/04 2200 AC PO Furosemide 20 MG DAILY 02/04 1000 CAN PO Lorazepam 1 MG ONCE ONE 02/04 2000 AC PO 02/04 2001 Lorazepam 0.5 MG BID 02/04 1000 AC 02/04 PO 02/11 0959 1109 Melatonin 6 MG AT BEDTIME NEED.. 02/04 0200 AC PO Multivitamins 1 TAB DAILY 02/04 1000 AC 02/04 PO 1101 Multivitamins 1 TAB DAILY 02/04 1000 AC Therapeutic PO Nitroglycerin 0.4 MG ONCE ONE 02/04 1600 DC 02/04 SL 02/04 1601 1553 Nitroglycerin 0.4 MG ONCE ONE 02/04 1515 CAN SL 02/04 1516 Oxycodone/ 2 TAB Q6P PRN 02/04 0200 AC 02/04 Acetaminophen PO 1419 Rivaroxaban 20 MG DAILY 02/04 1000 AC 02/04 PO 1101 Sodium Chloride 1,000 ML Q8H 02/04 1630 AC 02/04 IV 02/05 0029 1705 Sodium Chloride 1,000 ML Q10H 02/04 0345 DC 02/04 IV 02/04 1344 0542 Sodium Chloride 1,000 ML BOLUS ONE 02/04 0130 DC 02/04 IV 02/04 0229 0233 Sodium Chloride 1,000 ML BOLUS ONE 02/03 2215 DC 02/03 IV 02/03 2314 2304 Sodium Chloride 1,000 ML BOLUS ONE 02/03 2215 DC 02/03 IV 02/03 2314 2344 Sodium Chloride 1,000 ML BOLUS ONE 02/03 2145 DC 02/03 IV 02/03 2244 2147 Temazepam 7.5 MG AT BEDTIME PRN 02/04 0200 AC PO Trazodone HCl 50 MG AT BEDTIME 02/04 2200 AC PO Vancomycin HCl 125 MG DAILY 02/12 1000 AC PO 02/18 1001 Vancomycin HCl 125 MG BID 02/05 1000 AC PO 02/11 1100 Vancomycin HCl 125 MG Q6 02/04 0200 AC 02/04 PO 02/05 0601 1708 Past History Medical History Neurological: TIA, vertigo, spina bifida intellectual disability Cardiovascular: hypertension, DVT Respiratory: NONE Gastrointestinal: ileus rectal bleeding Hepatic: NONE Renal: neurogenic bladder, urinary incontinence, recurrent UTI chronic indwelling Foster Musculoskeletal: NONE Psychiatric: NONE Endocrine: diabetes Blood Disorders: NONE Surgical History Pertinent Surgical History: non-contributory Psychosocial History Smoking Status: Never Smoked ETOH Use: denies use Illicit Drug Use: denies illicit drug use Functional Ability ADLs Needs Assist: dressing, eating, toileting, bathing. Ambulation: non-ambulatory IADLs Needs Assist: shopping, housework, finances, food prep, telephone, transportation, medication admin. Review of Systems Review of Systems: Limited because the patient can't recall but on review of the chart Constitutional: No fever, sweats or weight loss ENMT: Unobtainable Cardiovascular: No chest pain, palpitations or leg swelling Respiratory: There was an initial complaint of shortness of breath, no cough, or sputum or dyspnea on exertion GI: Patient says he has a history of GERD but no bleeding per rectum : As mentioned above a chronic indwelling Foster and history of UTIs Musculoskeletal: No new muscle weakness, bone or joint pain Skin / Breast: No jaundice, rashes or itching Psychiatric: Unobtainable Hematologic / lymphatic system: Unobtainable Exam & Diagnostic Data Vital Signs and I&O I reviewed Vital Signs Date Time Temp Pulse Resp B/P B/P Pulse O2 O2 Flow FiO2 Mean Ox Delivery Rate 02/04 1501 98.0 129 22 110/68 97 Nasal Cannula 02/04 0706 98.2 127 18 128/76 95 Nasal Cannula 02/04 0224 99.0 124 22 100/68 94 Nasal 2.0L Cannula 02/04 0150 Nasal 2.0L Cannula 02/04 0114 99.6 130 18 124/82 95 Nasal 2.0L Cannula 02/03 2346 99.7 02/03 2346 99.7 02/03 2241 99.2 141 18 146/88 95 Room Air 2.0L 02/03 2116 154 18 146/87 92 Room Air I reviewed Intake & Output 02/04 1600 02/04 0800 02/04 0000 02/03 1600 02/03 0800 02/03 0000 Intake Total 1000 Output Total 1000 Balance 0 Intake, IV 1000 Number 2 Bowel Movements Output, Urine 1000 Patient 200 lb 200 lb Weight Weight Estimated Measurement Method Physical Exam: Constitutional: pleasant, no acute distress, conversant Eyes: sclera anicteric ENMT: ears and nose atraumatic, moist mucous membranes, poor dentition, no lip lesions Neck: Supple, trachea is midline, no cervical or supraclavicular adenopathy and no palpable thyromegaly Cardiovascular: S1, S2, no murmurs, no peripheral edema Respiratory: clear to auscultation with normal respiratory effort and no intercostal retractions GI: abdomen soft, very mildly diffusely tender to exam nonfocal no rebound, nondistended, no palpable hepatosplenomegaly Extremities / lymphatics: symmetrically warm, free range of motion no peripheral edema, no cervical, supraclavicular, axillary, or inguinal adenopathy Musculoskeletal: Did not evaluate gait and station, no digital cyanosis, good muscle strength and tone no atrophy, motor grossly 5 out of 5 throughout Skin: no jaundice, no rashes warm, nondiaphoretic, no areas of erythema or induration Psychiatric: mood and affect are appropriate and alert and oriented to person place and time Last 24 Hours of Labs: I reviewed Laboratory Tests 02/04 02/04 02/04 02/04 0945 0945 0830 0712 Chemistry Lactic Acid (0.7 - 2.1 mmol/L) 1.4 Cancelled 2.4 H Troponin I (<0.11 ng/ml) < 0.01 02/04 02/04 02/04 0712 0230 0230 Chemistry Sodium (137 - 145 mmol/L) 144 Potassium (3.5 - 5.1 mmol/L) 4.3 Chloride (98 - 107 mmol/L) 109 H Carbon Dioxide (22 - 30 mmol/L) 23 Anion Gap (5 - 16) 11 BUN (9 - 20 mg/dL) 20 Creatinine (0.7 - 1.2 mg/dL) 0.9 Estimated GFR (>60 ml/min) > 60 BUN/Creatinine Ratio (7 - 25 %) 22.2 Lactic Acid (0.7 - 2.1 mmol/L) 3.4 H Troponin I (<0.11 ng/ml) < 0.01 Triglycerides (<150 mg/dL) 71 Cholesterol (< 200 MG/DL) 151 LDL Cholesterol, Calc (65 - 129 mg/dL) 86 HDL Cholesterol (40 - 60 mg/dL) 51 Cholesterol/HDL Ratio (0.00 - 4.88 %) 3 Hematology CBC w Diff MAN DIFF ORDERED WBC (4.8 - 10.8 /CUMM) 18.9 H RBC (4.70 - 6.10 /CUMM) 5.11 Hgb (14.0 - 18.0 G/DL) 14.4 Hct (42 - 52 %) 42.8 MCV (80.0 - 94.0 FL) 83.7 MCH (27.0 - 31.0 PG) 28.1 RDW (11.5 - 14.5 %) 15.8 H Plt Count (130 - 400 /CUMM) 225 MPV (7.4 - 10.4 FL) 9.0 Gran % (42.2 - 75.2 %) 89.1 H Lymphocytes % (20.5 - 51.1 %) 4.2 L Monocytes % (1.7 - 9.3 %) 6.6 Eosinophils % (0 - 5 %) 0 Basophils % (0.0 - 2.0 %) 0.1 Absolute Granulocytes (1.4 - 6.5 /CUMM) 16.8 H Segmented Neutrophils (42.2 - 75.2 %) 61 Band Neutrophils (0.0 - 5.0 %) 32 H Absolute Lymphocytes (1.2 - 3.4 /CUMM) 0.8 L Lymphocytes (20.5 - 51.1 %) 3 L Monocytes (1.7 - 9.3 %) 4 Absolute Monocytes (0.10 - 0.60 /CUMM) 1.2 H Absolute Eosinophils (0.0 - 0.7 /CUMM) 0 Absolute Basophils (0.0 - 0.2 /CUMM) 0 Platelet Estimate (ADEQUATE) VERIFIED BY SMEAR Normocytic RBCs VERIFIED Normochromic RBCs VERIFIED PUBS MCHC (33.0 - 37.0 G/DL) 33.6 02/031 2150 Chemistry Sodium (137 - 145 mmol/L) 142 Potassium (3.5 - 5.1 mmol/L) 4.3 Chloride (98 - 107 mmol/L) 105 Carbon Dioxide (22 - 30 mmol/L) 19 L Anion Gap (5 - 16) 19 H BUN (9 - 20 mg/dL) 26 H Creatinine (0.7 - 1.2 mg/dL) 1.2 Estimated GFR (>60 ml/min) > 60 BUN/Creatinine Ratio (7 - 25 %) 21.7 Glucose (65 - 99 mg/dL) 141 H Lactic Acid (0.7 - 2.1 mmol/L) 4.4 H Calcium (8.4 - 10.2 mg/dL) 10.3 H Magnesium (1.6 - 2.3 mg/dL) 1.8 Total Bilirubin (0.2 - 1.3 mg/dL) 0.8 AST (17 - 59 U/L) 37 ALT (21 - 72 U/L) 54 Alkaline Phosphatase (< 127 U/L) 82 Troponin I (<0.11 ng/ml) < 0.01 Total Protein (6.3 - 8.2 g/dL) 7.8 Albumin (3.5 - 5.0 g/dL) 4.4 Globulin (1.9 - 4.2 gm/dL) 3.4 Albumin/Globulin Ratio (1.1 - 2.2 %) 1.3 Lipase (23 - 300 U/L) 76 Hematology CBC w Diff MAN DIFF ORDERED WBC (4.8 - 10.8 /CUMM) 17.5 H RBC (4.70 - 6.10 /CUMM) 6.34 H Hgb (14.0 - 18.0 G/DL) 17.5 Hct (42 - 52 %) 52.8 H MCV (80.0 - 94.0 FL) 83.3 MCH (27.0 - 31.0 PG) 27.7 RDW (11.5 - 14.5 %) 15.5 H Plt Count (130 - 400 /CUMM) 268 MPV (7.4 - 10.4 FL) 8.9 Gran % (42.2 - 75.2 %) 94.1 H Lymphocytes % (20.5 - 51.1 %) 1.6 L Monocytes % (1.7 - 9.3 %) 4.2 Eosinophils % (0 - 5 %) 0.1 Basophils % (0.0 - 2.0 %) 0 Absolute Granulocytes (1.4 - 6.5 /CUMM) 16.5 H Segmented Neutrophils (42.2 - 75.2 %) 74 Band Neutrophils (0.0 - 5.0 %) 20 H Absolute Lymphocytes (1.2 - 3.4 /CUMM) 0.3 L Lymphocytes (20.5 - 51.1 %) 1 L Monocytes (1.7 - 9.3 %) 5 Absolute Monocytes (0.10 - 0.60 /CUMM) 0.7 H Absolute Eosinophils (0.0 - 0.7 /CUMM) 0 Absolute Basophils (0.0 - 0.2 /CUMM) 0 Platelet Estimate (ADEQUATE) ADEQUATE Normochromic RBCs VERIFIED Anisocytosis 1+ PUBS MCHC (33.0 - 37.0 G/DL) 33.2 Urines Urine Color (YEL,AMB,STR) YEL Urine Clarity (CLEAR) CLDY H Urine pH (5.0 - 8.0) 6.0 Ur Specific [place] (1.001 - 1.035) 1.025 Urine Protein (NEG,<30 MG/DL) 30 H Urine Ketones (NEG) NEG Urine Nitrite (NEG) NEG Urine Bilirubin (NEG) NEG Urine Urobilinogen (0.1 - 1.0 EU/dl) 0.2 Ur Leukocyte Esterase (NEG) MOD H Ur Microscopic SEDIMENT EXAMINED Urine RBC (0 - 5 /HPF) 15-25 H Urine WBC (0 - 2 /HPF) > 75 H Ur Epithelial Cells (NONE,FEW) FEW Urine Crystals 1+ CA OX H Urine Bacteria (NEG/NONE) MOD H Urine Mucus (FEW,NONE) RARE Urine Hemoglobin (NEG) MOD H Urine Glucose (N MG/DL) NEG Assessment/Plan Assessment/Plan Studies: I reviewed the CT scan from yesterday on PACS myself compared it to the one done 03/16/2016, and both there are tiny scattered pockets of free fluid no pericecal inflammatory changes radiologist notes appendix not visualized, ( patient doesn't recall if his appendix was removed), the bowel is slightly dilated but there is no dramatic sharp transition point. Impression: We really need to know surgical history and also the recent hospitalization his abdomen is soft, is moving his bowels is no longer vomiting clinically does not appear like a bowel obstruction that apparently he had surgery for about obstruction the past several months , the concern is some pockets of free fluid in his abdomen scattered not focal on review of the imaging he had a similar appearance earlier in the year when he was admitted for a urinary infection. On exam his abdomen is very mildly diffusely tender not focal, he is hemodynamically stable. Some of this could be related to C. difficile. No acute general surgical intervention is indicated. Problem List: 1. UTI (urinary tract infection) due to urinary indwelling catheter 2. C. difficile colitis 3. Chronic indwelling Foster catheter 4. Abdominal pain 5. Leukocytosis Consult Acknowledgment - Thank you for your consult request.
--- NOTE | 2017-02-04 20:45 | Event Note ---
Event Note Event Note: Situation Rapid response was called that patient is unresponsive Background patient is 46-year-old male with past medical history of TIA, vertigo, spina bifida, MR, GI bleed, neurogenic bladder, and diabetes mellitus who presented to the ED with complains of localized chest pain, diffuse abdominal pain, lightheadedness and vertigo. During the admission in telemetry floor was being managed for UTI, chest pain syndrom and C dif colitis. Patient was visited today with surgical team who did not recommended surgical intervention. A and plan vitals: T 100.6, Bp unremarkable and NV 140. EKG did not show any changes compared to previous. Stat labs were ordered, Tn was negative, lactic trended down and BEP and CBC were no change compared to morning. Attending, Dr Graham was contacted and recommended to adminster Tamir as patient is very anxious and had pain. We continued to monitor.
[2017-02-04 21:04] LABS: ABSOLUTE BASOPHIL COUNT 0 /CUMM (0.0-0.2); ABSOLUTE EOSINOPHIL COUNT 0.1 /CUMM (0.0-0.7); ABSOLUTE GRANULOCYTE CT 14.8 /CUMM (1.4-6.5); ABSOLUTE LYMPH COUNT 0.7 /CUMM (1.2-3.4); ABSOLUTE MONOCYTE COUNT 0.9 /CUMM (0.10-0.60); BASOPHIL % 0.1 % (0.0-2.0); EOSINOPHIL % 0.3 % (0-5); HEMATOCRIT 40.3 % (42-52); MEAN CORPUSCULAR HGB 28.3 PG (27.0-31.0); MEAN CORPUSCULAR HGB CONC 33.5 G/DL (33.0-37.0); MEAN CORPUSCULAR VOLUME 84.5 FL (80.0-94.0); MEAN PLATELET VOLUME 8.7 FL (7.4-10.4); PLATELET COUNT 233 /CUMM (130-400); RBC DISTRIBUTION WIDTH 15.8 % (11.5-14.5); RED BLOOD CELL CT 4.76 /CUMM (4.70-6.10); WHITE BLOOD CELL COUNT 16.4 /CUMM (4.8-10.8)
[2017-02-04 21:13] LABS: GRANULOCYTE % 90.3 % (42.2-75.2)
[2017-02-04 23:28] VITALS: BP 120/74
--- NOTE | 2017-02-05 06:56 | PN- Housestaff ---
See Addendum Subjective Follow-up For: Leukocytosis Lactic acidosis UTI C. difficile colitis Chest pain syndrome Complaints: pain scale (0-10) Tele-Events Since Last Visit: Normal sinus rhythm, sinus tachycardia, rate 120-140. Subjective: Patient was seen and examined this morning. He is alert awake and oriented to time place and person. Rapid response was called last night for diffuse chest pain abdominal pain. Relieved with morphine. Patient reports mild chest discomfort, abdomen pain this morning. Denies any difficulty chest pain, short of breath. He is very anxious this morning. Review of Systems Constitutional: Reports: see HPI. Objective Last 24 Hrs of Vital Signs/I&O Vital Signs Date Time Temp Pulse Resp B/P B/P Pulse O2 O2 Flow FiO2 Mean Ox Delivery Rate 02/05 0000 96 Nasal 2.5L Cannula 02/04 2328 99.4 125 24 120/74 96 Nasal 2.0L Cannula 02/04 1600 96 Nasal 2.0L Cannula 02/04 1501 98.0 129 22 110/68 97 Nasal Cannula 02/04 0800 95 Nasal 2.0L Cannula 02/04 0706 98.2 127 18 128/76 95 Nasal Cannula Intake & Output 02/05 0800 02/05 0000 02/04 1600 Intake Total 700 1000 Output Total 400 Balance 700 600 Intake, IV 800 Intake, Oral 700 200 Number 2 2 Bowel Movements Output, Urine 400 Physical Exam General Appearance: Alert, Oriented X3, Cooperative, No Acute Distress Other Physical Findings: Skin: No Rashes, No Breakdown Skin Temp/Moisture Exam: Warm/Dry Sepsis Skin Exam (color): Normal for Ethnicity HEENT: Atraumatic Cardiovascular: Normal S1, Normal S2, No Murmurs, tachycardia Lungs: Clear to Auscultation, Normal Air Movement Abdomen: diffuse tenderness, well healed midline surgical incision Neurological: Normal Speech, paraplegia Extremities: 1+ pitting edema Current Medications: Current Medications Sig/Елена Start time Last Medication Dose Route Stop Time Status Admin Acetaminophen 650 MG Q6P PRN 02/04 0200 AC 02/04 PO 1815 Ampicillin Sodium/ 3,000 MG Q6H 02/04 1500 CAN Sulbactam Sodium IV Sodium Chloride 100 ML Cefazolin Sodium 1,000 MG Q12 02/04 1421 AC 02/04 IV 2153 Cyclobenzaprine HCl 5 MG ONCE ONE 02/04 1530 CAN PO 02/04 1531 Diphenhydramine HCl 12.5 MG ONCE ONE 02/04 0930 DC 02/04 PO 02/04 0931 1100 Divalproex Sodium 250 MG QPM 02/040 AC 02/05 PO 0453 Lorazepam 1 MG ONCE ONE 02/05 2000 DC 02/04 PO 02/04 Lorazepam 0.5 MG BID 02/04 1000 AC 02/04 PO 02/11 0959 2153 Melatonin 6 MG AT BEDTIME NEED.. 02/04 200 AC PO Morphine Sulfate 2 MG ONCE ONE 02/04 2045 DC IV 02/04 204 Multivitamins 1 TAB DAILY 02/04 1000 AC 02/04 PO 1101 Multivitamins 1 TAB DAILY 02/04 1000 AC Therapeutic PO Nitroglycerin 0.4 MG ONCE ONE 02/04 1600 DC 02/04 SL 02/04 1601 1553 Nitroglycerin 0.4 MG ONCE ONE 02/04 1515 CAN SL 02/04 1516 Oxycodone/ 2 TAB Q6P PRN 02/04 0200 AC 02/05 Acetaminophen PO 0449 Rivaroxaban 20 MG DAILY 02/04 1000 AC 02/04 PO 1101 Sodium Chloride 1,000 ML Q8H 02/04 1630 DC 02/04 IV 02/05 0029 1705 Sodium Chloride 1,000 ML Q10H 02/04 0345 DC 02/04 IV 02/04 1344 0542 Temazepam 7.5 MG AT BEDTIME PRN 02/040 AC PO Trazodone HCl 50 MG AT BEDTIME 02/040 AC 02/04 PO 2153 Vancomycin HCl 125 MG DAILY 02/12 1000 AC PO 02/18 1001 Vancomycin HCl 125 MG BID 02/05 1000 AC PO 02/11 1100 Vancomycin HCl 125 MG Q6 02/04 0200 DC 02/04 PO 02/05 0601 1708 Last 24 Hrs of Lab/Rex Results Last 24 Hrs of Labs/Mics: Laboratory Tests 02/04/172049: Anion Gap 10, Estimated GFR > 60, BUN/Creatinine Ratio 22.5, Lactic Acid 1.9, Troponin I < 0.01, CBC w Diff NO MAN DIFF REQ, RBC 4.76, MCV 84.5, MCH 28.3, RDW 15.8 H, MPV 8.7, Gran % 90.3 H, Lymphocytes % 4.1 L, Monocytes % 5.2, Eosinophils % 0.3, Basophils % 0.1, Absolute Granulocytes 14.8 H, Absolute Lymphocytes 0.7 L, Absolute Monocytes 0.9 H, Absolute Eosinophils 0.1, Absolute Basophils 0, PUBS MCHC 33.5 02/04/17 0945: Troponin I < 0.01 02/04/17 0945: Lactic Acid 1.4 02/04/17 0830: Lactic Acid Cancelled 02/04/17 0712: Lactic Acid 2.4 H 02/04/17 0712: Anion Gap 11, Estimated GFR > 60, BUN/Creatinine Ratio 22.2, Triglycerides 71, Cholesterol 151, LDL Cholesterol, Calc 86, HDL Cholesterol 51, Cholesterol/HDL Ratio 3, CBC w Diff MAN DIFF ORDERED, RBC 5.11, MCV 83.7, MCH 28.1, RDW 15.8 H, MPV 9.0, Gran % 89.1 H, Lymphocytes % 4.2 L, Monocytes % 6.6, Eosinophils % 0, Basophils % 0.1, Absolute Granulocytes 16.8 H, Segmented Neutrophils 61, Band Neutrophils 32 H, Absolute Lymphocytes 0.8 L, Lymphocytes 3 L, Monocytes 4, Absolute Monocytes 1.2 H, Absolute Eosinophils 0, Absolute Basophils 0, Platelet Estimate VERIFIED BY SMEAR, Normocytic RBCs VERIFIED, Normochromic RBCs VERIFIED, PUBS MCHC 33.6 Assessment/Plan Assessment: Mr. Lopez is a 46-year-old male with past medical history of TIA, vertigo, spina bifida, MR, GI bleed, neurogenic bladder, and diabetes mellitus who presented to the ED with complains of localized chest pain, diffuse abdominal pain, lightheadedness and vertigo. c diff colitis on vanco pulse dose 46-year-old male with extensive past medical history and recently under treatment for C. difficile with the tapering vancomycin dose and recently treated UTI presented in ER from [facility] living for several complaints: Abdominal pain, chest pain, testicular pain, lightheadedness, 1 nonbloody vomiting. patient has significant tachycardia, leukocytosis with bandemia. With the recent C. difficile infection was a concern of persistent colitis of megacolon or any other intra-abdominal pathology so CT scan was obtained This CT scan was obtained which shows small amount of free fluid which could be nonspecific or inflammatory. * Please continue on vancomycin pulse doses. * f/u general surgery recommendations. * Follow-up ID recommendations. * f/u fever curve and leukocytosis. * Request for records were sent. SIRS criteria positive with Leukocytosis & Tachycardia 150 Patient fulfilled SIRS criteria with leukocytosis, bandemia, tachycardia. Pancultures were sent. He received aggressive IV fluid resuscitation. Lactic acid elevated at the time of admission. Trended down after IV hydration. * Follow-up blood cultures, urine culture sensitivities. * Monitor for fevers * Trend leukocyte count AG metabolic acidosis Lactic acidosis in the setting of tachycardia, mild low grade fever and dehydration. Received IV fluid resuscitation and lactic acid was trended down. chest pain syndrome/sinus tachycardia Appears noncardiac as describing like heart burn. He did have shortness of breath. Similar presentation in previous admission. Serial troponins and EKGs were done which ruled out ACS/supply demand mismatch secondary to tachycardia. * continue on pain medication and omeprazole. * He has been having sinus tachycardia with rate ranging from 110-130 since admission. Consider starting low-dose beta andi. Scrotal pain Patient came in with nonspecific complaints chest pain, abdominal pain, testicular pain. Ultrasound scrotum was done which showed normal testis and moderate bilateral complicated hydroceles. He was also found to have 8mm upper left scrotal cyst likely merchandising representative of tunical cyst. * Gen. surgeon consultation was obtained. * No surgical intervention recommended. Recurrent UTI on Indwelling torrez catheter Patient apparently had a change in torrez 02/02/2017. He did have positive UA and received a single dose of ceftriaxone in ED. His urine cultures were positive for gram-negative rods. His prior cultures were grown Klebsiella and Proteus sensitive to cefazolin. * He was started on cefazolin for possible UTI. * will follow-up urine cultures and adjust antibiotics accordingly. * ID consult in the a.m. DVT on xarelto Continue other home medications including trazadone, temezepam, depakote, lasix, lorazepam, multivitamin. DVT prophylaxis On xarelto Code status Full code Problem List: 1. Chest pain syndrome 2. Lactic acidosis 3. UTI (urinary tract infection) due to urinary indwelling catheter Pain Ratin Pain Location: Diffuse chest pain and abdomen pain Pain Goal: Pain 4 or less Pain Plan: Tylenol Tomorrow's Labs & Rationales: cbc bep
[2017-02-05 06:59] VITALS: BP 112/80
[2017-02-05 08:20] LABS: ABSOLUTE BASOPHIL COUNT 0 /CUMM (0.0-0.2); ABSOLUTE EOSINOPHIL COUNT 0.1 /CUMM (0.0-0.7); ABSOLUTE GRANULOCYTE CT 15.2 /CUMM (1.4-6.5); ABSOLUTE LYMPH COUNT 0.8 /CUMM (1.2-3.4); BASOPHIL % 0.1 % (0.0-2.0); EOSINOPHIL % 0.4 % (0-5); HEMATOCRIT 39.7 % (42-52); MEAN CORPUSCULAR HGB 28.3 PG (27.0-31.0); MEAN CORPUSCULAR HGB CONC 33.5 G/DL (33.0-37.0); MEAN CORPUSCULAR VOLUME 84.4 FL (80.0-94.0); MEAN PLATELET VOLUME 9.2 FL (7.4-10.4); PLATELET COUNT 215 /CUMM (130-400); WHITE BLOOD CELL COUNT 17.1 /CUMM (4.8-10.8)
[2017-02-05 09:36] LABS: GRANULOCYTE % 88.9 % (42.2-75.2)
--- NOTE | 2017-02-05 13:03 | Cons- Infect Disease ---
General Information and HPI Consulting Request Date of Consult: 02/05/17 Requested By: Sourav Pérez MD Reason for Consult: Rule out urinary tract infection/C. difficile Source of Information: patient, old records Exam Limitations: clinical condition History of Present Illness: This is a 46-year-old man with an intellectual disability, residing in a fdc, with a history of spina bifida, neurogenic bladder, with a Foster catheter in place for several months after previous self catheterizations, unexplained transient episodes of unresponsiveness, hypertension, diabetes and DVT, last hospitalized at [facility] 11 months prior to admission with a positive urine culture, with his hospital course notable for a small bowel obstruction and C. difficile, status post recent surgery at [facility] for a small bowel obstruction, hospitalized at [facility] recently with a urinary tract infection and C. difficile, discharged 2 weeks prior to admission on Ciprofloxacin and a tapering dose of Vancomycin, admitted on February 03 after he was sent to the emergency room with the acute onset of chest pain, shortness of breath, cough, lightheadedness, dizziness, abdominal pain, with 1 episode of emesis, and testicular pain. On admission he was afebrile. Laboratory data revealed a white blood cell count of 18,000, with 74 segs and 20 bands, BUN/ creatinine 26 and 1.2, lactic acid 4.4, with normal liver enzymes. Urinalysis 15-25 RBCs/greater than 75 WBCs. Chest x-ray was negative. A testicular ultrasound revealed moderate bilateral, complicated hydroceles. CT of the abdomen and pelvis with IV contrast revealed a small amount of nonspecific free fluid within the right hemiabdomen, extending into the right lower quadrant, with trace peritoneal enhancement; nonobstructive left renal calculi and moderate left pelviectasis within an extrarenal pelvis, with mild proximal hydroureter. He was given a dose of Ceftriaxone and continued on his Vancomycin taper of 125 mg twice a day. On February 04 his urine culture was reported positive for gram negative rods, and he was begun on Cefazolin. Later in the evening he had an episode of unresponsiveness, which quickly resolved. He has remained afebrile since admission, but his white blood cell count has remained elevated in the 17,000 range. He continues to complain of chest tightness, cough and shortness of breath. He had 6 stools reported yesterday, though none as liquid or watery. Allergies/Medications Allergies: Coded Allergies: latex (UNKNOWN 02/03/17) Home Med List: Acetaminophen 325 MG TABLET 2 TAB PO Q6H PRN PAIN/TEMP>/100 (Reported) Acetaminophen (Acephen) 650 MG SUPP.RECT 1 SUPP WA Q6H PRN PAIN/TEMP>100 ( Reported) Bisacodyl 10 MG SUPP.RECT 1 SUP RC PRN CONSTIPATION (Reported) Divalproex Sodium (Depakote) 250 MG TABLET.DR 250 MG PO QPM DISRUPTIVE BEHAVIORS (Reported) Furosemide 20 MG TABLET 1 TAB PO DAILY DIURETIC (Reported) Lorazepam (Ativan) 0.5 MG TABLET 1 TAB PO BID ANXIETY (Reported) Magnesium Hydroxide (Milk Of Magnesia) 400 MG/5 ML ORAL.SUSP 30 ML PO DAILY PRN CONSTIPATION (Reported) Melatonin 3 MG TABLET 6 MG PO QHS PRN INSOMNIA (Reported) Multiple Vitamin (Multivitamins) 1 EACH TABLET 1 TAB PO DAILY SUPPLEMENT ( Reported) Na Phos,M-B/Na Phos,Di-Ba (Fleet Enema) 19 GRAM-7 GRAM/118 ML ENEMA 1 E RC DAILY PRN CONSTIPATION (Reported) Potassium Chloride (K-Tab ER) 20 MEQ TABLET.ER 1 TAB PO DAILY SUPPLEMENT ( Reported) Rivaroxaban (Xarelto) 20 MG TABLET 1 TAB PO QPM DVT (Reported) with food Temazepam 7.5 MG CAPSULE 1 CAP PO QHS PRN SLEEP (Reported) Trazodone HCl 50 MG TABLET 1 TAB PO QHS MENTAL HEALTH/SLEEP (Reported) Vancomycin HCl 125 MG/2.5 ML SYRINGE 125 MG PO 4XDAILY ANTIBIOTIC (Reported) Past History Travel History Traveled to [place] past 21 day No Medical History Neurological: TIA, vertigo, spina bifida intellectual disability Cardiovascular: hypertension, DVT Respiratory: NONE Gastrointestinal: ileus rectal bleeding Hepatic: NONE Renal: neurogenic bladder, urinary incontinence, recurrent UTI chronic indwelling Foster Musculoskeletal: NONE Psychiatric: NONE Endocrine: diabetes Blood Disorders: NONE History of MRSA: No History of VRE: No History of CDIFF: Yes Isolation History: Contact Surgical History Surgical History: s/p recent surgery for SBO Psychosocial History Smoking Status: Never Smoked ETOH Use: denies use Illicit Drug Use: denies illicit drug use Functional Ability ADLs Needs Assist: dressing, eating, toileting, bathing. Ambulation: non-ambulatory IADLs Needs Assist: shopping, housework, finances, food prep, telephone, transportation, medication admin. Review of Systems Review of Systems All Other Systems: Reviewed and Negative Exam & Diagnostic Data Last 24 Hrs of Vital Signs/I&O Vital Signs Date Time Temp Pulse Resp B/P B/P Pulse O2 O2 Flow FiO2 Mean Ox Delivery Rate 02/05 0900 Nasal 2.5L Cannula 02/05 0659 99.8 138 20 112/80 93 02/05 0000 96 Nasal 2.5L Cannula 02/04 2328 99.4 125 24 120/74 96 Nasal 2.0L Cannula 02/04 1600 96 Nasal 2.0L Cannula 02/04 1501 98.0 129 22 110/68 97 Nasal Cannula Intake & Output 02/05 1600 02/05 0800 02/05 0000 Intake Total 1050 700 Output Total 750 Balance 300 700 Intake, IV 1000 Intake, Oral 50 700 Number 1 2 Bowel Movements Output, Urine 750 Physical Exam Other Physical Findings: Afebrile. He is awake and alert in no acute distress. Skin reveals no rash. HEENT negative. Neck is supple with no adenopathy. Lungs are clear anteriorly. Heart regular rhythm with no murmur. Abdomen is distended, tender to palpation diffusely, with no guarding or rebound, with positive bowel sounds. Back questionable CVA tenderness. Extremities mild edema both lower extremities, right greater than left. Neuro paraplegia both lower extremities. Foster catheter is in place. Last 24 Hours of Lab Results: Laboratory Tests 02/05 02/04 0630 2050 Chemistry Sodium (137 - 145 mmol/L) 142 143 Potassium (3.5 - 5.1 mmol/L) 4.0 4.3 Chloride (98 - 107 mmol/L) 110 H 110 H Carbon Dioxide (22 - 30 mmol/L) 23 22 Anion Gap (5 - 16) 10 10 BUN (9 - 20 mg/dL) 16 18 Creatinine (0.7 - 1.2 mg/dL) 0.9 0.8 Estimated GFR (>60 ml/min) > 60 > 60 BUN/Creatinine Ratio (7 - 25 %) 17.8 22.5 Lactic Acid (0.7 - 2.1 mmol/L) 1.9 Troponin I (<0.11 ng/ml) < 0.01 Hematology CBC w Diff NO MAN DIFF REQ NO MAN DIFF REQ WBC (4.8 - 10.8 /CUMM) 17.1 H 16.4 H RBC (4.70 - 6.10 /CUMM) 4.70 4.76 Hgb (14.0 - 18.0 G/DL) 13.3 L 13.5 L Hct (42 - 52 %) 39.7 L 40.3 L MCV (80.0 - 94.0 FL) 84.4 84.5 MCH (27.0 - 31.0 PG) 28.3 28.3 RDW (11.5 - 14.5 %) 16.0 H 15.8 H Plt Count (130 - 400 /CUMM) 215 233 MPV (7.4 - 10.4 FL) 9.2 8.7 Gran % (42.2 - 75.2 %) 88.9 H 90.3 H Lymphocytes % (20.5 - 51.1 %) 4.5 L 4.1 L Monocytes % (1.7 - 9.3 %) 6.1 5.2 Eosinophils % (0 - 5 %) 0.4 0.3 Basophils % (0.0 - 2.0 %) 0.1 0.1 Absolute Granulocytes (1.4 - 6.5 /CUMM) 15.2 H 14.8 H Absolute Lymphocytes (1.2 - 3.4 /CUMM) 0.8 L 0.7 L Absolute Monocytes (0.10 - 0.60 /CUMM) 1.0 H 0.9 H Absolute Eosinophils (0.0 - 0.7 /CUMM) 0.1 0.1 Absolute Basophils (0.0 - 0.2 /CUMM) 0 0 PUBS MCHC (33.0 - 37.0 G/DL) 33.5 33.5 Last 24 Hours of Rex Results: Urine culture February 03 greater than 100,000 colonies of Proteus sensitive to Cefazolin and resistant to Ciprofloxacin, Gentamicin, Nitrofurantoin and Bactrim Diagnostic Data Recent Imaging Findings: Chest x-ray February 03 negative. Testicular ultrasound February 04 revealed moderate bilateral, complicated hydroceles. CT of the abdomen and pelvis with IV contrast February 04 revealed a small amount of nonspecific free fluid within the right hemiabdomen, extending into the right lower quadrant, with trace peritoneal enhancement; nonobstructive left renal calculi and moderate left pelviectasis within an extrarenal pelvis, with mild proximal hydroureter Assessment/Plan Assessment/Plan Impression: This is a 46-year-old man with an intellectual disability, residing in a fdc, with a history of spina bifida, neurogenic bladder, with a Ofster catheter in place for several months after previous self catheterizations, hospitalized at [facility] with a urinary tract infection and C. difficile, discharged 2 weeks prior to admission on Ciprofloxacin and a tapering dose of Vancomycin, admitted on February 03 after he was sent to the emergency room with the acute onset of chest pain, shortness of breath, cough, lightheadedness, dizziness, abdominal pain, with 1 episode of emesis, and testicular pain, found to be afebrile with a leukocytosis, which has persisted since admission. The leukocytosis may be secondary to a urinary tract infection, with a positive urine culture and a mild proximal left hydroureter noted on the CT scan, though, with the Foster catheter in place, the positive urine culture may just represent colonization. It could also be related to his C. difficile, though he has not had any diarrhea reported since admission and his CT scan does not reveal any significant colitis. He has no evidence for pneumonia and do not see any other focus of infection. Suggestion: 1. Obtain details from [facility] regarding his Vancomycin taper 2. Urology evaluation 3. Stool for C. difficile if he has diarrhea 4. Increase Cefazolin to 1 g IV every 8 hours 5. Continue po Vancomycin taper Consult Acknowledgment - Thank you for your consult request.
[2017-02-05 14:00] VITALS: BP 108/64
--- NOTE | 2017-02-05 16:19 | CT SCAN REPORT ---
EXAMINATION: CT ANGIOGRAM OF THE CHEST WITH AND WITHOUT CONTRAST (CT PULMONARY ANGIOGRAM FOR PE) CLINICAL INFORMATION: pulmonary embolism. COMPARISON: CTA of chest 03/15/2016 TECHNIQUE: Prior to contrast administration, noncontrast localization images were obtained. Subsequently, multidetector volumetric imaging was performed from the thoracic inlet to below the diaphragms following the administration of 95 mL Optiray 350 intravenous contrast. No contrast reaction reported. Sagittal, coronal, and MIP oblique sagittal reformatted images were obtained on the CT workstation, uploaded to PACS, and reviewed. Total exam dose-length product 555.96 mGy-cm. FINDINGS: QUALITY OF STUDY/CONTRAST BOLUS: Satisfactory. There is breathing motion which limits study. PULMONARY ARTERIES: No central or segmental pulmonary emboli. THORACIC AORTA: No aneurysm or dissection. LUNG: Low inspiratory effort. Asymmetric elevation of right diaphragm compared to left. Subsegmental atelectasis at the right lung base. PLEURA: No pleural effusion or pneumothorax. MEDIASTINUM: Normal heart size. No pericardial effusion. No hilar or mediastinal lymphadenopathy. No evidence of septal bowing or right heart strain. CHEST WALL/AXILLA: No axillary or internal mammary lymphadenopathy. OSSEOUS STRUCTURES: Mild degenerative spondylosis of the mid lower dorsal spine vertebrae with small endplate spurring. UPPER ABDOMEN: Unremarkable. No reflux of contrast into the hepatic veins to suggest elevated right heart pressures. IMPRESSION: 1. No acute abnormality. No evidence for pulmonary embolism. 2. Atelectasis at the right lung base with asymmetric elevation right diaphragm. VTE: negative
[2017-02-05 22:30] VITALS: BP 114/70
[2017-02-06 06:40] VITALS: BP 94/60
[2017-02-06 07:50] LABS: ABSOLUTE BASOPHIL COUNT 0 /CUMM (0.0-0.2); ABSOLUTE EOSINOPHIL COUNT 0.1 /CUMM (0.0-0.7); ABSOLUTE GRANULOCYTE CT 14.3 /CUMM (1.4-6.5); ABSOLUTE LYMPH COUNT 0.7 /CUMM (1.2-3.4); ABSOLUTE MONOCYTE COUNT 1.1 /CUMM (0.10-0.60); BASOPHIL % 0.1 % (0.0-2.0); EOSINOPHIL % 0.8 % (0-5); HEMATOCRIT 37.9 % (42-52); MEAN CORPUSCULAR HGB 28.2 PG (27.0-31.0); MEAN CORPUSCULAR HGB CONC 33.4 G/DL (33.0-37.0); MEAN CORPUSCULAR VOLUME 84.5 FL (80.0-94.0); MEAN PLATELET VOLUME 9.2 FL (7.4-10.4); PLATELET COUNT 228 /CUMM (130-400); RBC DISTRIBUTION WIDTH 15.9 % (11.5-14.5); RED BLOOD CELL CT 4.48 /CUMM (4.70-6.10); WHITE BLOOD CELL COUNT 16.2 /CUMM (4.8-10.8)
--- NOTE | 2017-02-06 09:12 | PN- Housestaff ---
Yasmine Womack MD 02/06/17 0910: Subjective Follow-up For: Leukocytosis Lactic acidosis UTI C. difficile colitis Chest pain syndrome Tele-Events Since Last Visit: Sinus tachycardia rate 116-126 Subjective: Patient seen and examined. Patient stable as of the morning but in the evening was found to be spitting up his Coca-Cola and was very lethargic. He was also found to have hematuria. Denies chest pain or shortness of breath at any point. Review of Systems Constitutional: Reports: weakness. EENTM: Reports: no symptoms. Cardiovascular: Reports: no symptoms. Respiratory: Reports: no symptoms. Gastrointestinal: Reports: vomiting. Genitourinary: Reports: hematuria. Musculoskeletal: Reports: no symptoms. Skin: Reports: no symptoms. Neurological/Psychological: Reports: no symptoms. Hematologic/Endocrine: Reports: no symptoms. Immunologic/Allergic: Reports: no symptoms. Objective Last 24 Hrs of Vital Signs/I&O Vital Signs Date Time Temp Pulse Resp B/P B/P Pulse O2 O2 Flow FiO2 Mean Ox Delivery Rate 02/06 1544 118 100/80 02/06 1434 97.9 118 20 100/80 92 Nasal Cannula 02/06 1206 Nasal 3.0L Cannula 02/06 0930 Nasal 2.5L Cannula 02/06 0640 99.6 123 20 94/60 92 Nasal 3.0L Cannula 02/06 0000 Nasal 2.5L Cannula 02/05 2230 98.6 123 20 114/70 97 Nasal 2.0L Cannula Intake & Output 02/06 1600 02/06 0800 02/06 0000 Intake Total 200 200 Output Total 300 400 400 Balance -300 -200 -200 Intake, Oral 200 200 Number 1 Bowel Movements Output, Urine 300 400 400 Physical Exam General Appearance: Alert, Oriented X3, Cooperative, Moderate Distress Skin: No Rashes, No Breakdown, No Significant Lesion Skin Temp/Moisture Exam: Warm/Dry Sepsis Skin Exam (color): Normal for Ethnicity HEENT: Atraumatic Cardiovascular: Normal S1, Normal S2, No Murmurs Lungs: Clear to Auscultation, Normal Air Movement Abdomen: Normal Bowel Sounds, Soft, No Tenderness, No Hepatospenomegaly, No Masses Neurological: Normal Speech Extremities: No Clubbing, No Cyanosis, No Edema, Normal Pulses, No Tenderness/ Swelling Vascular: Normal Pulses Reproductive (MALE) torrez Current Medications: Current Medications Sig/Елена Start time Last Medication Dose Route Stop Time Status Admin Acetaminophen 650 MG .STK-MED ONE 02/05 2331 DC PO 02/05 233 Acetaminophen 650 MG Q6P PRN 02/04 200 AC 02/05 PO 2334 Cefazolin Sodium 1,000 MG Q8 02/050 AC 02/06 IV 1544 Divalproex Sodium 250 MG QPM 02/04 2200 AC 02/05 PO 2101 Lorazepam 0.5 MG BID 02/04 1000 AC 02/06 PO 02/11 0959 0912 Melatonin 6 MG AT BEDTIME NEED.. 02/04 200 AC PO Metoprolol Tartrate 6.25 MG BID 02/06 1000 AC 02/06 PO 1544 Morphine Sulfate 1 MG Q6 02/05 1200 AC 02/05 IV 1855 Multivitamins 1 TAB DAILY 02/04 1000 AC 02/06 PO 0911 Oxycodone/ 2 TAB Q6P PRN 02/04 200 AC 02/06 Acetaminophen PO 1543 Pantoprazole Sodium 40 MG DAILY 02/06 2045 AC IV Rivaroxaban 20 MG DAILY 02/04 1000 AC 02/06 PO 0910 Sodium Chloride 1,000 ML Q8H 02/05 193 DC IV Temazepam 7.5 MG AT BEDTIME PRN 02/04 200 AC PO Trazodone HCl 50 MG AT BEDTIME 02/04 2200 AC 02/05 PO 2101 Vancomycin HCl 125 MG DAILY 02/12 1000 AC PO 02/18 1001 Vancomycin HCl 125 MG BID 02/05 1000 AC 02/06 PO 02/11 1100 0911 Last 24 Hrs of Lab/Rex Results Last 24 Hrs of Labs/Mics: Laboratory Tests 02/06/17 2014: CBC w Diff NO MAN DIFF REQ, RBC 4.78, MCV 85.1, MCH 27.9, RDW 15.8 H, MPV 8.6, Gran % 90.0 H, Lymphocytes % 3.7 L, Monocytes % 6.1, Eosinophils % 0.2, Basophils % 0, Absolute Granulocytes 16.4 H, Absolute Lymphocytes 0.7 L, Absolute Monocytes 1.1 H, Absolute Eosinophils 0, Absolute Basophils 0, PUBS MCHC 32.8 L 02/06/17 0623: Anion Gap 8, Estimated GFR > 60, BUN/Creatinine Ratio 18.8, CBC w Diff NO MAN DIFF REQ, RBC 4.48 L, MCV 84.5, MCH 28.2, RDW 15.9 H, MPV 9.2, Gran % 88.2 H, Lymphocytes % 4.3 L, Monocytes % 6.6, Eosinophils % 0.8, Basophils % 0.1, Absolute Granulocytes 14.3 H, Absolute Lymphocytes 0.7 L, Absolute Monocytes 1.1 H, Absolute Eosinophils 0.1, Absolute Basophils 0, PUBS MCHC 33.4 Assessment/Plan Assessment: Mr. Lopez is a 46-year-old male with past medical history of TIA, vertigo, spina bifida, MR, GI bleed, neurogenic bladder, and diabetes mellitus who presented to the ED with complains of localized chest pain, diffuse abdominal pain, lightheadedness and vertigo. Patient was found in the evening to have hematuria. He was on his way to CT head to evaluate if there any issues with his CONVENTION MANAGER shunt. The hematuria was bright red. The nurse stated that earlier that day he had had small brown clots in the urine. c diff colitis on vanco pulse dose 46-year-old male with extensive past medical history and recently under treatment for C. difficile with the tapering vancomycin dose and recently treated UTI presented in ER from skilled nursing for several complaints: Abdominal pain, chest pain, testicular pain, lightheadedness, 1 nonbloody vomiting. patient has significant tachycardia, leukocytosis with bandemia. With the recent C. difficile infection was a concern of persistent colitis of megacolon or any other intra-abdominal pathology so CT scan was obtained This CT scan was obtained which shows small amount of free fluid which could be nonspecific or inflammatory. * Please continue on vancomycin pulse doses. * f/u general surgery recommendations. * Follow-up ID recommendations. * f/u fever curve and leukocytosis. * Request for records were sent. SIRS criteria positive with Leukocytosis & Tachycardia 150 Patient fulfilled SIRS criteria with leukocytosis, bandemia, tachycardia. Pancultures were sent. He received aggressive IV fluid resuscitation. Lactic acid elevated at the time of admission. Trended down after IV hydration. * Can stop IV hydration * Follow-up blood cultures, urine culture sensitivities. * Monitor for fevers * Trend leukocyte count AG metabolic acidosis Lactic acidosis in the setting of tachycardia, mild low grade fever and dehydration. Received IV fluid resuscitation and lactic acid was trended down. chest pain syndrome/sinus tachycardia Appears noncardiac as describing like heart burn. He did have shortness of breath. Similar presentation in previous admission. Serial troponins and EKGs were done which ruled out ACS/supply demand mismatch secondary to tachycardia. * continue on pain medication and omeprazole. * He has been having sinus tachycardia with rate ranging from 110-130 since admission. * We will start him on 6.25 metoprolol * CTA showed no evidence of PE Scrotal pain Patient came in with nonspecific complaints chest pain, abdominal pain, testicular pain. Ultrasound scrotum was done which showed normal testis and moderate bilateral complicated hydroceles. He was also found to have 8mm upper left scrotal cyst likely entry level account representative of tunical cyst. * Gen. surgeon consultation was obtained. * No surgical intervention recommended. Recurrent UTI on Indwelling torrez catheter with hematuria Patient apparently had a change in torrez 02/02/2017. He did have positive UA and received a single dose of ceftriaxone in ED. His urine cultures were positive for gram-negative rods. His prior cultures were grown Klebsiella and Proteus sensitive to cefazolin. * He was started on cefazolin for possible UTI. * will follow-up urine cultures and adjust antibiotics accordingly. * ID consult * Follow CBC to evaluate blood loss due to the hematuria DVT on xarelto Continue other home medications including trazadone, temezepam, depakote, lasix, lorazepam, multivitamin. DVT prophylaxis On xarelto Code status Full code Problem List: 1. Chest pain syndrome 2. Lactic acidosis 3. UTI (urinary tract infection) due to urinary indwelling catheter 4. C. difficile colitis Pain Ratin Pain Location: none Pain Goal: Remain pain free Pain Plan: Tylenol for pain as ordered Tomorrow's Labs & Rationales: cbc bep ElisaSourav lawler 02/06/17 1301: Attending MD Review Statement Attending Statement Attending MD Statement: examined this patient, discuss w/resident/PA/GROUND WIRER, agreed w/resident/PA/GROUND WIRER, discussed with family, reviewed EMR data (avail), discussed with nursing, discussed with case mgmt, reviewed images, amended to note Attending Assessment/Plan: Mr. Lopez is a 46-year-old male with past medical history of TIA, vertigo, spina bifida, MR, GI bleed, neurogenic bladder, and diabetes mellitus. Patient has a intellectual disability and is a poor historian admitted to [facility] for abdominal pain and diarrhea with leukocytosis and lactic acidosis after being treated for c diff colitis with oral vancomycin in outpatient setting. Patient seen/examined bedside. Patient had laparatomy scar. Patient poor historian, diffuse abdominal pain but no rigidity no rebound tenderness. Labs and vitals reviewed. CT abd/pelvis with free fluid in right lower quadrant. Patient with sinus tachycardia. HR 110-130 even while sleeping. Plan is to advacne diet as tolerated, D/C IVF, PO vancomycin. Monitor bowel moevements, serial abdominal exams. Appreciate ID and surgery. Abx as per ID. f/ u previous records. CTA chest negative for PE/pneumonia, atelectasis+. Patient is on xarelto. gi/dvt prophylaixs full code.
[2017-02-06 09:22] LABS: GRANULOCYTE % 88.2 % (42.2-75.2)
[2017-02-06 14:34] VITALS: BP 100/80
--- NOTE | 2017-02-06 19:23 | CT SCAN REPORT ---
EXAMINATION: CT HEAD WITHOUT CONTRAST CLINICAL INFORMATION: Altered mental status. Evaluate the ventriculoperitoneal shunt. COMPARISON: Head CT of 01/31/2016 and 03/21/2016. TECHNIQUE: Contiguous axial imaging was performed from the skull base to vertex without intravenous administration of contrast. DLP: 700.46 mGy-cm FINDINGS: Again noted is the ventriculoperitoneal shunt catheter entering the calvarium from a left parietal approach, terminating in the parasagittal frontal lobe adjacent to frontal horn of the left lateral ventricle. The dysmorphic lateral and third ventricles remain decompressed; no hydrocephalus. Surgical changes from remote suboccipital craniotomy. Again noted are cerebellar tonsils extending below the level of the foramen magnum and partial absence of corpus callosum. A metallic clip projects along the inner table of the right frontal bone. No acute intracranial hemorrhage or midline shift. The price-white matter differentiation is preserved. There are old partially calcified subdural collections that contain fat overlying the cerebral hemispheres, unchanged compared to 01/31/2016. The paranasal sinuses, mastoid air cells and middle ear cavities are well aerated. The orbits, globes and temporomandibular joints are normal. There is a stable 1.2 x 1.9 cm smoothly marginated nodule within subcutaneous tissues in the left occipital region, possibly an epidermal inclusion cyst. 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 The cerebellar tonsils chronically extend below the postoperative foramen magnum. The left parietal approach ventriculostomy catheter remains in stable position and there is no hydrocephalus. No acute intracranial hemorrhage or other acute finding compared to the prior exams.
[2017-02-06 20:32] LABS: ABSOLUTE BASOPHIL COUNT 0 /CUMM (0.0-0.2); ABSOLUTE EOSINOPHIL COUNT 0 /CUMM (0.0-0.7); ABSOLUTE GRANULOCYTE CT 16.4 /CUMM (1.4-6.5); ABSOLUTE LYMPH COUNT 0.7 /CUMM (1.2-3.4); ABSOLUTE MONOCYTE COUNT 1.1 /CUMM (0.10-0.60); BASOPHIL % 0 % (0.0-2.0); EOSINOPHIL % 0.2 % (0-5); HEMATOCRIT 40.6 % (42-52); MEAN CORPUSCULAR HGB 27.9 PG (27.0-31.0); MEAN CORPUSCULAR HGB CONC 32.8 G/DL (33.0-37.0); MEAN CORPUSCULAR VOLUME 85.1 FL (80.0-94.0); MEAN PLATELET VOLUME 8.6 FL (7.4-10.4); RBC DISTRIBUTION WIDTH 15.8 % (11.5-14.5); RED BLOOD CELL CT 4.78 /CUMM (4.70-6.10); WHITE BLOOD CELL COUNT 18.3 /CUMM (4.8-10.8)
--- NOTE | 2017-02-06 20:51 | Event Note ---
Event Note Event Note: SITUATION Hematemesis of around 500ml with hematuria while on xarelto Brief Patient is 46 YO M with recent C.diff colitis, Arnold chiarii malformation presented to [facility] with possible bowel obstruction. Surgery was consulted intially and it was determined that there is no role of acute intervention however he had a recent surgical procedure which was not clear. He got better over next few days but remained tachycardic 120-130 all the time. He is continued on IV cefazoline and oral vancomycin. Today he started having hematemesis and hematuria. He is not on NSAIDS, on xarelto for DVT. VS - afebrile 97.4, HR 118, BP 170/100mmHg, on room air Physical exam Chest: diffuse wheezing abdomen: diffusely tender and tense. Assessment and plan Acute hematemesis in a patient with known ongoing c.diff colitis and recent CT findings suggestive of fluid levels in the abdomen (s/p recent surgery). Possible differentials are bleed from a ulcer in the stomach/esophagitis vs stress induced ulcers vs dima dominguez tear vs C.diff megacolon * we will start on IV PPI * Serial CBC did show mild drop in H&H with increasing white counts. * discontinued xarelto. * Stat CT abdomen/pelvis/chest did show asymmetrically elevated right diaphragm, distended bowel loops with gas. * GI consulted - suggested to transfer to ICU given tachy with bleed. * Surgery consulted -- reviewing images thought lot of gaseous distention getting worse, didnt agree with mesenteric twisting * bedside NG tube inserted and started draining copious amount of dark fluid ( 1000ml so far). * We will repeat AXR in am to follow up. * Transferred to ICU Family is updated and agrees with the plan. Early Childhood Associate aware and agrees with the plan.
[2017-02-06 21:01] LABS: PLATELET COUNT 284 /CUMM (130-400)
[2017-02-06 21:31] VITALS: BP 170/100
--- NOTE | 2017-02-06 22:18 | CT SCAN REPORT ---
EXAMINATION: CT CHEST, ABDOMEN AND PELVIS WITH CONTRAST CLINICAL INFORMATION: Diffuse wheezing. Hematemesis. Tachycardia. Concern for aspiration. Diffuse tender abdomen. COMPARISON: Portable chest 02/03/2017 TECHNIQUE: Multidetector volumetric CT imaging of the chest, abdomen and pelvis was obtained after the administration of 95 mL of intravenous Optiray 350 without immediate adverse reactions. Coronal and sagittal reformatted images performed at the CT scanner DLP: 555.96+1060.42 mGy-cm. FINDINGS: CT CHEST: Lungs: Asymmetric elevation of the right diaphragm compared to left. Linear atelectasis at the right lung base. Left lung clear. Mediastinum: No mediastinal mass or lymphadenopathy. No pericardial effusion. Pleura: There is no pleural effusion. No pleural mass or thickening. Axilla: No lymphadenopathy. CT ABDOMEN AND PELVIS: LIVER, GALLBLADDER, AND BILIARY TREE: The liver is normal in size, shape, and attenuation. No focal hepatic lesion or biliary ductal dilatation is present. The gallbladder is unremarkable with no evidence of radiopaque gallstones, gallbladder wall thickening, or obvious pericholecystic inflammatory changes. PANCREAS: No acute change of the pancreas. No mass. No pancreatic duct dilatation. SPLEEN: Spleen normal in size and contour. No focal lesion. ADRENAL GLANDS: Adrenal glands are normal in size. No focal mass. KIDNEYS AND URETERS: There is an extra renal pelvis of the left kidney. Within the left renal pelvis there is an 8 mm stone. This is not causing obstruction. No hydroureter. There is no calculus in the ureter. There is also an extrarenal pelvis of the right kidney. No hydronephrosis of the right kidney. No renal stone or hydroureter. BLADDER: Foster catheter within the bladder. GASTROINTESTINAL TRACT: There is a small focal mesenteric twist at the ligament of Treitz best appreciated on the coronal images. The bowel loop that is just distal to ligament of Treitz is focally dilated to a diameter 4.3 cm. May be due to an internal hernia. There is no bowel wall thickening however. The remainder of the small bowel loops are of normal caliber. Moderate amount of scattered stool throughout the colon but there is a large collection at the rectum sigmoid in the pelvis. The colon measures 7.2 cm transverse at the level the hips. No bowel wall thickening or edema. MESENTERY: Small to moderate amount of free fluid in the abdomen. No free air or abscess. ABDOMINAL WALL: Fat-containing umbilical hernia. LYMPH NODES: Normal. VASCULAR: Unremarkable. PELVIC VISCERA: Unremarkable. OSSEOUS STRUCTURES: Degenerative spondylosis spine with multilevel disc height narrowing and endplate spurs and facet joint arthrosis. IMPRESSION: 1. Focal twisted mesentery in the left upper quadrant, possibly due to to an internal hernia. Dilated small bowel loop of the proximal jejunum in this area in the left upper quadrant. 2. Large collection of stool in the rectum sigmoid. 3. Nonobstructive 8 mm stone in left renal pelvis. 4. Small to moderate amount of free fluid in the abdomen. 5. Asymmetrically elevated right diaphragm compared to left with linear atelectasis at right lung base. This critical result was discussed with Dr. Johns on 02/06/2017, 10:10 PM and it was ascertained that the content and urgency of the report was understood at the time of direct communication.
[2017-02-06 23:01] LABS: PT 18.6 SEC (9.4-12.5); PTT 39 SEC (25-37)
[2017-02-07] LABS: ABSOLUTE BASOPHIL COUNT 0 /CUMM (0.0-0.2); ABSOLUTE EOSINOPHIL COUNT 0 /CUMM (0.0-0.7); ABSOLUTE GRANULOCYTE CT 14.3 /CUMM (1.4-6.5); ABSOLUTE LYMPH COUNT 0.4 /CUMM (1.2-3.4); ABSOLUTE MONOCYTE COUNT 0.7 /CUMM (0.10-0.60); BASOPHIL % 0 % (0.0-2.0); EOSINOPHIL % 0 % (0-5); GRANULOCYTE % 92.7 % (42.2-75.2); MEAN CORPUSCULAR HGB CONC 33.2 G/DL (33.0-37.0); MEAN CORPUSCULAR VOLUME 84.4 FL (80.0-94.0); MEAN PLATELET VOLUME 8.8 FL (7.4-10.4); PLATELET COUNT 242 /CUMM (130-400); RBC DISTRIBUTION WIDTH 15.5 % (11.5-14.5); WHITE BLOOD CELL COUNT 15.4 /CUMM (4.8-10.8)
[2017-02-07 00:06] LABS: HEMATOCRIT 33.8 % (42-52)
--- NOTE | 2017-02-07 00:20 | PN- General Surgery ---
Surgical Brief Attending Note Brief Attending Note: Patient seen and examined at bedside in the ICU. Patient became more tachycardia and had tachypnea. +emesis of dark brown fluid (?maroon?). Says he has a lot of abdominal pain but without localization. Currently HR 110's and BP normal, has had good UO. WBC unchanged. CT scan reviewed - does not appear to be drastiacally different than it was 2 days ago aside for a markedly dilated stomach and proximal small bowel, I did not see an obvious twist and it looks the same as it did on the prior CT. On exam abdomen is softly distended, midly tender, no focal tenderness/peritoneal signs. Patient does not have peritoneal signs nor too much tenderness at this time, his CT appearance is similar to 2 days ago aside for the markedly dilated stomach, patient also had recent surgery for SBO at an outside facility and he took Xarelto this morning, given all of the above I believe he needs NGT decompression first, will monitor overnight after NGT insertion, repeat AXR in AM, will reassess in AM after NGT decompression. D/W ICU staff.
[2017-02-07 04:49] LABS: ABSOLUTE BASOPHIL COUNT 0 /CUMM (0.0-0.2); ABSOLUTE EOSINOPHIL COUNT 0 /CUMM (0.0-0.7); ABSOLUTE LYMPH COUNT 1.1 /CUMM (1.2-3.4); BASOPHIL % 0.3 % (0.0-2.0); EOSINOPHIL % 0.3 % (0-5); GRANULOCYTE % 82.8 % (42.2-75.2); HEMATOCRIT 33.4 % (42-52); MEAN CORPUSCULAR HGB 28.3 PG (27.0-31.0); MEAN CORPUSCULAR HGB CONC 33.6 G/DL (33.0-37.0); MEAN CORPUSCULAR VOLUME 84.2 FL (80.0-94.0); MEAN PLATELET VOLUME 8.3 FL (7.4-10.4); PLATELET COUNT 250 /CUMM (130-400); RBC DISTRIBUTION WIDTH 15.6 % (11.5-14.5); RED BLOOD CELL CT 3.97 /CUMM (4.70-6.10); WHITE BLOOD CELL COUNT 12.1 /CUMM (4.8-10.8)
[2017-02-07 08:00] VITALS: BP 120/60
--- NOTE | 2017-02-07 09:03 | PN- General Surgery ---
See Addendum Subjective Subjective: Patient reports feeling better today. He denies any nausea, vomiting or abdominal pain. He reports sore throat from the NGT and states he thinks he had a BM, but he can't tell bc of his spina bifida. Per nursing, patient put out 1000cc from his NGT last night. Objective Vital Signs and I&Os Vital Signs Date Time Temp Pulse Resp B/P B/P Pulse O2 O2 Flow FiO2 Mean Ox Delivery Rate 02/07 0400 96 Nasal 2.5L Cannula 02/07 0000 93 Nasal 2.5L Cannula 02/06 2131 97.4 118 18 170/100 92 02/06 1544 118 100/80 02/06 1434 97.9 118 20 100/80 92 Nasal Cannula 02/06 1206 Nasal 3.0L Cannula 02/06 0930 Nasal 2.5L Cannula Intake & Output 02/07 1600 02/07 0800 02/07 0000 02/06 1600 02/06 0800 02/06 0000 Intake Total 600 75 200 200 Output Total 1280 1150 300 400 400 Balance -680 -1075 -300 -200 -200 Intake, IV 600 75 Intake, Oral 0 200 200 Number 1 Bowel Movements Output, 850 Emesis Output, 1000 Gastric Drainage Output, Urine 280 300 300 400 400 Physical Exam: Gen: Resting comfortably awake an alert in NAD HEENT: NGT with dark bilious material, 1000 cc in last shift Abd: Softly distended with a well-healed midline incision, nontender to palpation, no rebound or guarding noted. : Sanguineous urine in torrez Current Medications: Current Medications Sig/Елена Start time Last Medication Dose Route Stop Time Status Admin Acetaminophen 1,000 MG ONCE ONE 02/07 0545 DC 02/07 N/A 1 UNIT IV 02/07 05 0545 Acetaminophen 650 MG Q6P PRN 02/04 200 AC 02/05 PO 2334 Cefazolin Sodium 1,000 MG Q8 02/05 2200 AC 02/07 IV 0558 Divalproex Sodium 250 MG QPM 02/04 2200 AC 02/05 PO 210 Lorazepam 0.5 MG BID 02/04 1000 AC 02/06 PO 02/11 0959 0912 Melatonin 6 MG AT BEDTIME NEED.. 02/04 200 AC PO Metoprolol Tartrate 6.25 MG BID 02/06 1000 AC 02/06 PO 1544 Morphine Sulfate 1 MG Q6 02/05 1200 AC 02/07 IV 0312 Multivitamins 1 TAB DAILY 02/04 1000 AC 02/06 PO 0911 Oxycodone/ 2 TAB Q6P PRN 02/04 0200 AC 02/06 Acetaminophen PO 1543 Pantoprazole Sodium 40 MG DAILY 02/06 2045 AC 02/06 IV 2126 Phenol 2 SPRAY Q2P PRN 02/07 0045 AC EXT Rivaroxaban 20 MG DAILY 02/04 1000 DC 02/06 PO 0910 Sodium Chloride 1,000 ML Q13H 02/06 2130 AC 02/06 IV 2156 Sodium Chloride 1,000 ML Q8H 02/05 1930 DC IV Temazepam 7.5 MG AT BEDTIME PRN 02/04 0200 AC PO Trazodone HCl 50 MG AT BEDTIME 02/04 2200 AC 02/05 PO 2101 Trimethobenzamide HCl 200 MG 4 TIMES/DAY PRN 02/06 2345 AC IM Vancomycin HCl 125 MG DAILY 02/12 1000 AC PO 02/18 1001 Vancomycin HCl 125 MG BID 02/05 1000 AC 02/06 PO 02/11 1100 0911 Results Last 48 Hours of Labs: Laboratory Tests 02/07 02/06 0425 2345 Chemistry Sodium (137 - 145 mmol/L) 144 Potassium (3.5 - 5.1 mmol/L) 3.8 Chloride (98 - 107 mmol/L) 107 Carbon Dioxide (22 - 30 mmol/L) 29 Anion Gap (5 - 16) 7 BUN (9 - 20 mg/dL) 20 Creatinine (0.7 - 1.2 mg/dL) 0.7 Estimated GFR (>60 ml/min) > 60 BUN/Creatinine Ratio (7 - 25 %) 28.6 H Hematology CBC w Diff NO MAN DIFF REQ Cancelled WBC (4.8 - 10.8 /CUMM) 12.1 H Cancelled RBC (4.70 - 6.10 /CUMM) 3.97 L Cancelled Hgb (14.0 - 18.0 G/DL) 11.2 L Cancelled Hct (42 - 52 %) 33.4 L Cancelled MCV (80.0 - 94.0 FL) 84.2 Cancelled MCH (27.0 - 31.0 PG) 28.3 Cancelled RDW (11.5 - 14.5 %) 15.6 H Cancelled Plt Count (130 - 400 /CUMM) 250 Cancelled MPV (7.4 - 10.4 FL) 8.3 Cancelled Gran % (42.2 - 75.2 %) 82.8 H Lymphocytes % (20.5 - 51.1 %) 8.7 L Monocytes % (1.7 - 9.3 %) 7.9 Eosinophils % (0 - 5 %) 0.3 Basophils % (0.0 - 2.0 %) 0.3 Absolute Granulocytes (1.4 - 6.5 /CUMM) 10.0 H Absolute Lymphocytes (1.2 - 3.4 /CUMM) 1.1 L Absolute Monocytes (0.10 - 0.60 /CUMM) 1.0 H Absolute Eosinophils (0.0 - 0.7 /CUMM) 0 Absolute Basophils (0.0 - 0.2 /CUMM) 0 PUBS MCHC (33.0 - 37.0 G/DL) 33.6 Cancelled 02/06 02/06 02/06 2320 2235 2104 Coagulation PT (9.4 - 12.5 SEC) 18.6 H INR (0.90 - 1.17) 1.78 H APTT (25 - 37 SEC) 39 H Hematology CBC w Diff MAN DIFF ORDERED Cancelled WBC (4.8 - 10.8 /CUMM) 15.4 H Cancelled RBC (4.70 - 6.10 /CUMM) 4.00 L Cancelled Hgb (14.0 - 18.0 G/DL) 11.2 L Cancelled Hct (42 - 52 %) 33.8 L Cancelled MCV (80.0 - 94.0 FL) 84.4 Cancelled MCH (27.0 - 31.0 PG) 28.0 Cancelled RDW (11.5 - 14.5 %) 15.5 H Cancelled Plt Count (130 - 400 /CUMM) 242 Cancelled MPV (7.4 - 10.4 FL) 8.8 Cancelled Gran % (42.2 - 75.2 %) 92.7 H Lymphocytes % (20.5 - 51.1 %) 2.6 L Monocytes % (1.7 - 9.3 %) 4.7 Eosinophils % (0 - 5 %) 0 Basophils % (0.0 - 2.0 %) 0 Absolute Granulocytes (1.4 - 6.5 /CUMM) 14.3 H Segmented Neutrophils (42.2 - 75.2 %) 86 H Absolute Lymphocytes (1.2 - 3.4 /CUMM) 0.4 L Lymphocytes (20.5 - 51.1 %) 4 L Monocytes (1.7 - 9.3 %) 9 Absolute Monocytes (0.10 - 0.60 /CUMM) 0.7 H Absolute Eosinophils (0.0 - 0.7 /CUMM) 0 Basophils (0.0 - 2.0 %) 1 Absolute Basophils (0.0 - 0.2 /CUMM) 0 Platelet Estimate (ADEQUATE) ADEQUATE Polychromasia 1+ Ovalocytes FEW PUBS MCHC (33.0 - 37.0 G/DL) 33.2 Cancelled Other Body Source Fld Total RBCs Counted (%) 100 02/06 Chemistry Sodium (137 - 145 mmol/L) 141 Potassium (3.5 - 5.1 mmol/L) 3.7 Chloride (98 - 107 mmol/L) 105 Carbon Dioxide (22 - 30 mmol/L) 28 Anion Gap (5 - 16) 8 BUN (9 - 20 mg/dL) 15 Creatinine (0.7 - 1.2 mg/dL) 0.8 Estimated GFR (>60 ml/min) > 60 BUN/Creatinine Ratio (7 - 25 %) 18.8 Hematology CBC w Diff NO MAN DIFF REQ NO MAN DIFF REQ WBC (4.8 - 10.8 /CUMM) 18.3 H 16.2 H RBC (4.70 - 6.10 /CUMM) 4.78 4.48 L Hgb (14.0 - 18.0 G/DL) 13.3 L 12.6 L Hct (42 - 52 %) 40.6 L 37.9 L MCV (80.0 - 94.0 FL) 85.1 84.5 MCH (27.0 - 31.0 PG) 27.9 28.2 RDW (11.5 - 14.5 %) 15.8 H 15.9 H Plt Count (130 - 400 /CUMM) 284 228 MPV (7.4 - 10.4 FL) 8.6 9.2 Gran % (42.2 - 75.2 %) 90.0 H 88.2 H Lymphocytes % (20.5 - 51.1 %) 3.7 L 4.3 L Monocytes % (1.7 - 9.3 %) 6.1 6.6 Eosinophils % (0 - 5 %) 0.2 0.8 Basophils % (0.0 - 2.0 %) 0 0.1 Absolute Granulocytes (1.4 - 6.5 /CUMM) 16.4 H 14.3 H Absolute Lymphocytes (1.2 - 3.4 /CUMM) 0.7 L 0.7 L Absolute Monocytes (0.10 - 0.60 /CUMM) 1.1 H 1.1 H Absolute Eosinophils (0.0 - 0.7 /CUMM) 0 0.1 Absolute Basophils (0.0 - 0.2 /CUMM) 0 0 PUBS MCHC (33.0 - 37.0 G/DL) 32.8 L 33.4 Recent Imaging Studies: SERVICE DATE: 02/06/17 EXAM TYPE: CAT - CT ABD & PELVIS W IV CONTRAST; CT CHEST W IV CONTRAST EXAMINATION: CT CHEST, ABDOMEN AND PELVIS WITH CONTRAST CLINICAL INFORMATION: Diffuse wheezing. Hematemesis. Tachycardia. Concern for aspiration. Diffuse tender abdomen. COMPARISON: Portable chest 02/03/2017 TECHNIQUE: Multidetector volumetric CT imaging of the chest, abdomen and pelvis was obtained after the administration of 95 mL of intravenous Optiray 350 without immediate adverse reactions. Coronal and sagittal reformatted images performed at the CT scanner DLP: 555.96+1060.42 mGy-cm. FINDINGS: CT CHEST: Lungs: Asymmetric elevation of the right diaphragm compared to left. Linear atelectasis at the right lung base. Left lung clear. Mediastinum: No mediastinal mass or lymphadenopathy. No pericardial effusion. Pleura: There is no pleural effusion. No pleural mass or thickening. Axilla: No lymphadenopathy. CT ABDOMEN AND PELVIS: LIVER, GALLBLADDER, AND BILIARY TREE: The liver is normal in size, shape, and attenuation. No focal hepatic lesion or biliary ductal dilatation is present. The gallbladder is unremarkable with no evidence of radiopaque gallstones, gallbladder wall thickening, or obvious pericholecystic inflammatory changes. PANCREAS: No acute change of the pancreas. No mass. No pancreatic duct dilatation. SPLEEN: Spleen normal in size and contour. No focal lesion. ADRENAL GLANDS: Adrenal glands are normal in size. No focal mass. KIDNEYS AND URETERS: There is an extra renal pelvis of the left kidney. Within the left renal pelvis there is an 8 mm stone. This is not causing obstruction. No hydroureter. There is no calculus in the ureter. There is also an extrarenal pelvis of the right kidney. No hydronephrosis of the right kidney. No renal stone or hydroureter. BLADDER: Torrez catheter within the bladder. GASTROINTESTINAL TRACT: There is a small focal mesenteric twist at the ligament of Treitz best appreciated on the coronal images. The bowel loop that is just distal to ligament of Treitz is focally dilated to a diameter 4.3 cm. May be due to an internal hernia. There is no bowel wall thickening however. The remainder of the small bowel loops are of normal caliber. Moderate amount of scattered stool throughout the colon but there is a large collection at the rectum sigmoid in the pelvis. The colon measures 7.2 cm transverse at the level the hips. No bowel wall thickening or edema. MESENTERY: Small to moderate amount of free fluid in the abdomen. No free air or abscess. ABDOMINAL WALL: Fat-containing umbilical hernia. LYMPH NODES: Normal. VASCULAR: Unremarkable. PELVIC VISCERA: Unremarkable. OSSEOUS STRUCTURES: Degenerative spondylosis spine with multilevel disc height narrowing and endplate spurs and facet joint arthrosis. IMPRESSION: 1. Focal twisted mesentery in the left upper quadrant, possibly due to to an internal hernia. Dilated small bowel loop of the proximal jejunum in this area in the left upper quadrant. 2. Large collection of stool in the rectum sigmoid. 3. Nonobstructive 8 mm stone in left renal pelvis. 4. Small to moderate amount of free fluid in the abdomen. 5. Asymmetrically elevated right diaphragm compared to left with linear atelectasis at right lung base. Assessment/Plan Assessment/Plan This is a 46 year old with a history of TIA, vertigo, spina bifida, MR, GI bleed , neurogenic bladder, diabetes mellitus and SBOs, found on imaging to have markedly dilated stomach and proximal small bowel with no concern for an internal hernia at this time. Cont conservative management Bowel rest, NGT given output, IVF Chloraspetic spray prn Monitor serial abdominal exams F/u AXR D/w Dr. Bocanegra
--- NOTE | 2017-02-07 09:09 | PN- Resident CRCU ---
Dl Chapa 02/07/17 0908: Subjective HPI/CRCU Issues: UGIB C. dificile colitis Tachycardia 24 Hour Events: Patient was transferred to the ICU for close monitoring for hematemesis and tachycardia. A NGT was placed that drained bilious liquid. Patient vitals remains stable. Objective Vital Signs & I&O Last 8 Hrs of Vitals and I&O: Intake & Output 02/07 1600 Intake Total 663 Output Total 975 Balance -312 Intake, IV 663 Intake, Oral 0 Output, 600 Gastric Drainage Output, Urine 375 Exam General Appearance: no apparent distress, alert, awake, comfortable Head: atraumatic, normal appearance Ears, Nose, Throat: normal pharynx, normal ENT inspection, hearing grossly normal, NGT intact with bilious drainage Neck: normal inspection, supple, full range of motion Respiratory: normal breath sounds, chest non-tender, no respiratory distress, lungs clear Cardiovascular: regular rate/rhythm Gastrointestinal: normal bowel sounds, soft, non-tender Extremities: normal inspection, normal range of motion, no edema Current Medications: Current Medications Sig/Елена Start time Last Medication Dose Route Stop Time Status Admin Acetaminophen 1,000 MG ONCE ONE 02/07 0545 DC 02/07 N/A 1 UNIT IV 02/07 0559 0545 Acetaminophen 650 MG Q6P PRN 02/04 020 AC 02/05 PO 2334 Cefazolin Sodium 1,000 MG Q8 02/05 2200 AC 02/07 IV 1500 Divalproex Sodium 250 MG QPM 02/04 2200 DC 02/05 PO 2101 Glycerin 2 SPRAY Q2P PRN 02/07 1000 AC 02/07 PO 1705 Heparin Sodium 5,000 UNIT Q8 02/07 1420 AC 02/07 (Porcine) SC 1500 Lidocaine 1 LANEY ONCE ONE 02/07 1615 DC 02/07 TOP 02/07 1616 1646 Lorazepam 0.5 MG BID 02/07 1121 AC 02/07 IV 2040 Lorazepam 0.5 MG BID 02/04 1000 DC 02/06 PO 02/11 0959 0912 Melatonin 6 MG AT BEDTIME NEED.. 02/04 0200 AC PO Metoprolol Tartrate 6.25 MG BID 02/06 1000 DC 02/06 PO 1544 Morphine Sulfate 1 MG Q6 02/05 1200 AC 02/07 IV 0312 Multivitamins 1 TAB DAILY 02/04 1000 AC 02/06 PO 0911 Oxycodone/ 2 TAB Q6P PRN 02/04 0200 AC 02/06 Acetaminophen PO 1543 Pantoprazole Sodium 40 MG BID 02/07 1005 AC 02/07 IV 1154 Pantoprazole Sodium 40 MG DAILY 02/06 2045 DC 02/06 IV 2126 Phenol 2 SPRAY Q2P PRN 02/07 0045 AC EXT Potassium Chloride 10 MEQ Q1H 02/07 1830 DC IV 02/07 1931 Potassium Phosphate 15 mMol ONE ONE 02/07 1830 AC Dextrose/Water 250 ML IV 02/07 2234 Rivaroxaban 20 MG DAILY 02/04 1000 DC 02/06 PO 0910 Sodium Chloride 1,000 ML Q13H 02/06 2130 AC 02/07 IV 1154 Temazepam 7.5 MG AT BEDTIME PRN 02/04 0200 AC PO Trazodone HCl 50 MG AT BEDTIME 02/04 2200 AC 02/05 PO 2101 Trimethobenzamide HCl 200 MG 4 TIMES/DAY PRN 02/06 2345 AC IM Valproate Sodium 250 MG QPM 02/07 2200 AC Sodium Chloride 50 ML IV Valproate Sodium 250 MG ONCE ONE 02/07 1515 DC 02/07 Sodium Chloride 50 ML IV 02/07 1614 1730 Vancomycin HCl 125 MG DAILY 02/12 1000 AC PO 02/18 1001 Vancomycin HCl 125 MG BID 02/05 1000 AC 02/06 PO 02/11 1100 0911 Impression/Plan Impression/Problem List Impression: Mr. Lopez is a 46-year-old male with past medical history of TIA, vertigo, spina bifida, MR, GI bleed, neurogenic bladder, and diabetes mellitus who presented to the ED with complains of localized chest pain, diffuse abdominal pain, lightheadedness and vertigo, transferred to the ICU for close monitoring for hematemesis and tachycardia Patient was found in the evening to have hematuria. 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 The hematuria was bright red. The nurse stated that earlier that day he had had small brown clots in the urine. Respiratory: No active issues ID: C diff colitis on vanco pulse dose Patient was recently under treatment for C. difficile with the tapering vancomycin dose and recently treated UTI presented in ER from [facility] and admitted for several complaints transferred to the ICU for close monitoring for hematemesis and tachycardia * Hold vancomycin pulse doses as patient is NPO * await records from [facility] * General surgery recommendations appreciated * ID recommendations appreciated SIRS criteria positive with Leukocytosis & Tachycardia 150 Patient fulfilled SIRS criteria with leukocytosis, bandemia, tachycardia. Pancultures were sent. He received aggressive IV fluid resuscitation. Lactic acid elevated at the time of admission. Trended down after IV hydration. * Follow-up blood cultures, urine culture sensitivities. * Monitor for fevers * Trend leukocyte count Recurrent UTI on Indwelling torrez catheter with hematuria Patient apparently had a change in torrez 02/02/2017. He did have positive UA and received a single dose of ceftriaxone in ED. His urine cultures were positive for gram-negative rods. His prior cultures were grown Klebsiella and Proteus sensitive to cefazolin. * Continue cefazolin * will follow-up urine cultures and adjust antibiotics accordingly. * ID recommendations appreciated * Follow H&H CVS: chest pain syndrome/sinus tachycardia Appears noncardiac as describing like heart burn. He did have shortness of breath. Similar presentation in previous admission. Serial troponins and EKGs were done which ruled out ACS/supply demand mismatch secondary to tachycardia. CTA showed no evidence of PE * continue on pain medication and omeprazole. * He has been having sinus tachycardia with rate ranging from 110-130 since admission. * Hold metoprolol * Consider IV Hydralazine PRN for HTN Hematology: History of DVT on xarelto (held) * Start SQ heparin as per surgery recommendations UGIB Patient had hematemesis but stable hemoglobin. His NGT continued to output bilious liquids * GI recommendations appreciated * Gastografin study * Serial AXR and abdominal exams daily * Surgery recommendations appreciated * Strict I&Os Metabolic: AG metabolic acidosis Lactic acidosis in the setting of tachycardia, mild low grade fever and dehydration. Received IV fluid resuscitation and lactic acid was trended down. Alimentary: No active issues Nephrology: No active issues Other: Scrotal pain Patient came in with nonspecific complaints chest pain, abdominal pain, testicular pain. Ultrasound scrotum was done which showed normal testis and moderate bilateral complicated hydroceles. He was also found to have 8mm upper left scrotal cyst likely airline security representative of tunical cyst. * Gen. surgeon consultation was obtained. * No surgical intervention recommended. Continue other home medications including trazadone, temezepam, depakote, lasix, lorazepam, multivitamin Diet: NPO Problem List: 1. Sinus tachycardia 2. Upper GI bleed Pain Ratin Tomorrow's Labs & Rationales: Bundle, CBC Plan DVT/Prophylaxis: mechanical Code Status: Full Code Aravind Pérezeyal 02/07/17 1020: Impression/Plan Impression/Problem List Impression: Mr. Lopez is a 46-year-old male with past medical history of TIA, vertigo, spina bifida, MR, GI bleed, neurogenic bladder, and diabetes mellitus. Patient has a intellectual disability and is a poor historian admitted to [facility] for abdominal pain and diarrhea with leukocytosis and lactic acidosis after being treated for c diff colitis with oral vancomycin in outpatient setting. 02/07/17 Overnight events noted. Patient transferred to higher level of care after found to have hematemesis episode with CT abd/pelvis demonstrating obstruction. Patient seen/examined in ICU. Patient poor historian, diffuse abdominal pain but no rigidity no rebound tenderness. Labs and vitals reviewed. Repeat CT abd/ pelvis with reviewed. NGT in place with positive output 1L. HR 90s. Bp stable and borderline hypertensive. Plan is to keep NPO, conservative management as per surgery, IVF, ABX as per ID. Monitor bowel moevements, serial abdominal exams/xray. Appreciate ID and surgery. f/u previous records. CTA chest negative for PE/pneumonia, atelectasis+ . Patient is on xarelto which is held 2/2 hematemsis. PPI bid iv. IV hydralazine prn for bp control. gi/dvt prophylaixs full code. Attending MD Review Statement Attending Sign Off Attending Cosign Statement: I have: examined this patient, [facility], personally reviewd images, discussd w/resident/PA/INSTRUMENT ASSEMBLER, discussed mgmt plan w/IVA. Rigoberto Hernandez MD 02/09/17 1321: Attending MD Review Statement Attending Sign Off Other Findings: Seen by Dr. Pérez.
--- NOTE | 2017-02-07 11:07 | PN- Infect Dx ---
Subjective Subjective: Afebrile. He was moved to the ICU last evening after an episode of acute hematemesis and hematuria. An NG tube was inserted, with 1 L of fluid drained. At present he feels improved with decreased abdominal pain and he denies any shortness of breath. Objective Last 24 Hrs of Vital Signs/I&O Vital Signs Date Time Temp Pulse Resp B/P B/P Pulse O2 O2 Flow FiO2 Mean Ox Delivery Rate 02/07 0400 96 Nasal 2.5L Cannula 02/07 0000 93 Nasal 2.5L Cannula 02/06 2131 97.4 118 18 170/100 92 02/06 1544 118 100/80 02/06 1434 97.9 118 20 100/80 92 Nasal Cannula 02/06 1206 Nasal 3.0L Cannula Intake & Output 02/07 1600 02/07 0800 02/07 0000 Intake Total 600 75 Output Total 1280 1150 Balance -680 -1075 Intake, IV 600 75 Intake, Oral 0 Output, 850 Emesis Output, 1000 Gastric Drainage Output, Urine 280 300 Physical Exam Other Physical Findings: He appears comfortable in no acute distress HEENT NG tube in place Lungs are clear anteriorly Heart regular rhythm with no murmur Abdomen is distended, mildly tender to palpation, with no guarding or rebound, positive bowel sounds Extremities no cyanosis, clubbing or edema Foster catheter in place with blood-tinged urine Results Last 24 Hours of Lab Results: Laboratory Tests 02/07 02/06 0425 2345 Chemistry Sodium (137 - 145 mmol/L) 144 Potassium (3.5 - 5.1 mmol/L) 3.8 Chloride (98 - 107 mmol/L) 107 Carbon Dioxide (22 - 30 mmol/L) 29 Anion Gap (5 - 16) 7 BUN (9 - 20 mg/dL) 20 Creatinine (0.7 - 1.2 mg/dL) 0.7 Estimated GFR (>60 ml/min) > 60 BUN/Creatinine Ratio (7 - 25 %) 28.6 H Hematology CBC w Diff NO MAN DIFF REQ Cancelled WBC (4.8 - 10.8 /CUMM) 12.1 H Cancelled RBC (4.70 - 6.10 /CUMM) 3.97 L Cancelled Hgb (14.0 - 18.0 G/DL) 11.2 L Cancelled Hct (42 - 52 %) 33.4 L Cancelled MCV (80.0 - 94.0 FL) 84.2 Cancelled MCH (27.0 - 31.0 PG) 28.3 Cancelled RDW (11.5 - 14.5 %) 15.6 H Cancelled Plt Count (130 - 400 /CUMM) 250 Cancelled MPV (7.4 - 10.4 FL) 8.3 Cancelled Gran % (42.2 - 75.2 %) 82.8 H Lymphocytes % (20.5 - 51.1 %) 8.7 L Monocytes % (1.7 - 9.3 %) 7.9 Eosinophils % (0 - 5 %) 0.3 Basophils % (0.0 - 2.0 %) 0.3 Absolute Granulocytes (1.4 - 6.5 /CUMM) 10.0 H Absolute Lymphocytes (1.2 - 3.4 /CUMM) 1.1 L Absolute Monocytes (0.10 - 0.60 /CUMM) 1.0 H Absolute Eosinophils (0.0 - 0.7 /CUMM) 0 Absolute Basophils (0.0 - 0.2 /CUMM) 0 PUBS MCHC (33.0 - 37.0 G/DL) 33.6 Cancelled 02/06 02/06 02/06 2320 2235 2104 Coagulation PT (9.4 - 12.5 SEC) 18.6 H INR (0.90 - 1.17) 1.78 H APTT (25 - 37 SEC) 39 H Hematology CBC w Diff MAN DIFF ORDERED Cancelled WBC (4.8 - 10.8 /CUMM) 15.4 H Cancelled RBC (4.70 - 6.10 /CUMM) 4.00 L Cancelled Hgb (14.0 - 18.0 G/DL) 11.2 L Cancelled Hct (42 - 52 %) 33.8 L Cancelled MCV (80.0 - 94.0 FL) 84.4 Cancelled MCH (27.0 - 31.0 PG) 28.0 Cancelled RDW (11.5 - 14.5 %) 15.5 H Cancelled Plt Count (130 - 400 /CUMM) 242 Cancelled MPV (7.4 - 10.4 FL) 8.8 Cancelled Gran % (42.2 - 75.2 %) 92.7 H Lymphocytes % (20.5 - 51.1 %) 2.6 L Monocytes % (1.7 - 9.3 %) 4.7 Eosinophils % (0 - 5 %) 0 Basophils % (0.0 - 2.0 %) 0 Absolute Granulocytes (1.4 - 6.5 /CUMM) 14.3 H Segmented Neutrophils (42.2 - 75.2 %) 86 H Absolute Lymphocytes (1.2 - 3.4 /CUMM) 0.4 L Lymphocytes (20.5 - 51.1 %) 4 L Monocytes (1.7 - 9.3 %) 9 Absolute Monocytes (0.10 - 0.60 /CUMM) 0.7 H Absolute Eosinophils (0.0 - 0.7 /CUMM) 0 Basophils (0.0 - 2.0 %) 1 Absolute Basophils (0.0 - 0.2 /CUMM) 0 Platelet Estimate (ADEQUATE) ADEQUATE Polychromasia 1+ Ovalocytes FEW PUBS MCHC (33.0 - 37.0 G/DL) 33.2 Cancelled Other Body Source Fld Total RBCs Counted (%) 100 02/06 2014 Hematology CBC w Diff NO MAN DIFF REQ WBC (4.8 - 10.8 /CUMM) 18.3 H RBC (4.70 - 6.10 /CUMM) 4.78 Hgb (14.0 - 18.0 G/DL) 13.3 L Hct (42 - 52 %) 40.6 L MCV (80.0 - 94.0 FL) 85.1 MCH (27.0 - 31.0 PG) 27.9 RDW (11.5 - 14.5 %) 15.8 H Plt Count (130 - 400 /CUMM) 284 MPV (7.4 - 10.4 FL) 8.6 Gran % (42.2 - 75.2 %) 90.0 H Lymphocytes % (20.5 - 51.1 %) 3.7 L Monocytes % (1.7 - 9.3 %) 6.1 Eosinophils % (0 - 5 %) 0.2 Basophils % (0.0 - 2.0 %) 0 Absolute Granulocytes (1.4 - 6.5 /CUMM) 16.4 H Absolute Lymphocytes (1.2 - 3.4 /CUMM) 0.7 L Absolute Monocytes (0.10 - 0.60 /CUMM) 1.1 H Absolute Eosinophils (0.0 - 0.7 /CUMM) 0 Absolute Basophils (0.0 - 0.2 /CUMM) 0 PUBS MCHC (33.0 - 37.0 G/DL) 32.8 L Last 24 Hours of Rex Results: Stool C. difficile February 05 negative Recent Imaging Studies: CT of the chest, abdomen and pelvis February 06 reveals a focal twisted mesentery in the left upper quadrant, with dilated small bowel loop of the proximal jejunum in this area; a nonobstructive 8 mm stone in the left renal pelvis with no hydroureter; small to moderate amount of free fluid in the abdomen, with no bowel wall thickening or edema CT of the head February 06 reveals a Chiari II malformation, with no hydrocephalus and no evidence of any intracranial hemorrhage CTA of the chest February 05 no evidence of pulmonary embolism; atelectasis at the right lung base Assessment/Plan Impression: Currently stable, status post an episode of hematemesis last evening, with an NG tube providing relief of some of his abdominal discomfort with a significant amount of drainage, with a decrease in his H&H also noted. He has been evaluated by Surgery for the CT findings of a possible bowel twist and will be evaluated by GI as well. He remains afebrile with a decrease in his white blood cell count today on Cefazolin, Day 4 of treatment for a possible UTI, though the positive urine culture (for Proteus) may represent colonization in this patient with a chronic Foster catheter, and on po Vancomycin taper for recently diagnosed C. difficile, though this has apparently not been given since his hematemesis. Of note he has self catheterized in the past and, if this is not feasible, alternatives to a chronic Foster catheter, such as a suprapubic cystostomy, need to be considered, though he is refusing this at this time. The details regarding his recent C. difficile would be helpful as it is not clear that his recent episode represented a relapse and, therefore, it is not clear that he requires a taper. Suggestion: 1. Obtain details from [facility] regarding his C. difficile and Vancomycin regimen 2. Further management of his GI bleed and possible bowel twist per GI and Surgery 3. Resume po Vancomycin taper when able to give po pending above 4. Continue Cefazolin
--- NOTE | 2017-02-07 14:29 | RADIOLOGY REPORT ---
EXAMINATION: XR ABDOMEN MULTIPLE VIEWS CLINICAL INDICATION: Hematemesis. COMPARISON: CT images of the abdomen from 02/06/2017 TECHNIQUE: 2 views of the abdomen. FINDINGS: The tip of the enteric tube is located in the region of junction of second and third portions of the duodenum. No pneumoperitoneum. Stomach is decompressed. Within the upper abdomen, small bowel appears dilated to approximately 6 cm diameter, and this is not appreciably changed compared to 02/06/2017. No evidence of pneumatosis intestinalis. Gas is present within the nondilated distal small bowel, colon and rectum. No acute osseous abnormality. There are laminectomy defects at L4 and L5. IMPRESSION: 1. High-grade small bowel obstruction, similar compared to 02/06/2017. No pneumoperitoneum. 2. Stomach is decompressed by the enteric tube, and the tip of the tube is located in the duodenum.
--- NOTE | 2017-02-07 14:56 | Cons- Gastroenterology ---
General Information and HPI Consulting Request Date of Consult: 02/07/17 Requested By: Sourav Pérez MD Reason for Consult: Hematemesis Source of Information: patient, family, old records History of Present Illness: The patient was admitted with chest pain, lightheadedness, dizziness, and abdominal pain. He was recently hospitalized elsewhere with C. difficile colitis, and details are unavailable. He has a history of recurrent small bowel obstruction, with surgery at [facility] this past summer. There is also history of chronic constipation, and spina bifida. The patient had a single episode of was described as red hematemesis last night, none since. He was found have abdominal distention, and imaging suggesting a proximal small bowel obstruction. He was tachycardic. Of note he was on Xarelto. Nasogastric tube was inserted, with successful decompression of the stomach, output of brown liquid (without blood), relief of pain and nausea. Patient had an episode of hematemesis in March 2016. EGD by Dr. Dozier demonstrated nonerosive gastritis, and no bleeding site. Allergies/Medications Allergies: Coded Allergies: latex (UNKNOWN 02/03/17) Home Med List: Acetaminophen 325 MG TABLET 2 TAB PO Q6H PRN PAIN/TEMP>/100 (Reported) Acetaminophen (Acephen) 650 MG SUPP.RECT 1 SUPP OR Q6H PRN PAIN/TEMP>100 ( Reported) Bisacodyl 10 MG SUPP.RECT 1 SUP RC PRN CONSTIPATION (Reported) Divalproex Sodium (Depakote) 250 MG TABLET.DR 250 MG PO QPM DISRUPTIVE BEHAVIORS (Reported) Furosemide 20 MG TABLET 1 TAB PO DAILY DIURETIC (Reported) Lorazepam (Ativan) 0.5 MG TABLET 1 TAB PO BID ANXIETY (Reported) Magnesium Hydroxide (Milk Of Magnesia) 400 MG/5 ML ORAL.SUSP 30 ML PO DAILY PRN CONSTIPATION (Reported) Melatonin 3 MG TABLET 6 MG PO QHS PRN INSOMNIA (Reported) Multiple Vitamin (Multivitamins) 1 EACH TABLET 1 TAB PO DAILY SUPPLEMENT ( Reported) Na Phos,M-B/Na Phos,Di-Ba (Fleet Enema) 19 GRAM-7 GRAM/118 ML ENEMA 1 E RC DAILY PRN CONSTIPATION (Reported) Potassium Chloride (K-Tab ER) 20 MEQ TABLET.ER 1 TAB PO DAILY SUPPLEMENT ( Reported) Rivaroxaban (Xarelto) 20 MG TABLET 1 TAB PO QPM DVT (Reported) with food Temazepam 7.5 MG CAPSULE 1 CAP PO QHS PRN SLEEP (Reported) Trazodone HCl 50 MG TABLET 1 TAB PO QHS MENTAL HEALTH/SLEEP (Reported) Vancomycin HCl 125 MG/2.5 ML SYRINGE 125 MG PO 4XDAILY ANTIBIOTIC (Reported) Current Medications: Current Medications Sig/Елена Start time Last Medication Dose Route Stop Time Status Admin Acetaminophen 1,000 MG ONCE ONE 02/07 0545 DC 02/07 N/A 1 UNIT IV 02/07 0559 0545 Acetaminophen 650 MG Q6P PRN 02/04 020 AC 02/05 PO 2334 Cefazolin Sodium 1,000 MG Q8 02/05 220 AC 02/07 IV 0558 Divalproex Sodium 250 MG QPM 02/04 2200 DC 02/05 PO 2101 Glycerin 2 SPRAY Q2P PRN 02/07 1000 AC 02/07 PO 1155 Heparin Sodium 5,000 UNIT Q8 02/07 1420 AC (Porcine) SC Lorazepam 0.5 MG BID 02/07 1121 AC 02/07 IV 1203 Lorazepam 0.5 MG BID 02/04 1000 DC 02/06 PO 02/11 0959 0912 Melatonin 6 MG AT BEDTIME NEED.. 02/04 020 AC PO Metoprolol Tartrate 6.25 MG BID 02/06 1000 DC 02/06 PO 1544 Morphine Sulfate 1 MG Q6 02/05 1200 AC 02/07 IV 0312 Multivitamins 1 TAB DAILY 02/04 1000 AC 02/06 PO 0911 Oxycodone/ 2 TAB Q6P PRN 02/04 0200 AC 02/06 Acetaminophen PO 1543 Pantoprazole Sodium 40 MG BID 02/07 1005 AC 02/07 IV 1154 Pantoprazole Sodium 40 MG DAILY 02/06 2045 DC 02/06 IV 2126 Phenol 2 SPRAY Q2P PRN 02/07 0045 AC EXT Rivaroxaban 20 MG DAILY 02/04 1000 DC 02/06 PO 0910 Sodium Chloride 1,000 ML Q13H 02/06 2130 AC 02/07 IV 1154 Temazepam 7.5 MG AT BEDTIME PRN 02/04 0200 AC PO Trazodone HCl 50 MG AT BEDTIME 02/04 2200 AC 02/05 PO 2101 Trimethobenzamide HCl 200 MG 4 TIMES/DAY PRN 02/06 2345 AC IM Valproate Sodium 250 MG QPM 02/07 2200 AC Sodium Chloride 50 ML IV Vancomycin HCl 125 MG DAILY 02/12 1000 AC PO 02/18 1001 Vancomycin HCl 125 MG BID 02/05 1000 AC 02/06 PO 02/11 1100 0911 Past History Travel History Traveled to [place] past 21 day No Medical History Neurological: TIA, vertigo, spina bifida intellectual disability Cardiovascular: hypertension, DVT Respiratory: NONE Gastrointestinal: ileus rectal bleeding Hepatic: NONE Renal: neurogenic bladder, urinary incontinence, recurrent UTI chronic indwelling Foster Musculoskeletal: NONE Psychiatric: NONE Endocrine: diabetes Blood Disorders: NONE Surgical History Surgical History: s/p recent surgery for SBO Psychosocial History Smoking Status: Never Smoked ETOH Use: denies use Illicit Drug Use: denies illicit drug use Functional Ability ADLs Needs Assist: dressing, eating, toileting, bathing. Ambulation: non-ambulatory IADLs Needs Assist: shopping, housework, finances, food prep, telephone, transportation, medication admin. Review of Systems Review of Systems Constitutional: Denies: chills, fever. EENTM: Denies: icterus, epistaxis. Cardiovascular: Reports: chest pain. Denies: edema. Respiratory: Denies: cough, short of breath. GI: Reports: see HPI. Genitourinary: Reports: hematuria. Denies: dysuria. Musculoskeletal: Denies: muscle stiffness, neck pain. Skin: Denies: jaundice, lesions. Neurological/Psychological: Reports: anxiety, cognitive dysfunction. Hematologic/Endocrine: Reports: bleeding. Denies: bruising. Exam & Diagnostic Data Vital Signs and I&O Vital Signs Date Time Temp Pulse Resp B/P B/P Pulse O2 O2 Flow FiO2 Mean Ox Delivery Rate 02/07 040 96 Nasal 2.5L Cannula 02/07 0000 93 Nasal 2.5L Cannula 02/06 2131 97.4 118 18 170/100 92 02/06 1544 118 100/80 Intake & Output 02/07 1600 02/07 04002/06 1600 02/06 04002/05 1600 02/05 040 Intake Total 600 75 060 942 1733 700 Output Total 1280 1150 769 865 5277 Balance -680 -1075 -500 -200 50 700 Intake, IV 373 72 0744 Intake, Oral 0 200 200 50 700 Number 1 1 2 Bowel Movements Output, 850 Emesis Output, 1000 Gastric Drainage Output, Urine 280 300 017 772 1567 Physical Exam: Well-developed, well-nourished, in no apparent distress. Nasogastric tube in place, draining brown liquid. Skin without lesion. No jaundice or stigmata chronic liver disease. Sclera anicteric. Neck supple without thyromegaly. Heart regular rhythm. Lungs clear bilaterally. Abdomen mildly distended and soft, mildly tender in the epigastrium, midline scar, no organomegaly or mass. Extremities without clubbing, cyanosis or edema. Distal pulses intact bilaterally. Results Pertinent Lab Results: Laboratory Tests 02/07 02/06 0425 2345 Chemistry Sodium (137 - 145 mmol/L) 144 Potassium (3.5 - 5.1 mmol/L) 3.8 Chloride (98 - 107 mmol/L) 107 Carbon Dioxide (22 - 30 mmol/L) 29 Anion Gap (5 - 16) 7 BUN (9 - 20 mg/dL) 20 Creatinine (0.7 - 1.2 mg/dL) 0.7 Estimated GFR (>60 ml/min) > 60 BUN/Creatinine Ratio (7 - 25 %) 28.6 H Hematology CBC w Diff NO MAN DIFF REQ Cancelled WBC (4.8 - 10.8 /CUMM) 12.1 H Cancelled RBC (4.70 - 6.10 /CUMM) 3.97 L Cancelled Hgb (14.0 - 18.0 G/DL) 11.2 L Cancelled Hct (42 - 52 %) 33.4 L Cancelled MCV (80.0 - 94.0 FL) 84.2 Cancelled MCH (27.0 - 31.0 PG) 28.3 Cancelled RDW (11.5 - 14.5 %) 15.6 H Cancelled Plt Count (130 - 400 /CUMM) 250 Cancelled MPV (7.4 - 10.4 FL) 8.3 Cancelled Gran % (42.2 - 75.2 %) 82.8 H Lymphocytes % (20.5 - 51.1 %) 8.7 L Monocytes % (1.7 - 9.3 %) 7.9 Eosinophils % (0 - 5 %) 0.3 Basophils % (0.0 - 2.0 %) 0.3 Absolute Granulocytes (1.4 - 6.5 /CUMM) 10.0 H Absolute Lymphocytes (1.2 - 3.4 /CUMM) 1.1 L Absolute Monocytes (0.10 - 0.60 /CUMM) 1.0 H Absolute Eosinophils (0.0 - 0.7 /CUMM) 0 Absolute Basophils (0.0 - 0.2 /CUMM) 0 PUBS MCHC (33.0 - 37.0 G/DL) 33.6 Cancelled 02/06 02/06 02/06 2320 2235 2104 Coagulation PT (9.4 - 12.5 SEC) 18.6 H INR (0.90 - 1.17) 1.78 H APTT (25 - 37 SEC) 39 H Hematology CBC w Diff MAN DIFF ORDERED Cancelled WBC (4.8 - 10.8 /CUMM) 15.4 H Cancelled RBC (4.70 - 6.10 /CUMM) 4.00 L Cancelled Hgb (14.0 - 18.0 G/DL) 11.2 L Cancelled Hct (42 - 52 %) 33.8 L Cancelled MCV (80.0 - 94.0 FL) 84.4 Cancelled MCH (27.0 - 31.0 PG) 28.0 Cancelled RDW (11.5 - 14.5 %) 15.5 H Cancelled Plt Count (130 - 400 /CUMM) 242 Cancelled MPV (7.4 - 10.4 FL) 8.8 Cancelled Gran % (42.2 - 75.2 %) 92.7 H Lymphocytes % (20.5 - 51.1 %) 2.6 L Monocytes % (1.7 - 9.3 %) 4.7 Eosinophils % (0 - 5 %) 0 Basophils % (0.0 - 2.0 %) 0 Absolute Granulocytes (1.4 - 6.5 /CUMM) 14.3 H Segmented Neutrophils (42.2 - 75.2 %) 86 H Absolute Lymphocytes (1.2 - 3.4 /CUMM) 0.4 L Lymphocytes (20.5 - 51.1 %) 4 L Monocytes (1.7 - 9.3 %) 9 Absolute Monocytes (0.10 - 0.60 /CUMM) 0.7 H Absolute Eosinophils (0.0 - 0.7 /CUMM) 0 Basophils (0.0 - 2.0 %) 1 Absolute Basophils (0.0 - 0.2 /CUMM) 0 Platelet Estimate (ADEQUATE) ADEQUATE Polychromasia 1+ Ovalocytes FEW PUBS MCHC (33.0 - 37.0 G/DL) 33.2 Cancelled Other Body Source Fld Total RBCs Counted (%) 100 02/06 Chemistry Sodium (137 - 145 mmol/L) 141 Potassium (3.5 - 5.1 mmol/L) 3.7 Chloride (98 - 107 mmol/L) 105 Carbon Dioxide (22 - 30 mmol/L) 28 Anion Gap (5 - 16) 8 BUN (9 - 20 mg/dL) 15 Creatinine (0.7 - 1.2 mg/dL) 0.8 Estimated GFR (>60 ml/min) > 60 BUN/Creatinine Ratio (7 - 25 %) 18.8 Hematology CBC w Diff NO MAN DIFF REQ NO MAN DIFF REQ WBC (4.8 - 10.8 /CUMM) 18.3 H 16.2 H RBC (4.70 - 6.10 /CUMM) 4.78 4.48 L Hgb (14.0 - 18.0 G/DL) 13.3 L 12.6 L Hct (42 - 52 %) 40.6 L 37.9 L MCV (80.0 - 94.0 FL) 85.1 84.5 MCH (27.0 - 31.0 PG) 27.9 28.2 RDW (11.5 - 14.5 %) 15.8 H 15.9 H Plt Count (130 - 400 /CUMM) 284 228 MPV (7.4 - 10.4 FL) 8.6 9.2 Gran % (42.2 - 75.2 %) 90.0 H 88.2 H Lymphocytes % (20.5 - 51.1 %) 3.7 L 4.3 L Monocytes % (1.7 - 9.3 %) 6.1 6.6 Eosinophils % (0 - 5 %) 0.2 0.8 Basophils % (0.0 - 2.0 %) 0 0.1 Absolute Granulocytes (1.4 - 6.5 /CUMM) 16.4 H 14.3 H Absolute Lymphocytes (1.2 - 3.4 /CUMM) 0.7 L 0.7 L Absolute Monocytes (0.10 - 0.60 /CUMM) 1.1 H 1.1 H Absolute Eosinophils (0.0 - 0.7 /CUMM) 0 0.1 Absolute Basophils (0.0 - 0.2 /CUMM) 0 0 PUBS MCHC (33.0 - 37.0 G/DL) 32.8 L 33.4 02/05 0630 Chemistry Sodium (137 - 145 mmol/L) 142 Potassium (3.5 - 5.1 mmol/L) 4.0 Chloride (98 - 107 mmol/L) 110 H Carbon Dioxide (22 - 30 mmol/L) 23 Anion Gap (5 - 16) 10 BUN (9 - 20 mg/dL) 16 Creatinine (0.7 - 1.2 mg/dL) 0.9 Estimated GFR (>60 ml/min) > 60 BUN/Creatinine Ratio (7 - 25 %) 17.8 TSH &T3 &Free T4 Intrp (0.27 - 4.20 uIU/mL) 2.220 Hematology CBC w Diff NO MAN DIFF REQ WBC (4.8 - 10.8 /CUMM) 17.1 H RBC (4.70 - 6.10 /CUMM) 4.70 Hgb (14.0 - 18.0 G/DL) 13.3 L Hct (42 - 52 %) 39.7 L MCV (80.0 - 94.0 FL) 84.4 MCH (27.0 - 31.0 PG) 28.3 RDW (11.5 - 14.5 %) 16.0 H Plt Count (130 - 400 /CUMM) 215 MPV (7.4 - 10.4 FL) 9.2 Gran % (42.2 - 75.2 %) 88.9 H Lymphocytes % (20.5 - 51.1 %) 4.5 L Monocytes % (1.7 - 9.3 %) 6.1 Eosinophils % (0 - 5 %) 0.4 Basophils % (0.0 - 2.0 %) 0.1 Absolute Granulocytes (1.4 - 6.5 /CUMM) 15.2 H Absolute Lymphocytes (1.2 - 3.4 /CUMM) 0.8 L Absolute Monocytes (0.10 - 0.60 /CUMM) 1.0 H Absolute Eosinophils (0.0 - 0.7 /CUMM) 0.1 Absolute Basophils (0.0 - 0.2 /CUMM) 0 PUBS MCHC (33.0 - 37.0 G/DL) 33.5 02/04 2050 Chemistry Sodium (137 - 145 mmol/L) 143 Potassium (3.5 - 5.1 mmol/L) 4.3 Chloride (98 - 107 mmol/L) 110 H Carbon Dioxide (22 - 30 mmol/L) 22 Anion Gap (5 - 16) 10 BUN (9 - 20 mg/dL) 18 Creatinine (0.7 - 1.2 mg/dL) 0.8 Estimated GFR (>60 ml/min) > 60 BUN/Creatinine Ratio (7 - 25 %) 22.5 Lactic Acid (0.7 - 2.1 mmol/L) 1.9 Troponin I (<0.11 ng/ml) < 0.01 Hematology CBC w Diff NO MAN DIFF REQ WBC (4.8 - 10.8 /CUMM) 16.4 H RBC (4.70 - 6.10 /CUMM) 4.76 Hgb (14.0 - 18.0 G/DL) 13.5 L Hct (42 - 52 %) 40.3 L MCV (80.0 - 94.0 FL) 84.5 MCH (27.0 - 31.0 PG) 28.3 RDW (11.5 - 14.5 %) 15.8 H Plt Count (130 - 400 /CUMM) 233 MPV (7.4 - 10.4 FL) 8.7 Gran % (42.2 - 75.2 %) 90.3 H Lymphocytes % (20.5 - 51.1 %) 4.1 L Monocytes % (1.7 - 9.3 %) 5.2 Eosinophils % (0 - 5 %) 0.3 Basophils % (0.0 - 2.0 %) 0.1 Absolute Granulocytes (1.4 - 6.5 /CUMM) 14.8 H Absolute Lymphocytes (1.2 - 3.4 /CUMM) 0.7 L Absolute Monocytes (0.10 - 0.60 /CUMM) 0.9 H Absolute Eosinophils (0.0 - 0.7 /CUMM) 0.1 Absolute Basophils (0.0 - 0.2 /CUMM) 0 PUBS MCHC (33.0 - 37.0 G/DL) 33.5 Imaging/Other Studies: CT scan last night: IMPRESSION: 1. Focal twisted mesentery in the left upper quadrant, possibly due to to an internal hernia. Dilated small bowel loop of the proximal jejunum in this area in the left upper quadrant. 2. Large collection of stool in the rectum sigmoid. 3. Nonobstructive 8 mm stone in left renal pelvis. 4. Small to moderate amount of free fluid in the abdomen. 5. Asymmetrically elevated right diaphragm compared to left with linear atelectasis at right lung base. Assessment/Plan Assessment/Recommendations: 1. Hematemesis. This appears to be minor, without significant drop in hematocrit. Likely secondary to stress ulceration. It is also possible this was indeed not a GI bleed, but dark bilious contents in the setting of a small bowel obstruction. Currently nasogastric aspirate is brown. 2. Proximal small bowel obstruction. This is evidenced on CT scan, and today's follow-up abdominal x-ray. Management per surgery. Recommendations * IV PPI * Check CBC daily * No indication for EGD at this time. Please call with evidence of recurrent hematemesis, or melena/hematochezia. * Management of small bowel obstruction per surgery Thank you for this consultation. GI will not follow regularly. Please call or reconsult during this hospitalization as needed. Copies To: Myranda CACERES,Darrell Chi. Consult Acknowledgment - Thank you for your consult request.
--- NOTE | 2017-02-07 15:38 | Event Note ---
Event Note Event Note: S: Gastrograffin Study ordered by surgery, currently not done. Ordered the Gastrograffin from Radiology. At 3.30 pm. Patient pulled out NGT B:Patient is 46 YO M with recent C.diff colitis, Arnold chiarii malformation presented to [facility] with possible bowel obstruction. A/R: We convinced the patient (with the aid of his sister) that this tube was important and needed to be reinserted. Spoke to X-ray department, who stated that gastrograffin should be diluted 1:1 with normal Saline. Spoke to Surgical PA, states that 120 mL of grastrograffin needs to be given. Once NG tube is in place, will go ahead and administer gastrograffin to continue with study. 4.10.We convinced the patient (with the aid of his sister) that this tube was important and needed to be reinserted. Will continue to follow Called [facility]: [phone], spoke to Dr Schultz regarding the reading of the abdominal X-Ray. Wording appeared unclear. Dr Schultz did sate the tube is in the appropriate postion. We will continue with the gastrograffin study.
[2017-02-07 16:00] VITALS: BP 100/70
[2017-02-07 17:07] LABS: ABSOLUTE BASOPHIL COUNT 0 /CUMM (0.0-0.2); ABSOLUTE EOSINOPHIL COUNT 0.2 /CUMM (0.0-0.7); ABSOLUTE MONOCYTE COUNT 0.7 /CUMM (0.10-0.60); BASOPHIL % 0.3 % (0.0-2.0); EOSINOPHIL % 2.6 % (0-5); GRANULOCYTE % 78.8 % (42.2-75.2); HEMATOCRIT 34.8 % (42-52); MEAN CORPUSCULAR HGB 27.6 PG (27.0-31.0); MEAN CORPUSCULAR HGB CONC 32.5 G/DL (33.0-37.0); MEAN CORPUSCULAR VOLUME 85.1 FL (80.0-94.0); PLATELET COUNT 251 /CUMM (130-400); RBC DISTRIBUTION WIDTH 15.8 % (11.5-14.5); RED BLOOD CELL CT 4.09 /CUMM (4.70-6.10); WHITE BLOOD CELL COUNT 8.9 /CUMM (4.8-10.8)
--- NOTE | 2017-02-07 17:15 | RADIOLOGY REPORT ---
EXAMINATION: XR PORTABLE ABDOMEN CLINICAL INFORMATION: Nasogastric tube placement. COMPARISON: Abdominal radiograph dated earlier on 02/06/2017. TECHNIQUE: AP view of the abdomen. FINDINGS: There is been interval retraction of the enteric tube which now projects over the expected location of the stomach. Unchanged distention of the partially visualized bowel IMPRESSION: Enteric tube projects over the expected location of the stomach. Unchanged bowel gas pattern suggestive of obstruction.
[2017-02-08] VITALS: BP 132/87
--- NOTE | 2017-02-08 00:31 | RADIOLOGY REPORT ---
EXAMINATION: XR PORTABLE ABDOMEN CLINICAL INFORMATION: Gastrografin study for follow-up COMPARISON: Abdominal radiograph performed earlier the same day. TECHNIQUE: AP view of the abdomen. FINDINGS: NG tube tip likely projects over the stomach, very limitedly assessed on this exam. Contrast is seen throughout large bowel to the level of the rectum. Several contrast opacified small bowel loops are also identified. Decreased distention of small bowel loops in comparison to the earlier abdominal radiograph. Surgical clips project over the lower abdomen. Nondiagnostic assessment for free air on this film. IMPRESSION: Gastrografin contrast administered via the patient's nasogastric tube is seen throughout the colon to the level of the rectum. Decreased distention of small bowel loops within the central abdomen.
[2017-02-08 05:08] LABS: ABSOLUTE BASOPHIL COUNT 0 /CUMM (0.0-0.2); ABSOLUTE EOSINOPHIL COUNT 0.3 /CUMM (0.0-0.7); ABSOLUTE GRANULOCYTE CT 5.7 /CUMM (1.4-6.5); ABSOLUTE LYMPH COUNT 1.2 /CUMM (1.2-3.4); ABSOLUTE MONOCYTE COUNT 0.7 /CUMM (0.10-0.60); BASOPHIL % 0.4 % (0.0-2.0); EOSINOPHIL % 3.4 % (0-5); GRANULOCYTE % 71.9 % (42.2-75.2); HEMATOCRIT 32.5 % (42-52); MEAN CORPUSCULAR HGB 27.6 PG (27.0-31.0); MEAN CORPUSCULAR HGB CONC 32.8 G/DL (33.0-37.0); MEAN CORPUSCULAR VOLUME 84.4 FL (80.0-94.0); MEAN PLATELET VOLUME 8.2 FL (7.4-10.4); PLATELET COUNT 258 /CUMM (130-400); RBC DISTRIBUTION WIDTH 15.8 % (11.5-14.5); RED BLOOD CELL CT 3.85 /CUMM (4.70-6.10); WHITE BLOOD CELL COUNT 7.9 /CUMM (4.8-10.8)
--- NOTE | 2017-02-08 07:36 | PN- Resident CRCU ---
See Addendum Subjective HPI/CRCU Issues: UGIB C. dificile colitis Tachycardia Lactic acidosis - resolved 24 Hour Events: Patient pulled out NGT last night before Gastrograffin study and it was reinserted and study was completed. He has a large bowel movement and gastric output 300 cc. While sleeping patient's O2 sat this morning intermittently drops to 88% then returns to >92%. His respiratory rate also dropped to < 10 then returns to > 12. He responded to sternal stimulus. Patient reports he has a history of ROSA but noncompliant with CPAP. Patient currently stable without active bleeding. Objective Vital Signs & I&O Last 8 Hrs of Vitals and I&O: Intake & Output 02/08 1600 Intake Total Output Total Balance Patient 182 lb Weight Exam General Appearance: well developed/nourished, no apparent distress, alert, awake , comfortable Head: atraumatic, normal appearance Ears, Nose, Throat: normal pharynx, normal ENT inspection, hearing grossly normal Neck: normal inspection, supple, full range of motion Respiratory: normal breath sounds, chest non-tender, no respiratory distress, lungs clear Cardiovascular: regular rate/rhythm Gastrointestinal: normal bowel sounds, soft, non-tender, no organomegaly Extremities: normal inspection, normal capillary refill, normal range of motion, no edema Current Medications: Current Medications Sig/Елена Start time Last Medication Dose Route Stop Time Status Admin Acetaminophen 650 MG Q6P PRN 02/04 0200 AC 02/05 PO 2334 Cefazolin Sodium 1,000 MG Q8 02/05 2200 AC 02/08 IV 0629 Dextrose/Sodium 1,000 ML Q20H 02/08 0030 AC 02/08 Chloride IV 0038 Dextrose/Sodium 1,000 ML Q20H 02/07 2345 DC Chloride IV Divalproex Sodium 250 MG QPM 02/04 2200 DC 02/05 PO 2101 Glycerin 2 SPRAY Q2P PRN 02/07 1000 AC 02/07 PO 1705 Heparin Sodium 5,000 UNIT Q8 02/07 1420 AC 02/08 (Porcine) SC 0630 Lidocaine 1 LANEY ONCE ONE 02/07 1615 DC 02/07 TOP 02/07 1616 1646 Lorazepam 0.5 MG BID 02/07 1121 AC 02/07 IV 2040 Lorazepam 0.5 MG BID 02/04 1000 DC 02/06 PO 02/11 0959 0912 Melatonin 6 MG AT BEDTIME NEED.. 02/04 0200 AC PO Metoprolol Tartrate 6.25 MG BID 02/06 1000 DC 02/06 PO 1544 Morphine Sulfate 1 MG Q6 02/05 1200 AC 02/07 IV 0312 Multivitamins 1 TAB DAILY 02/04 1000 AC 02/06 PO 0911 Oxycodone/ 2 TAB Q6P PRN 02/04 0200 AC 02/06 Acetaminophen PO 1543 Pantoprazole Sodium 40 MG BID 02/07 1005 AC 02/07 IV 2218 Pantoprazole Sodium 40 MG DAILY 02/06 2045 DC 02/06 IV 2126 Phenol 2 SPRAY Q2P PRN 02/07 0045 AC EXT Potassium Chloride 10 MEQ Q1H 02/07 1830 DC 02/07 IV 02/07 1931 2210 Potassium Phosphate 15 mMol ONE ONE 02/07 1830 DC 02/08 Dextrose/Water 250 ML IV 02/07 2234 0036 Sodium Chloride 1,000 ML Q13H 02/06 2130 DC 02/07 IV 1154 Temazepam 7.5 MG AT BEDTIME PRN 02/04 0200 AC PO Trazodone HCl 50 MG AT BEDTIME 02/04 2200 AC 02/05 PO 2101 Trimethobenzamide HCl 200 MG 4 TIMES/DAY PRN 02/06 2345 AC IM Valproate Sodium 250 MG QPM 02/07 2200 AC 02/07 Sodium Chloride 50 ML IV 2219 Valproate Sodium 250 MG ONCE ONE 02/07 1515 DC 02/07 Sodium Chloride 50 ML IV 02/07 1614 1730 Vancomycin HCl 125 MG DAILY 02/12 1000 AC PO 02/18 1001 Vancomycin HCl 125 MG BID 02/05 1000 AC 02/06 PO 02/11 1100 0911 Radiology Findings: 02/07/17-2345 XRY-PORTABLE ABDOMEN IMPRESSION: Gastrografin contrast administered via the patient's nasogastric tube is seen throughout the colon to the level of the rectum. Decreased distention of small bowel loops within the central abdomen. Impression/Plan Impression/Problem List Impression: Mr. Lopez is a 46-year-old male with past medical history of DVT, TIA, vertigo, spina bifida, MR, GI bleed, neurogenic bladder, and diabetes mellitus who presented to the ED with complains of localized chest pain, diffuse abdominal pain, lightheadedness and vertigo, transferred to the ICU for close monitoring for hematemesis and tachycardia. He is currently stable to be transferred back to Respiratory: While sleeping patient's O2 sat this morning intermittently drops to 88% then returns to >92%. His respiratory rate also dropped to < 10 then returns to > 12. He responded to sternal stimulus. Patient reports he has a history of ROSA but noncompliant with CPAP * continue oxygen supplementation * ABG * Resume CPAP QHS ID: C diff colitis on vanco pulse dose Patient was recently under treatment for C. difficile with the tapering vancomycin dose and admitted for several complaints, he was transferred to the ICU for close monitoring for hematemesis and tachycardia. In September he was admitted for recurrent C.dificle colitis and discharged on Vanco to complete 16 more days. He was re-admitted in December for Sepsis 2/2 UTI and found to have a positive C.difficile Ag and toxin. He was started on a taper Vanco dose at that time which remained until discharge. He was re-admitted at [facility] in January with same complaint and placed on Vanco taper for 7 days. * Hold vancomycin pulse doses as patient is NPO * Records from [facility] (in chart) * General surgery recommendations appreciated * ID recommendations appreciated SIRS criteria positive with Leukocytosis & Tachycardia 150 Patient fulfilled SIRS criteria with leukocytosis, bandemia, tachycardia. Pancultures were sent. He received aggressive IV fluid resuscitation. Lactic acid elevated at the time of admission. Trended down after IV hydration. Urine cultures grew Proteus Mirablis but patient asymptomatic * Monitor for fevers * Trend leukocyte count Recurrent UTI on Indwelling torrez catheter with hematuria Patient apparently had a change in torrez 02/02/2017. He did have positive UA and received a single dose of ceftriaxone in ED. His urine cultures were positive for gram-negative rods. His prior cultures were grown Klebsiella and Proteus sensitive to cefazolin. Patient was found to have hematuria with small brown clots. * Continue cefazolin * ID recommendations appreciated * Follow H&H CVS: chest pain syndrome/sinus tachycardia Appears noncardiac as describing like heart burn. He did have shortness of breath. His rate ranging from 110-130 since admission. Similar presentation in previous admission. Serial troponins and EKGs were done which ruled out ACS/ supply demand mismatch secondary to tachycardia. CTA showed no evidence of PE * continue on pain medication and omeprazole * Hold metoprolol, resume once able to tolerate PO * Consider IV Hydralazine PRN for HTN Hematology: History of DVT on xarelto (held) Patient's anticoagulation was held due to hematemesis. He has a gastrograffin study done to r/o obstruction. As per [facility] records his admission in October reports that he was only supposed to be on Xarelto for 3 mos but somehow continues to be placed back on ac. * Continue SQ heparin as per surgery recommendations * Records from [facility] (in chart) UGIB Patient had hematemesis but stable hemoglobin. His NGT continued to output bilious liquids. Serial AXR: Gastrografin contrast administered via the patient' s nasogastric tube is seen throughout the colon to the level of the rectum. Decreased distention of small bowel loops within the central abdomen. * GI recommendations appreciated * Serial AXR and abdominal exams daily * Surgery recommendations appreciated * Strict I&Os Metabolic: AG metabolic acidosis - resolved Lactic acidosis in the setting of tachycardia, mild low grade fever and dehydration. Received IV fluid resuscitation and lactic acid was trended down. Alimentary: No active issues Nephrology: No active issues Other: Scrotal pain Patient came in with nonspecific complaints chest pain, abdominal pain, testicular pain. Ultrasound scrotum was done which showed normal testis and moderate bilateral complicated hydroceles. 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 * Gen. surgeon consultation was obtained. * No surgical intervention recommended Continue other home medications including trazadone, temezepam, depakote, lasix, lorazepam, multivitamin Diet: NPO Problem List: 1. C. difficile colitis 2. Upper GI bleed Pain Ratin Tomorrow's Labs & Rationales: CBC, BEP Plan DVT/Prophylaxis: mechanical Code Status: Full Code
[2017-02-08 08:00] VITALS: BP 130/80
--- NOTE | 2017-02-08 10:32 | PN- Infect Dx ---
Subjective Subjective: Afebrile. He complains of chest pain and shortness of breath. Objective Last 24 Hrs of Vital Signs/I&O Vital Signs Date Time Temp Pulse Resp B/P B/P Pulse O2 O2 Flow FiO2 Mean Ox Delivery Rate 02/08 0800 92 Room Air 02/08 0800 99.2 88 22 130/80 92 Room Air 02/08 0000 98.3 88 16 132/87 92 Room Air 02/07 2000 96 Nasal 1.0L Cannula 02/07 1600 93 Nasal 1.0L Cannula 02/07 1600 96.6 96 12 100/70 94 Nasal 1.0L Cannula 02/07 1200 96 Nasal 2.5L Cannula Intake & Output 02/08 1600 02/08 0800 02/08 0000 Intake Total 450 1030 Output Total 700 500 Balance -250 530 Intake, IV 450 850 Intake, Other 180 Number 2 Bowel Movements Output, 300 150 Gastric Drainage Output, Urine 400 350 Patient 182 lb Weight Physical Exam Other Physical Findings: He is lethargic, minimally responsive, but does not appear in any acute distress HEENT NG tube remains in place Lungs are clear anteriorly Heart regular rhythm with no murmur Abdomen is distended, nontender with positive bowel sounds Extremities 1+ edema both lower extremities Foster catheter remains in place Results Last 24 Hours of Lab Results: Laboratory Tests 02/08 02/07 0415 1650 Chemistry Sodium (137 - 145 mmol/L) 144 146 H Potassium (3.5 - 5.1 mmol/L) 4.7 3.3 L Chloride (98 - 107 mmol/L) 106 106 Carbon Dioxide (22 - 30 mmol/L) 28 29 Anion Gap (5 - 16) 10 11 BUN (9 - 20 mg/dL) 17 19 Creatinine (0.7 - 1.2 mg/dL) 0.6 L 0.7 Estimated GFR (>60 ml/min) > 60 > 60 Glucose (65 - 99 mg/dL) 115 H 82 Calcium (8.4 - 10.2 mg/dL) 8.5 9.2 Phosphorus (2.5 - 4.5 mg/dL) 5.4 H 2.4 L Magnesium (1.6 - 2.3 mg/dL) 1.8 2.0 Total Bilirubin (0.2 - 1.3 mg/dL) 0.3 0.5 AST (17 - 59 U/L) 12 L 12 L ALT (21 - 72 U/L) 17 L 22 Albumin (3.5 - 5.0 g/dL) 2.5 L 2.8 L Hematology CBC w Diff NO MAN DIFF REQ NO MAN DIFF REQ WBC (4.8 - 10.8 /CUMM) 7.9 8.9 RBC (4.70 - 6.10 /CUMM) 3.85 L 4.09 L Hgb (14.0 - 18.0 G/DL) 10.6 L 11.3 L Hct (42 - 52 %) 32.5 L 34.8 L MCV (80.0 - 94.0 FL) 84.4 85.1 MCH (27.0 - 31.0 PG) 27.6 27.6 RDW (11.5 - 14.5 %) 15.8 H 15.8 H Plt Count (130 - 400 /CUMM) 258 251 MPV (7.4 - 10.4 FL) 8.2 8.0 Gran % (42.2 - 75.2 %) 71.9 78.8 H Lymphocytes % (20.5 - 51.1 %) 15.3 L 10.7 L Monocytes % (1.7 - 9.3 %) 9.0 7.6 Eosinophils % (0 - 5 %) 3.4 2.6 Basophils % (0.0 - 2.0 %) 0.4 0.3 Absolute Granulocytes (1.4 - 6.5 /CUMM) 5.7 7.0 H Absolute Lymphocytes (1.2 - 3.4 /CUMM) 1.2 1.0 L Absolute Monocytes (0.10 - 0.60 /CUMM) 0.7 H 0.7 H Absolute Eosinophils (0.0 - 0.7 /CUMM) 0.3 0.2 Absolute Basophils (0.0 - 0.2 /CUMM) 0 0 PUBS MCHC (33.0 - 37.0 G/DL) 32.8 L 32.5 L 02/07 1600 Chemistry Sodium Cancelled Potassium Cancelled Chloride Cancelled Carbon Dioxide Cancelled Anion Gap Cancelled BUN Cancelled Creatinine Cancelled BUN/Creatinine Ratio Cancelled Last 24 Hours of Rex Results: No new cultures Recent Imaging Studies: Abdominal x-ray February 07 reveals gastrografin contrast throughout the colon to the level of the rectum, with decreased distention of small bowel loops Assessment/Plan Impression: Appears to be stable, with no further hematemesis, with his H&H stable from yesterday, and with improvement on his recent abdominal x-ray. He remains afebrile with his white blood cell count now normal on Cefazolin, Day 5 of treatment for a possible UTI, though the positive urine culture (for Proteus) may represent colonization in this patient with a chronic Foster catheter, and on a Vancomycin taper for recently diagnosed C. difficile, though he has not received any since his hematemesis. The details regarding his recent C. difficile would be helpful as it is not clear that his recent episode represented a relapse and, therefore, it is not clear that he requires a taper. Of note he has self catheterized in the past and, if this is not feasible, alternatives to a chronic Foster catheter, such as a suprapubic cystostomy, need to be considered. Of note he has refused this in the past. Suggestion: 1. Obtain details from [facility] regarding his C. difficile and Vancomycin regimen 2. Further management of his GI bleed and possible bowel twist per GI and Surgery 3. Resume po Vancomycin taper when able to give po pending above 4. Would pursue placement of a suprapubic cystostomy so that his Foster can be removed 5. Continue Cefazolin
--- NOTE | 2017-02-08 12:40 | RADIOLOGY REPORT ---
EXAMINATION: XR ABDOMEN MULTIPLE VIEWS CLINICAL INDICATION: 46-year-old male with upper GI bleed. COMPARISON: Abdominal radiographs 02/07/2017 TECHNIQUE: 2 views of the abdomen. FINDINGS: The nasogastric tube is noted with tip projecting in the region of the gastric fundus, just distal to the GE junction. Nonspecific bowel gas pattern. A few distended loops of small bowel again noted within the left mid abdomen, unchanged. Oral contrast material seen throughout the colon and rectum. No gross free intraperitoneal air. Patchy airspace disease noted at the right lung base. No acute osseous abnormality. Postsurgical changes are seen within the lower lumbar spine. IMPRESSION: Contrast material seen throughout the colon and rectum. A few distended loops of small bowel are noted within the left mid abdomen, unchanged.
[2017-02-08 17:21] VITALS: BP 118/80
--- NOTE | 2017-02-08 18:11 | PN- General Surgery ---
Subjective Subjective: Follow-up small bowel obstruction Patient sitting up in bed denies abdominal pain no nausea, had 2 bowel movements overnight, no fevers Objective Vital Signs and I&Os I reviewed Vital Signs Date Time Temp Pulse Resp B/P B/P Pulse O2 O2 Flow FiO2 Mean Ox Delivery Rate 02/08 1721 99.4 93 20 118/80 93 Room Air 02/08 1347 70 96 02/08 1200 92 Nasal 1.0L Cannula 02/08 0800 92 Room Air 02/08 0800 99.2 88 22 130/80 92 Room Air 02/08 0000 98.3 88 16 132/87 92 Room Air 02/07 2000 96 Nasal 1.0L Cannula I reviewed Intake & Output 02/08 1600 02/08 0800 02/08 0000 02/07 1600 02/07 0800 02/07 0000 Intake Total 890 028 1436 663 600 75 Output Total 300 700 892 797 0708 1150 Balance 50 -250 530 -312 -680 -1075 Intake, IV 350 450 850 663 600 75 Intake, Oral 0 0 Intake, Other 180 Number 0 2 Bowel Movements Output, 850 Emesis Output, 300 173 814 9528 Gastric Drainage Output, Stool 0 Output, Urine 300 400 350 375 280 300 Patient 182 lb Weight Physical Exam: Constitutional: no acute distress no pain Eyes: sclera anicteric ENMT: moist mucous membranes Cardiovascular: S1-S2 no murmurs no peripheral edema Respiratory: clear to auscultation with normal respiratory effort and no intercostal retractions GI: abdomen soft nontender nondistended Extremities / lymphatics: free range of motion no peripheral edema Skin: no jaundice no rashes warm, nondiaphoretic Psychiatric: mood and affect are appropriate and alert and oriented to person place and time Current Medications: I reviewed Current Medications Sig/Елена Start time Last Medication Dose Route Stop Time Status Admin Acetaminophen 650 MG Q6P PRN 02/04 0200 AC 02/05 PO 2334 Cefazolin Sodium 1,000 MG Q8 02/05 2200 AC 02/08 IV 1358 Dextrose/Sodium 1,000 ML Q20H 02/08 0030 AC 02/08 Chloride IV 1357 Dextrose/Sodium 1,000 ML Q20H 02/07 2345 DC Chloride IV Glycerin 2 SPRAY Q2P PRN 02/07 1000 AC 02/07 PO 1705 Heparin Sodium 5,000 UNIT Q8 02/07 1420 AC 02/08 (Porcine) SC 0630 Lorazepam 0.5 MG BID 02/07 1121 AC 02/08 IV 1047 Melatonin 6 MG AT BEDTIME NEED.. 02/04 0200 AC PO Morphine Sulfate 1 MG Q6P PRN 02/08 1638 AC IV Morphine Sulfate 1 MG Q6 02/05 1200 DC 02/08 IV 1219 Multivitamins 1 TAB DAILY 02/04 1000 AC 02/06 PO 0911 Oxycodone/ 2 TAB Q6P PRN 02/04 0200 AC 02/06 Acetaminophen PO 1543 Pantoprazole Sodium 40 MG BID 02/07 1005 AC 02/08 IV 1033 Phenol 2 SPRAY Q2P PRN 02/07 0045 AC 02/08 EXT 1224 Potassium Chloride 10 MEQ Q1H 02/07 1830 DC 02/07 IV 02/07 1931 2210 Potassium Phosphate 15 mMol ONE ONE 02/07 1830 DC 02/08 Dextrose/Water 250 ML IV 02/07 2234 0036 Sodium Chloride 1,000 ML Q13H 02/06 2130 DC 02/07 IV 1154 Temazepam 7.5 MG AT BEDTIME PRN 02/04 0200 AC PO Trazodone HCl 50 MG AT BEDTIME 02/04 2200 AC 02/05 PO 2101 Trimethobenzamide HCl 200 MG 4 TIMES/DAY PRN 02/06 2345 AC IM Valproate Sodium 250 MG QPM 02/07 2200 AC 02/07 Sodium Chloride 50 ML IV 2219 Vancomycin HCl 125 MG DAILY 02/12 1000 AC PO 02/18 1001 Vancomycin HCl 125 MG BID 02/05 1000 AC 02/06 PO 02/11 1100 0911 Results Last 48 Hours of Labs: I reviewed Laboratory Tests 02/08 02/07 0415 1650 Chemistry Sodium (137 - 145 mmol/L) 144 146 H Potassium (3.5 - 5.1 mmol/L) 4.7 3.3 L Chloride (98 - 107 mmol/L) 106 106 Carbon Dioxide (22 - 30 mmol/L) 28 29 Anion Gap (5 - 16) 10 11 BUN (9 - 20 mg/dL) 17 19 Creatinine (0.7 - 1.2 mg/dL) 0.6 L 0.7 Estimated GFR (>60 ml/min) > 60 > 60 Glucose (65 - 99 mg/dL) 115 H 82 Calcium (8.4 - 10.2 mg/dL) 8.5 9.2 Phosphorus (2.5 - 4.5 mg/dL) 5.4 H 2.4 L Magnesium (1.6 - 2.3 mg/dL) 1.8 2.0 Total Bilirubin (0.2 - 1.3 mg/dL) 0.3 0.5 AST (17 - 59 U/L) 12 L 12 L ALT (21 - 72 U/L) 17 L 22 Albumin (3.5 - 5.0 g/dL) 2.5 L 2.8 L Hematology CBC w Diff NO MAN DIFF REQ NO MAN DIFF REQ WBC (4.8 - 10.8 /CUMM) 7.9 8.9 RBC (4.70 - 6.10 /CUMM) 3.85 L 4.09 L Hgb (14.0 - 18.0 G/DL) 10.6 L 11.3 L Hct (42 - 52 %) 32.5 L 34.8 L MCV (80.0 - 94.0 FL) 84.4 85.1 MCH (27.0 - 31.0 PG) 27.6 27.6 RDW (11.5 - 14.5 %) 15.8 H 15.8 H Plt Count (130 - 400 /CUMM) 258 251 MPV (7.4 - 10.4 FL) 8.2 8.0 Gran % (42.2 - 75.2 %) 71.9 78.8 H Lymphocytes % (20.5 - 51.1 %) 15.3 L 10.7 L Monocytes % (1.7 - 9.3 %) 9.0 7.6 Eosinophils % (0 - 5 %) 3.4 2.6 Basophils % (0.0 - 2.0 %) 0.4 0.3 Absolute Granulocytes (1.4 - 6.5 /CUMM) 5.7 7.0 H Absolute Lymphocytes (1.2 - 3.4 /CUMM) 1.2 1.0 L Absolute Monocytes (0.10 - 0.60 /CUMM) 0.7 H 0.7 H Absolute Eosinophils (0.0 - 0.7 /CUMM) 0.3 0.2 Absolute Basophils (0.0 - 0.2 /CUMM) 0 0 PUBS MCHC (33.0 - 37.0 G/DL) 32.8 L 32.5 L 12/25 12/25 12/24 1600 0425 2345 Chemistry Sodium (137 - 145 mmol/L) Cancelled 144 Potassium (3.5 - 5.1 mmol/L) Cancelled 3.8 Chloride (98 - 107 mmol/L) Cancelled 107 Carbon Dioxide (22 - 30 mmol/L) Cancelled 29 Anion Gap (5 - 16) Cancelled 7 BUN (9 - 20 mg/dL) Cancelled 20 Creatinine (0.7 - 1.2 mg/dL) Cancelled 0.7 Estimated GFR (>60 ml/min) > 60 BUN/Creatinine Ratio (7 - 25 %) Cancelled 28.6 H Hematology CBC w Diff NO MAN DIFF REQ Cancelled WBC (4.8 - 10.8 /CUMM) 12.1 H Cancelled RBC (4.70 - 6.10 /CUMM) 3.97 L Cancelled Hgb (14.0 - 18.0 G/DL) 11.2 L Cancelled Hct (42 - 52 %) 33.4 L Cancelled MCV (80.0 - 94.0 FL) 84.2 Cancelled MCH (27.0 - 31.0 PG) 28.3 Cancelled RDW (11.5 - 14.5 %) 15.6 H Cancelled Plt Count (130 - 400 /CUMM) 250 Cancelled MPV (7.4 - 10.4 FL) 8.3 Cancelled Gran % (42.2 - 75.2 %) 82.8 H Lymphocytes % (20.5 - 51.1 %) 8.7 L Monocytes % (1.7 - 9.3 %) 7.9 Eosinophils % (0 - 5 %) 0.3 Basophils % (0.0 - 2.0 %) 0.3 Absolute Granulocytes (1.4 - 6.5 /CUMM) 10.0 H Absolute Lymphocytes (1.2 - 3.4 /CUMM) 1.1 L Absolute Monocytes (0.10 - 0.60 /CUMM) 1.0 H Absolute Eosinophils (0.0 - 0.7 /CUMM) 0 Absolute Basophils (0.0 - 0.2 /CUMM) 0 PUBS MCHC (33.0 - 37.0 G/DL) 33.6 Cancelled 02/06 02/06 02/06 0378 1008 2104 Coagulation PT (9.4 - 12.5 SEC) 18.6 H INR (0.90 - 1.17) 1.78 H APTT (25 - 37 SEC) 39 H Hematology CBC w Diff MAN DIFF ORDERED Cancelled WBC (4.8 - 10.8 /CUMM) 15.4 H Cancelled RBC (4.70 - 6.10 /CUMM) 4.00 L Cancelled Hgb (14.0 - 18.0 G/DL) 11.2 L Cancelled Hct (42 - 52 %) 33.8 L Cancelled MCV (80.0 - 94.0 FL) 84.4 Cancelled MCH (27.0 - 31.0 PG) 28.0 Cancelled RDW (11.5 - 14.5 %) 15.5 H Cancelled Plt Count (130 - 400 /CUMM) 242 Cancelled MPV (7.4 - 10.4 FL) 8.8 Cancelled Gran % (42.2 - 75.2 %) 92.7 H Lymphocytes % (20.5 - 51.1 %) 2.6 L Monocytes % (1.7 - 9.3 %) 4.7 Eosinophils % (0 - 5 %) 0 Basophils % (0.0 - 2.0 %) 0 Absolute Granulocytes (1.4 - 6.5 /CUMM) 14.3 H Segmented Neutrophils (42.2 - 75.2 %) 86 H Absolute Lymphocytes (1.2 - 3.4 /CUMM) 0.4 L Lymphocytes (20.5 - 51.1 %) 4 L Monocytes (1.7 - 9.3 %) 9 Absolute Monocytes (0.10 - 0.60 /CUMM) 0.7 H Absolute Eosinophils (0.0 - 0.7 /CUMM) 0 Basophils (0.0 - 2.0 %) 1 Absolute Basophils (0.0 - 0.2 /CUMM) 0 Platelet Estimate (ADEQUATE) ADEQUATE Polychromasia 1+ Ovalocytes FEW PUBS MCHC (33.0 - 37.0 G/DL) 33.2 Cancelled Other Body Source Fld Total RBCs Counted (%) 100 02/06 2014 Hematology CBC w Diff NO MAN DIFF REQ WBC (4.8 - 10.8 /CUMM) 18.3 H RBC (4.70 - 6.10 /CUMM) 4.78 Hgb (14.0 - 18.0 G/DL) 13.3 L Hct (42 - 52 %) 40.6 L MCV (80.0 - 94.0 FL) 85.1 MCH (27.0 - 31.0 PG) 27.9 RDW (11.5 - 14.5 %) 15.8 H Plt Count (130 - 400 /CUMM) 284 MPV (7.4 - 10.4 FL) 8.6 Gran % (42.2 - 75.2 %) 90.0 H Lymphocytes % (20.5 - 51.1 %) 3.7 L Monocytes % (1.7 - 9.3 %) 6.1 Eosinophils % (0 - 5 %) 0.2 Basophils % (0.0 - 2.0 %) 0 Absolute Granulocytes (1.4 - 6.5 /CUMM) 16.4 H Absolute Lymphocytes (1.2 - 3.4 /CUMM) 0.7 L Absolute Monocytes (0.10 - 0.60 /CUMM) 1.1 H Absolute Eosinophils (0.0 - 0.7 /CUMM) 0 Absolute Basophils (0.0 - 0.2 /CUMM) 0 PUBS MCHC (33.0 - 37.0 G/DL) 32.8 L Assessment/Plan Assessment/Plan I reviewed on PACS myself the most recent CT scan and the follow-up abdominal multiview's yesterday and today they show oral contrast has passed into the distal colon and rectum. Impression is reactive ileus versus mechanical small bowel obstruction I favor the former given the rapid improvement and especially given that he is on scheduled dose of narcotic. Note that the leukocytosis markedly improved while on antibiotics. We still need some more information I reviewed the records from recent hospitalization at outside facility earlier this month overall this is a recurrent scenario for him for almost a year but he had a laparotomy in July and will be good to know the details. Try to lower the dose of narcotic especially if not necessary. Also can try liquids orally slowly at first. He had a MIXER BLENDER shunt? Removed? Problem List: 1. UTI (urinary tract infection) due to urinary indwelling catheter 2. Ileus 3. C. difficile colitis 4. Intestinal obstruction 5. Chronic indwelling Foster catheter 6. Abdominal pain 7. Leukocytosis
[2017-02-08 23:40] VITALS: BP 110/60
[2017-02-09 06:56] VITALS: BP 112/76
--- NOTE | 2017-02-09 07:05 | PN- Housestaff ---
Kelly CACERES,[facility] 02/09/17 0704: Subjective Follow-up For: UGIB C. dificile colitis Tachycardia Tele-Events Since Last Visit: Normal sinus rhythm with heart rate 69-95. No overnight events. Subjective: Patient was seen and examined at bedside. continues to complain of diffuse chest and abdominal pain. Review of Systems Constitutional: Reports: no symptoms. Cardiovascular: Reports: chest pain. Gastrointestinal: Reports: abdominal pain. Objective Last 24 Hrs of Vital Signs/I&O Vital Signs Date Time Temp Pulse Resp B/P B/P Pulse O2 O2 Flow FiO2 Mean Ox Delivery Rate 02/09 0656 98.8 84 20 112/76 96 Nasal Cannula 02/09 0000 Nasal 1.0L Cannula 02/08 2340 98.5 96 20 110/60 94 Room Air 02/08 2000 Nasal 1.0L Cannula 02/08 1721 99.4 93 20 118/80 93 Room Air 02/08 1347 70 96 02/08 1200 92 Nasal 1.0L Cannula Intake & Output 02/09 1600 02/09 0800 02/09 0000 Intake Total 100 150 Output Total 250 500 Balance -150 -350 Intake, Oral 100 150 Number 0 1 Bowel Movements Output, Urine 250 500 Physical Exam General Appearance: Alert, Oriented X3, Cooperative, Mild Distress Skin: No Rashes, No Breakdown Skin Temp/Moisture Exam: Warm/Dry Sepsis Skin Exam (color): Normal for Ethnicity HEENT: Atraumatic Cardiovascular: Normal S1, Normal S2, No Murmurs, chest wall tenderness Lungs: Clear to Auscultation, Normal Air Movement Abdomen: Soft, diffuse tenderness on superficial tenderness, post surgical scar Neurological: Normal Speech Extremities: No Edema Assessment/Plan Assessment: Mr. Lopez is a 46-year-old male with past medical history of TIA, vertigo, spina bifida, MR, GI bleed, neurogenic bladder, and diabetes mellitus who presented to the ED with complains of localized chest pain, diffuse abdominal pain, lightheadedness and vertigo. Patient was found to have hematuria on his way to CT head to evaluate if there any issues with his [employer] shunt on the evening of 02/06. The nurse stated that earlier that day he had had small brown clots in the urine. In the ICU he had no further episodes of hematemesis. An NG tube was placed which drained copious amount of fluids. He was transferred back to the telemetry floor after having a brief but stable course in ICU. Assessment and Plan: Urinary Tract Infection: Patient has a chronic indwelling torrez. He has recurrent UTIs the past year. He has paraplegia with neurogenic bladder so unable to sense any urinary symptoms if present. His lactic acid was elevated on admission which trended down with IVF. * His urine culture grew Proteus sensitive to Cefazolin * His previous white count and trended down. * He has had several episodes of UTI this year including urosepsis. * Will continue him on IV Cefazolin 1g q8. * Blood cultures unable to be obtained as the patient has extremely poor IV access. * Will consider suprapubic catheter after talking to the patient's sister. History of C.diff Colitis: In September he was admitted for recurrent C.dificle colitis and discharged on Vanco to complete 16 more days. He was re-admitted in December for Sepsis 2/2 UTI and found to have a positive C.difficile Ag and toxin. He was started on a taper Vanco dose at that time which remained until discharge. He was re-admitted at [facility] in January with same complaint and placed on Vanco taper for 7 days. * Will continue his oral vancomycin for now * Will require futher records from [facility] regarding his pulse taper of Vancomycin. * Will continue him on IVF for now. Hematamesis/Reactive Ileus: Patient had an episode of hematemesis 02/06. His Hb has been stable. His NGT drained copious amounts of biliary fluid. CT scan on 02/06 showed focal twisted mesentery in the left upper quadrant and dilated small bowel loop of the proximal jejunum in this area in the left upper quadrant. * AXR from today 02/09 shows interval decreased size of small bowel within the midabdomen, suggestive of a resolving small bowel obstruction. * Continue serial AXR and abdominal exams daily * No surgical interventions at this time. * Will obtain records from [facility] regarding his abdominal laprotomy/ laproscopy,. Chest Pain Syndrome: Patient has been complaining of localized substernal chest pain since admission. He has been in sinus tachycardia since admission. * ACS was r/o with 3 sets of negative troponins. * His sinus tachycardia has resolved. * Will continue to monitor for now. Testicular pain: On admission patient complained of testicular pain which he currently does not acknowledge. * An U/S was done which showed normal testes with moderate bilateral complicated hydroceles. * General surgery was consulted and have recommended no intervention at this time. Chronic medical problems: Continue home trazodone, divalproex, rivaroxaban, multivitamins, lorazepam, temazepam, percocet, melatonin Diet: Clear Liquid. Will advance as tolerated. DVT Prophylaxis: Xarelto on hold. Currently on ALPS Code status Full code Problem List: 1. Chest pain at rest 2. UTI (urinary tract infection) due to urinary indwelling catheter Pain Ratin Pain Location: none Pain Goal: Remain pain free Pain Plan: none Tomorrow's Labs & Rationales: CBC, BEP ElisaAravindeyal 02/09/17 1118: Attending MD Review Statement Attending Statement Attending MD Statement: examined this patient, discuss w/resident/PA/STUDIO MUSICIAN, agreed w/resident/PA/STUDIO MUSICIAN, discussed with family, reviewed EMR data (avail), discussed with nursing, discussed with case mgmt, reviewed images, amended to note Attending Assessment/Plan: 46M PMH Spina bifida, cognitive disability, chronic Torrez for neurogenic bladder , HTN, DVT on anticoagulation, history of TIA, vertigo admitted initially to ICU with SIRS with unknown infectious origin, course complicated by Proteus UTI from chronic indwelling Torrez, had been treated with Vancomycin as outpatient and continued here for C.difficile colitis, with episode of hematemesis in the setting of small bowel obstruction. Gastrograffin study showed normal passage of contrast into colon. Patient is poor historian but offers complaints of lower abdominal discomfort, soft abdomen on examination, no other complaints. 1. Sepsis secondary to Proteus UTI 2. Neurogenic bladder with chronic indwelling Torrez catheter 3. C.difficile colitis 4. Small bowel obstruction Plan - continue with telemetry floor. - Continue Cefazolin for UTI - Follow surgery, ID, urology recommendations - Continue PO Vancomycin - Follow cultures - removed NG tube, will follow surgery recommendations on advancing diet. - Continue home medications for now, resume anti-coagulation if able to tolerate PO. - DVT PPx DVT Prophylaxis: Xarelto on hold. Currently on ALPS Continue other home medications including trazadone, temezepam, depakote, lasix, lorazepam, multivitamin. Code status Full code Problem List: 1. Chest pain at rest 2. UTI (urinary tract infection) due to urinary indwelling catheter Pain Ratin Pain Location: none Pain Goal: Remain pain free Pain Plan: none Tomorrow's Labs & Rationales: CBC, BEP Sourav Pérez 02/09/17 1118: Attending MD Review Statement Attending Statement Attending MD Statement: examined this patient, discuss w/resident/PA/STUDIO MUSICIAN, agreed w/resident/PA/STUDIO MUSICIAN, discussed with family, reviewed EMR data (avail), discussed with nursing, discussed with case mgmt, reviewed images, amended to note Attending Assessment/Plan: 46M PMH Spina bifida, cognitive disability, chronic Torrez for neurogenic bladder , HTN, DVT on anticoagulation, history of TIA, vertigo admitted initially to ICU with SIRS with unknown infectious origin, course complicated by Proteus UTI from chronic indwelling Trorez, had been treated with Vancomycin as outpatient and continued here for C.difficile colitis, with episode of hematemesis in the setting of small bowel obstruction. Gastrograffin study showed normal passage of contrast into colon. Patient is poor historian but offers complaints of lower abdominal discomfort, soft abdomen on examination, no other complaints. 1. Sepsis secondary to Proteus UTI 2. Neurogenic bladder with chronic indwelling Torrez catheter 3. C.difficile colitis 4. Small bowel obstruction Plan - continue with telemetry floor. - Continue Cefazolin for UTI - Follow surgery, ID, urology recommendations - Continue PO Vancomycin - Follow cultures - removed NG tube, will follow surgery recommendations on advancing diet. - Continue home medications for now, resume anti-coagulation if able to tolerate PO. - DVT PPx
[2017-02-09 08:05] LABS: ABSOLUTE BASOPHIL COUNT 0 /CUMM (0.0-0.2); ABSOLUTE EOSINOPHIL COUNT 0.2 /CUMM (0.0-0.7); ABSOLUTE GRANULOCYTE CT 3.9 /CUMM (1.4-6.5); ABSOLUTE LYMPH COUNT 1.1 /CUMM (1.2-3.4); ABSOLUTE MONOCYTE COUNT 0.6 /CUMM (0.10-0.60); BASOPHIL % 0.6 % (0.0-2.0); EOSINOPHIL % 3.5 % (0-5); GRANULOCYTE % 66.2 % (42.2-75.2); HEMATOCRIT 30.6 % (42-52); MEAN CORPUSCULAR HGB 28.3 PG (27.0-31.0); MEAN CORPUSCULAR HGB CONC 33.8 G/DL (33.0-37.0); MEAN CORPUSCULAR VOLUME 83.7 FL (80.0-94.0); MEAN PLATELET VOLUME 7.7 FL (7.4-10.4); PLATELET COUNT 256 /CUMM (130-400); RBC DISTRIBUTION WIDTH 15.7 % (11.5-14.5); RED BLOOD CELL CT 3.66 /CUMM (4.70-6.10)
--- NOTE | 2017-02-09 08:48 | PN- General Surgery ---
Subjective Subjective: c/o abd pain- no worse, no better. denies nausea/vomiting, but doesnt want to eat because "then I will throw up". no bm overnight per rn. Objective Vital Signs and I&Os Vital Signs Date Time Temp Pulse Resp B/P B/P Pulse O2 O2 Flow FiO2 Mean Ox Delivery Rate 02/09 0656 98.8 84 20 112/76 96 Nasal Cannula 02/09 0000 Nasal 1.0L Cannula 02/08 2340 98.5 96 20 110/60 94 Room Air 02/08 2000 Nasal 1.0L Cannula 02/08 1721 99.4 93 20 118/80 93 Room Air 02/08 1347 70 96 02/08 1200 92 Nasal 1.0L Cannula Intake & Output 02/09 1600 02/09 0800 02/09 0000 02/08 1600 02/08 0800 02/08 0000 Intake Total 100 150 335 519 9043 Output Total 250 500 300 700 500 Balance -150 -350 50 -250 530 Intake, IV 350 450 850 Intake, Oral 100 150 Intake, Other 180 Number 0 1 0 2 Bowel Movements Output, 300 150 Gastric Drainage Output, Stool 0 Output, Urine 250 500 300 400 350 Patient 182 lb Weight Physical Exam: gen- nad card-s1s2 pulm- ctab abd- dist, soft, ttp throughout (upper >lower), +bs, well healed incisions ext- boots in place Assessment/Plan Assessment/Plan A- Likely reactive ileus due to UTI/cdiff, with continued abd pain, without vomiting though no po intake per pt. P- try sips slowly serial abd exams strict I&Os labs pending will dw Dr. Saldana.
--- NOTE | 2017-02-09 10:49 | PN- Infect Dx ---
Subjective Subjective: Afebrile. He continues to complain of chest and upper abdominal pain. Objective Last 24 Hrs of Vital Signs/I&O Vital Signs Date Time Temp Pulse Resp B/P B/P Pulse O2 O2 Flow FiO2 Mean Ox Delivery Rate 02/09 0800 Nasal 1.0L Cannula 02/09 0656 98.8 84 20 112/76 96 Nasal Cannula 02/09 0000 Nasal 1.0L Cannula 02/08 2340 98.5 96 20 110/60 94 Room Air 02/08 2000 Nasal 1.0L Cannula 02/08 1721 99.4 93 20 118/80 93 Room Air 02/08 1347 70 96 02/08 1200 92 Nasal 1.0L Cannula Intake & Output 02/09 1600 02/09 0800 02/09 0000 Intake Total 100 150 Output Total 250 500 Balance -150 -350 Intake, Oral 100 150 Number 0 1 Bowel Movements Output, Urine 250 500 Physical Exam Other Physical Findings: He is awake and alert, appearing in no acute distress Lungs are clear Heart regular rhythm with no murmur Abdomen is distended, nontender with positive bowel sounds Extremities 1+ edema both lower extremities Foster catheter remains in place Results Last 24 Hours of Lab Results: Laboratory Tests 02/09 0645 Chemistry Sodium (137 - 145 mmol/L) 141 Potassium (3.5 - 5.1 mmol/L) 3.5 Chloride (98 - 107 mmol/L) 106 Carbon Dioxide (22 - 30 mmol/L) 29 Anion Gap (5 - 16) 7 BUN (9 - 20 mg/dL) 13 Creatinine (0.7 - 1.2 mg/dL) 0.6 L Estimated GFR (>60 ml/min) > 60 Glucose (65 - 99 mg/dL) 104 H Calcium (8.4 - 10.2 mg/dL) 8.5 Phosphorus (2.5 - 4.5 mg/dL) 3.7 Magnesium (1.6 - 2.3 mg/dL) 1.9 Total Bilirubin (0.2 - 1.3 mg/dL) 0.1 L AST (17 - 59 U/L) 10 L ALT (21 - 72 U/L) 16 L Albumin (3.5 - 5.0 g/dL) 2.4 L Hematology CBC w Diff NO MAN DIFF REQ WBC (4.8 - 10.8 /CUMM) 6.0 RBC (4.70 - 6.10 /CUMM) 3.66 L Hgb (14.0 - 18.0 G/DL) 10.3 L Hct (42 - 52 %) 30.6 L MCV (80.0 - 94.0 FL) 83.7 MCH (27.0 - 31.0 PG) 28.3 RDW (11.5 - 14.5 %) 15.7 H Plt Count (130 - 400 /CUMM) 256 MPV (7.4 - 10.4 FL) 7.7 Gran % (42.2 - 75.2 %) 66.2 Lymphocytes % (20.5 - 51.1 %) 19.1 L Monocytes % (1.7 - 9.3 %) 10.6 H Eosinophils % (0 - 5 %) 3.5 Basophils % (0.0 - 2.0 %) 0.6 Absolute Granulocytes (1.4 - 6.5 /CUMM) 3.9 Absolute Lymphocytes (1.2 - 3.4 /CUMM) 1.1 L Absolute Monocytes (0.10 - 0.60 /CUMM) 0.6 Absolute Eosinophils (0.0 - 0.7 /CUMM) 0.2 Absolute Basophils (0.0 - 0.2 /CUMM) 0 PUBS MCHC (33.0 - 37.0 G/DL) 33.8 Last 24 Hours of Rex Results: No new cultures Assessment/Plan Impression: Overall stable, with temperatures and white blood cell count remaining normal on Cefazolin now Day 6 of treatment for a possible UTI, though the positive urine culture for Proteus may represent colonization secondary to the chronic Foster catheter. He is back on his oral Vancomycin taper for recently diagnosed C. difficile, though the details regarding his recent C. difficile are still not available. His H&H is drifting down but he has had no further hematemesis. Of note he has self catheterized in the past and, if this is not feasible, alternatives to a chronic Foster catheter, such as a suprapubic cystostomy, need to be considered. Suggestion: 1. Obtain details from Dr. Gayatri Pak at [facility] regarding his Vancomycin taper regimen 2. Would pursue placement of a suprapubic cystostomy so that his Foster can be removed 3. Continue po Vancomycin taper pending above 4. Continue Cefazolin
--- NOTE | 2017-02-09 11:04 | RADIOLOGY REPORT ---
EXAMINATION: XR PORTABLE ABDOMEN CLINICAL INFORMATION: Abdominal pain. COMPARISON: 02/07/2017 and 02/08/2017 TECHNIQUE: AP view of the abdomen. FINDINGS: The radiograph is centered on the mid abdomen and the proximal stomach is excluded from the [id number]. Again noted is Gastrografin contrast material within the nondilated colon and rectum. The dilated small bowel previously observed in the mid to upper abdomen appears significantly decreased in size on this follow-up exam. The visualized small bowel currently measures up to approximately 3.2 cm. IMPRESSION: This limited single view of the abdomen shows interval decreased size of small bowel within the midabdomen. This is suggestive of a resolving small bowel obstruction.
[2017-02-09 14:52] VITALS: BP 132/86
--- NOTE | 2017-02-09 15:22 | Event Note ---
Event Note Event Note: I spoke with Dr. Gayatri Pak infectious disease specialist at [facility] regarding Mr Ramírez vancomycin tapering dose for C. difficile colitis. * Patient was admitted to [facility] from December 13-December 21 for first recurrence C. difficile diarrhea. He was given vancomycin 500mg PO every [address] Gayatri Pak was aware and involved in his care at that time. * He was in ER at [facility] on January 20 for diarrhea. He was discharged from ER on vancomycin tapering doses for next 5 weeks for recurrent C. difficile diarrhea, positive for C. difficile toxin. * However infectious disease specialist was never consulted for this ER visit. And he never followed up with Dr. Gayatri Pak since December. She is not aware about this vancomycin tapering doses. * Given his recurrent diarrhea, we are going to treat him for a second recurrence needing vancomycin tapering doses * We'll continue present vancomycin tapering doses, however he missed some doses in between because of NPO status. * Seun Jacobs MD onboard, discussed with him about all the above events.
[2017-02-09 22:09] VITALS: BP 120/60
[2017-02-10 06:48] VITALS: BP 120/70
[2017-02-10 08:36] LABS: ABSOLUTE BASOPHIL COUNT 0 /CUMM (0.0-0.2); ABSOLUTE EOSINOPHIL COUNT 0.2 /CUMM (0.0-0.7); ABSOLUTE GRANULOCYTE CT 3.7 /CUMM (1.4-6.5); ABSOLUTE LYMPH COUNT 1.1 /CUMM (1.2-3.4); ABSOLUTE MONOCYTE COUNT 0.5 /CUMM (0.10-0.60); BASOPHIL % 0.6 % (0.0-2.0); EOSINOPHIL % 3.9 % (0-5); GRANULOCYTE % 67.9 % (42.2-75.2); MEAN CORPUSCULAR HGB 28.6 PG (27.0-31.0); MEAN CORPUSCULAR HGB CONC 34.2 G/DL (33.0-37.0); MEAN CORPUSCULAR VOLUME 83.8 FL (80.0-94.0); MEAN PLATELET VOLUME 8.1 FL (7.4-10.4); PLATELET COUNT 235 /CUMM (130-400); RBC DISTRIBUTION WIDTH 15.6 % (11.5-14.5); WHITE BLOOD CELL COUNT 5.5 /CUMM (4.8-10.8)
--- NOTE | 2017-02-10 10:04 | PN- General Surgery ---
Subjective Subjective: Patient reports feeling much better today. He last recieved morphine 2 days ago. He states he is passing flatus frequently and states he tolerated a whole tray of clears last night without any nausea or vomiting. He states he refused the tray of clears this morning because he wanted solid food. Per nursing, patient had two loose bms in the last two shifts. He offers no other complaints. Objective Vital Signs and I&Os Vital Signs Date Time Temp Pulse Resp B/P B/P Pulse O2 O2 Flow FiO2 Mean Ox Delivery Rate 02/10 0648 98.2 88 16 120/70 93 Nasal 1.0L Cannula 02/10 0000 Nasal 1.0L Cannula 02/09 2209 99.5 95 20 120/60 94 02/09 1452 98.9 90 18 132/86 95 Nasal 1.0L Cannula Intake & Output 02/10 1600 02/10 0800 02/10 0000 02/09 1600 02/09 0800 02/09 0000 Intake Total 460 1012.2 1747 100 150 Output Total 750 500 550 250 500 Balance -290 512.2 1197 -150 -350 Intake, IV 400 450.2 440 Intake, Oral 60 562 1307 100 150 Number 1 1 1 0 1 Bowel Movements Output, Urine 750 500 550 250 500 Physical Exam: Gen: Resting comfortably awake an alert in NAD Abd: Soft nondistended with well-healed incisions, normoactive bowel sounds, nontender to palpation, no rebound or guarding noted Ext: Boots/alps in place Current Medications: Current Medications Sig/Елена Start time Last Medication Dose Route Stop Time Status Admin Acetaminophen 650 MG Q6P PRN 02/04 200 AC 02/05 PO 2334 Cefazolin Sodium 1,000 MG Q8 02/05 2200 DC 02/09 IV 2027 Dextrose/Sodium 1,000 ML Q20H 02/08 0030 DC 02/09 Chloride IV 1103 Glycerin 2 SPRAY Q2P PRN 02/07 1000 AC 02/07 PO 1705 Heparin Sodium 5,000 UNIT Q8 02/07 1420 AC 02/08 (Porcine) SC 0630 Influenza Virus 0.5 ML ONCE ONE 02/09 1215 DC 02/09 Vaccine IM 02/09 1216 1218 Lorazepam 0.5 MG BID 02/07 1121 AC 02/10 IV 0833 Melatonin 6 MG AT BEDTIME NEED.. 02/04 020 AC 02/08 PO 2056 Morphine Sulfate 1 MG Q8P PRN 02/09 0745 AC IV Multivitamins 1 TAB DAILY 02/04 1000 AC 02/10 PO 0833 Oxycodone/ 2 TAB Q6P PRN 02/04 0200 AC 02/06 Acetaminophen PO 1543 Pantoprazole Sodium 40 MG BID 02/07 1005 AC 02/10 IV 0833 Phenol 2 SPRAY Q2P PRN 02/07 0045 AC 02/08 EXT 1224 Temazepam 7.5 MG AT BEDTIME PRN 02/04 020 AC PO Trazodone HCl 50 MG AT BEDTIME 02/04 2200 AC 02/09 PO 2024 Trimethobenzamide HCl 200 MG 4 TIMES/DAY PRN 02/06 2345 AC IM Valproate Sodium 250 MG QPM 02/07 2200 AC 02/09 Sodium Chloride 50 ML IV 2114 Vancomycin HCl 125 MG DAILY 02/12 1000 AC PO 02/18 1001 Vancomycin HCl 125 MG BID 02/05 1000 DC 02/09 PO 02/11 1100 0919 Results Last 48 Hours of Labs: Laboratory Tests 02/10 02/09 0705 0645 Chemistry Sodium (137 - 145 mmol/L) 140 141 Potassium (3.5 - 5.1 mmol/L) 4.2 3.5 Chloride (98 - 107 mmol/L) 106 106 Carbon Dioxide (22 - 30 mmol/L) 28 29 Anion Gap (5 - 16) 6 7 BUN (9 - 20 mg/dL) 8 L 13 Creatinine (0.7 - 1.2 mg/dL) 0.5 L 0.6 L Estimated GFR (>60 ml/min) > 60 > 60 BUN/Creatinine Ratio (7 - 25 %) 16.0 Glucose (65 - 99 mg/dL) 104 H Calcium (8.4 - 10.2 mg/dL) 8.5 Phosphorus (2.5 - 4.5 mg/dL) 3.7 Magnesium (1.6 - 2.3 mg/dL) 1.9 Total Bilirubin (0.2 - 1.3 mg/dL) 0.1 L AST (17 - 59 U/L) 10 L ALT (21 - 72 U/L) 16 L Albumin (3.5 - 5.0 g/dL) 2.4 L Hematology CBC w Diff NO MAN DIFF REQ NO MAN DIFF REQ WBC (4.8 - 10.8 /CUMM) 5.5 6.0 RBC (4.70 - 6.10 /CUMM) 3.70 L 3.66 L Hgb (14.0 - 18.0 G/DL) 10.6 L 10.3 L Hct (42 - 52 %) 31.0 L 30.6 L MCV (80.0 - 94.0 FL) 83.8 83.7 MCH (27.0 - 31.0 PG) 28.6 28.3 RDW (11.5 - 14.5 %) 15.6 H 15.7 H Plt Count (130 - 400 /CUMM) 235 256 MPV (7.4 - 10.4 FL) 8.1 7.7 Gran % (42.2 - 75.2 %) 67.9 66.2 Lymphocytes % (20.5 - 51.1 %) 19.2 L 19.1 L Monocytes % (1.7 - 9.3 %) 8.4 10.6 H Eosinophils % (0 - 5 %) 3.9 3.5 Basophils % (0.0 - 2.0 %) 0.6 0.6 Absolute Granulocytes (1.4 - 6.5 /CUMM) 3.7 3.9 Absolute Lymphocytes (1.2 - 3.4 /CUMM) 1.1 L 1.1 L Absolute Monocytes (0.10 - 0.60 /CUMM) 0.5 0.6 Absolute Eosinophils (0.0 - 0.7 /CUMM) 0.2 0.2 Absolute Basophils (0.0 - 0.2 /CUMM) 0 0 PUBS MCHC (33.0 - 37.0 G/DL) 34.2 33.8 Assessment/Plan Assessment/Plan This is a 46 year-old male with reactive ileus due to UTI/cdiff, now with return of bowel function who is tolerating clears with improved abdominal pain. Cont clears ? advance to full or low residue Cont serial abd exams Cont GI ppx Cont dvt ppx - hsq Will dw Dr. Saldana.
--- NOTE | 2017-02-10 10:51 | PN- Housestaff ---
Kelly CACERES,[facility] 02/10/17 1050: Subjective Follow-up For: Hematamesis C. dificile colitis Tachycardia Tele-Events Since Last Visit: NSR with heart 76-88. He had a transient episode of bradycardia down to 44. He had a two second pause this morning during his sleep. Subjective: Patient was seen and examined at bedside. He reports feeling much better. His abdominal pain has improved. He is slightly upset about the liquid diet and would like to be on solid food. He was explained the reason for the need for liquid diet. Review of Systems Constitutional: Reports: no symptoms. Objective Last 24 Hrs of Vital Signs/I&O Vital Signs Date Time Temp Pulse Resp B/P B/P Pulse O2 O2 Flow FiO2 Mean Ox Delivery Rate 02/10 0648 98.2 88 16 120/70 93 Nasal 1.0L Cannula 02/10 0000 Nasal 1.0L Cannula 02/09 2209 99.5 95 20 120/60 94 02/09 1452 98.9 90 18 132/86 95 Nasal 1.0L Cannula Intake & Output 02/10 1600 02/10 0800 02/10 0000 Intake Total 460 1012.2 Output Total 750 500 Balance -290 512.2 Intake, IV 400 450.2 Intake, Oral 60 562 Number 1 1 Bowel Movements Output, Urine 750 500 Physical Exam General Appearance: Alert, Oriented X3, Cooperative, No Acute Distress Skin: No Rashes, No Breakdown Skin Temp/Moisture Exam: Warm/Dry Sepsis Skin Exam (color): Normal for Ethnicity HEENT: Atraumatic Cardiovascular: Normal S1, Normal S2, No Murmurs Lungs: Clear to Auscultation, Normal Air Movement Abdomen: Soft, mild tenderness on superficial palpation Neurological: Normal Speech Extremities: No Edema Assessment/Plan Assessment: Mr. Lopez is a 46-year-old male with past medical history of TIA, vertigo, spina bifida, MR, GI bleed, neurogenic bladder, and diabetes mellitus who presented to the ED with complains of localized chest pain, diffuse abdominal pain, lightheadedness and vertigo. Patient was found to have hematuria on his way to CT head to evaluate if there any issues with his MANAGER TECHNOLOGY shunt on the evening of 02/06. The nurse stated that earlier that day he had had small brown clots in the urine. In the ICU he had no further episodes of hematemesis. An NG tube was placed which drained copious amount of fluids. He was transferred back to the telemetry floor after having a brief but stable course in ICU. Assessment and Plan: Urinary Tract Infection: Patient has a chronic indwelling torrez. He has recurrent UTIs the past year. He has paraplegia with neurogenic bladder so unable to sense any urinary symptoms if present. His lactic acid was elevated on admission which trended down with IVF. * His urine culture grew Proteus sensitive to Cefazolin * His previous white count and trended down. * He has had several episodes of UTI this year including urosepsis. * Will continue him on IV Cefazolin 1g q8. * Blood cultures unable to be obtained as the patient has extremely poor IV access. * A plan for SP catheter was discussed with the patient who is agreeable to the procedure. * Urology consult with Dr Garg has been placed. History of C.diff Colitis: In September he was admitted for recurrent C.dificle colitis and discharged on Vanco to complete 16 more days. He was re-admitted in December for Sepsis 2/2 UTI and found to have a positive C.difficile Ag and toxin. He was started on a taper Vanco dose at that time which remained until discharge. He was re-admitted at [facility] in January with same complaint and placed on Vanco taper for 7 days. * Will continue his oral vancomycin for now * Will make changes to vanco per ID if needed. Hematamesis/Reactive Ileus: Patient had an episode of hematemesis 02/06. His Hb has been stable. His NGT drained copious amounts of biliary fluid. CT scan on 02/06 showed focal twisted mesentery in the left upper quadrant and dilated small bowel loop of the proximal jejunum in this area in the left upper quadrant. * AXR from 02/09 shows interval decreased size of small bowel within the midabdomen, suggestive of a resolving small bowel obstruction. * Will continue serial AXR as needed. * No surgical interventions at this time. * Will obtain records from [facility] regarding his abdominal laprotomy/ laproscopy. Chest Pain Syndrome: Patient has been complaining of localized substernal chest pain since admission. He has been in sinus tachycardia since admission. * ACS was r/o with 3 sets of negative troponins. * His sinus tachycardia has resolved. * He is currently chest pain free. Testicular pain: On admission patient complained of testicular pain which he currently does not acknowledge. * An U/S was done which showed normal testes with moderate bilateral complicated hydroceles. * General surgery was consulted and have recommended no intervention at this time. Chronic medical problems: Continue home trazodone, divalproex, rivaroxaban, multivitamins, lorazepam, temazepam, percocet, melatonin Diet: Low fiber diet. DVT Prophylaxis: Xarelto Code status Full code Problem List: 1. UTI (urinary tract infection) due to urinary indwelling catheter Pain Ratin Pain Location: none Pain Goal: Remain pain free Pain Plan: none Tomorrow's Labs & Rationales: CBC Sourav Pérez 02/10/17 1149: Attending MD Review Statement Attending Statement Attending MD Statement: examined this patient, discuss w/resident/PA/MERCHANDISING EXECUTION ASSOCIATE, agreed w/resident/PA/MERCHANDISING EXECUTION ASSOCIATE, discussed with family, reviewed EMR data (avail), discussed with nursing, discussed with case mgmt, reviewed images, amended to note Attending Assessment/Plan: 1. Sepsis secondary to Proteus UTI 2. Neurogenic bladder with chronic indwelling Torrez catheter 3. C.difficile colitis 4. Small bowel obstruction Plan - Discontinue telemetry- Continue Cefazolin for UTI, ID suggested replacement of torrez with suprapubic cystostomy tube. Urology consult. - Follow surgery, ID, urology recommendations - Continue PO Vancomycin - Follow cultures - advacne diet as tolerated. mech soft today - Continue home medications for now, resume anti-coagulation xarelto. - DVT PPx
[2017-02-10 14:31] VITALS: BP 132/86
--- NOTE | 2017-02-10 15:37 | PN- Infect Dx ---
Subjective Subjective: Afebrile. He feels much improved today though he continues to complain of mild chest and upper abdominal discomfort. Objective Last 24 Hrs of Vital Signs/I&O Vital Signs Date Time Temp Pulse Resp B/P B/P Pulse O2 O2 Flow FiO2 Mean Ox Delivery Rate 02/10 1431 98.5 85 18 132/86 95 Nasal Cannula 02/10 0800 95 Nasal 1.0L Cannula 02/10 0648 98.2 88 16 120/70 93 Nasal 1.0L Cannula 02/10 0000 Nasal 1.0L Cannula 02/09 2209 99.5 95 20 120/60 94 Intake & Output 02/10 1600 02/10 0800 02/10 0000 Intake Total 460 1012.2 Output Total 1400 750 500 Balance -1400 -290 512.2 Intake, IV 400 450.2 Intake, Oral 60 562 Number 1 1 Bowel Movements Output, Urine 1400 750 500 Physical Exam Other Physical Findings: He appears comfortable in no acute distress Lungs are clear Heart regular rhythm with no murmur Abdomen is distended, nontender with positive bowel sounds Extremities 1+ edema both lower extremities Foster catheter remains in place Results Last 24 Hours of Lab Results: Laboratory Tests 02/10 0705 Chemistry Sodium (137 - 145 mmol/L) 140 Potassium (3.5 - 5.1 mmol/L) 4.2 Chloride (98 - 107 mmol/L) 106 Carbon Dioxide (22 - 30 mmol/L) 28 Anion Gap (5 - 16) 6 BUN (9 - 20 mg/dL) 8 L Creatinine (0.7 - 1.2 mg/dL) 0.5 L Estimated GFR (>60 ml/min) > 60 BUN/Creatinine Ratio (7 - 25 %) 16.0 Magnesium (1.6 - 2.3 mg/dL) 1.9 Hematology CBC w Diff NO MAN DIFF REQ WBC (4.8 - 10.8 /CUMM) 5.5 RBC (4.70 - 6.10 /CUMM) 3.70 L Hgb (14.0 - 18.0 G/DL) 10.6 L Hct (42 - 52 %) 31.0 L MCV (80.0 - 94.0 FL) 83.8 MCH (27.0 - 31.0 PG) 28.6 RDW (11.5 - 14.5 %) 15.6 H Plt Count (130 - 400 /CUMM) 235 MPV (7.4 - 10.4 FL) 8.1 Gran % (42.2 - 75.2 %) 67.9 Lymphocytes % (20.5 - 51.1 %) 19.2 L Monocytes % (1.7 - 9.3 %) 8.4 Eosinophils % (0 - 5 %) 3.9 Basophils % (0.0 - 2.0 %) 0.6 Absolute Granulocytes (1.4 - 6.5 /CUMM) 3.7 Absolute Lymphocytes (1.2 - 3.4 /CUMM) 1.1 L Absolute Monocytes (0.10 - 0.60 /CUMM) 0.5 Absolute Eosinophils (0.0 - 0.7 /CUMM) 0.2 Absolute Basophils (0.0 - 0.2 /CUMM) 0 PUBS MCHC (33.0 - 37.0 G/DL) 34.2 Last 24 Hours of Rex Results: No new cultures Recent Imaging Studies: Abdominal x-ray February 09 reveals interval decreased size of the small bowel, suggesting a resolving small bowel obstruction Assessment/Plan Impression: Stable, with temperatures and white blood cell count remaining normal, now off Cefazolin after nearly one week of treatment for a possible Proteus UTI, though, with the indwelling Foster catheter, this may have represented colonization. His C. difficile history was reviewed, with a second relapse diagnosed on his recent hospitalization at [facility], for which he was apparently treated with a course of Vancomycin, following which he was begun on a Vancomycin taper. Of note he has self catheterized in the past and, if this is not feasible, alternatives to a chronic Foster catheter, such as a suprapubic cystostomy, need to be considered. Suggestion: 1. Would pursue placement of a suprapubic cystostomy if patient agreeable so that his Foster can be removed 2. Begin Vancomycin 125 mg po every 24 hours today and continue for 1 week, followed by 125 mg po every 48 hours for 1 week, followed by 125 mg po every 72 hours for 2 weeks
--- NOTE | 2017-02-10 17:39 | PN- General Surgery ---
Subjective Subjective: f/up SBO, no abd pain clotilde some po, several BMs, no chills or nausea Objective Vital Signs and I&Os I reviewed Vital Signs Date Time Temp Pulse Resp B/P B/P Pulse O2 O2 Flow FiO2 Mean Ox Delivery Rate 02/10 1431 98.5 85 18 132/86 95 Nasal Cannula 02/10 0800 95 Nasal 1.0L Cannula 02/10 0648 98.2 88 16 120/70 93 Nasal 1.0L Cannula 02/10 0000 Nasal 1.0L Cannula 02/09 2209 99.5 95 20 120/60 94 I rev Intake & Output 02/10 1600 02/10 0800 02/10 0000 02/09 1600 02/09 0800 02/09 0000 Intake Total 434 304 4927.2 1747 100 150 Output Total 1400 750 500 550 250 500 Balance -800 -290 512.2 1197 -150 -350 Intake, IV 100 400 450.2 440 Intake, Oral 500 60 562 1307 100 150 Number 1 1 1 0 1 Bowel Movements Output, Urine 1400 750 500 550 250 500 Current Medications: I revi Current Medications Sig/Елена Start time Last Medication Dose Route Stop Time Status Admin Acetaminophen 650 MG Q6P PRN 02/04 0200 AC 02/05 PO 2334 Cefazolin Sodium 1,000 MG Q8 02/05 2200 DC 02/09 IV 2027 Dextrose/Sodium 1,000 ML Q20H 02/08 0030 DC 02/09 Chloride IV 1103 Glycerin 2 SPRAY Q2P PRN 02/07 1000 AC 02/07 PO 1705 Heparin Sodium 5,000 UNIT Q8 02/07 1420 DC 02/08 (Porcine) SC 02/10 1401 0630 Lorazepam 0.5 MG BID 02/10 220 UNVr PO 02/17 2159 Lorazepam 0.5 MG BID 02/07 1121 DC 02/10 IV 0833 Melatonin 6 MG AT BEDTIME NEED.. 02/04 0200 AC 02/08 PO 2057 Morphine Sulfate 1 MG Q8P PRN 02/09 0745 AC IV Multivitamins 1 TAB DAILY 02/04 1000 AC 02/10 PO 0833 Oxycodone/ 2 TAB Q6P PRN 02/04 0200 AC 02/06 Acetaminophen PO 1543 Pantoprazole Sodium 40 MG BID 02/07 1005 AC 02/10 IV 0833 Phenol 2 SPRAY Q2P PRN 02/07 0045 AC 02/08 EXT 1224 Rivaroxaban 20 MG 1700 02/10 1700 AC PO Temazepam 7.5 MG AT BEDTIME PRN 02/04 0200 AC PO Trazodone HCl 50 MG AT BEDTIME 02/04 220 AC 02/09 PO 2024 Trimethobenzamide HCl 200 MG 4 TIMES/DAY PRN 02/06 2345 AC IM Valproate Sodium 250 MG QPM 02/07 2200 AC 02/09 Sodium Chloride 50 ML IV 2115 Vancomycin HCl 125 MG Q48 02/17 1000 AC PO 02/23 1001 Vancomycin HCl 125 MG DAILY 02/12 1000 CAN PO 02/18 1001 Vancomycin HCl 125 MG Q24 02/10 1630 AC PO 02/16 1001 Results Last 48 Hours of Labs: I rev Laboratory Tests 02/10 02/09 0705 0645 Chemistry Sodium (137 - 145 mmol/L) 140 141 Potassium (3.5 - 5.1 mmol/L) 4.2 3.5 Chloride (98 - 107 mmol/L) 106 106 Carbon Dioxide (22 - 30 mmol/L) 28 29 Anion Gap (5 - 16) 6 7 BUN (9 - 20 mg/dL) 8 L 13 Creatinine (0.7 - 1.2 mg/dL) 0.5 L 0.6 L Estimated GFR (>60 ml/min) > 60 > 60 BUN/Creatinine Ratio (7 - 25 %) 16.0 Glucose (65 - 99 mg/dL) 104 H Calcium (8.4 - 10.2 mg/dL) 8.5 Phosphorus (2.5 - 4.5 mg/dL) 3.7 Magnesium (1.6 - 2.3 mg/dL) 1.9 1.9 Total Bilirubin (0.2 - 1.3 mg/dL) 0.1 L AST (17 - 59 U/L) 10 L ALT (21 - 72 U/L) 16 L Albumin (3.5 - 5.0 g/dL) 2.4 L Hematology CBC w Diff NO MAN DIFF REQ NO MAN DIFF REQ WBC (4.8 - 10.8 /CUMM) 5.5 6.0 RBC (4.70 - 6.10 /CUMM) 3.70 L 3.66 L Hgb (14.0 - 18.0 G/DL) 10.6 L 10.3 L Hct (42 - 52 %) 31.0 L 30.6 L MCV (80.0 - 94.0 FL) 83.8 83.7 MCH (27.0 - 31.0 PG) 28.6 28.3 RDW (11.5 - 14.5 %) 15.6 H 15.7 H Plt Count (130 - 400 /CUMM) 235 256 MPV (7.4 - 10.4 FL) 8.1 7.7 Gran % (42.2 - 75.2 %) 67.9 66.2 Lymphocytes % (20.5 - 51.1 %) 19.2 L 19.1 L Monocytes % (1.7 - 9.3 %) 8.4 10.6 H Eosinophils % (0 - 5 %) 3.9 3.5 Basophils % (0.0 - 2.0 %) 0.6 0.6 Absolute Granulocytes (1.4 - 6.5 /CUMM) 3.7 3.9 Absolute Lymphocytes (1.2 - 3.4 /CUMM) 1.1 L 1.1 L Absolute Monocytes (0.10 - 0.60 /CUMM) 0.5 0.6 Absolute Eosinophils (0.0 - 0.7 /CUMM) 0.2 0.2 Absolute Basophils (0.0 - 0.2 /CUMM) 0 0 PUBS MCHC (33.0 - 37.0 G/DL) 34.2 33.8 Assessment/Plan Assessment/Plan Resolved ileus / SBO, advance diet avoid narcotics
--- NOTE | 2017-02-10 18:08 | Event Note ---
Event Note Event Note: S: patient is complaining of chest pain in the middle of chest radiating up and down B: patient is 46-year-old male with past medical history of TIA, vertigo, spina bifida, MR, GI bleed, neurogenic bladder, and diabetes mellitus who presented to the ED with complains of localized chest pain, diffuse abdominal pain, lightheadedness and vertigo. He is being evaluated for urinary tract infection and history of C. difficile colitis A/P patient lying comfortably in bed no acute distress. Complaints of chest pain 7 out of 10 sharp radiating up and down mid chest/epigastric. No aggravating or relieving factor. Pt states he feels bloated Vital signs within normal limits Physical examination are unremarkable Troponins and EKG ordered. EKG does not show any acute change. Tums ordered I sat with a pt and had a chat. He started feeeling better immediately I went in to recheck the pt, he was eating mac and cheese and resting comfortably. States pain is better trops negative
[2017-02-10 22:55] VITALS: BP 132/76
[2017-02-11 06:46] VITALS: BP 104/68
--- NOTE | 2017-02-11 07:15 | PN- Housestaff ---
Kelly CACERES,[facility] 02/11/17 0714: Subjective Follow-up For: Hematamesis C. dificile colitis Tachycardia Tele-Events Since Last Visit: off tele Subjective: patient was seen and examined at bedside. He feels much better. Denies being in any pain. He offers no complaints Review of Systems Constitutional: Reports: no symptoms. Objective Last 24 Hrs of Vital Signs/I&O Vital Signs Date Time Temp Pulse Resp B/P B/P Pulse O2 O2 Flow FiO2 Mean Ox Delivery Rate 02/11 0800 95 Nasal 1.0L Cannula 02/11 0646 98.1 77 16 104/68 95 Nasal Cannula 02/11 0328 103 92 02/11 0000 Nasal 1.0L Cannula 02/10 2255 98.6 80 16 132/76 96 Nasal Cannula 02/10 1600 Nasal 1.0L Cannula 02/10 1431 98.5 85 18 132/86 95 Nasal Cannula Intake & Output 02/11 1600 02/11 0800 02/11 0000 Intake Total 100 1210 Output Total 500 1700 Balance -400 -490 Intake, Oral 100 1210 Number 1 4 Bowel Movements Output, Urine 500 1700 Physical Exam General Appearance: Alert, Oriented X3, Cooperative, No Acute Distress Skin: No Rashes, No Breakdown Skin Temp/Moisture Exam: Warm/Dry Sepsis Skin Exam (color): Normal for Ethnicity HEENT: Atraumatic Cardiovascular: Normal S1, Normal S2, No Murmurs Lungs: Clear to Auscultation, Normal Air Movement Abdomen: Soft, No Tenderness Neurological: Normal Speech Extremities: No Edema Assessment/Plan Assessment: Mr. Lopez is a 46-year-old male with past medical history of TIA, vertigo, spina bifida, MR, GI bleed, neurogenic bladder, and diabetes mellitus who presented to the ED with complains of localized chest pain, diffuse abdominal pain, lightheadedness and vertigo. 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 The nurse stated that earlier that day he had had small brown clots in the urine. In the ICU he had no further episodes of hematemesis. An NG tube was placed which drained copious amount of fluids. He was transferred back to the telemetry floor after having a brief but stable course in ICU. Assessment and Plan: Urinary Tract Infection: Patient has a chronic indwelling torrez. He has recurrent UTIs the past year. He has paraplegia with neurogenic bladder so unable to sense any urinary symptoms if present. His lactic acid was elevated on admission which trended down with IVF. * His urine culture grew Proteus sensitive to Cefazolin * His previous white count and trended down. * He has had several episodes of UTI this year including urosepsis. * He has completed his course of antibiotics. * A plan for SP catheter was discussed with the patient who is agreeable to the procedure. * He has been seen in the past by Dr Eugene. He can follow him up as an outpatient for placement of S/P tube. History of C.diff Colitis: In September he was admitted for recurrent C.dificle colitis and discharged on Vanco to complete 16 more days. He was re-admitted in December for Sepsis 2/2 UTI and found to have a positive C.difficile Ag and toxin. He was started on a taper Vanco dose at that time which remained until discharge. He was re-admitted at [facility] in January with same complaint and placed on Vanco taper for 7 days. * Will continue his oral vancomycin. The dosage has been adjusted per ID recs. Hematamesis/Reactive Ileus: Patient had an episode of hematemesis 02/06. His Hb has been stable. His NGT drained copious amounts of biliary fluid. CT scan on 02/06 showed focal twisted mesentery in the left upper quadrant and dilated small bowel loop of the proximal jejunum in this area in the left upper quadrant. * AXR from 02/09 shows interval decreased size of small bowel within the midabdomen, suggestive of a resolving small bowel obstruction. * His reactive ileus has resolved. * He is stable to be discharged. Chest Pain Syndrome: Patient has been complaining of localized substernal chest pain since admission. He has been in sinus tachycardia since admission. * ACS was r/o with 3 sets of negative troponins. * His sinus tachycardia has resolved. * He is currently chest pain free. Testicular pain: On admission patient complained of testicular pain which he currently does not acknowledge. * An U/S was done which showed normal testes with moderate bilateral complicated hydroceles. * General surgery was consulted and have recommended no intervention at this time. Chronic medical problems: Continue home trazodone, divalproex, rivaroxaban, multivitamins, lorazepam, temazepam, percocet, melatonin Diet: Low fiber diet. DVT Prophylaxis: Xarelto Code status Full code Problem List: 1. UTI (urinary tract infection) due to urinary indwelling catheter Pain Ratin Pain Location: none Pain Goal: Remain pain free Pain Plan: none Tomorrow's Labs & Rationales: none Sourav Pérez 02/11/17 1041: Attending MD Review Statement Attending Statement Attending MD Statement: examined this patient, discuss w/resident/PA/ANNUAL GIVING MANAGER, agreed w/resident/PA/ANNUAL GIVING MANAGER, discussed with family, reviewed EMR data (avail), discussed with nursing, discussed with case mgmt, reviewed images, amended to note Attending Assessment/Plan: Patient ileus/SBO reoslved with tolerating PO with positive bowel movements. Patient denies any chest pain. His hematuria is resolved. Xarelto resumed. Urology consulted. Patient is on iv cefazolin as per ID. Patient/family is agreeable for suprapubic cystostomy tube. Plan to replace torrez and place SCT i/ p vs o/p as per urology. Anticipate dc soon to facility. Urology consulted. Patient is on iv cefazolin as per ID. Patient/family is agreeable for suprapubic cystostomy tube. Plan to replace torrez and place SCT i/ p vs o/p as per urology. Anticipate dc soon to facility.
[2017-02-11 08:32] LABS: ABSOLUTE BASOPHIL COUNT 0 /CUMM (0.0-0.2); ABSOLUTE EOSINOPHIL COUNT 0.3 /CUMM (0.0-0.7); ABSOLUTE GRANULOCYTE CT 4.1 /CUMM (1.4-6.5); ABSOLUTE LYMPH COUNT 1.4 /CUMM (1.2-3.4); ABSOLUTE MONOCYTE COUNT 0.5 /CUMM (0.10-0.60); BASOPHIL % 0.5 % (0.0-2.0); EOSINOPHIL % 4.5 % (0-5); GRANULOCYTE % 64.4 % (42.2-75.2); HEMATOCRIT 32.4 % (42-52); MEAN CORPUSCULAR HGB CONC 33.2 G/DL (33.0-37.0); MEAN CORPUSCULAR VOLUME 84.2 FL (80.0-94.0); MEAN PLATELET VOLUME 7.8 FL (7.4-10.4); PLATELET COUNT 327 /CUMM (130-400); RBC DISTRIBUTION WIDTH 15.3 % (11.5-14.5); RED BLOOD CELL CT 3.85 /CUMM (4.70-6.10); WHITE BLOOD CELL COUNT 6.3 /CUMM (4.8-10.8)
--- NOTE | 2017-02-11 11:13 | Cons- Psychiatry ---
Psychiatric Consult Date of Consult: 02/11/17 Reason for Consult: Evaluate "anxiety issues - need for SSRI." History of Present Illness: Mr. Lopez is a 46-year-old male with past medical history of TIA, vertigo, spina bifida, MR, GI bleed, neurogenic bladder, and diabetes mellitus who presented to the ED with complains of localized chest pain, diffuse abdominal pain, lightheadedness and vertigo. Patient has a chronic indwelling torrez. He has recurrent UTIs the past year. He has paraplegia with neurogenic bladder so unable to sense any urinary symptoms if present. Allergies: Coded Allergies: latex (UNKNOWN 02/03/17) Current Medications: Current Medications Sig/Елена Start time Last Medication Dose Route Stop Time Status Admin Acetaminophen 650 MG .STK-MED ONE 02/11 211 DC PO 02/11 021 Acetaminophen 650 MG Q6P PRN 02/04 200 AC 02/11 PO 0212 Calcium Carbonate 500 MG DAILY 02/10 1757 AC 02/11 PO 0931 Escitalopram Oxalate 10 MG DAILY 02/11 1009 AC PO Glycerin 2 SPRAY Q2P PRN 02/07 1000 AC 02/07 PO 1705 Lorazepam 0.5 MG BID 02/10 2200 AC 02/11 PO 02/17 215 0932 Lorazepam 0.5 MG BID 02/07 1121 DC 02/10 IV 0833 Melatonin 6 MG AT BEDTIME NEED.. 02/04 0200 AC 02/08 PO 2057 Morphine Sulfate 1 MG Q8P PRN 02/09 0745 AC IV Multivitamins 1 TAB DAILY 02/04 1000 AC 02/11 PO 0931 Oxycodone/ 2 TAB Q6P PRN 02/04 0200 DC 02/06 Acetaminophen PO 1543 Pantoprazole Sodium 40 MG BID 02/07 1005 AC 02/11 IV 0931 Phenol 2 SPRAY Q2P PRN 02/07 0045 AC 02/08 EXT 1224 Rivaroxaban 20 MG 1700 02/10 1700 AC 02/10 PO 1742 Temazepam 7.5 MG AT BEDTIME PRN 02/04 0200 AC PO Trazodone HCl 50 MG AT BEDTIME 02/04 2200 AC 02/10 PO 2201 Trimethobenzamide HCl 200 MG 4 TIMES/DAY PRN 02/06 2345 AC IM Valproate Sodium 250 MG QPM 02/07 2200 AC 02/10 Sodium Chloride 50 ML IV 2202 Vancomycin HCl 125 MG Q48 02/17 1000 AC PO 02/23 1001 Vancomycin HCl 125 MG DAILY 02/12 1000 CAN PO 02/18 1001 Vancomycin HCl 125 MG Q24 02/10 1630 AC 02/11 PO 02/16 1001 0931 Past History Past Medical History Neurological: TIA, vertigo, spina bifida intellectual disability Cardiovascular: hypertension, DVT Respiratory: NONE Gastrointestinal: ileus rectal bleeding Hepatic: NONE Renal: neurogenic bladder, urinary incontinence, recurrent UTI chronic indwelling Torrez Musculoskeletal: NONE Psychiatric: NONE Endocrine: diabetes Blood Disorders: NONE Past Surgical History Surgical History: s/p recent surgery for SBO Psychosocial History Strengths/Capabilities: "Being friendly. I try to help out with people who need help. I try to help out the elderly." Physical Limitations (Interventions): Paraplegia with an indwelling Torrez catheter. Psychiatric Treatment History Psych Treatment Psychiatric Treatment No Risk Factors: chronic/serious med cond., high anxiety/distress, male Substance Use/Abuse History Drug Use/Abuse Substances Used/Abused No Substance Abuse Treatment Substance Abuse Treatment Past Substance Abuse [place] No Assessment/Plan Mental Status Orientation: Person, Place, Situation Affect: Flat Speech: WNL Neuro-vegetative: Anhedonia (Sleeps well with trazodone), Sleep Disturbance Mental Status Exam: "I am anxious all the time. My chest gets tight from the anxiety. Then I have a hard time breathing." This is a pleasant, 46-year-old, calm and cooperative male, with history of intellectual disability, and paraplegia. Has been living in a usp, and recently in a detention, where he feels comfortable. He reports some current anxiety surrounding possible placement of a suprapubic catheter. However he reports chronic depression and anxiety. He reports that in the past, he had worked at [employer] and [employer] for 20 years, until he was let go after an accusation of sexual harassment. He denies any sexual harassment, stating that he accidentally bumped into a coworker. He denies alcohol or any substance abuse, stating that at special occasions he may have one beer, or a glass of champagne. His significant relationships are with his sister Kate, and his sister Deb, who he says are his legal guardians. He also has a friend, Jon, with whom he remains in contact. Depression 8/10; anxiety 9/10 (with 10 the worst.) Denies suicidal ideation, homicidal ideation, auditory and visual hallucinations , paranoid ideation. He says that he has heard his parents voices twice since their deaths. Reports that he sleeps well, after taking sleeping medication. States that his appetite is good, however he is a picky eater, preferring pizza, macaroni and cheese, and hamburgers. He does not like vegetables, but does like corn. Reports that his concentration is "okay." Speech is well articulated, goal-directed, average in rate, volume and tone. Alert and oriented to person, place, time and situation. Logical. Lab Results: Laboratory Tests 02/11 02/10 0640 1840 Chemistry Troponin I (<0.11 ng/ml) < 0.01 Hematology CBC w Diff NO MAN DIFF REQ WBC (4.8 - 10.8 /CUMM) 6.3 RBC (4.70 - 6.10 /CUMM) 3.85 L Hgb (14.0 - 18.0 G/DL) 10.8 L Hct (42 - 52 %) 32.4 L MCV (80.0 - 94.0 FL) 84.2 MCH (27.0 - 31.0 PG) 28.0 RDW (11.5 - 14.5 %) 15.3 H Plt Count (130 - 400 /CUMM) 327 MPV (7.4 - 10.4 FL) 7.8 Gran % (42.2 - 75.2 %) 64.4 Lymphocytes % (20.5 - 51.1 %) 22.7 Monocytes % (1.7 - 9.3 %) 7.9 Eosinophils % (0 - 5 %) 4.5 Basophils % (0.0 - 2.0 %) 0.5 Absolute Granulocytes (1.4 - 6.5 /CUMM) 4.1 Absolute Lymphocytes (1.2 - 3.4 /CUMM) 1.4 Absolute Monocytes (0.10 - 0.60 /CUMM) 0.5 Absolute Eosinophils (0.0 - 0.7 /CUMM) 0.3 Absolute Basophils (0.0 - 0.2 /CUMM) 0 PUBS MCHC (33.0 - 37.0 G/DL) 33.2 02/10 02/09 0705 0645 Chemistry Sodium (137 - 145 mmol/L) 140 141 Potassium (3.5 - 5.1 mmol/L) 4.2 3.5 Chloride (98 - 107 mmol/L) 106 106 Carbon Dioxide (22 - 30 mmol/L) 28 29 Anion Gap (5 - 16) 6 7 BUN (9 - 20 mg/dL) 8 L 13 Creatinine (0.7 - 1.2 mg/dL) 0.5 L 0.6 L Estimated GFR (>60 ml/min) > 60 > 60 BUN/Creatinine Ratio (7 - 25 %) 16.0 Glucose (65 - 99 mg/dL) 104 H Calcium (8.4 - 10.2 mg/dL) 8.5 Phosphorus (2.5 - 4.5 mg/dL) 3.7 Magnesium (1.6 - 2.3 mg/dL) 1.9 1.9 Total Bilirubin (0.2 - 1.3 mg/dL) 0.1 L AST (17 - 59 U/L) 10 L ALT (21 - 72 U/L) 16 L Albumin (3.5 - 5.0 g/dL) 2.4 L Hematology CBC w Diff NO MAN DIFF REQ NO MAN DIFF REQ WBC (4.8 - 10.8 /CUMM) 5.5 6.0 RBC (4.70 - 6.10 /CUMM) 3.70 L 3.66 L Hgb (14.0 - 18.0 G/DL) 10.6 L 10.3 L Hct (42 - 52 %) 31.0 L 30.6 L MCV (80.0 - 94.0 FL) 83.8 83.7 MCH (27.0 - 31.0 PG) 28.6 28.3 RDW (11.5 - 14.5 %) 15.6 H 15.7 H Plt Count (130 - 400 /CUMM) 235 256 MPV (7.4 - 10.4 FL) 8.1 7.7 Gran % (42.2 - 75.2 %) 67.9 66.2 Lymphocytes % (20.5 - 51.1 %) 19.2 L 19.1 L Monocytes % (1.7 - 9.3 %) 8.4 10.6 H Eosinophils % (0 - 5 %) 3.9 3.5 Basophils % (0.0 - 2.0 %) 0.6 0.6 Absolute Granulocytes (1.4 - 6.5 /CUMM) 3.7 3.9 Absolute Lymphocytes (1.2 - 3.4 /CUMM) 1.1 L 1.1 L Absolute Monocytes (0.10 - 0.60 /CUMM) 0.5 0.6 Absolute Eosinophils (0.0 - 0.7 /CUMM) 0.2 0.2 Absolute Basophils (0.0 - 0.2 /CUMM) 0 0 PUBS MCHC (33.0 - 37.0 G/DL) 34.2 33.8 Diffential Diagnosis: Generalized anxiety disorder. Depressive disorder, unspecified. Rule out unspecified insomnia disorder Impression: Patient reports chronic and continuous high levels of depression and anxiety. His report of chest tightness and difficulty breathing in response to high anxiety may indicate that he is having panic attacks. Patient requests an antidepressant/anxiolytic medication to help with this condition. Provisional Treatment Plan: 1. Consider adding Lexapro 10 mg daily for depression and anxiety. 2. Consider continuing trazodone 50 mg at bedtime for good nighttime sleep.
[2017-02-11] MEDS ORDERED: VANCOMYCIN125 MG/2.5 PO (11:55)
[2017-02-11] MEDS ORDERED: LEXAPRO10 M1 PO (11:55)
[2017-02-11 13:11] VITALS: BP 110/70
== END 2017-02-11 19:10 | DRG 698 ==
LOC: ERH 21:12 → ERHI 22:25 → 1NO 22:25 → ENRESERV 02-04 00:53 → 1NO 02-04 01:32 → CRI 02-06 23:03 → 1NO 02-08 17:00
PROVIDERS: Emergency Medicine; Hospitalist; Internal Medicine; Radiology Vascular & Interventional Radiology; Student in an Organized Health Care Education/Training Program
DX: T83.511A Infection and inflammatory reaction due to indwelling urethral catheter, initial encounter (principal); A41.9 Sepsis, unspecified organism; K56.609 Unspecified intestinal obstruction, unspecified as to partial versus complete obstruction; K92.0 Hematemesis; A04.71 Enterocolitis due to Clostridium difficile, recurrent; E87.2 Acidosis; G82.20 Paraplegia, unspecified; Q07.03 Arnold-Chiari syndrome with spina bifida and hydrocephalus; E11.40 Type 2 diabetes mellitus with diabetic neuropathy, unspecified; E83.52 Hypercalcemia; Q05.9 Spina bifida, unspecified; N31.9 Neuromuscular dysfunction of bladder, unspecified; N39.498 Other specified urinary incontinence; F79 Unspecified intellectual disabilities; R00.0 Tachycardia, unspecified; B96.89 Other specified bacterial agents as the cause of diseases classified elsewhere; B96.4 Proteus (mirabilis) (morganii) as the cause of diseases classified elsewhere; N44.1 Cyst of tunica albuginea testis; Z86.73 Personal history of transient ischemic attack (TIA), and cerebral infarction without residual deficits; I10 Essential (primary) hypertension; Z86.718 Personal history of other venous thrombosis and embolism; Z79.01 Long term (current) use of anticoagulants; G89.4 Chronic pain syndrome; N43.3 Hydrocele, unspecified; F41.9 Anxiety disorder, unspecified; K59.09 Other constipation; G47.33 Obstructive sleep apnea (adult) (pediatric); Z91.19 Patient's noncompliance with other medical treatment and regimen
CPT/HCPCS: 1NP; CCU; ERO; 36415; 74000; 74020; 74177; 81001; 82436; 86920; 87040; 87086; 93005; 93010; 94799; 96374; 99291; J0131; J0690; J0696; J1644; J3490; J7042

== ENCOUNTER 2017-06-12 05:21 | Inpatient (IN) | payer OTHER, MEDICARE ==
[~2017-06-12] VITALS: Ht 152.4 cm; Wt 99.5 kg
[~2017-06-12 05:21] MED LIST changes: +LEXAPRO10 M1 PO; +MELATONIN3 M4 PO; +MULTIVITAMINS1 EAC9 PO; +TEMAZEPAM7.5 M1 PO; +TRAZODONE HCL50 M1 PO
--- NOTE | 2017-06-12 05:30 | ED GENERAL ADULT ---
See Addendum History of Present Illness General Chief Complaint: General Adult Stated Complaint: "NOT FEELING WELL, FEVER" Source: patient Exam Limitations: no limitations Vital Signs & Intake/Output Vital Signs & Intake/Output Vital Signs Date Time Temp Pulse Resp B/P B/P Pulse O2 O2 Flow FiO2 Mean Ox Delivery Rate 06/12 916 99.7 125 18 112/59 95 Nasal 2.0L Cannula 06/12 0708 100.9 124 18 117/65 95 Room Air 06/12 0609 Nasal 2.0L Cannula 06/12 0528 100.8 114 18 130/74 95 Nasal 2.0L Cannula Allergies Coded Allergies: latex (UNKNOWN 02/03/17) Reconcile Medications Acetaminophen 325 MG TABLET 2 TAB PO Q6H PRN PAIN/TEMP>/100 (Reported) Acetaminophen (Acephen) 650 MG SUPP.RECT 1 SUPP KS Q6H PRN PAIN/TEMP>100 ( Reported) Bisacodyl 10 MG SUPP.RECT 1 SUP RC PRN CONSTIPATION (Reported) Divalproex Sodium (Depakote) 250 MG TABLET.DR 250 MG PO QPM DISRUPTIVE BEHAVIORS (Reported) Escitalopram Oxalate (Lexapro) 10 MG TABLET 10 MG PO DAILY Anxiety Furosemide 20 MG TABLET 1 TAB PO DAILY DIURETIC (Reported) Lorazepam (Ativan) 0.5 MG TABLET 1 TAB PO BID ANXIETY (Reported) Magnesium Hydroxide (Milk Of Magnesia) 400 MG/5 ML ORAL.SUSP 30 ML PO DAILY PRN CONSTIPATION (Reported) Melatonin 3 MG TABLET 6 MG PO QHS PRN INSOMNIA (Reported) Multiple Vitamin (Multivitamins) 1 EACH TABLET 1 TAB PO DAILY SUPPLEMENT ( Reported) Na Phos,M-B/Na Phos,Di-Ba (Fleet Enema) 19 GRAM-7 GRAM/118 ML ENEMA 1 E RC DAILY PRN CONSTIPATION (Reported) Potassium Chloride (K-Tab ER) 20 MEQ TABLET.ER 1 TAB PO DAILY SUPPLEMENT ( Reported) Rivaroxaban (Xarelto) 20 MG TABLET 1 TAB PO QPM DVT (Reported) with food Temazepam 7.5 MG CAPSULE 1 CAP PO QHS PRN SLEEP (Reported) Trazodone HCl 50 MG TABLET 1 TAB PO QHS MENTAL HEALTH/SLEEP (Reported) Vancomycin HCl 125 MG/2.5 ML SYRINGE 125 MG PO Q24 ANTIBIOTIC Triage Note: PT BIBA FROM [facility] WITH C/O GENERALIZED NOT FEELING WELL AND FEVER. PT HAS BEEN TREATED FOR CDIFF UNTIL A COUPLE OF DAYS AGO. PT HAS HX SPINA BIFIDA AND HAS A APODACA. ON 2L O2 AT BASELINE, O2 SAT 95% ON 2L. PT ALSO REPORTS COUGHING UP PINK SPUTUM. AOX3, WARM TO TOUCH, TEMP 100.8F Triage Nurses Notes Reviewed? yes Onset: Gradual Duration: hour(s): Timing: recent history Injury Environment: home Severity: moderate Modifying Factors: Improves With: rest. Associated Symptoms: body aches HPI: 46 yo gentleman h/o spina bifida, h/o c. diff colitis, presents from SNF with fever to 101-2, abdominal distension, vomiting "frothy stuff," increased fatigue. He finished vancomycin orally on 05/19/17. These symptoms began yesterday evening. (Joycelyn CACERES,Fermín Lock) Past History Travel History Traveled to [place] past 21 day No Medical History Any Pertinent Medical History? see below for history Neurological: TIA, vertigo, spina bifida intellectual disability Cardiovascular: hypertension, DVT Respiratory: NONE Gastrointestinal: ileus rectal bleeding Hepatic: NONE Renal: neurogenic bladder, urinary incontinence, recurrent UTI chronic indwelling [place] Musculoskeletal: NONE Psychiatric: NONE Endocrine: diabetes Blood Disorders: NONE History of MRSA: No History of VRE: No History of CDIFF: Yes Surgical History Surgical History: s/p recent surgery for SBO Psychosocial History What is your primary language Slovak Tobacco Use: Quit >30 days ago ETOH Use: denies use Family History Hx Contributory? No (Joycelyn CACERES,Fermín Lock) Review of Systems Review of Systems Constitutional: Reports: no symptoms. EENTM: Reports: no symptoms. Respiratory: Reports: no symptoms. Cardiovascular: Reports: no symptoms. GI: Reports: no symptoms. Genitourinary: Reports: no symptoms. Musculoskeletal: Reports: no symptoms. Skin: Reports: no symptoms. Neurological/Psychological: Reports: no symptoms. Hematologic/Endocrine: Reports: no symptoms. Immunologic/Allergic: Reports: no symptoms. All Other Systems: Reviewed and Negative (Joycelyn CACERES,Fermín Lock) Physical Exam Physical Exam General Appearance: well developed/nourished, no apparent distress Head: atraumatic, normal appearance Ears, Nose, Throat: normal pharynx, normal ENT inspection Neck: normal inspection, supple, full range of motion Respiratory: normal breath sounds, chest non-tender, no respiratory distress, lungs clear, decreased breath sounds Cardiovascular: regular rate/rhythm, edema, gallop, JVD, murmur, normal peripheral pulses Gastrointestinal: soft, non-tender, distension, highpitched bowel sounds. Back: normal inspection, normal range of motion Extremities: normal inspection, normal capillary refill, normal range of motion, no edema Neurologic/Psych: no motor/sensory deficits, awake, alert, oriented x 3 Skin: intact, normal color, warm/dry Core Measures ACS in differential dx? No CVA/TIA Diagnosis: No Sepsis Present: Yes Sepsis Focused Exam Completed? Yes (Joycelyn CACERES,Fermín Lock) Progress Differential Diagnoses I considered the following diagnoses in my evaluation of the patient: uti pneumonia c.diff, colitis etc. Plan of Care: Orders Procedure Date/time Status CBC WITHOUT DIFFERENTIAL 06/13 0600 Active BASIC ELECTROLYTES PLUS BUN&CR 06/13 0600 Active Regular Diet 06/12 L Active Add-on Test (ER Only) 06/12 1034 Active Patient Data 06/12 1017 Active C.DIFFICILE 06/12 1016 Active OXYGEN SETUP (GEN) 06/12 0913 Active Saline Lock 06/12 0913 Active Admit to inpatient 06/12 0913 Active Vital Signs 06/12 0913 Active Activity/Ambulation 06/12 0913 Active Code Status 06/12 0913 Active CREATINE PHOSPHOKINASE 06/12 0552 Active BLOOD CULTURE 06/12 0540 Active RAPID VIRAL INFLUENZA A 06/12 0531 Complete CULTURE,URINE 06/12 0531 Active BLOOD CULTURE 06/12 0531 Active URINALYSIS 06/12 0531 Complete TROPONIN LEVEL 06/12 0531 Active LIPASE 06/12 0531 Active HEPATIC FUNCTION PANEL 06/12 0531 Active CBC WITHOUT DIFFERENTIAL 06/12 0531 Complete BASIC METABOLIC PANEL 06/12 0531 Active AMYLASE 06/12 0531 Active EKG 06/12 0531 Active Current Medications Sig/Елена Start time Last Medication Dose Stop Time Status Admin Sodium Chloride 1,000 ML BOLUS ONE 06/12 1030 AC (Normal Saline 0.9%) 06/12 1129 Laboratory Tests 06/12/17 0557: Urinalysis MOD H, Urine Color YEL, Urine Clarity TURBD H, Urine pH 7.0, Ur Specific Metz 1.020, Urine Protein 30 H, Urine Ketones NEG, Urine Nitrite POS H, Urine Bilirubin NEG, Urine Urobilinogen 1.0, Ur Leukocyte Esterase MOD H, Ur Microscopic SEDIMENT EXAMINED, Urine RBC 1-3, Urine WBC 50-75 H, Urine Bacteria MANY H, Urine Mucus MANY H, Urine Hemoglobin SMALL H, Urine Glucose NEG 06/12/17 0552: Anion Gap 13, Estimated GFR > 60, BUN/Creatinine Ratio 28.6 H, Glucose 125 H, Calcium 9.3, Total Bilirubin 0.8, Direct Bilirubin 0.4, AST 27, ALT 34, Alkaline Phosphatase 72, Creatine Kinase Pending, Troponin I < 0.01, Total Protein 7.1, Albumin 3.9, Amylase 37, Lipase 52, CBC w Diff NO MAN DIFF REQ, RBC 5.24, MCV 84.5, MCH 27.8, MCHC 32.9 L, RDW 15.1 H, MPV 8.6, Gran % 92.1 H, Lymphocytes % 3.2 L, Monocytes % 4.4, Eosinophils % 0.3, Basophils % 0, Absolute Granulocytes 20.5 H, Absolute Lymphocytes 0.7 L, Absolute Monocytes 1.0 H, Absolute Eosinophils 0.1, Absolute Basophils 0 Microbiology 06/12 1016 STOOL: Clostridium difficile Toxin A & B - ORD 06/12 0557 URINE ROUT: Urine Culture - RECD 06/12 0545 NASOPHARYN: Influenza Virus A & B Rapid Smear - COMP 06/12 0540 BLOOD: Blood Culture - ORD 06/12 0531 BLOOD: Blood Culture - ORD Initial ED EKG: sinus tach, no acute changes Hand-Off Endorsed To: Craig Batista MD Endorsed Time: 0700 Pending: CT (Joycelyn CACERES,Fermín Lock) Diagnostic Imaging: Viewed by Me: CT Scan. Discussed w/RAD: CT Scan. Radiology Impression: 1. There is linear scar/subsegmental atelectasis at the posterior left apex and within the right middle lobe. The latter is seen in association with elevation of the right hemidiaphragm. 2. There is a mosaic perfusion pattern, suggesting small airways or small vessels disease related to infectious or inflammatory etiologies. 3. There are benign, calcified pulmonary granulomas. A 4 mm noncalcified lateral left base nodule is stable to diminished from prior examinations as remote as 03/15/2016. Recommend follow-up via Fleischner Society criteria. According to the UPDATED 2017 Fleischner Society recommendations, the advised follow-up imaging for solid nodules < 6 mm is: LOW RISK PATIENT: No routine follow-up. HIGH RISK PATIENT: Optional CT at 12 months. 4. No sizable mediastinal or hilar adenopathy is seen. 5. Small nonobstructing calculi are seen within the left renal pelvis. No further urinary calculi or hydronephroureter are seen bilaterally. 6. No bowel obstruction, free intraperitoneal air or abscess is seen. There is no appendicitis or diverticulitis. 7. No abdominopelvic mass, free fluid or lymphadenopathy is seen. 8. There are thoracolumbar degenerative changes. A right L5 spondylolysis defect is noted. (Craig Batista MD) Departure Departure Disposition: STILL A PATIENT Condition: Stable Clinical Impression Primary Impression: Sepsis Secondary Impressions: Urinary tract infection Referrals: Darrell Whitmore MD (PCP/Family) Departure Forms: Customer Survey General Discharge Information Comments 06/12/17, 7:14am... discussed results of blood work and u/a with patients.... ct scans pending... pt signed out to dr. batista. (Fermín Hirsch MD) Admission Note Spoke With: Joe Ordoñez MD Documentation of Exam: Documentation of any treatments & extenuating circumstances including Concerns Regarding Discharge (functional status, medication knowledge or non-compliance, living conditions, etc.) that warrant an admission rather than observation: IV antibiotics antipyretic medication adjustment physical therapy ID evaluation continuing care discharge planning (Craig Batista MD) Critical Care Note Critical Care Note Critical Care Time: 30-74 min (Joycelyn CACERES,Fermín Lock)
[2017-06-12 06:04] LABS: ABSOLUTE BASOPHIL COUNT 0 /CUMM (0.0-0.2); ABSOLUTE EOSINOPHIL COUNT 0.1 /CUMM (0.0-0.7); ABSOLUTE GRANULOCYTE CT 20.5 /CUMM (1.4-6.5); ABSOLUTE LYMPH COUNT 0.7 /CUMM (1.2-3.4); BASOPHIL % 0 % (0.0-2.0); EOSINOPHIL % 0.3 % (0-5); GRANULOCYTE % 92.1 % (42.2-75.2); HEMATOCRIT 44.3 % (42-52); MEAN CORPUSCULAR HGB 27.8 PG (27.0-31.0); MEAN CORPUSCULAR HGB CONC 32.9 G/DL (33.0-37.0); MEAN CORPUSCULAR VOLUME 84.5 FL (80.0-94.0); MEAN PLATELET VOLUME 8.6 FL (7.4-10.4); PLATELET COUNT 240 /CUMM (130-400); RBC DISTRIBUTION WIDTH 15.1 % (11.5-14.5); RED BLOOD CELL CT 5.24 /CUMM (4.70-6.10)
[2017-06-12 06:27] LABS: WHITE BLOOD CELL COUNT 22.3 /CUMM (4.8-10.8)
--- NOTE | 2017-06-12 07:46 | CT SCAN REPORT ---
EXAMINATION: CT CHEST, ABDOMEN AND PELVIS WITHOUT CONTRAST CLINICAL INFORMATION: Fever and abdominal distention; question colitis. COMPARISON: Prior CT examinations of the thorax, most recently 02/06/2017. TECHNIQUE: Multidetector volumetric imaging was performed from the lung apices through the pubic symphysis. Sagittal and coronal reformatted images were obtained on the technologist's workstation. Axial MIP volume rendering provided. DLP: 1788.23 mGy-cm FINDINGS: CHEST: SMUDGER: Lung volumes are low. There is moderate elevation of the right hemidiaphragm. LUNGS: There is linear scar/subsegmental atelectasis at the posterior left apex. There is mild right middle lobe atelectasis, associated with elevation of the right hemidiaphragm. There is a mosaic perfusion pattern. A small benign, calcified granulomas seen in the posterior right base (4:223). There are benign, calcified granulomas within the left lung (4:173, 176, 276 and 279). In the lateral basal segment of the left lower lobe (4:257), a 4 mm noncalcified nodule is seen. This appears stable to diminished from 03/15/2016 (2:223). There is no focal infiltrate or groundglass opacity. No generalized increase is seen in peripheral interlobular septal markings. No significant bleb or bullous formation is seen. The central airways appear patent. MEDIASTINUM: The thyroid is unremarkable. There is no sizable mediastinal or hilar adenopathy. No thoracic aortic aneurysm is seen. A left internal jugular central venous catheter seen. PLEURA: There is no pleural effusion. No pleural mass or thickening. AXILLA: No lymphadenopathy. OSSEOUS STRUCTURES: There is multi-level lower thoracic spondylosis. No acute or aggressive osseous abnormality is seen. ABDOMEN AND PELVIS: LIVER, GALLBLADDER, AND BILIARY TREE: The liver is normal in size, shape, and attenuation. No focal hepatic lesion or biliary ductal dilatation is present. The gallbladder is unremarkable with no evidence of radiopaque gallstones, gallbladder wall thickening, or obvious pericholecystic inflammatory changes. PANCREAS: Unremarkable. SPLEEN: Unremarkable. ADRENAL GLANDS: Unremarkable. KIDNEYS AND URETERS: The kidneys are normal in size, shape, and attenuation. Within the left renal pelvis, adjacent 7 mm and 4 mm nonobstructing calculi are seen (2:65 and 67). No further urinary calculi are seen. There is a left extrarenal pelvis again noted. There is no bilateral hydronephroureter. No perinephric stranding. BLADDER: Decompressed by Foster catheter. GASTROINTESTINAL TRACT: There is moderate stool distributed throughout nonobstructed colon. No free intraperitoneal air or abscess is seen. There is no focal bowel wall thickening. No diverticulosis or diverticulitis is seen. The vermiform appendix is unremarkable. ABDOMINAL WALL: There are small fat-containing umbilical and bilateral inguinal hernias. LYMPH NODES: There are shotty, nonpathologically enlarged para-aortic, bilateral iliac chain and inguinal lymph nodes. No sizable abdominopelvic lymphadenopathy is seen. VASCULAR: Unremarkable. PELVIC VISCERA: The prostate and seminal vesicles are unremarkable. OSSEOUS STRUCTURES: There is multi-level upper lumbar spondylosis. There is an L5 right spondylolysis defect. Surgical clips are seen in the presacral subcutaneous tissues. IMPRESSION: 1. There is linear scar/subsegmental atelectasis at the posterior left apex and within the right middle lobe. The latter is seen in association with elevation of the right hemidiaphragm. 2. There is a mosaic perfusion pattern, suggesting small airways or small vessels disease related to infectious or inflammatory etiologies. 3. There are benign, calcified pulmonary granulomas. A 4 mm noncalcified lateral left base nodule is stable to diminished from prior examinations as remote as 03/15/2016. Recommend follow-up via Fleischner Society criteria. According to the UPDATED 2017 Fleischner Society recommendations, the advised follow-up imaging for solid nodules < 6 mm is: LOW RISK PATIENT: No routine follow-up. HIGH RISK PATIENT: Optional CT at 12 months. 4. No sizable mediastinal or hilar adenopathy is seen. 5. Small nonobstructing calculi are seen within the left renal pelvis. No further urinary calculi or hydronephroureter are seen bilaterally. 6. No bowel obstruction, free intraperitoneal air or abscess is seen. There is no appendicitis or diverticulitis. 7. No abdominopelvic mass, free fluid or lymphadenopathy is seen. 8. There are thoracolumbar degenerative changes. A right L5 spondylolysis defect is noted.
--- NOTE | 2017-06-12 10:54 | History & Physical ---
CalvinLiam lizarraga 06/12/17 1039: General Information and HPI MD Statement: I have seen and personally examined DAVE PRO and documented this H&P. The patient is a 46 year old M who presented with a patient stated chief complaint of [vomiting, abdominal pain]. Source of Information: patient, old records, W10 Exam Limitations: poor historian History of Present Illness: Patient is a 46 YO M with PMH significant for spina bifida, recurrent UTI with chronic indwelling Foster catheter, TIA, intellectual disability hypertension, DVT on Xarelto, hydrocephalus with DATA CENTER MANAGER shunt, recurrent C. difficile infections is coming to the [facility] with chief complaint of vomiting, abdominal pain, nonspecific chest pain. Information was obtained from patient however he is a poor historian and also obtained from the detention. Patient was brought to [facility] 2 days ago for chest pain however he was discharged back to detention. Night before coming to the hospital patient had episode of fever of 101 and nonbloody vomiting and abdominal pain and nonspecific chest pain. Patient reports he has mediastinal and epigastric chest pain 4 out of 10 does not radiate anywhere without any cough or shortness of breath. Patient reported that started having generalized abdominal pain similar to previous episodes of C. difficile infection for 1 day. Apparently patient was treated for C. difficile last time in April the last dose was May 18. According to detention ,he was supposed to get the fecal transplant in the future According to the detention patient refused to have suprapubic catheter despite being recommended from previous hospitalization. It should be noted that most of the times patients goes to [facility] for healthcare management. Vitals in ED are notable for temperature 100.9, Prevacid 124, RR 18, blood pressure 117/65, O2 saturation 95%% on 2 L (baseline) Labs notable WBC 22.3, lactic acid 2.3, BUN 20, creatinine kinase 33, troponin 0.01, LFTs, lipase, amylase within normal limits EKG was notable for sinus tachycardia,123, QTc 435, no acute ST-T elevations CT cehst and abdomen IMPRESSION: 1. There is linear scar/subsegmental atelectasis at the posterior left apex and within the right middle lobe. The latter is seen in association with elevation of the right hemidiaphragm. 2. There is a mosaic perfusion pattern, suggesting small airways or small vessels disease related to infectious or inflammatory etiologies. 3. There are benign, calcified pulmonary granulomas. A 4 mm noncalcified lateral left base nodule is stable to diminished from prior examinations as remote as 03/15/2016. Recommend follow-up via Fleischner Society criteria. According to the UPDATED 2017 Fleischner Society recommendations, the advised follow-up imaging for solid nodules < 6 mm is: LOW RISK PATIENT: No routine follow-up. HIGH RISK PATIENT: Optional CT at 12 months. 4. No sizable mediastinal or hilar adenopathy is seen. 5. Small nonobstructing calculi are seen within the left renal pelvis. No further urinary calculi or hydronephroureter are seen bilaterally. 6. No bowel obstruction, free intraperitoneal air or abscess is seen. There is no appendicitis or diverticulitis. 7. No abdominopelvic mass, free fluid or lymphadenopathy is seen. 8. There are thoracolumbar degenerative changes. A right L5 spondylolysis defect is noted. Allergies/Medications Allergies: Coded Allergies: latex (UNKNOWN 02/03/17) Past History Travel History Traveled to [place] past 21 day No Medical History Neurological: TIA, vertigo, spina bifida intellectual disability Cardiovascular: hypertension, DVT Respiratory: NONE Gastrointestinal: ileus rectal bleeding Hepatic: NONE Renal: neurogenic bladder, urinary incontinence, recurrent UTI chronic indwelling Foster Musculoskeletal: NONE Psychiatric: NONE Endocrine: diabetes Blood Disorders: NONE History of MRSA: No History of VRE: No History of CDIFF: Yes Surgical History Surgical History: s/p recent surgery for SBO Past Family/Social History Family History Relations & Conditions if any Relation not specified for: *No pertinent family history Psychosocial History ETOH Use: denies use Functional Ability ADLs Needs Assist: dressing, eating, toileting, bathing. Ambulation: non-ambulatory IADLs Needs Assist: shopping, housework, finances, food prep, telephone, transportation, medication admin. Review of Systems Review of Systems Constitutional: Reports: see HPI. Exam & Diagnostic Data Last 24 Hrs of Vital Signs/I&O Vital Signs Date Time Temp Pulse Resp B/P B/P Pulse O2 O2 Flow FiO2 Mean Ox Delivery Rate 06/12 0917 99.7 125 18 112/59 95 Nasal 2.0L Cannula 06/12 0708 100.9 124 18 117/65 95 Room Air 06/12 0609 Nasal 2.0L Cannula 06/12 0528 100.8 114 18 130/74 95 Nasal 2.0L Cannula Physical Exam General Appearance Alert, Oriented X3, Cooperative, No Acute Distress Cardiovascular tachcardia, s2 s2 NL Lungs Clear to Auscultation, Normal Air Movement Abdomen Normal Bowel Sounds, Soft, distented, generailizesd abdominal pain Extremities No Clubbing, No Cyanosis Assessment/Plan Assessment: Patient is a 46 YO M with PMH significant for spina bifida, recurrent UTI with chronic indwelling Foster catheter, TIA, intellectual disability hypertension, DVT on Xarelto, hydrocephalus with DATA CENTER MANAGER shunt, recurrent C. difficile infections is coming to the [facility] with chief complaint of vomiting, abdominal pain, nonspecific chest pain. Vitals in ED are notable for temperature 100.9, Prevacid 124, RR 18, blood pressure 117/65, O2 saturation 95%% on 2 L (baseline), according to the detention patient baseline heart rate is around 90s Labs notable WBC 22.3, lactic acid 2.3, BUN 20, creatinine kinase 33, troponin 0.01, LFTs, lipase, amylase within normal limits UA was positive for many bacteria, positive for nitrate and WBC of 50-75 EKG was notable for sinus tachycardia,123, QTc 435, no acute ST-T elevations CT cehst and abdomen IMPRESSION: 1. There is linear scar/subsegmental atelectasis at the posterior left apex and within the right middle lobe. The latter is seen in association with elevation of the right hemidiaphragm. 2. There is a mosaic perfusion pattern, suggesting small airways or small vessels disease related to infectious or inflammatory etiologies. 3. There are benign, calcified pulmonary granulomas. A 4 mm noncalcified lateral left base nodule is stable to diminished from prior examinations as remote as 03/15/2016. Recommend follow-up via Fleischner Society criteria. According to the UPDATED 2017 Fleischner Society recommendations, the advised follow-up imaging for solid nodules < 6 mm is: LOW RISK PATIENT: No routine follow-up. HIGH RISK PATIENT: Optional CT at 12 months. 4. No sizable mediastinal or hilar adenopathy is seen. 5. Small nonobstructing calculi are seen within the left renal pelvis. No further urinary calculi or hydronephroureter are seen bilaterally. 6. No bowel obstruction, free intraperitoneal air or abscess is seen. There is no appendicitis or diverticulitis. 7. No abdominopelvic mass, free fluid or lymphadenopathy is seen. 8. There are thoracolumbar degenerative changes. A right L5 spondylolysis defect is noted. Assessment Sepsis due to UTI versus aspiration pneumonia vs C. difficile History of a spinal bifid History of indwelling Foster catheter lactic acidosis History of DVT on Xarelto History of abdominal surgery/SBO? History of hypertension History of recurrent C. difficile on floraster and candidate for fecal transplant Tachycardia and nonspecific chest pain History of intellectual disability Abdominal pain Plan Admit to general medicine floor IV hydration with 4 L of normal saline and then put the patient on maintenance fluids Trend lactic acid until normalized Per phone conversation with ID it architecture consultant we will give the patient 1 dose of oral vancomycin for C diff and also put the patient on IV Flagyl for coverage of aspiration pneumonia ID consultation will be done in the afternoon Continue home medication of trazodone, Depakote, Lorazepam, IV Zofran for nausea Tylenol for fever and pain HOLD LASIX Continue Xarelto Check C. difficile toxin Panculture Full code, heart healthy diet, DVT prophylaxis mechanical and Xarelto, Tylenol for pain It should be noted that when patient was in the general medicine floor he had an episode of unresponsiveness for couple of seconds and rapid response was called. Vital signs were stable. Patient did not have any new neurological deficit. According to the nurses in the ED and also according to previous medical records Patient has episode of pseudoseizure/episodes of unresponsiveness which happened 3 times in the ED on this admission and also 1 or 2 times on previous admission. CT head was ordered which was negative for any new pathology, prolactin was normal and EEG will be considered for tomorrow. As Ranked By This Provider Problem List: 1. Chronic indwelling Foster catheter 2. Sepsis Core Measures/Misc (10/31) Acute Coronary Syndrome ACS Diagnosis: No Congestive Heart Failure Congestive Heart Failure Diagnosis No Cerebrovascular Accident CVA/TIA Diagnosis: No VTE (View Protocol) VTE Risk Factors Age>40 No Mechanical VTE Prophylaxis d/t N/A MechProphylax Ordered No VTE Pharm Prophylaxis d/t NA PharmProphylax ordered Sepsis (View protocol) Sepsis Present: No Joe Ordoñez MD 06/12/17 1413: General Information and HPI Allergies/Medications Home Med list Acetaminophen 325 MG TABLET 2 TAB PO Q6H PRN PAIN/TEMP>/100 (Reported) Acetaminophen (Acephen) 650 MG SUPP.RECT 1 SUPP NE Q6H PRN PAIN/TEMP>100 ( Reported) Bisacodyl 10 MG SUPP.RECT 1 SUP RC PRN CONSTIPATION (Reported) Divalproex Sodium (Depakote) 250 MG TABLET.DR 250 MG PO QPM DISRUPTIVE BEHAVIORS (Reported) Escitalopram Oxalate (Lexapro) 10 MG TABLET 10 MG PO DAILY Anxiety Furosemide 20 MG TABLET 1 TAB PO DAILY DIURETIC (Reported) Lorazepam (Ativan) 0.5 MG TABLET 1 TAB PO TID ANXIETY (Reported) 9 AM 2 PM 8 PM Magnesium Hydroxide (Milk Of Magnesia) 400 MG/5 ML ORAL.SUSP 30 ML PO DAILY PRN CONSTIPATION (Reported) Melatonin 3 MG TABLET 6 MG PO QHS PRN INSOMNIA (Reported) Multiple Vitamin (Multivitamins) 1 EACH TABLET 1 TAB PO DAILY SUPPLEMENT ( Reported) Na Phos,M-B/Na Phos,Di-Ba (Fleet Enema) 19 GRAM-7 GRAM/118 ML ENEMA 1 E RC DAILY PRN CONSTIPATION (Reported) Potassium Chloride (K-Tab ER) 20 MEQ TABLET.ER 1 TAB PO DAILY SUPPLEMENT ( Reported) Rivaroxaban (Xarelto) 20 MG TABLET 1 TAB PO QPM DVT (Reported) with food Saccharomyces Boulardii (Florastor) 250 MG CAPSULE 1 TAB PO BID SUPP ( Reported) Temazepam 7.5 MG CAPSULE 1 CAP PO QHS PRN SLEEP (Reported) Trazodone HCl 50 MG TABLET 1 TAB PO QHS MENTAL HEALTH/SLEEP (Reported) Attending MD Review Statement Attending Statement Attending MD Statement: examined this patient, discuss w/resident/PA/WEAVER WIRE LOOM, agreed w/resident/PA/WEAVER WIRE LOOM, reviewed EMR data (avail), discussed with nursing, amended to note Attending Assessment/Plan: Patient seen and examined. Medical history is as documented by the medical delivery technician above. Denies cough or shortness of breath. Denies chest pain. Denies any aspiration with meals. Chest CT done in the ER shows evidence of atelectasis. It reveals a mosaic pattern suggesting small airway disease possibly related to infectious or inflammatory etiologies. Benign calcified granulomas noted. No acute abdominal process was noted. Patient was referred to the medical service for admission for possible pneumonia. He was started on Rocephin and azithromycin. On evaluating patient on medical floor. I found him alert and oriented 3. Conversant appropriately. He did not appear to be in any acute distress. Pupils are equal and reactive. Heart sounds are regular with no audible murmur. Lungs are clear to auscultation bilaterally. Abdomen is soft, nontender with normal bowel sounds. He has no peripheral edema. She had bilateral support devices for his lower extremities. Chronic indwelling Foster catheter was in place with post discharge from the abscess. Urine was dark with lots of sediment. Labs revealed elevated white count and UA positive for nitrites and leukocytes. Patient's physical examination and laboratory findings are more consistent with sepsis secondary to urinary tract infection. It is noted that soon after my evaluation nursing staff reported that patient was briefly unresponsive., I found him alert and oriented 3 conversant appropriately. Patient reports that when I reevaluated the patient he does blackout on occasion. Review of records he has had similar episodes on different occasions in the past. Workup has been unrevealing at this time. Problems: 1. Sepsis of urologic origin. It is noted that patient has recent Clostridium difficile associated diarrhea 2. Unresponsiveness; query etiology 3. Deep vein thrombosis on anticoagulation with Xarelto. 4. Hydrocephalus status post DATA CENTER MANAGER shunt placement. 5. Recurrent exertional differential infections. 6. Sinus tachycardia. No ischemic changes on EKG. Plan: Admit to inpatient General medical service. IV antibiotic therapy with IV Rocephin. Recommend addition of PO vancomycin pending results of Clostridium difficile testing. Continue hydration per sepsis protocol. Repeat lactic acid level. Continue anticoagulant therapy with Xarelto. Obtain head CT. If negative recommend EEG. Neuro watch every 4 hours 24 hours. Tachycardia likely related to his sepsis. Continue IV hydration. ID consultation. Labs revealed elevated white count and UA positive for nitrites and leukocytes. Patient's physical examination and laboratory findings are more consistent with sepsis secondary to urinary tract infection. It is noted that soon after my evaluation nursing staff reported that patient was briefly unresponsive., I found him alert and oriented 3 conversant appropriately. Patient reports that when I reevaluated the patient he does blackout on occasion. Review of records he has had similar episodes on different occasions in the past. Workup has been unrevealing at this time. Problems: 1. Sepsis of urologic origin. It is noted that patient has recent Clostridium difficile associated diarrhea 2. Unresponsiveness; query etiology 3. Deep vein thrombosis on anticoagulation with Xarelto. 4. Hydrocephalus status post DATA CENTER MANAGER shunt placement. 5. Recurrent exertional differential infections. 6. Sinus tachycardia. No ischemic changes on EKG. Plan: Admit to inpatient General medical service. IV antibiotic therapy with IV Rocephin. Recommend addition of PO vancomycin pending results of Clostridium difficile testing. Continue hydration per sepsis protocol. Repeat lactic acid level. Continue anticoagulant therapy with Xarelto. Obtain head CT. If negative recommend EEG. Neuro watch every 4 hours 24 hours. Tachycardia likely related to his sepsis. Continue IV hydration. ID consultation.
[2017-06-12] MEDS ORDERED: FLORASTOR250 M1 PO (11:42)
[2017-06-12 12:10] VITALS: BP 121/74
--- NOTE | 2017-06-12 14:13 | Admission Certification ---
Admission Certification Certification Statement - As attending physician, I certify that at the time of - admission, based on clinical presentation, severity of - symptoms, need for further diagnostic testing and - therapeutic interventions, and risk of adverse outcomes - without in-hospital treatment, in my clinical assessment, - this patient requires an acute hospital stay for a minimum - of two nights or longer. I have also considered psychsocial - factors such as support system, advanced age, financial - issues, cognitive issues, and failed out-patient treatments, - past re-admission history, safety of patient, and lack of - compliance as applicable. Specific rationale supporting this admission is: Patient requires hospitalization for management of sepsis secondary to urinary tract infection.
--- NOTE | 2017-06-12 14:40 | CT SCAN REPORT ---
EXAMINATION: CT HEAD WITHOUT CONTRAST CLINICAL INFORMATION: 46-year-old male with sepsis. Unresponsive. On Xarelto treatment. COMPARISON: Head CT from 02/06/2017 TECHNIQUE: Contiguous axial imaging was performed from the skull base to vertex without intravenous administration of contrast. DLP: 698 mGy-cm FINDINGS: The tip of the ventriculoperitoneal shunt catheter, which enters from a left parietal approach, terminates in the parasagittal frontal lobe adjacent to the frontal horn of the lateral ventricle, unchanged compared to 02/06/2017. The dysmorphic lateral and third ventricles remain decompressed. No hydrocephalus. The cerebellar tonsils extend below the level of the foramen magnum there is partial absence of corpus callosum. There are surgical changes from remote suboccipital craniotomy. Again noted is a metallic clip projecting along the inner table of the right frontal bone. No evidence of acute intracranial hemorrhage, mass or midline shift. The price-white matter differentiation is preserved. Again noted are old, partially calcified subdural collections that contain fat attenuation overlying the cerebral hemispheres. There are no new extra-axial fluid collections. The visualized paranasal sinuses, mastoid air cells and middle ear cavities are well aerated. The orbits, globes and temporal maneuver joints are normal. An old, stable 1.2 x 1.9 cm smoothly marginated nodule within subcutaneous tissues of the left occipital region could represent an epidermal inclusion cyst. 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 The left parietal approach ventriculostomy catheter remains in stable position. No hydrocephalus. No acute intracranial pathology compared to 02/06/2017.
[2017-06-12 14:47] VITALS: BP 104/60
--- NOTE | 2017-06-12 15:36 | Cons- Infect Disease ---
General Information and HPI Consulting Request Date of Consult: 06/12/17 Requested By: Joe Ordoñez MD Reason for Consult: abx advice Source of Information: patient, primary team Exam Limitations: clinical condition History of Present Illness: 46 y/o M with PMH significant for spina bifida, recurrent UTI with chronic indwelling Foster catheter, TIA, intellectual disability hypertension, DVT on Xarelto, hydrocephalus s/p GLASS VIAL BENDING CONVEYOR FEEDER shunt, recurrent C. difficile infections presented to the hospital with fever the night before admission, vomiting, abdominal pain, and chest pain discomfort. Patient was also brought to [facility] 2 days ago for chest pain however he was discharged back to long-term. Currently patient reports he has mediastinal and epigastric chest pain 4 out of 10 does not radiate; denies cough or shortness of breath. Patient reports diffuse abdominal pain, similar to abd pain he previously experienced with prior episodes of C. difficile infection. He was treated for recurrent C. difficile until recently (last dose oral vancomycin was May 18). According to long-term records he was supposed to undergo fecal transplant in the near future. Vitals in ED are notable for temperature 100.9, Prevacid 124, RR 18, blood pressure 117/65, O2 saturation 95%% on 2 L (baseline) Labs notable WBC 22.3, lactic acid 2.3, BUN 20, creatinine kinase 33, troponin 0.01, LFTs, lipase, amylase within normal limits. Spiked fever 102.8F, c/o abd pain, not sure when he had a bolwel movement. Foster cath just changed; urine yellow/clear. Allergies/Medications Allergies: Coded Allergies: latex (UNKNOWN 02/03/17) Home Med List: Acetaminophen 325 MG TABLET 2 TAB PO Q6H PRN PAIN/TEMP>/100 (Reported) Acetaminophen (Acephen) 650 MG SUPP.RECT 1 SUPP AK Q6H PRN PAIN/TEMP>100 ( Reported) Bisacodyl 10 MG SUPP.RECT 1 SUP RC PRN CONSTIPATION (Reported) Divalproex Sodium (Depakote) 250 MG TABLET.DR 250 MG PO QPM DISRUPTIVE BEHAVIORS (Reported) Escitalopram Oxalate (Lexapro) 10 MG TABLET 10 MG PO DAILY Anxiety Furosemide 20 MG TABLET 1 TAB PO DAILY DIURETIC (Reported) Lorazepam (Ativan) 0.5 MG TABLET 1 TAB PO TID ANXIETY (Reported) 9 AM 2 PM 8 PM Magnesium Hydroxide (Milk Of Magnesia) 400 MG/5 ML ORAL.SUSP 30 ML PO DAILY PRN CONSTIPATION (Reported) Melatonin 3 MG TABLET 6 MG PO QHS PRN INSOMNIA (Reported) Multiple Vitamin (Multivitamins) 1 EACH TABLET 1 TAB PO DAILY SUPPLEMENT ( Reported) Na Phos,M-B/Na Phos,Di-Ba (Fleet Enema) 19 GRAM-7 GRAM/118 ML ENEMA 1 E RC DAILY PRN CONSTIPATION (Reported) Potassium Chloride (K-Tab ER) 20 MEQ TABLET.ER 1 TAB PO DAILY SUPPLEMENT ( Reported) Rivaroxaban (Xarelto) 20 MG TABLET 1 TAB PO QPM DVT (Reported) with food Saccharomyces Boulardii (Florastor) 250 MG CAPSULE 1 TAB PO BID SUPP ( Reported) Temazepam 7.5 MG CAPSULE 1 CAP PO QHS PRN SLEEP (Reported) Trazodone HCl 50 MG TABLET 1 TAB PO QHS MENTAL HEALTH/SLEEP (Reported) Current Medications: Current Medications Sig/Елена Start time Last Medication Dose Route Stop Time Status Admin Acetaminophen 650 MG Q6P PRN 06/12 1145 AC 06/12 PO 1511 Acetaminophen 1,000 MG ONCE ONE 06/12 0645 DC N/A 1 UNIT IV 06/12 0659 Acetaminophen 1,000 MG ONCE ONE 06/12 0645 DC N/A 1 UNIT IV 06/12 0659 Ceftriaxone Sodium 1,000 MG Q24H 06/13 0700 AC IV Ceftriaxone Sodium 0 .STK-MED ONE 06/12 0702 DC .ROUTE Ceftriaxone Sodium 1,000 MG ONCE ONE 06/12 0645 DC 06/12 IV 06/12 0646 0703 Divalproex Sodium 250 MG QPM 06/12 2100 AC PO Escitalopram Oxalate 10 MG DAILY 06/13 0900 AC PO Lorazepam 0.5 MG TID 06/12 1400 AC 06/12 PO 05/06 1359 1448 Melatonin 6 MG AT BEDTIME PRN 06/12 2100 AC PO Metronidazole 500 MG Q8H 06/12 1130 AC 06/12 N/A 1 UNIT IV 1447 Multivitamins 1 TAB DAILY 06/13 0900 AC Therapeutic PO Potassium Chloride 20 MEQ DAILY 06/13 0900 AC PO Rivaroxaban 20 MG DAILY 06/12 1145 AC 06/12 PO 1448 Sodium Chloride 1,000 ML Q13H 06/12 1145 AC 06/12 IV 06/13 0044 1453 Sodium Chloride 1,000 ML BOLUS ONE 06/12 1100 DC 06/12 IV 06/12 1159 1357 Sodium Chloride 1,000 ML BOLUS ONE 06/12 1100 DC IV 06/12 1159 Sodium Chloride 1,000 ML BOLUS ONE 06/12 1100 DC 06/12 IV 06/12 1159 1209 Sodium Chloride 1,000 ML BOLUS ONE 06/12 1030 DC 06/12 IV 06/12 1129 1030 Sodium Chloride 1,000 ML BOLUS ONE 06/12 0645 DC 06/12 IV 06/12 0744 0650 Trazodone HCl 50 MG AT BEDTIME 06/12 2100 AC PO Vancomycin HCl 250 MG ONCE ONE 06/12 1130 DC 06/12 PO 06/12 1131 1447 Past History Travel History Traveled to [place] past 21 day No Medical History Blood Transfusion Hx: No Neurological: TIA, vertigo, spina bifida intellectual disability EENT: NONE Cardiovascular: hypertension, DVT Respiratory: NONE Gastrointestinal: ileus rectal bleeding Hepatic: NONE Renal: neurogenic bladder, urinary incontinence, recurrent UTI chronic indwelling Foster Musculoskeletal: NONE Psychiatric: NONE Endocrine: diabetes Blood Disorders: NONE Cancer(s): NONE 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 Alf Facility Smoking Status: Never Smoked ETOH Use: denies use Functional Ability ADLs Needs Assist: dressing, eating, toileting, bathing. Ambulation: non-ambulatory IADLs Needs Assist: shopping, housework, finances, food prep, telephone, transportation, medication admin. Review of Systems Comments 12 points reviwed as noted, otherwise negative Exam & Diagnostic Data Last 24 Hrs of Vital Signs/I&O Vital Signs Date Time Temp Pulse Resp B/P B/P Pulse O2 O2 Flow FiO2 Mean Ox Delivery Rate 06/12 1511 102.8 06/12 1447 102.8 116 18 104/60 99 Room Air 2.0L 06/12 1319 96 Nasal 2.0L Cannula 06/12 1210 100.1 85 17 121/74 98 Nasal 2.0L Cannula 06/12 1114 115 06/12 1102 99.5 120 18 109/61 95 Nasal 2.0L Cannula 06/12 0917 99.7 125 18 112/59 95 Nasal 2.0L Cannula 06/12 0708 100.9 124 18 117/65 95 Room Air 06/12 0609 Nasal 2.0L Cannula 06/12 0528 100.8 114 18 130/74 95 Nasal 2.0L Cannula Intake & Output 06/12 1600 06/12 0800 06/12 0000 Intake Total 1000 Output Total 500 Balance 500 Intake, IV 1000 Output, Urine 500 Patient 210 lb Weight Weight Bed scale Measurement Method Physical Exam Other Physical Findings: General Appearance: Well nourished, chronically ill Neuro: Alert, Oriented X3, Cooperative HEENT: face flushed, sclera anicteric Cardiovascular tachycardic, S1 S2 present, no m/r/g auscultated Lungs BS diminished bases, no rales or wheezing Abdomen Normal Bowel Sounds, Soft, distented, periumbilical abdominal discomfort w/ deep palpation, no guarding Extremities No Clubbing, No Cyanosis Skin: mild erythema, blanching upper chest Last 24 Hours of Lab Results: Laboratory Tests 06/12 06/12 06/12 1255 1245 0557 Chemistry Lactic Acid (0.7 - 2.1 mmol/L) 1.2 Prolactin (3.7 - 17.9 ng/mL) 3.8 Urines Urinalysis MOD H Urine Color (YEL,AMB,STR) YEL Urine Clarity (CLEAR) TURBD H Urine pH (5.0 - 8.0) 7.0 Ur Specific Jarrell (1.001 - 1.035) 1.020 Urine Protein (NEG,<30 MG/DL) 30 H Urine Ketones (NEG) NEG Urine Nitrite (NEG) POS H Urine Bilirubin (NEG) NEG Urine Urobilinogen (0.1 - 1.0 EU/dl) 1.0 Ur Leukocyte Esterase (NEG) MOD H Ur Microscopic SEDIMENT EXAMINED Urine RBC (0 - 5 /HPF) 1-3 Urine WBC (0 - 2 /HPF) 50-75 H Urine Bacteria (NEG/NONE) MANY H Urine Mucus (FEW,NONE) MANY H Urine Hemoglobin (NEG) SMALL H Urine Glucose (N MG/DL) NEG 06/12 0552 Chemistry Sodium (137 - 145 mmol/L) 140 Potassium (3.5 - 5.1 mmol/L) 4.1 Chloride (98 - 107 mmol/L) 103 Carbon Dioxide (22 - 30 mmol/L) 24 Anion Gap (5 - 16) 13 BUN (9 - 20 mg/dL) 20 Creatinine (0.7 - 1.2 mg/dL) 0.7 Estimated GFR (>60 ml/min) > 60 BUN/Creatinine Ratio (7 - 25 %) 28.6 H Glucose (65 - 99 mg/dL) 125 H Lactic Acid (0.7 - 2.1 mmol/L) 2.3 H Calcium (8.4 - 10.2 mg/dL) 9.3 Total Bilirubin (0.2 - 1.3 mg/dL) 0.8 Direct Bilirubin (< 0.4 mg/dL) 0.4 AST (17 - 59 U/L) 27 ALT (21 - 72 U/L) 34 Alkaline Phosphatase (< 127 U/L) 72 Creatine Kinase (55 - 170 U/L) 33 L Troponin I (<0.11 ng/ml) < 0.01 Total Protein (6.3 - 8.2 g/dL) 7.1 Albumin (3.5 - 5.0 g/dL) 3.9 Amylase (30 - 110 U/L) 37 Lipase (23 - 300 U/L) 52 Hematology CBC w Diff NO MAN DIFF REQ WBC (4.8 - 10.8 /CUMM) 22.3 H RBC (4.70 - 6.10 /CUMM) 5.24 Hgb (14.0 - 18.0 G/DL) 14.6 Hct (42 - 52 %) 44.3 MCV (80.0 - 94.0 FL) 84.5 MCH (27.0 - 31.0 PG) 27.8 MCHC (33.0 - 37.0 G/DL) 32.9 L RDW (11.5 - 14.5 %) 15.1 H Plt Count (130 - 400 /CUMM) 240 MPV (7.4 - 10.4 FL) 8.6 Gran % (42.2 - 75.2 %) 92.1 H Lymphocytes % (20.5 - 51.1 %) 3.2 L Monocytes % (1.7 - 9.3 %) 4.4 Eosinophils % (0 - 5 %) 0.3 Basophils % (0.0 - 2.0 %) 0 Absolute Granulocytes (1.4 - 6.5 /CUMM) 20.5 H Absolute Lymphocytes (1.2 - 3.4 /CUMM) 0.7 L Absolute Monocytes (0.10 - 0.60 /CUMM) 1.0 H Absolute Eosinophils (0.0 - 0.7 /CUMM) 0.1 Absolute Basophils (0.0 - 0.2 /CUMM) 0 Last 24 Hours of Rex Results: SPEC #: [id number] JAKOB: 06/12/17 STATUS: RECD RECD: 06/12/[address]: Joycelyn CACERES, Fermín Lock SOURCE: URINE ROUT ENTR: 06/12/[address]: Myranda CACERES,Darrell Mackey SPDESC: URINE FOLE ORDERED: URINE CULTURE Procedure Result URINE CULTURE PENDING Procedure Result > RAPID VIRAL INFLUENZA A/B Final 06/12/17 NEGATIVE FOR INFLUENZA A & B Note Diagnostic Data Recent Imaging Findings: CT A/P and chest IMPRESSION: 1. There is linear scar/subsegmental atelectasis at the posterior left apex and within the right middle lobe. The latter is seen in association with elevation of the right hemidiaphragm. 2. There is a mosaic perfusion pattern, suggesting small airways or small vessels disease related to infectious or inflammatory etiologies. 3. There are benign, calcified pulmonary granulomas. A 4 mm noncalcified lateral left base nodule is stable to diminished from prior examinations as remote as 03/15/2016. Recommend follow-up via Fleischner Society criteria. According to the UPDATED 2017 Fleischner Society recommendations, the advised follow-up imaging for solid nodules < 6 mm is: LOW RISK PATIENT: No routine follow-up. HIGH RISK PATIENT: Optional CT at 12 months. 4. No sizable mediastinal or hilar adenopathy is seen. 5. Small nonobstructing calculi are seen within the left renal pelvis. No further urinary calculi or hydronephroureter are seen bilaterally. 6. No bowel obstruction, free intraperitoneal air or abscess is seen. There is no appendicitis or diverticulitis. 7. No abdominopelvic mass, free fluid or lymphadenopathy is seen. 8. There are thoracolumbar degenerative changes. A right L5 spondylolysis defect is noted. DICTATED BY: Darrell Pérez MD DATE/TIME DICTATED:06/12/17716 Assessment/Plan Assessment/Plan Impression: 46 y/o M with PMH significant for spina bifida, recurrent UTI with chronic indwelling Foster catheter, TIA, intellectual disability hypertension, DVT on Xarelto, hydrocephalus s/p GLASS VIAL BENDING CONVEYOR FEEDER shunt, recurrent C. difficile infections admitted 06/12 with early sepsis. Fever unclear etiology; r/o bacteremia (BC pnd); eval aspiration pneumonitis (CT chest findings revealing: mosaic perfusion pattern, suggesting small airways or small vessels disease related to infectious or inflammatory etiologies). Eval Foster cath related UTI (of note previous UC + Klebsiella) Severe leukocytosis R/O recurrent C. difficile colitis; of note CT abd findings negative for colitis Suggestion: 1. Pending culture results empiric iv abx Vancomycin 1 gm q 12 h x 1 dose/ Ceftriaxone 1 gm iv q 24 h/Flagyl 500 mg iv q 8 h. Would minimize exposure to abx taking in account h/o recurrent CDI. 2. C. difficile stool assay; vancomycin 125 mg po q 6 h until results available. 3. IVF if poor oral intake. 4. Trend CBC, BMP, LFT's, lactic acid level. Prealbumin level in am. 5. Nasal MRSA surv cx. Consult Acknowledgment - Thank you for your consult request.
[2017-06-12 21:38] VITALS: BP 122/68
--- NOTE | 2017-06-12 22:44 | RADIOLOGY REPORT ---
EXAMINATION: XR PORTABLE CHEST CLINICAL INFORMATION: Shortness of breath. COMPARISON: Chest x-ray 05/03/2017 TECHNIQUE: Portable frontal view of the chest was obtained. 9:10 PM FINDINGS: No significant abnormality is noted involving the heart, lungs, mediastinum, bony thorax or soft tissues. IMPRESSION: Unremarkable examination.
--- NOTE | 2017-06-12 23:09 | Event Note ---
Event Note Event Note: Rapid response was called, patient was unresponsive according According to the nurses in the ED and also according to previous medical records Patient has episode of pseudoseizure/episodes of unresponsiveness which happened 3 times in the ED on this admission and also 1 time on this admission during the daytime. Head CT- was done during the daytime and was within normal. P.t response and become alert, awake oriented when order for nasal swap was giving to the nurse inside his room and his vitals were stable.
[2017-06-13 06:58] VITALS: BP 124/66
--- NOTE | 2017-06-13 07:10 | PN- Housestaff ---
Andrea Beard MD,[facility] 06/13/17 0710: Subjective Follow-up For: Sepsis UTI R/O C diff colitits Subjective: Patient visited today, was lying in bed in no acute distress, was alert and oriented. Not cooperative during the interview No fever or chills, no shortness of breathing, no chest pain patient had one episode of seizure/unresponsiveness last night, we will obtain EEG to rule out seziure Review of Systems Constitutional: Reports: see HPI. Objective Last 24 Hrs of Vital Signs/I&O Vital Signs Date Time Temp Pulse Resp B/P B/P Pulse O2 O2 Flow FiO2 Mean Ox Delivery Rate 06/13 1511 98.1 92 18 148/78 95 Nasal Cannula 06/13 0835 98.6 06/13 0800 93 Nasal 2.0L Cannula 06/13 0658 100.5 108 18 124/66 94 06/13 0000 94 Nasal 2.0L Cannula 06/12 2138 98.5 108 18 122/68 92 Intake & Output 06/13 1600 06/13 0800 06/13 0000 Intake Total 314 961 2199 Output Total 875 900 900 Balance -75 -460 340 Intake, IV 200 620 Intake, Oral 800 240 620 Number 1 0 Bowel Movements Output, Urine 875 900 900 Patient 224 lb Weight Physical Exam General Appearance: Alert, Oriented X3, No Acute Distress Skin Temp/Moisture Exam: Warm/Dry Sepsis Skin Exam (color): Normal for Ethnicity HEENT: Atraumatic Cardiovascular: Normal S1, Normal S2 Lungs: Clear to Auscultation, Normal Air Movement Abdomen: tenderness in palpitation Neurological: no change compared ot yesterday, LE 0/5, UE left distal normal, UE R normal Extremities: No Edema Current Medications: Current Medications Sig/Елена Start time Last Medication Dose Route Stop Time Status Admin Acetaminophen 650 MG Q6P PRN 06/12 1145 AC 06/12 PO 1511 Ceftazidime 1,000 MG Q8H 06/13 1030 CAN IV Ceftazidime 1,000 MG IQ8 06/12 1600 DC 06/13 IV 0238 Ceftriaxone Sodium 1,000 MG DAILY 06/13 0900 AC 06/13 IV 0824 Divalproex Sodium 250 MG QPM 06/12 2100 AC 06/12 PO 203 Escitalopram Oxalate 10 MG DAILY 06/13 0900 AC 06/13 PO 0830 Lorazepam 0.5 MG TID 06/12 1400 AC 06/13 PO 05/ 1359 1314 Melatonin 6 MG AT BEDTIME PRN 06/12 2100 AC PO Metronidazole 500 MG Q8H 06/12 1130 DC 06/13 N/A 1 UNIT IV 0258 Multivitamins 1 TAB DAILY 06/13 0900 AC 06/13 Therapeutic PO 0830 Patient Medication 1 ED ONE ONE 06/13 1500 DC Teaching ED 06/13 1501 Potassium Chloride 20 MEQ DAILY 06/13 0900 AC 06/13 PO 0830 Rivaroxaban 20 MG DAILY 06/12 1145 AC 06/13 PO 0830 Sodium Chloride 1,000 ML Q13H 06/12 1145 DC 06/12 IV 06/13 0044 1453 Trazodone HCl 50 MG AT BEDTIME 06/12 2100 AC 06/12 PO 2034 Vancomycin HCl 1,000 MG Q12 06/12 2100 DC 06/13 Sodium Chloride 250 ML IV 0826 Vancomycin HCl 125 MG Q6 06/12 1800 AC 06/13 PO 1145 Last 24 Hrs of Lab/Rex Results Last 24 Hrs of Labs/Mics: Laboratory Tests 06/13/17 0719: Anion Gap 11, Estimated GFR > 60, BUN/Creatinine Ratio 20.0, CBC w Diff NO MAN DIFF REQ, RBC 4.33 L, MCV 85.7, MCH 28.9, MCHC 33.8, RDW 14.6 H, MPV 8.9, Gran % 83.5 H, Lymphocytes % 8.1 L, Monocytes % 7.3, Eosinophils % 1.1, Basophils % 0, Absolute Granulocytes 11.7 H, Absolute Lymphocytes 1.1 L, Absolute Monocytes 1.0 H, Absolute Eosinophils 0.2, Absolute Basophils 0 Microbiology 06/13 1153 STOOL: Clostridium difficile Toxin A & B - RECD Assessment/Plan Assessment: Patient is a 46 YO M with PMH significant for spina bifida, recurrent UTI with chronic indwelling Foster catheter, TIA, intellectual disability hypertension, DVT on Xarelto, hydrocephalus with JIG BORE TOOL MAKER shunt, recurrent C. difficile infections is coming to the [facility] with chief complaint of vomiting, abdominal pain, nonspecific chest pain. Vitals in ED are notable for temperature 100.9, Prevacid 124, RR 18, blood pressure 117/65, O2 saturation 95%% on 2 L (baseline), according to the [facility] patient baseline heart rate is around 90s Labs notable WBC 22.3, lactic acid 2.3, BUN 20, creatinine kinase 33, troponin 0.01, LFTs, lipase, amylase within normal limits UA was positive for many bacteria, positive for nitrate and WBC of 50-75 EKG was notable for sinus tachycardia,123, QTc 435, no acute ST-T elevations CT cehst and abdomen IMPRESSION: 1. There is linear scar/subsegmental atelectasis at the posterior left apex and within the right middle lobe. The latter is seen in association with elevation of the right hemidiaphragm. 2. There is a mosaic perfusion pattern, suggesting small airways or small vessels disease related to infectious or inflammatory etiologies. 3. There are benign, calcified pulmonary granulomas. A 4 mm noncalcified lateral left base nodule is stable to diminished from prior examinations as remote as 03/15/2016. Recommend follow-up via Fleischner Society criteria. According to the UPDATED 2017 Fleischner Society recommendations, the advised follow-up imaging for solid nodules < 6 mm is: LOW RISK PATIENT: No routine follow-up. HIGH RISK PATIENT: Optional CT at 12 months. 4. No sizable mediastinal or hilar adenopathy is seen. 5. Small nonobstructing calculi are seen within the left renal pelvis. No further urinary calculi or hydronephroureter are seen bilaterally. 6. No bowel obstruction, free intraperitoneal air or abscess is seen. There is no appendicitis or diverticulitis. 7. No abdominopelvic mass, free fluid or lymphadenopathy is seen. 8. There are thoracolumbar degenerative changes. A right L5 spondylolysis defect is noted. Assessment Sepsis due to UTI r/o C. difficile History of a spinal bifid History of indwelling Foster catheter lactic acidosis History of DVT on Xarelto History of abdominal surgery/SBO? History of hypertension History of recurrent C. difficile on floraster and candidate for fecal transplant Tachycardia and nonspecific chest pain History of intellectual disability Abdominal pain Plan Continue Admit to general medicine floor maintenance fluids Continue ceftriaxone and po vanc Follow ID Continue home medication of trazodone, Depakote, Lorazepam, IV Zofran for nausea Tylenol for fever and pain HOLD LASIX Continue Xarelto Follow C. difficile toxin Follow Panculture, currently urine GNR Full code, heart healthy diet, DVT prophylaxis mechanical and Xarelto, Tylenol for pain Problem List: 1. UTI (urinary tract infection) due to urinary indwelling catheter Pain Ratin Pain Location: none Pain Goal: Pain 4 or less Pain Plan: NA Tomorrow's Labs & Rationales: CBC BEP Smita CACERES,Joe 06/13/17 1203: Attending Review Statement Attending Statement Attending MD Statement: examined this patient, discuss w/resident/PA/CRIMINAL RESEARCH SPECIALIST, agreed w/resident/PA/CRIMINAL RESEARCH SPECIALIST, reviewed EMR data (avail), discussed with nursing, discussed with case mgmt, amended to note Attending Assessment/Plan: Patient seen and examined. Apparently had another episode of brief unresponsiveness overnight that spontaneously resolved. Head CT done yesterday showed no acute intracranial pathology. This morning he is alert and oriented 3. He is conversant appropriately. He reports feeling lethargic. At this shortness of breath but states that this is baseline for him and states this is why he is on oxygen. Reports no change in his respiratory status. Denies cough. Nursing staff reports that he had one loose bowel movement overnight however they state that stool was not sent down for C. difficile testing. Currentlyminimal descent to the lab for testing. His Foster catheter was changed yesterday. On examination he is not in any acute distress. He has Poor entry bilaterally however lungs are clear to auscultation. Abdomen is soft and nontender. Trace peripheral edema. Patient is currently growing gram-negative rods in his urine. White cell count is trending downwards. Problems: 1. Sepsis of urologic origin. It is noted that patient has recent Clostridium difficile associated diarrhea 2. Unresponsiveness; query etiology 3. Deep vein thrombosis on anticoagulation with Xarelto. 4. Hydrocephalus status post JIG BORE TOOL MAKER shunt placement. 5. Sinus tachycardia. No ischemic changes on EKG. Plan: -Continue patient on oral vancomycin for recurrent C. difficile associated diarrhea and IV ceftriaxone for urinary tract infection. -Follow-up urine culture identification and sensitivity. Please initial stool sample was sent for C. difficile testing. -Please follow-up with the ID service regarding appropriate antibiotic therapy.
[2017-06-13 08:17] LABS: ABSOLUTE BASOPHIL COUNT 0 /CUMM (0.0-0.2); ABSOLUTE EOSINOPHIL COUNT 0.2 /CUMM (0.0-0.7); ABSOLUTE GRANULOCYTE CT 11.7 /CUMM (1.4-6.5); ABSOLUTE LYMPH COUNT 1.1 /CUMM (1.2-3.4); BASOPHIL % 0 % (0.0-2.0); EOSINOPHIL % 1.1 % (0-5); GRANULOCYTE % 83.5 % (42.2-75.2); MEAN CORPUSCULAR HGB 28.9 PG (27.0-31.0); MEAN CORPUSCULAR HGB CONC 33.8 G/DL (33.0-37.0); MEAN CORPUSCULAR VOLUME 85.7 FL (80.0-94.0); MEAN PLATELET VOLUME 8.9 FL (7.4-10.4); PLATELET COUNT 173 /CUMM (130-400); RBC DISTRIBUTION WIDTH 14.6 % (11.5-14.5); RED BLOOD CELL CT 4.33 /CUMM (4.70-6.10)
[2017-06-13 08:48] LABS: HEMATOCRIT 37.1 % (42-52)
--- NOTE | 2017-06-13 13:20 | PN- Infect Dx ---
Subjective Subjective: T-max 102.8. He feels poorly with complaints of abdominal pain. He apparently had one loose stool overnight, which was not sent for C. difficile, but a stool has been sent this morning. Objective Last 24 Hrs of Vital Signs/I&O Vital Signs Date Time Temp Pulse Resp B/P B/P Pulse O2 O2 Flow FiO2 Mean Ox Delivery Rate 06/13 0835 98.6 06/13 0800 93 Nasal 2.0L Cannula 06/13 0658 100.5 108 18 124/66 94 06/13 0000 94 Nasal 2.0L Cannula 06/12 2138 98.5 108 18 122/68 92 06/12 1600 96 Nasal 2.0L Cannula 06/12 1511 102.8 06/12 1447 102.8 116 18 104/60 99 Room Air 2.0L 06/12 1319 96 Nasal 2.0L Cannula Intake & Output 06/13 1600 06/13 0800 06/13 0000 Intake Total 440 1240 Output Total 900 900 Balance -460 340 Intake, IV 200 620 Intake, Oral 240 620 Number 0 Bowel Movements Output, Urine 900 900 Patient 224 lb Weight Physical Exam Other Physical Findings: He appears in no acute distress Lungs are clear Heart regular rhythm with no murmur Abdomen is distended, tender on palpation, with no guarding or rebound, positive bowel sounds Extremities no cyanosis, clubbing or edema Foster catheter remains in place Results Last 24 Hours of Lab Results: Laboratory Tests 06/13 0719 Chemistry Sodium (137 - 145 mmol/L) 142 Potassium (3.5 - 5.1 mmol/L) 3.7 Chloride (98 - 107 mmol/L) 105 Carbon Dioxide (22 - 30 mmol/L) 27 Anion Gap (5 - 16) 11 BUN (9 - 20 mg/dL) 16 Creatinine (0.7 - 1.2 mg/dL) 0.8 Estimated GFR (>60 ml/min) > 60 BUN/Creatinine Ratio (7 - 25 %) 20.0 Hematology CBC w Diff NO MAN DIFF REQ WBC (4.8 - 10.8 /CUMM) 14.0 H RBC (4.70 - 6.10 /CUMM) 4.33 L Hgb (14.0 - 18.0 G/DL) 12.5 L Hct (42 - 52 %) 37.1 L MCV (80.0 - 94.0 FL) 85.7 MCH (27.0 - 31.0 PG) 28.9 MCHC (33.0 - 37.0 G/DL) 33.8 RDW (11.5 - 14.5 %) 14.6 H Plt Count (130 - 400 /CUMM) 173 MPV (7.4 - 10.4 FL) 8.9 Gran % (42.2 - 75.2 %) 83.5 H Lymphocytes % (20.5 - 51.1 %) 8.1 L Monocytes % (1.7 - 9.3 %) 7.3 Eosinophils % (0 - 5 %) 1.1 Basophils % (0.0 - 2.0 %) 0 Absolute Granulocytes (1.4 - 6.5 /CUMM) 11.7 H Absolute Lymphocytes (1.2 - 3.4 /CUMM) 1.1 L Absolute Monocytes (0.10 - 0.60 /CUMM) 1.0 H Absolute Eosinophils (0.0 - 0.7 /CUMM) 0.2 Absolute Basophils (0.0 - 0.2 /CUMM) 0 Last 24 Hours of Rex Results: Blood cultures 2 June 12 negative Urine culture June 12 greater than 100,000 colonies gram-negative rods Stool C. difficile June 13 pending Assessment/Plan ID Impression: Fevers persist, though his white blood cell count has decreased, on Vancomycin ( both IV and orally), IV Flagyl and Ceftazidime for sepsis of unclear etiology. Most likely sources include the urinary tract, with an indwelling Foster catheter , which has been in chronically, or C. difficile, which has been a recurrent problem, with his last episode 2 months prior to admission representing his third recurrence, with discussion regarding a possible fecal transplant apparently in progress prior to admission. Of note a suprapubic cystostomy has been recommended to this patient on multiple occasions, but he has continued to refuse, as he does now. He has self catheterized in the past but is not clear if this is feasible at this time. Suggestion: 1. Follow-up stool for C. difficile 2. Follow-up recent urine and blood cultures 3. Would pursue alternatives to the Foster catheter, either suprapubic cystostomy or self-catheterization 4. Discontinue IV Vancomycin and Ceftazidime 5. Restart Ceftriaxone 1 g IV every 24 hours pending above 6. Continue p.o. Vancomycin pending above 7. Further management for recurrent C. difficile based on above
[2017-06-13 15:11] VITALS: BP 148/78
--- NOTE | 2017-06-13 19:41 | ELECTROENCEPHALOGRAM REPORT ---
Electroencephalogram Report Electroencephalogram Results Date of service: 06/13/17 Attending MD: Joe Ordoñez MD Cross Roller: Cordelia EEG Number: [id number] Test Utilizes: 10-20 system, 21 lead 18 channel digital recording Pertinent Hx/Physical/Neuro Findings/Clin Diagnosis: Mentally challenged, history of seizures. Inpatient Medications: Current Medications Sig/Елена Start time Last Medication Dose Route Stop Time Status Admin Acetaminophen 650 MG Q6P PRN 06/12 1145 AC 06/12 PO 1511 Ceftazidime 1,000 MG Q8H 06/13 1030 CAN IV Ceftazidime 1,000 MG IQ8 06/12 1600 DC 06/13 IV 0238 Ceftriaxone Sodium 1,000 MG DAILY 06/13 0900 AC 06/13 IV 0824 Divalproex Sodium 250 MG QPM 06/12 2100 AC 06/12 PO 2034 Escitalopram Oxalate 10 MG DAILY 06/13 0900 AC 06/13 PO 0830 Lorazepam 0.5 MG TID 06/12 1400 AC 06/13 PO 05/06 1359 1314 Melatonin 6 MG AT BEDTIME PRN 06/12 2100 AC PO Metronidazole 500 MG Q8H 06/12 1130 DC 06/13 N/A 1 UNIT IV 0258 Multivitamins 1 TAB DAILY 06/13 0900 AC 06/13 Therapeutic PO 0830 Patient Medication 1 ED ONE ONE 06/13 1500 DC Teaching ED 06/13 1501 Potassium Chloride 20 MEQ DAILY 06/13 0900 AC 06/13 PO 0830 Rivaroxaban 20 MG DAILY 06/12 1145 AC 06/13 PO 0830 Sodium Chloride 1,000 ML Q13H 06/12 1145 DC 06/12 IV 06/13 0044 1453 Trazodone HCl 50 MG AT BEDTIME 06/12 2100 AC 06/12 PO 2034 Vancomycin HCl 1,000 MG Q12 06/12 2100 DC 06/13 Sodium Chloride 250 ML IV 0826 Vancomycin HCl 125 MG Q6 06/12 1800 AC 06/13 PO 1749 Interpretation: The recording demonstrates the normal frequency gradient, with faster frequency being up front and slower in the posterior regions. There is good symmetry in both amplitude and rhythms. The background is well formed of beta up front and alpha posteriorly. There are no paroxysmal features. The posterior dominant rhythm is 10 hertz. Impression: Normal EEG recording in the awake state.
[2017-06-13 21:32] VITALS: BP 132/88
[2017-06-14 06:12] VITALS: BP 118/82
--- NOTE | 2017-06-14 07:13 | PN- Housestaff ---
Andrea Beard MD,[facility] 06/14/17 0713: Subjective Follow-up For: UTI r/o C Diff colitis Subjective: Patient visited today, was lying in bed comfortably in no acute distress, was alert and oriented. No fever or chills, no shortness of breathing, no chest pain, no other events. Complained of abdominal pain. Mild tenderness in palpitaion Planned to discharge tomorrow. C Diff is still pending. UC grow hafnia alvei Review of Systems Constitutional: Reports: see HPI. Objective Last 24 Hrs of Vital Signs/I&O Vital Signs Date Time Temp Pulse Resp B/P B/P Pulse O2 O2 Flow FiO2 Mean Ox Delivery Rate 06/14 08 92 Room Air 06/14 0612 99.0 100 20 118/82 92 Room Air 06/13 2132 99.5 104 18 132/88 95 Room Air 06/13 1600 96 Nasal 2.0L Cannula 06/13 1511 98.1 92 18 148/78 95 Nasal Cannula Intake & Output 06/14 1600 06/14 0800 06/14 0000 Intake Total 120 840 Output Total 800 600 Balance -680 240 Intake, Oral 120 840 Output, Urine 800 600 Patient 223 lb Weight Physical Exam General Appearance: Alert, Oriented X3, No Acute Distress Skin Temp/Moisture Exam: Warm/Dry Sepsis Skin Exam (color): Normal for Ethnicity HEENT: Atraumatic, EOMI Cardiovascular: Normal S1, Normal S2 Lungs: Clear to Auscultation, Normal Air Movement Abdomen: midl tenderness, scar of surgery Neurological: Normal Speech, LE no motor, L UE limited motion due to frozen shoulder Current Medications: Current Medications Sig/Елена Start time Last Medication Dose Route Stop Time Status Admin Acetaminophen 650 MG Q6P PRN 06/12 1145 AC 06/12 PO 1511 Ceftriaxone Sodium 1,000 MG DAILY 06/13 09 AC 06/14 IV 0805 Divalproex Sodium 250 MG QPM 06/12 2100 AC 06/13 PO 2238 Escitalopram Oxalate 10 MG DAILY 06/13 09 AC 06/14 PO 0758 Lorazepam 0.5 MG TID 06/12 1400 AC 06/14 PO 06/19 1359 0805 Melatonin 6 MG AT BEDTIME PRN 06/12 2100 AC PO Multivitamins 1 TAB DAILY 06/13 899 AC 06/14 Therapeutic PO 0758 Patient Medication 1 ED ONE ONE 06/13 1500 DC [facility] ED 06/13 1501 Potassium Chloride 20 MEQ DAILY 06/13 0900 AC 06/14 PO 0757 Rivaroxaban 20 MG DAILY 06/12 1145 AC 06/14 PO 0757 Trazodone HCl 50 MG AT BEDTIME 06/12 2100 AC 06/13 PO 2238 Vancomycin HCl 125 MG Q6 06/12 1800 AC 06/14 PO 1143 Last 24 Hrs of Lab/Rex Results Last 24 Hrs of Labs/Mics: Laboratory Tests 06/14/17 0750: Anion Gap 12, Estimated GFR > 60, BUN/Creatinine Ratio 20.0, CBC w Diff NO MAN DIFF REQ, RBC 4.57 L, MCV 85.4, MCH 28.5, MCHC 33.3, RDW 14.8 H, MPV 8.4, Gran % 74.1, Lymphocytes % 12.8 L, Monocytes % 9.7 H, Eosinophils % 3.0, Basophils % 0.4, Absolute Granulocytes 4.0, Absolute Lymphocytes 0.7 L, Absolute Monocytes 0.5, Absolute Eosinophils 0.2, Absolute Basophils 0 Microbiology 06/13 1153 STOOL: Clostridium difficile Toxin A & B - RECD Assessment/Plan Assessment: Patient is a 46 YO M with PMH significant for spina bifida, recurrent UTI with chronic indwelling Torrez catheter, TIA, intellectual disability hypertension, DVT on Xarelto, hydrocephalus with [employer] SAL[employer]OC[employer]ATE shunt, recurrent C. difficile infections is coming to the [facility] with chief complaint of vomiting, abdominal pain, nonspecific chest pain. Vitals in ED are notable for temperature 100.9, Prevacid 124, RR 18, blood pressure 117/65, O2 saturation 95%% on 2 L (baseline), according to the group home patient baseline heart rate is around 90s Labs notable WBC 22.3, lactic acid 2.3, BUN 20, creatinine kinase 33, troponin 0.01, LFTs, lipase, amylase within normal limits UA was positive for many bacteria, positive for nitrate and WBC of 50-75 EKG was notable for sinus tachycardia,123, QTc 435, no acute ST-T elevations CT cehst and abdomen IMPRESSION: 1. There is linear scar/subsegmental atelectasis at the posterior left apex and within the right middle lobe. The latter is seen in association with elevation of the right hemidiaphragm. 2. There is a mosaic perfusion pattern, suggesting small airways or small vessels disease related to infectious or inflammatory etiologies. 3. There are benign, calcified pulmonary granulomas. A 4 mm noncalcified lateral left base nodule is stable to diminished from prior examinations as remote as 03/15/2016. Recommend follow-up via Fleischner Society criteria. According to the UPDATED 2017 Fleischner Society recommendations, the advised follow-up imaging for solid nodules < 6 mm is: LOW RISK PATIENT: No routine follow-up. HIGH RISK PATIENT: Optional CT at 12 months. 4. No sizable mediastinal or hilar adenopathy is seen. 5. Small nonobstructing calculi are seen within the left renal pelvis. No further urinary calculi or hydronephroureter are seen bilaterally. 6. No bowel obstruction, free intraperitoneal air or abscess is seen. There is no appendicitis or diverticulitis. 7. No abdominopelvic mass, free fluid or lymphadenopathy is seen. 8. There are thoracolumbar degenerative changes. A right L5 spondylolysis defect is noted. Assessment Sepsis due to UTI r/o C. difficile History of a spinal bifid History of indwelling Torrez catheter lactic acidosis History of DVT on Xarelto History of abdominal surgery/SBO? 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 difficile toxin - urine GNR hafnia vicenta - change torrez tomorrow befor discharge Full code, heart healthy diet, DVT prophylaxis mechanical and Xarelto, Tylenol for pain Problem List: 1. UTI (urinary tract infection) due to urinary indwelling catheter Pain Ratin Pain Location: abdominal Pain Goal: Pain 4 or less Pain Plan: Continue current plan Tomorrow's Labs & Rationales: None Joe Ordoñez MD 06/14/17 1018: Attending Review Statement Attending Statement Attending MD Statement: examined this patient, discuss w/resident/PA/KNIFEMAN, agreed w/resident/PA/KNIFEMAN, reviewed EMR data (avail), discussed with nursing, discussed with case mgmt, amended to note Attending Assessment/Plan: Patient seen and examined. Resting comfortably not in any acute distress. No issues overnight reported by nursing staff. Is extremely pleasant. Denies shortness of breath or chest pain. Denies cough. Reports that he uses oxygen intermittently at the group home. He is currently maintaining saturation on room air. White count has trended down to normal. He is afebrile. Urine culture report noted. Sensitivities noted. Follow-up with the ID service regarding tailoring antibiotic therapy for his urinary tract infection. Stool has been sent for C. difficile testing. Results are still pending. Continue oral vancomycin for now. Anticipate discharging patient in the next 24 hours if he remains clinically stable. Repeat serum chemistry in a.m. only if there is a change in his clinical status.
[2017-06-14 08:29] LABS: ABSOLUTE BASOPHIL COUNT 0 /CUMM (0.0-0.2); ABSOLUTE EOSINOPHIL COUNT 0.2 /CUMM (0.0-0.7); ABSOLUTE LYMPH COUNT 0.7 /CUMM (1.2-3.4); ABSOLUTE MONOCYTE COUNT 0.5 /CUMM (0.10-0.60); BASOPHIL % 0.4 % (0.0-2.0); GRANULOCYTE % 74.1 % (42.2-75.2); MEAN CORPUSCULAR HGB 28.5 PG (27.0-31.0); MEAN CORPUSCULAR HGB CONC 33.3 G/DL (33.0-37.0); MEAN CORPUSCULAR VOLUME 85.4 FL (80.0-94.0); MEAN PLATELET VOLUME 8.4 FL (7.4-10.4); PLATELET COUNT 163 /CUMM (130-400); RBC DISTRIBUTION WIDTH 14.8 % (11.5-14.5); RED BLOOD CELL CT 4.57 /CUMM (4.70-6.10)
[2017-06-14 08:52] LABS: WHITE BLOOD CELL COUNT 5.4 /CUMM (4.8-10.8)
--- NOTE | 2017-06-14 10:44 | Discharge Summary ---
Visit Information Visit Dates Admission Date: 06/12/17 Discharge Date: 06/15/17 Hospital Course Course Attending Physician: Joe Ordoñez MD Primary Care Physician: Darrell Whitmore MD Hospital Course: Patient was a 46 YO M presented with vomiting, abdominal pain, nonspecific chest pain PMH: spina bifida, recurrent UTI with chronic indwelling Foster catheter, TIA, intellectual disability hypertension, DVT on Xarelto, hydrocephalus with GUM WORKER shunt, recurrent C. difficile infections VS, Ph Ex at admission: temperature 100.9, OK 124, RR 18, blood pressure 117/65, O2 saturation 95%% on 2 L (baseline), according to the senior living patient baseline heart rate is around 90s Labs at admission: WBC 22.3, lactic acid 2.3, BUN 20, creatinine kinase 33, troponin 0.01, LFTs, lipase, amylase within normal limits UA was positive for many bacteria, positive for nitrate and WBC of 50-75 Imagings at admission: CT chest and abdomen 1. There is linear scar/subsegmental atelectasis at the posterior left apex and within the right middle lobe. The latter is seen in association with elevation of the right hemidiaphragm. 2. There is a mosaic perfusion pattern, suggesting small airways or small vessels disease related to infectious or inflammatory etiologies. 3. There are benign, calcified pulmonary granulomas. A 4 mm noncalcified lateral left base nodule is stable to diminished from prior examinations as remote as 03/15/2016. Recommend follow-up via Fleischner Society criteria. According to the UPDATED 2017 Fleischner Society recommendations, the advised follow-up imaging for solid nodules < 6 mm is: LOW RISK PATIENT: No routine follow-up. HIGH RISK PATIENT: Optional CT at 12 months. 4. No sizable mediastinal or hilar adenopathy is seen. 5. Small nonobstructing calculi are seen within the left renal pelvis. No further urinary calculi or hydronephroureter are seen bilaterally. 6. No bowel obstruction, free intraperitoneal air or abscess is seen. There is no appendicitis or diverticulitis. 7. No abdominopelvic mass, free fluid or lymphadenopathy is seen. 8. There are thoracolumbar degenerative changes. A right L5 spondylolysis defect is noted. Was admitted to general medicine floor for management of following conditions: Sepsis due to UTI, indwelling Foster catheter Patient received broad spectrum antibiotics initially. Foster catheter was changed. Antibiotics was then narrowed to IV ceftriaxone. A medical condition improved and was is stable. Urine culture revealed Hafnia Alvei and proteos. It was decided to continue PO antibiotics for 10 more days with olal Cefixime. Foster cath was removed. Patient agreed for straight cath protocol every 4-6 hours to continue in nursing facility. R/o C. difficile colitis Patient has history of recurrent Clostridium difficile infections and was a candidate for fecal transplant. By mouth vancomycin was initiated considering patient's history. C. difficile toxin test was negative. Patient needes to follow for outpatietn fecal transplant management. Chronic medical conditions spinal bifid, DVT on Xarelto, HTN We continued home medication of trazodone, Depakote, Lorazepam,xeralto Full code, heart healthy diet, DVT prophylaxis mechanical and Xarelto Patient was stable to be discharged pending ID approval. Allergies: Coded Allergies: latex (UNKNOWN 02/03/17) Disposition Summary Disposition Principal Diagnosis: UTI, sepsis Additional Diagnosis: Rule out C. difficile colitis Chronic medical conditions Discharge Disposition: SNF Discharge Instructions General Discharge Information Code Status: Full Code Patient's Diet: Hear healthy diet Patient's Activity: bed bound Follow-Up Instructions/Appts: Please follow with your PCP within 1 week of discharge. Please follow regarding C. difficile colitis treatment the/fecal transplant. Foster cath removed, patient needs assistance for straight cath protocol every 6- 4 hours. Patient needs to complete 10 day course of oral Suprax treatment. Medications at Discharge Discharge Medications: Continue taking these medications: Furosemide (Furosemide) 20 MG TABLET 1 Tablet ORAL DAILY Comments: NOT GIVEN IN HOSPITAL Divalproex Sodium (Depakote) 250 MG TABLET.DR 250 Milligram ORAL Every night Comments: Last Taken:06/14/17 Time:10:22 PM Acetaminophen (Acetaminophen) 325 MG TABLET 2 Tablet ORAL Q6H as needed for PAIN/TEMP>/100 Comments: Last Taken: 02/11/17 Time: 021 Rivaroxaban (Xarelto) 20 MG TABLET 1 Tablet ORAL Every night Instructions: with food Comments: Last Taken: 06/15/17 Time: 10:35 AM Potassium Chloride (K-Tab ER) 20 MEQ TABLET.ER 1 Tablet ORAL DAILY Comments: Last Taken:06/15/17 Time:10:35 AM Acetaminophen (Acephen) 650 MG SUPP.RECT 1 SUPPOSITORY RECTALLY Q6H as needed for PAIN/TEMP>100 Comments: Last Taken:06/14/17 Time:7:30 PM Bisacodyl (Bisacodyl) 10 MG SUPP.RECT 1 Suppository RECTAL as needed for CONSTIPATION Comments: NOT GIVEN AT HOSPITAL Na Phos,M-B/Na Phos,Di-Ba (Fleet Enema) 19 GRAM-7 GRAM/118 ML ENEMA 1 Enema RECTAL DAILY as needed for CONSTIPATION Comments: NOT GIVEN AT HOSPITAL Magnesium Hydroxide (Milk Of Magnesia) 400 MG/5 ML ORAL.SUSP 30 Milliliters ORAL DAILY as needed for CONSTIPATION Comments: NOT GIVEN AT HOSPITAL Lorazepam (Ativan) 0.5 MG TABLET 1 Tablet ORAL THREE TIMES DAILY Instructions: 9 AM 2 PM 8 PM Comments: Last Taken:06/15/17 Time:2:00 PM Trazodone HCl (Trazodone HCl) 50 MG TABLET 1 Tablet ORAL TAKE AT BEDTIME Comments: Last Taken:06/14/17 Time:10:22 PM Melatonin (Melatonin) 3 MG TABLET 6 Milligram ORAL TAKE AT BEDTIME as needed for INSOMNIA Comments: NOT GIVEN AT HOSPITAL Temazepam (Temazepam) 7.5 MG CAPSULE 1 Capsule ORAL TAKE AT BEDTIME as needed for SLEEP Comments: NOT GIVEN AT HOSPITAL Multiple Vitamin (Multivitamins) 1 EACH TABLET 1 Tablet ORAL DAILY Comments: Last Taken:06/15/17 Time:10:34 AM Escitalopram Oxalate (Lexapro) 10 MG TABLET 10 Milligram ORAL DAILY Qty = 30 Comments: Last Taken:06/15/17 Time:10:35 AM Saccharomyces Boulardii (Florastor) 250 MG CAPSULE 1 Tablet ORAL TWICE DAILY Start taking the following new medications: Cefixime (Suprax) 400 MG CAPSULE 1 Capsule ORAL DAILY Qty = 10 No Refills Copies To: Myranda CACERES,Darrell Morton MD Review Statement Documenting Attending: Joe Ordoñez MD Other Findings: Medically stable to be discharged today.
[2017-06-14 14:51] VITALS: BP 122/84
--- NOTE | 2017-06-14 16:45 | Discharge Summary ---
Hospital Course Allergies: Coded Allergies: latex (UNKNOWN 02/03/17)
[2017-06-14 22:00] VITALS: BP 120/84
[2017-06-15 06:22] VITALS: BP 112/84
--- NOTE | 2017-06-15 07:07 | PN- Housestaff ---
Andrea Beard MD,[facility] 06/15/17 0707: Subjective Follow-up For: UTI Rule out C. difficile Subjective: Patient visited today, was lying in bed in no acute distress, saturating well in room air was alert and oriented. No fever or chills, no shortness of breathing, no chest pain, no other events. Patient was again complaining of abdominal pain. Inconsistent tenderness in examination. Patient noted it is his preference to stay in the hospital. Planned to discharge today pending infectious disease recommendation. C Diff negative. UC grow hafnia alvei and proteus. Patient will be discharged on PO Suprax today. Review of Systems Constitutional: Reports: see HPI. Objective Last 24 Hrs of Vital Signs/I&O Vital Signs Date Time Temp Pulse Resp B/P B/P Pulse O2 O2 Flow FiO2 Mean Ox Delivery Rate 06/15 0622 97.8 89 20 112/84 95 / 0000 Room Air 06/14 2200 98.3 96 20 120/84 93 Room Air 06/14 1600 93 Room Air 06/14 1451 98.3 95 20 122/84 93 Room Air 06/14 0800 92 Room Air Intake & Output 06/15 0800 / 0000 01 1600 Intake Total 240 120 970 Output Total 200 600 900 Balance 40 -480 70 Intake, IV 10 Intake, Oral 240 120 960 Number 3 1 Bowel Movements Output, Urine 200 600 900 Patient 219 lb Weight Physical Exam General Appearance: Alert, Oriented X3, No Acute Distress Skin Temp/Moisture Exam: Warm/Dry Sepsis Skin Exam (color): Normal for Ethnicity HEENT: Atraumatic, EOMI Cardiovascular: Normal S1, Normal S2 Lungs: Normal Air Movement Abdomen: Soft, generalized tenderness, inconsistent of location, could be precipitated even with light touch Neurological: Normal Speech, 1 no change compared to yesterday, lower extremities no motor, left upper extremity shoulder limited motion Extremities: No Edema Current Medications: Current Medications Sig/Елена Start time Last Medication Dose Route Stop Time Status Admin Acetaminophen 650 MG .STK-MED ONE 06/14 1930 DC PO 06/15 1931 Acetaminophen 650 MG Q6P PRN 06/12 1145 AC 06/14 PO 1931 Ceftriaxone Sodium 1,000 MG DAILY 06/13 0900 AC 06/14 IV 08 Divalproex Sodium 250 MG QPM 06/12 2100 AC 06/14 PO 2021 Escitalopram Oxalate 10 MG DAILY 06/13 09 AC 06/14 PO 0758 Lorazepam 0.5 MG TID 06/12 1400 AC 06/14 PO 06/199 2021 Melatonin 6 MG AT BEDTIME PRN 06/12 2100 AC PO Multivitamins 1 TAB DAILY 06/13 0900 AC 06/14 Therapeutic PO 0758 Potassium Chloride 20 MEQ DAILY 06/13 09 AC 06/14 PO 075 Rivaroxaban 20 MG DAILY 06/12 1145 AC 06/14 PO 075 Trazodone HCl 50 MG AT BEDTIME 06/12 2100 AC 06/14 PO 2021 Vancomycin HCl 125 MG Q6 06/12 1800 AC 06/15 PO 05 Last 24 Hrs of Lab/Rex Results Last 24 Hrs of Labs/Mics: Laboratory Tests 06/14/17 0750: Anion Gap 12, Estimated GFR > 60, BUN/Creatinine Ratio 20.0, CBC w Diff NO MAN DIFF REQ, RBC 4.57 L, MCV 85.4, MCH 28.5, MCHC 33.3, RDW 14.8 H, MPV 8.4, Gran % 74.1, Lymphocytes % 12.8 L, Monocytes % 9.7 H, Eosinophils % 3.0, Basophils % 0.4, Absolute Granulocytes 4.0, Absolute Lymphocytes 0.7 L, Absolute Monocytes 0.5, Absolute Eosinophils 0.2, Absolute Basophils 0 Assessment/Plan Assessment: Patient was a 46 YO M presented with vomiting, abdominal pain, nonspecific chest pain PMH: spina bifida, 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 difficile infections VS, Ph Ex at admission: temperature 100.9, IL 124, RR 18, blood pressure 117/65, O2 saturation 95%% on 2 L (baseline), according to the shelter patient baseline heart rate is around 90s Labs at admission: WBC 22.3, lactic acid 2.3, BUN 20, creatinine kinase 33, troponin 0.01, LFTs, lipase, amylase within normal limits UA was positive for many bacteria, positive for nitrate and WBC of 50-75 Imagings at admission: CT chest and abdomen 1. There is linear scar/subsegmental atelectasis at the posterior left apex and within the right middle lobe. The latter is seen in association with elevation of the right hemidiaphragm. 2. There is a mosaic perfusion pattern, suggesting small airways or small vessels disease related to infectious or inflammatory etiologies. 3. There are benign, calcified pulmonary granulomas. A 4 mm noncalcified lateral left base nodule is stable to diminished from prior examinations as remote as 03/15/2016. Recommend follow-up via Fleischner Society criteria. According to the UPDATED 2017 Fleischner Society recommendations, the advised follow-up imaging for solid nodules < 6 mm is: LOW RISK PATIENT: No routine follow-up. HIGH RISK PATIENT: Optional CT at 12 months. 4. No sizable mediastinal or hilar adenopathy is seen. 5. Small nonobstructing calculi are seen within the left renal pelvis. No further urinary calculi or hydronephroureter are seen bilaterally. 6. No bowel obstruction, free intraperitoneal air or abscess is seen. There is no appendicitis or diverticulitis. 7. No abdominopelvic mass, free fluid or lymphadenopathy is seen. 8. There are thoracolumbar degenerative changes. A right L5 spondylolysis defect is noted. Was admitted to general medicine floor for management of following conditions: Sepsis due to UTI, indwelling Foster catheter Patient received broad spectrum antibiotics initially. Foster catheter was changed. Antibiotics was then narrowed to IV ceftriaxone. A medical condition improved and was is stable. Urine culture revealed Hafnia Alvei and proteos. It was decided to continue PO antibiotics for 10 more days with olal Cefixime. Foster cath was removed. Patient agreed for straight cath protocol every 4-6 hours to continue in nursing facility. R/o C. difficile colitis Patient has history of recurrent Clostridium difficile infections and was a candidate for fecal transplant. By mouth vancomycin was initiated considering patient's history. C. difficile toxin test was negative. Patient needes to follow for outpatietn fecal transplant management. Chronic medical conditions spinal bifid, DVT on Xarelto, HTN We continued home medication of trazodone, Depakote, Lorazepam,xeralto Patient was discharged with instructions for straight cath, and recommendation to complete suprax Problem List: 1. UTI (urinary tract infection) due to urinary indwelling catheter Pain Ratin Pain Location: abdominal chronic Pain Goal: Pain 4 or less Pain Plan: Patient had no complaints when distracted Tomorrow's Labs & Rationales: None Smita CACERESFranchescajose roberto 06/15/17 1131: Attending MD Review Statement Attending Statement Attending MD Statement: examined this patient, discuss w/resident/PA/TOLL PATROLMAN, agreed w/resident/PA/TOLL PATROLMAN, reviewed EMR data (avail), discussed with nursing, discussed with case mgmt, amended to note Attending Assessment/Plan: Patient seen and examined. Resting comfortably not in any acute distress. No issues overnight reported by nursing staff. He is afebrile hemodynamically stable. White cell count has trended down to normal. We discussed with the patient that he will be discharged today initially complained of abdominal discomfort. Examination abdomen is soft and nontender with normal bowel sounds. Patient later stated he would like to stay for several more days just to ensure that his infection does not recur in the future. I did explain to the patient that as long as his indwelling Foster catheter is in place he another infection in the future. Does have a likelihood of he is supposed to intermittent catheterization or suprapubic catheter placement. He verbalizes clear understanding. I have recommended close outpatient follow-up for which he is in agreement. We will follow-up with ID service today regarding aquatic therapy and duration of treatment of the retention may be discharged back to his residential facility today.
--- NOTE | 2017-06-15 08:03 | Patient Discharge Instructions ---
Discharge Instructions General Discharge Information You were seen/treated for: UTI Watch for these problems: Severe weakness, fever, chills, shortness of breathing, diarrhea, or worsening of any other symptoms Special Instructions: Please follow with your PCP within one week of discharge. Please complete the course of antibiotics. Please follow regarding treatment for your Clostridium difficile infection/fecal transplant. Please continue the straight cath protocol every 4-6 hours. Diet Continue normal diet: No Recommended Diet: Heart Healthy Activity Full Activity/No Limits: No Activity Self Limited: Yes (bed bound) Acute Coronary Syndrome Inclusion Criteria At DC or during hospital stay patient has or had the following: ACS DIAGNOSIS No Discharge Core Measures Meds if any: Prescribed or Continued at Discharge Meds if any: NOT Prescribed or Continued at Discharge Congestive Heart Failure Inclusion Criteria At DC or during hospital stay patient has or had the following: CHF DIAGNOSIS No Discharge Core Measures Meds if any: Prescribed or Continued at Discharge Meds if any: NOT Prescribed or Continued at Discharge Cerebrovascular accident Inclusion Criteria At DC or during hospital stay patient has or had the following: CVA/TIA Diagnosis No Discharge Core Measures Meds if any: Prescribed or Continued at Discharge Meds if any: NOT Prescribed or Continued at Discharge Venous thromboembolism Inclusion Criteria VTE Diagnosis No VTE Type NONE VTE Confirmed by (Test) NONE Discharge Core Measures - Per Current guidelines, there needs to be overlap - treatment for the first 5 days of Warfarin therapy. - If discharged on Warfarin prior to 5 days of - overlap therapy, the patient will need to be - assessed for post discharge needs including - *Post discharge parental anticoagulation - *Warfarin and/or parental anticoagulation education - *Follow up date to check INR post discharge At least 5 days overlap therapy as Inpatient No Meds if any: Prescribed or Continued at Discharge Note: Overlap Therapy is Warfarin and Anticoagulant Meds if any: NOT Prescribed or Continued at Discharge
--- NOTE | 2017-06-15 13:13 | PN- Infect Dx ---
Subjective Subjective: Afebrile. He continues to complain of abdominal discomfort. Objective Last 24 Hrs of Vital Signs/I&O Vital Signs Date Time Temp Pulse Resp B/P B/P Pulse O2 O2 Flow FiO2 Mean Ox Delivery Rate 06/15 06 97.8 89 20 112/84 95 05/ 0000 Room Air 06/14 2200 98.3 96 20 120/84 93 Room Air 06/14 1600 93 Room Air 06/14 1451 98.3 95 20 122/84 93 Room Air Intake & Output 06/15 1600 06/15 0800 06/15 0000 Intake Total 240 120 Output Total 200 600 Balance 40 -480 Intake, Oral 240 120 Number 3 Bowel Movements Output, Urine 200 600 Patient 219 lb Weight Physical Exam Other Physical Findings: He appears comfortable in no acute distress Lungs are clear Heart regular rhythm with no murmur Abdomen is obese, distended, tender on palpation in the mid abdomen, with no guarding or rebound, positive bowel sounds Extremities no cyanosis, clubbing or edema Foster catheter remains in place Results Last 24 Hours of Lab Results: Laboratory Tests 06/14 0750 Chemistry Sodium (137 - 145 mmol/L) 140 Potassium (3.5 - 5.1 mmol/L) 3.9 Chloride (98 - 107 mmol/L) 102 Carbon Dioxide (22 - 30 mmol/L) 26 Anion Gap (5 - 16) 12 BUN (9 - 20 mg/dL) 14 Creatinine (0.7 - 1.2 mg/dL) 0.7 Estimated GFR (>60 ml/min) > 60 BUN/Creatinine Ratio (7 - 25 %) 20.0 Hematology CBC w Diff NO MAN DIFF REQ WBC (4.8 - 10.8 /CUMM) 5.4 RBC (4.70 - 6.10 /CUMM) 4.57 L Hgb (14.0 - 18.0 G/DL) 13.0 L Hct (42 - 52 %) 39.0 L MCV (80.0 - 94.0 FL) 85.4 MCH (27.0 - 31.0 PG) 28.5 MCHC (33.0 - 37.0 G/DL) 33.3 RDW (11.5 - 14.5 %) 14.8 H Plt Count (130 - 400 /CUMM) 163 MPV (7.4 - 10.4 FL) 8.4 Gran % (42.2 - 75.2 %) 74.1 Lymphocytes % (20.5 - 51.1 %) 12.8 L Monocytes % (1.7 - 9.3 %) 9.7 H Eosinophils % (0 - 5 %) 3.0 Basophils % (0.0 - 2.0 %) 0.4 Absolute Granulocytes (1.4 - 6.5 /CUMM) 4.0 Absolute Lymphocytes (1.2 - 3.4 /CUMM) 0.7 L Absolute Monocytes (0.10 - 0.60 /CUMM) 0.5 Absolute Eosinophils (0.0 - 0.7 /CUMM) 0.2 Absolute Basophils (0.0 - 0.2 /CUMM) 0 Last 24 Hours of Rex Results: Urine culture June 12 approximately 100,000 colonies of Hafnia alvei sensitive to Ceftriaxone, Ciprofloxacin and Bactrim and Proteus mirabilis sensitive to Ampicillin, Cefazolin, Ceftriaxone and Unasyn Blood cultures 2 June 12 negative Stool C. difficile June 13 negative Assessment/Plan ID Impression: Improved, with temperatures and white blood cell count now normal, on Ceftriaxone, Day 4 of treatment, for presumed sepsis of urological origin secondary to the Foster catheter, with his urine culture positive for both Hafnia alvei and Proteus. Though these organisms were not tested to Cefixime, they are both sensitive to Ceftriaxone; therefore this oral third-generation should be effective. His stools C. difficile was negative and he has had no diarrhea since admission, making a recurrence of C. difficile unlikely, though he is clearly at increased risk for this now that he is back on antibiotics. Of note a suprapubic cystostomy has been recommended to this patient on multiple occasions, but he has continued to refuse this. He is amenable to straight catheterization, which could either be done by himself, if feasible, or by the staff at the senior care. Suggestion: 1. Remove Foster catheter 2. Initiate straight cath protocol (every 6 or 8 hours) 3. Discontinue Ceftriaxone 4. Begin Cefixime 400 mg p.o. every 24 hours for 10 days
[2017-06-15] MEDS ORDERED: SUPRAX400 M2 PO (13:54)
[2017-06-15 14:55] VITALS: BP 122/70
[2017-06-15 15:34] VITALS: BP 122/70
== END 2017-06-15 17:12 | DRG 698 ==
LOC: ERH 05:21 → 2NB 09:13 → ERHI 09:13 → ENRESERV 10:47 → ENTRNSPT 11:20 → EDTRNSPT 11:31 → EDTRNSPTSTS 11:31 → EDTRNSPT 11:33 → 2NB 11:47 → CMPTRNSPT 12:01 → ENPENDDIS 06-14 10:50 → EDPENDDISTM 06-14 14:03 → 2NB 06-15 07:27
PROVIDERS: Internal Medicine; Pediatrics; Radiology Vascular & Interventional Radiology
DX: T83.511A Infection and inflammatory reaction due to indwelling urethral catheter, initial encounter (principal); A41.9 Sepsis, unspecified organism; Q05.4 Unspecified spina bifida with hydrocephalus; B96.89 Other specified bacterial agents as the cause of diseases classified elsewhere; F79 Unspecified intellectual disabilities; Q05.9 Spina bifida, unspecified; Z86.73 Personal history of transient ischemic attack (TIA), and cerebral infarction without residual deficits; Z86.718 Personal history of other venous thrombosis and embolism; Z79.01 Long term (current) use of anticoagulants; Z98.2 Presence of cerebrospinal fluid drainage device
CPT/HCPCS: 2NBP; 36415; 36592; 71045; 74176; 81001; 82436; 87040; 87070; 87086; 87804; 87804-59; 93005; 93010; 95816; 96374; 99291; J0131; J0696; J0713; J2765; J3370; J3490; J7040